=== PATIENT | male | born 1970 | race Caucasian/White ===

== ENCOUNTER 2016-08-07 13:06 | Inpatient (IN) | payer MEDICARE, OTHER ==
[2016-08-07] VITALS (7 sets, daily range): BP systolic 148–174; BP diastolic 95–112; PULSE 93–107; RESP 20–26; TEMP 97.4–98.2; O2SAT 93–100
[~2016-08-07] VITALS: Ht 177.8 cm; Wt 93.8 kg
[~2016-08-07 13:06] MED LIST: CYCL-36 PO; IBUP-232 PO
--- NOTE | 2016-08-07 14:23 | PD ---
HPI Chief Complaint: Edema Time Seen by Provider: 14:14 Travel History International Travel<30 days: No Contact w/Intl Traveler<30days: No Traveled to known affect area: No History of Present Illness HPI The patient is a 46-year-old male who presents to the emergency department for shortness of breath. Patient is a 2 to three-week history of progressing symptoms including lower extremity edema, scrotal swelling, abdominal bloating, and shortness of breath. The patient states his shortness of breath is worse with lying supine as well as exertion. The patient does note orthopnea with difficulty sleeping at night. He also complains of edema to the scrotum which has slightly improved. The patient denies any known history of congestive heart failure, pulmonary embolism, coronary artery disease , DVT, or liver disease. The patient denies any previous history of ascites. The patient does not currently have a primary physician. Symptoms are moderate , exacerbated possibly by increased sodium intake over the last several weeks at [facility], and there are no current alleviating factors. PFSH Past Medical History Diminished Hearing: No Past Surgical History Other Surgery: Yes (SKIN GRAFTS) Social History Alcohol Use: Yes (OCC) Tobacco Use: No Substance Use: Yes (marijuana) Allergies-Medications (Allergen,Severity, Reaction): Coded Allergies: Darvocet-N 100 (Verified Allergy, Severe, HEADACHE, 08/07/16) Reported Meds & Prescriptions Reported Meds & Active Scripts Active Motrin (Ibuprofen) 600 Mg Tab 600 Mg PO QID GIVE WITH FOOD Flexeril (Cyclobenzaprine HCl) 10 Mg Tab 10 Mg PO HS PRN Review of Systems Except as stated in HPI: all other systems reviewed are Neg General / Constitutional: No: Fever Cardiovascular: Positive: Dyspnea on exertion, No: Chest Pain or Discomfort Respiratory: Positive: Shortness of Breath, Orthopnea Gastrointestinal: No: Nausea, Vomiting, Abdominal Pain Genitourinary: Positive: Decreased Urinary Output Musculoskeletal: Positive: Edema Physical Exam Narrative GENERAL: Awake, alert, pleasant 46-year-old male who appears his stated age and is in mild respiratory distress. SKIN: Focused skin assessment warm/dry. HEAD: Atraumatic. Normocephalic. EYES: Pupils equal and round. No scleral icterus. No injection or drainage. ENT: No nasal bleeding or discharge. Mucous membranes pink and moist. NECK: Trachea midline. No JVD. CARDIOVASCULAR: Regular, tachycardic with a heart rate 110. RESPIRATORY: Mild tachypnea with a respiratory rate of 24. Diminished breath sounds in the bases with expiratory wheezes and scattered rhonchi. GASTROINTESTINAL: Abdomen slightly distended. Genitourinary: Edematous scrotum. Circumcised phallus. MUSCULOSKELETAL: Bilateral lower extremity pitting edema from the ankles to the knees. NEUROLOGICAL: Awake and alert. No obvious cranial nerve deficits. Motor grossly within normal limits. Normal speech. PSYCHIATRIC: Appropriate mood and affect; insight and judgment normal. Data Data Last Documented VS Vital Signs Date Time Temp Pulse Resp B/P Pulse Ox O2 Delivery O2 Flow Rate FiO2 08/07/16 14:18 106 26 152/105 97 08/07/16 13:08 97.4 Room Air Orders Complete Blood Count With Diff (08/07/16 14:18) Comprehensive Metabolic Panel (08/07/16 14:18) B-Type Natriuretic Peptide (08/07/16 14:18) Act Partial Throm Time (Ptt) (08/07/16 14:18) Prothrombin Time / Inr (Pt) (08/07/16 14:18) Magnesium (Mg) (08/07/16 14:18) Ckmb (Isoenzyme) Profile (08/07/16 14:18) Troponin I (08/07/16 14:18) Urinalysis - C+S If Indicated (08/07/16 14:18) Iv Access Insert/Monitor (08/07/16 14:18) Electrocardiogram (08/07/16 14:18) Ecg Monitoring (08/07/16 14:18) Oximetry (08/07/16 14:18) Oxygen Administration (08/07/16 14:18) Chest, Single Ap (08/07/16 14:18) Sodium Chloride 0.9% Flush (Ns Flush) (08/07/16 14:30) Furosemide Inj (Lasix Inj) (08/07/16 14:30) Albuterol-Ipratropium Neb (Duoneb Neb) (08/07/16 14:30) CKMB (08/07/16 14:20) CKMB% (08/07/16 14:20) Aspirin Chew (Aspirin Chew) (08/08/16 09:00) Aspirin Chew (Aspirin Chew) (08/07/16 15:21) Heparin Infusion SUJATHA.Q1H (08/07/16 15:21) Heparin Inj (Heparin Inj) (08/07/16 15:30) Heparin Inj (Heparin Inj) (08/07/16 21:30) Heparin Inj (Heparin Inj) (08/07/16 21:30) Heparin-D5w Inj (Heparin-D5w Inj) (08/07/16 15:30) Cbc No Diff, Includes Plts (08/10/16 06:00) Act Partial Throm Time (Ptt) (08/07/16 22:21) Occult Blood (Hemoccult) Stool (08/07/16 15:21) Aspirin Chew (Aspirin Chew) (08/07/16 15:30) Admit Order (Ed Use Only) (08/07/16 15:24) Labs Laboratory Tests Test 08/07/16 14:20 White Blood Count 9.9 TH/MM3 Red Blood Count 4.51 MIL/MM3 Hemoglobin 12.8 GM/DL Hematocrit 38.9 % Mean Corpuscular Volume 86.2 FL Mean Corpuscular Hemoglobin 28.4 PG Mean Corpuscular Hemoglobin 32.9 % Concent Red Cell Distribution Width 16.2 % Platelet Count 264 TH/MM3 Mean Platelet Volume 8.4 FL Neutrophils (%) (Auto) 73.3 % Lymphocytes (%) (Auto) 12.1 % Monocytes (%) (Auto) 11.8 % Eosinophils (%) (Auto) 1.0 % Basophils (%) (Auto) 1.8 % Neutrophils # (Auto) 7.2 TH/MM3 Lymphocytes # (Auto) 1.2 TH/MM3 Monocytes # (Auto) 1.2 TH/MM3 Eosinophils # (Auto) 0.1 TH/MM3 Basophils # (Auto) 0.2 TH/MM3 CBC Comment AUTO DIFF Differential Total Cells 100 Counted Neutrophils % (Manual) 65 % Band Neutrophils % 9 % Lymphocytes % 18 % Monocytes % 4 % Eosinophils % 3 % Basophils % 1 % Neutrophils # (Manual) 7.3 TH/MM3 Differential Comment FINAL DIFF MANUAL Toxic Vacuolation PRESENT Platelet Estimate NORMAL Platelet Morphology Comment NORMAL Ovalocytes 1+ Keratocytes OCC Prothrombin Time 13.4 SEC Prothromb Time International 1.2 RATIO Ratio Activated Partial 26.1 SEC Thromboplast Time Urine Color LIGHT-YELLOW Urine Turbidity CLEAR Urine pH 6.0 Urine Specific [place] 1.006 Urine Protein 100 mg/dL Urine Glucose (UA) NEG mg/dL Urine Ketones NEG mg/dL Urine Occult Blood NEG Urine Nitrite NEG Urine Bilirubin NEG Urine Urobilinogen LESS THAN 2.0 MG/DL Urine Leukocyte Esterase NEG Urine WBC LESS THAN 1 /hpf Microscopic Urinalysis Comment CULT NOT INDICATED Sodium Level 142 MEQ/L Potassium Level 3.8 MEQ/L Chloride Level 108 MEQ/L Carbon Dioxide Level 26.4 MEQ/L Anion Gap 8 MEQ/L Blood Urea Nitrogen 18 MG/DL Creatinine 1.47 MG/DL Estimat Glomerular Filtration 51 ML/MIN Rate Random Glucose 107 MG/DL Calcium Level 8.3 MG/DL Magnesium Level 1.7 MG/DL Total Bilirubin 1.3 MG/DL Aspartate Amino Transf 47 U/L (AST/SGOT) Alanine Aminotransferase 27 U/L (ALT/SGPT) Alkaline Phosphatase 106 U/L Total Creatine Kinase 225 U/L Creatine Kinase MB 5.6 NG/ML Troponin I 2.91 NG/ML B-Type Natriuretic Peptide 993 PG/ML Total Protein 6.3 GM/DL Albumin 2.8 GM/DL Triglycerides Level 73 MG/DL Cholesterol Level 131 MG/DL LDL Cholesterol 85 MG/DL HDL Cholesterol 31.8 MG/DL Cholesterol/HDL Ratio 4.11 RATIO Thyroid Stimulating Hormone 2.170 uIU/ML 3rd Gen [facility] Medical Decision Making Medical Screen Exam Complete: Yes Emergency Medical Condition: Yes Medical Record Reviewed: Yes Interpretation(s) EKG reveals normal sinus rhythm with a rate in 97. The patient has Q waves noted in lead V1, V2, V3, and V4. Late transition in V5. Inverted T waves noted in lead 1 and aVL. Laboratory Tests Test 08/07/16 14:20 White Blood Count 9.9 TH/MM3 Red Blood Count 4.51 MIL/MM3 Hemoglobin 12.8 GM/DL Hematocrit 38.9 % Mean Corpuscular Volume 86.2 FL Mean Corpuscular Hemoglobin 28.4 PG Mean Corpuscular Hemoglobin 32.9 % Concent Red Cell Distribution Width 16.2 % Platelet Count 264 TH/MM3 Mean Platelet Volume 8.4 FL Neutrophils (%) (Auto) 73.3 % Lymphocytes (%) (Auto) 12.1 % Monocytes (%) (Auto) 11.8 % Eosinophils (%) (Auto) 1.0 % Basophils (%) (Auto) 1.8 % Neutrophils # (Auto) 7.2 TH/MM3 Lymphocytes # (Auto) 1.2 TH/MM3 Monocytes # (Auto) 1.2 TH/MM3 Eosinophils # (Auto) 0.1 TH/MM3 Basophils # (Auto) 0.2 TH/MM3 CBC Comment AUTO DIFF Prothrombin Time 13.4 SEC Prothromb Time International 1.2 RATIO Ratio Activated Partial 26.1 SEC Thromboplast Time Sodium Level 142 MEQ/L Potassium Level 3.8 MEQ/L Chloride Level 108 MEQ/L Carbon Dioxide Level 26.4 MEQ/L Anion Gap 8 MEQ/L Blood Urea Nitrogen 18 MG/DL Creatinine 1.47 MG/DL Estimat Glomerular Filtration 51 ML/MIN Rate Random Glucose 107 MG/DL Calcium Level 8.3 MG/DL Magnesium Level 1.7 MG/DL Total Bilirubin 1.3 MG/DL Aspartate Amino Transf 47 U/L (AST/SGOT) Alanine Aminotransferase 27 U/L (ALT/SGPT) Alkaline Phosphatase 106 U/L Total Creatine Kinase 225 U/L Troponin I 2.91 NG/ML B-Type Natriuretic Peptide 993 PG/ML Total Protein 6.3 GM/DL Albumin 2.8 GM/DL Chest x-ray reveals cardiomegaly. No acute cardiopulmonary disease. Differential Diagnosis Differential diagnosis includes ascites, hypoalbuminemia, hyponatremia, fluid overload, congestive heart failure, cardiomyopathy, anasarca. Narrative Course IV was established, labs are drawn and sent, and the patient was placed on cardiac telemetry monitoring and continuous pulse oximetry monitoring. EKG was ordered and interpreted. Chest x-ray was obtained. The patient was administered DuoNeb's 2 and Lasix 40 mg intravenously. The patient received aspirin 162 mg orally. The patient's chest x-ray reveals cardiomegaly. The patient's troponin is positive, greater than 2, EKG reveals Q waves in V1 through V4, possible anterior septal myocardial infarction. The patient's elevated troponin may be secondary to recent myocardial infarction with cardiomyopathy versus acute congestive heart failure. Therefore, call was placed to the on-call control operator flow coat at 3:07 PM as well as the on-call medical team for admission. After discussion with the control operator flow coat, Dr. Franz, the patient was placed on a heparin drip. The patient will be admitted to the cardiac telemetry/CIC floor. Critical Care Narrative Aggregate critical care time was 35 minutes. Time to perform other separately billable procedures was not included in the critical care time. My time did not include minutes spent treating any other patients simultaneously or on activities that did not directly contribute to the patient's treatment. The services I provided to this patient were to treat and/or prevent clinically significant deterioration that could result in: Arrhythmia, hypoxia, congestive heart failure, cardiomyopathy. I provided critical care services requiring my management, as noted below: Chart data review, documentation time, medication orders and management, vital sign assessments/reviewing monitor data, ordering and reviewing lab tests, ordering and interpreting/reviewing x-rays and diagnostic studies, care of the patient and discussion of the patient with the admitting physicians. Physician Communication Physician Communication I discussed the patient with the on-call control operator flow coat, Dr. Franz and the on- call medical team who agreed with admission. Diagnosis Primary Impression: NSTEMI (non-ST elevated myocardial infarction) Additional Impression: Congestive heart failure Qualified Code: I50.9 - Acute congestive heart failure, unspecified congestive heart failure type Admitting Information Admitting Physician Requests: Admit Condition: Stable Ant Victoria MD Aug 07, 2016 14:22
[2016-08-07] MEDS ORDERED: SODIUM CHLORIDE 0.9% FLUSH 10 ML FLUSH IVF PRN (14:30)
[2016-08-07] MEDS ORDERED: FUROSEMIDE 40 MG/4 ML VIAL IVP ONE (14:30)
[2016-08-07 14:35] LABS: AUTOMATED NEUTROPHIL # 7.2 TH/MM3 (1.8-7.7); BASOPHIL # 0.2 TH/MM3 (0-0.2); BASOPHIL % 1.8 % (0.0-2.0); EOSINOPHIL # 0.1 TH/MM3 (0-0.4); HEMATOCRIT 38.9 % (39.0-51.0); LYMPH % 12.1 % (9.0-44.0); LYMPHOCYTE # 1.2 TH/MM3 (1.0-4.8); MEAN CELL VOLUME 86.2 FL (80.0-100.0); MEAN CORPUSCULAR HEMOGLOBIN 28.4 PG (27.0-34.0); MEAN CORPUSCULAR HGB CONC 32.9 % (32.0-36.0); MONO % 11.8 % (0.0-8.0); NEUT % 73.3 % (16.0-70.0); PLATELET COUNT 264 TH/MM3 (150-450); RED BLOOD COUNT 4.51 MIL/MM3 (4.50-5.90); RED CELL DISTRIBUTION WIDTH 16.2 % (11.6-17.2); WHITE BLOOD COUNT 9.9 TH/MM3 (4.0-11.0)
[2016-08-07 14:36] LABS: HEMO FLAGS AUTO DIFF
[2016-08-07 14:43] LABS: APTT (PATIENT) 26.1 SEC (24.3-30.1); INTERNATIONAL NORMALIZED RATIO 1.2 RATIO; PROTHROMBIN TIME - PATIENT 13.4 SEC (9.8-11.6)
[2016-08-07 14:52] LABS: ANION GAP 8 MEQ/L (5-15); AST (GOT) 47 U/L (15-37); BICARBONATE 26.4 MEQ/L (21.0-32.0); BLOOD UREA NITROGEN 18 MG/DL (7-18); CHLORIDE 108 MEQ/L (98-107); GLOMERULAR FILTRATION RATE 51 ML/MIN (>89); MAGNESIUM 1.7 MG/DL (1.5-2.5); POTASSIUM 3.8 MEQ/L (3.5-5.1); SODIUM (NA) 142 MEQ/L (136-145)
[2016-08-07 14:55] LABS: ALKALINE PHOSPHATASE 106 U/L (45-117); ALT (GPT) 27 U/L (12-78); CREATINE KINASE 225 U/L (39-308); TOTAL BILIRUBIN ADULT 1.3 MG/DL (0.2-1.0)
--- NOTE | 2016-08-07 14:59 | RADRPT ---
EXAM DATE/TIME: 08/07/2016 14:25 [place] COMPARISON: No previous studies available for comparison. INDICATIONS : Shortness of breath today. MEDICAL HISTORY : None. SURGICAL HISTORY : None. ENCOUNTER: Initial ACUITY: 1 day PAIN SCORE: 0/10 LOCATION: chest FINDINGS: The cardiac silhouette is enlarged in transverse diameter. The lungs are free of acute parenchymal op acity. No effusions are identified. Osseous structures are intact. CONCLUSION: Cardiomegaly. No acute cardiopulmonary disease. Adolfo Cueto MD on August 07, 2016 at 14:57 Board Certified Radiologist. This report was verified electronically.
[2016-08-07 15:10] LABS: CKMB 5.6 NG/ML (0.5-3.6)
[2016-08-07] MEDS ORDERED: ASPIRIN 81 MG CHEW TAB ONE (15:21)
[2016-08-07 15:22] LABS: BANDS 9 % (0-6); BASOPHILS 1 % (0-2); EOSINOPHILS 3 % (0-4); NEUTROPHIL # MANUAL DIFF 7.3 TH/MM3 (1.8-7.7); POLYS (SEG NEUTROPHILS) 65 % (16-70); TOXIC VACUOLATION PRESENT (NONE SEEN); WBC DIFF SAMPLE 100
[2016-08-07 15:23] LABS: BLOOD, URINE NEG (NEG); GLUCOSE,URINE NEG (NEG); KETONE, URINE NEG (NEG); NITRITE,URINE NEG (NEG); OVALOCYTES 1+ (NORMAL); URINE COLOR LIGHT-YELLOW (YELLW/STRAW)
[2016-08-07 15:24] LABS: COMMENT (UR) CULT NOT INDICATED; CULTURE IF INDICATED CULT NOT INDICATED; KERATOCYTES OCC (NORMAL)
[2016-08-07 15:25] LABS: PLATELET ESTIMATE SMEAR NORMAL (NORMAL); PLATELET MORPHOLOGY NORMAL (NORMAL)
[2016-08-07 15:27] LABS: SCAN/DIFF FINAL DIFF MANUAL
[2016-08-07] MEDS ORDERED: ASPIRIN 81 MG CHEW TAB CHEW ONE (15:30)
[2016-08-07] MEDS ORDERED: HEPARIN SODIUM - IV 10,000 UNITS/10 ML VIAL IV ONE (15:30)
[2016-08-07] MEDS: RESP: ALBUTEROL 2.5 MG/IPRATROPIUM 0.5 MG NEB (SCH) INH ×4 (15:36→23:30)
[2016-08-07] MEDS: HEPARIN-D5W INJ 250 ML IV SCH (15:40)
--- NOTE | 2016-08-07 15:41 | HHI.HP ---
[facility] Service Family Medicine Primary Care Physician No Primary Care Physician Admission Diagnosis NSTEMI, congestive heart failure, anasarca Diagnoses: Chief Complaint: shortness of breath International Travel<30 Days: No Contact w/Intl Traveler<30days: No Known Affected Area: No History of Present Illness 46 y/o male presents to the ED for shortness of breath. Started having shortness of breath for a couple months, worsened in the last few weeks. State he has been going a lot to [employer] recently and increasing his salt intake. He uses their wifi and eats their food and drinks a lot of soft drinks. Feels bloated. Gets short of breath after walking across street. Does notice worse at night when laying down. Endorses orthopnea. No chest pain or other pain. Noticed increased swelling in his legs, abdomen. Two weeks ago is when everything started getting worse. Has been drinking more water as well. He endorses liking "[place] salt" and uses on everything. Denies any past medical history. Hasn't been to the doctor in over 10 years. Doesn't take any medications. (Wagner Cason MD R1) Review of Systems Constitutional: COMPLAINS OF: Weight gain, DENIES: Fever, Chills Eyes: DENIES: Eye pain, Vision loss Ears, nose, mouth, throat: DENIES: Hearing loss, Throat pain Respiratory: COMPLAINS OF: Shortness of breath, DENIES: Cough, Sputum production Cardiovascular: COMPLAINS OF: Dyspnea on Exertion, Lower Extremity Edema, Orthopnea, DENIES: Chest pain, Palpitations, Syncope, Claudication Gastrointestinal: DENIES: Abdominal pain, Black stools, Bloody stools, Constipation, Diarrhea, Nausea, Vomiting Genitourinary: DENIES: Urinary frequency, Dysuria Musculoskeletal: DENIES: Joint pain, Muscle aches Integumentary: DENIES: Abnormal pigmentation, Rash Neurologic: DENIES: Abnormal gait, Headache Psychiatric: DENIES: Anxiety, Confusion, Hallucinations (Wagner Cason MD R1 ) Past Family Social History Past Medical History None Past Surgical History Skin grafts Reported Medications Reported Meds & Active Scripts Active -None (Wagner Cason MD R1) Allergies: Coded Allergies: Darvocet-N 100 (Verified Allergy, Severe, HEADACHE, 08/07/16) Active Ordered Medications Active Medications Albuterol/ Ipratropium (Duoneb Neb) 1 ampule Q15M INH Last administered on 15:37; Admin Dose 1 AMPULE; Start 08/07/16 at 14:30; Stop 08/07/16 at 14:46 ; Status DC Aspirin (Aspirin Chew) 81 mg STK-MED ONCE .ROUTE; Start 08/07/16 at 15:21; Stop 08/07/16 at 15:22; Status DC Aspirin (Aspirin Chew) 162 mg DAILY CHEW; Start 08/08/16 at 09:00 Aspirin (Aspirin Chew) 162 mg ONCE ONCE CHEW Last administered on 08/07/16 15: 28; Admin Dose 162 MG; Start 08/07/16 at 15:30; Stop 08/07/16 at 15:31; Status DC Furosemide (Lasix Inj) 40 mg ONCE ONCE IVP Last administered on 08/07/16 14:31 ; Admin Dose 40 MG; Start 08/07/16 at 14:30; Stop 08/07/16 at 14:31; Status DC Heparin Sodium (Porcine) (Heparin Inj) 4,000 units ONCE ONCE IV Last administered on 08/07/16 15:39; Admin Dose 4,000 UNITS; Start 08/07/16 at 15:30 ; Stop 08/07/16 at 15:31; Status DC Heparin Sodium (Porcine) (Heparin Inj) 5,000 units UNSCH PRN IV; Start at 21:30 Heparin Sodium (Porcine) 2500 units 2,500 units UNSCH PRN IV; Start 08/07/16 at 21:30 Heparin Sodium/ Dextrose (Heparin-D5W Inj) 250 ml @ 0 mls/hr TITRATE IV Last administered on 08/07/16 15:40; Admin Dose 0 MLS/HR; Start 08/07/16 at 15:30 Sodium Chloride (NS Flush) 2 ml UNSCH PRN IVF; Start 08/07/16 at 14:30 Family History Adopted-unsure Social History Tobacco-up to 8 PPD, quit 20 years ago Alcohol use-occasional Illicit drug use-marijuana (Wagner Cason MD R1) Physical Exam Vital Signs Vital Signs Date Time Temp Pulse Resp B/P Pulse Ox O2 Delivery O2 Flow Rate FiO2 08/07/16 14:18 106 26 152/105 97 08/07/16 13:08 97.4 102 24 174/112 93 Room Air Physical Exam GENERAL: well developed, obese male in no acute distress, on 4L O2 EYES: Pupils equal, round, reactive to light and accommodation. Lids and conjunctivae reveal no gross abnormality. No scleral icterus. ENT: Head normocephalic atraumatic. OP/OC clear. No cervical or supraclavicular lymphadenopathy. NECK: Mild JVD. No carotid bruits. Neck supple, no masses. Trachea midline. No thyromegaly. RESPIRATORY: Decreased breath sounds. His pituitary and expiratory wheezes throughout. Rales at bases. CARDIOVASCULAR: Regular rate and rhythm, no murmurs or rubs. Distant heart sounds. Radial and DP pulses 2+ and symmetric bilaterally. Brisk capillary refill in both hands and feet. ABDOMEN: Obese and slightly distended. Non tender. Bowel sounds x 4. No masses or pulsations present. EXTREMITIES: 2+ pitting edema bilaterally to the level of the knees. No varicosities. No clubbing, cyanosis, or erythema. MUSCULOSKELETAL: MAEW without significant joint pain or deformity. No calf tenderness. SKIN: Essentially clear with no significant rash or lesions. Adequate skin turgor. NEUROLOGICAL: NFND. Cranial nerves 2-12 grossly intact. PSYCHIATRIC: Mental status normal for age. Laboratory Laboratory Tests Test 08/07/16 14:20 White Blood Count 9.9 Red Blood Count 4.51 Hemoglobin 12.8 Hematocrit 38.9 Mean Corpuscular Volume 86.2 Mean Corpuscular Hemoglobin 28.4 Mean Corpuscular Hemoglobin 32.9 Concent Red Cell Distribution Width 16.2 Platelet Count 264 Mean Platelet Volume 8.4 Neutrophils (%) (Auto) 73.3 Lymphocytes (%) (Auto) 12.1 Monocytes (%) (Auto) 11.8 Eosinophils (%) (Auto) 1.0 Basophils (%) (Auto) 1.8 Neutrophils # (Auto) 7.2 Lymphocytes # (Auto) 1.2 Monocytes # (Auto) 1.2 Eosinophils # (Auto) 0.1 Basophils # (Auto) 0.2 CBC Comment AUTO DIFF Differential Total Cells 100 Counted Neutrophils % (Manual) 65 Band Neutrophils % 9 Lymphocytes % 18 Monocytes % 4 Eosinophils % 3 Basophils % 1 Neutrophils # (Manual) 7.3 Differential Comment FINAL DIFF MANUAL Toxic Vacuolation PRESENT Platelet Estimate NORMAL Platelet Morphology Comment NORMAL Ovalocytes 1+ Keratocytes OCC Prothrombin Time 13.4 Prothromb Time International 1.2 Ratio Activated Partial 26.1 Thromboplast Time Urine Color LIGHT-YELLOW Urine Turbidity CLEAR Urine pH 6.0 Urine Specific [place] 1.006 Urine Protein 100 Urine Glucose (UA) NEG Urine Ketones NEG Urine Occult Blood NEG Urine Nitrite NEG Urine Bilirubin NEG Urine Urobilinogen LESS THAN 2.0 Urine Leukocyte Esterase NEG Urine WBC LESS THAN 1 Microscopic Urinalysis Comment CULT NOT INDICATED Sodium Level 142 Potassium Level 3.8 Chloride Level 108 Carbon Dioxide Level 26.4 Anion Gap 8 Blood Urea Nitrogen 18 Creatinine 1.47 Estimat Glomerular Filtration 51 Rate Random Glucose 107 Calcium Level 8.3 Magnesium Level 1.7 Total Bilirubin 1.3 Aspartate Amino Transf 47 (AST/SGOT) Alanine Aminotransferase 27 (ALT/SGPT) Alkaline Phosphatase 106 Total Creatine Kinase 225 Creatine Kinase MB 5.6 Troponin I 2.91 B-Type Natriuretic Peptide 993 Total Protein 6.3 Albumin 2.8 (Wagner Cason MD R1) Result Diagram: 08/07/16 1420 08/07/16 1420 Imaging Last Impressions Chest X-Ray 08/07/16 1418 Signed Impressions: Service Date/Time: Sunday, August 07, 2016 14:25 - CONCLUSION: Cardiomegaly. No acute cardiopulmonary disease. Adolfo Cueto MD (Wagner Cason MD R1) Assessment and Plan Assessment and Plan 46 y/o male with no past medical history presents with shortness of breath. Found to be fluid overloaded and NSTEMI. Will admit for workup and management. Code Status Full Discussed Condition With Drs. Segura & Esdras (Wagner Cason MD R1) Attending Attestation Patient seen and examined. Case reviewed and discussed with the resident team. Agree with plan of care as discussed with me and documented in the resident note. pt seen in ED when admitted (Nikki Segura MD) Problem List: (1) Congestive heart failure Status: Acute Plan: Pt. has no significant cardiac history, but endorses heavy salt intake. EKG showed normal sinus rhythm. Q waves in V1, V2, V3, V4. Initial troponin elevated at 2.91. May be secondary to acute congestive heart failure or past SD CXR showed cardiomegaly and no acute disease. BNP elevated at 993. Suspect acute decompensated heart failure. -Lasix 40 mg IV BID (patient received 40 mg IV in the ED) (Consider adding spironolactone in future) -Trend C/E's and EKG's Q6 hrs x 2. -2-D echo in the morning. -Encourage patient to sit up in bed with legs below chest or in chair with legs hanging down. -Low-salt diet less than 2 g per day. Fluid restrict to 1.5 L per day. -Strict Is and Os. Daily weights. Supplemental oxygen and monitor on pulse ox. -Telemetry. (2) NSTEMI (non-ST elevated myocardial infarction) Status: Acute Plan: EKG showed normal sinus rhythm. Q waves in V1, V2, V3, V4. No chest pain on admission, pt denies angina in the past. Unsure if CHF leading to NSTEMI or heart damage in the past causing acute CHF -Cardiology consulted, appreciate recs -Dr. Franz aware of patient, possible PCI on Wednesday after diuresis -Heparin drip -ASA daily -Lipitor 80mg HS, lipid profile pending -Coreg 6.25mg PO BID -See more detailed plan above (3) FEN Status: Acute Plan: Fluids: none, fluid restrict Electrolytes: wnl, watch K w/ diuresis Nutrition: Heart healthy, Na restriction DVT ppx: Heparin drip (Wagner Cason MD R1) Physician Certification 2 Midnight Certification Type: Admission for Inpatient Services Order for Inpatient Services The services are ordered in accordance with Medicare regulations or non- Medicare payer requirements, as applicable. In the case of services not specified as inpatient-only, they are appropriately provided as inpatient services in accordance with the 2-midnight benchmark. Estimated LOS (days): 3 days is the estimated time the patient will need to remain in the hospital, assuming treatment plan goals are met and no additional complications. Post-Hospital Plan: Home (Wagner Cason MD R1) Problem Qualifiers (1) Congestive heart failure: Qualified Code: I50.9 - Acute congestive heart failure, unspecified congestive heart failure type Wagner Cason MD R1 Aug 07, 2016 15:41 Nikki Segura MD Aug 08, 2016 14:34
[2016-08-07] MEDS ORDERED: ENALAPRILAT 1.25 MG/ML VIAL IV PRN (16:15)
[2016-08-07] MEDS ORDERED: CALCIUM CARBONATE 500 MG CHEWABLE TAB CHEW PRN (16:15)
[2016-08-07] MEDS ORDERED: ACETAMINOPHEN 325 MG TAB PO PRN (16:15)
[2016-08-07] MEDS ORDERED: ONDANSETRON HCL 4 MG/2 ML VIAL IV PRN (16:15)
[2016-08-07] MEDS ORDERED: DOCUSATE SODIUM 50 MG/SENNA 8.6 MG TAB PO PRN (16:15)
[2016-08-07] MEDS ORDERED: RESP: ALBUTEROL 2.5 MG/3 ML NEB (PRN) INH (16:15)
[2016-08-07] MEDS ORDERED: PILL SPLITTER OTHER PRN (16:30)
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
[2016-08-07] MEDS: FUROSEMIDE 40 MG/4 ML VIAL IVP SCH (18:00)
[2016-08-07 18:23] LABS: HDL CHOLESTEROL 31.8 MG/DL (40.0-60.0)
[2016-08-07] MEDS: POTASSIUM CHLORIDE 20 MEQ CONTROLLED RELEASE TAB PO SCH (20:37)
[2016-08-07] MEDS: CARVEDILOL 6.25 MG TAB PO SCH (20:37)
[2016-08-07] MEDS: SODIUM CHLORIDE 0.9% FLUSH 10 ML FLUSH IV FLUSH SCH (20:37)
[2016-08-07] MEDS: ATORVASTATIN 80 MG TAB PO SCH (20:46)
[2016-08-07] MEDS ORDERED: METOPROLOL TARTRATE 25 MG TAB PO SCH (21:00)
[2016-08-07] MEDS ORDERED: ATORVASTATIN 40 MG TAB PO SCH (21:00)
[2016-08-07] MEDS ORDERED: HEPARIN SODIUM - IV 10,000 UNITS/10 ML VIAL IV PRN (21:30)
[2016-08-07 22:37] LABS: APTT (PATIENT) 30.3 SEC (24.3-30.1)
[2016-08-07] MEDS: HEPARIN SODIUM - IV 10,000 UNITS/10 ML VIAL IV PRN (22:58)
[2016-08-08] VITALS (25 sets, daily range): BP systolic 126–148; BP diastolic 79–98; PULSE 69–101; RESP 18–20; TEMP 97.7–98.8; O2SAT 93–97
[2016-08-08] MEDS: RESP: ALBUTEROL 2.5 MG/IPRATROPIUM 0.5 MG NEB (SCH) INH ×6 (03:20→22:05)
[2016-08-08 04:23] LABS: ANION GAP 9 MEQ/L (5-15); BICARBONATE 28.5 MEQ/L (21.0-32.0); BLOOD UREA NITROGEN 19 MG/DL (7-18); CHLORIDE 106 MEQ/L (98-107); GLOMERULAR FILTRATION RATE 58 ML/MIN (>89); POTASSIUM 3.3 MEQ/L (3.5-5.1); SODIUM (NA) 143 MEQ/L (136-145)
[2016-08-08 04:28] LABS: AUTOMATED NEUTROPHIL # 6.1 TH/MM3 (1.8-7.7); BASOPHIL # 0.1 TH/MM3 (0-0.2); BASOPHIL % 0.7 % (0.0-2.0); EOSINOPHIL # 0.1 TH/MM3 (0-0.4); EOSINOPHIL % 1.2 % (0.0-4.0); HEMATOCRIT 36.5 % (39.0-51.0); HEMO FLAGS DIFF FINAL; LYMPH % 15.4 % (9.0-44.0); LYMPHOCYTE # 1.3 TH/MM3 (1.0-4.8); MEAN CELL VOLUME 85.8 FL (80.0-100.0); MEAN CORPUSCULAR HEMOGLOBIN 29.1 PG (27.0-34.0); MONO % 10.6 % (0.0-8.0); NEUT % 72.1 % (16.0-70.0); PLATELET COUNT 214 TH/MM3 (150-450); RED BLOOD COUNT 4.25 MIL/MM3 (4.50-5.90); RED CELL DISTRIBUTION WIDTH 15.9 % (11.6-17.2); WHITE BLOOD COUNT 8.4 TH/MM3 (4.0-11.0)
[2016-08-08 04:30] LABS: APTT (PATIENT) 34.8 SEC (24.3-30.1)
[2016-08-08] MEDS: HEPARIN SODIUM - IV 10,000 UNITS/10 ML VIAL IV PRN ×3 (05:07→19:13)
[2016-08-08] MEDS ORDERED: ASPIRIN 81 MG CHEW TAB CHEW SCH (09:00)
[2016-08-08] MEDS: CARVEDILOL 6.25 MG TAB PO SCH ×2 (09:13→19:51)
[2016-08-08] MEDS: ASPIRIN 81 MG CHEW TAB CHEW SCH (09:13)
[2016-08-08] MEDS: SODIUM CHLORIDE 0.9% FLUSH 10 ML FLUSH IV FLUSH SCH ×2 (09:14→19:51)
[2016-08-08] MEDS: FUROSEMIDE 40 MG/4 ML VIAL IVP SCH ×2 (09:14→17:20)
[2016-08-08] MEDS: POTASSIUM CHLORIDE 20 MEQ CONTROLLED RELEASE TAB PO SCH ×2 (09:15→19:51)
[2016-08-08] MEDS ORDERED: POTASSIUM CHLORIDE 20 MEQ CONTROLLED RELEASE TAB PO ONE (09:15)
--- NOTE | 2016-08-08 09:32 | HHI.HP ---
[facility] Service Family Medicine Primary Care Physician No Primary Care Physician Admission Diagnosis NSTEMI, congestive heart failure, anasarca Diagnoses: (1) Congestive heart failure Diagnosis: Principal (2) NSTEMI (non-ST elevated myocardial infarction) Diagnosis: Principal (3) FEN Diagnosis: Principal International Travel<30 Days: No Contact w/Intl Traveler<30days: No Known Affected Area: No History of Present Illness Mr Mohr is a 46 y/o male who presented to the ED for shortness of breath. Started having shortness of breath for a couple months, worsened in the last few weeks. Stated he has been going a lot to [employer] recently and increasing his salt intake. He uses their wifi and eats their food and drinks a lot of soft drinks. Feels bloated. Gets short of breath after walking across street. Does notice worsening at night when laying down. Endorses orthopnea. No chest pain or other pain. Noticed increased swelling in his legs, abdomen. Two weeks ago is when everything started getting worse. Has been drinking more water as well. He endorses liking "Enriquez salt" and uses on everything. Denies any past medical history. Hasn't been to the doctor in 20 years. Doesn't take any medications. He feels better today after being diuresed and is breathing better but still complains of having big legs and "a bloated stomach" which is actually his anasarca. He was wanting to leave A but agrees now to stay and be diuresed and have a good evaluation of his heart on Wednesday. Review of Systems Other Constitutional: COMPLAINS OF: Weight gain, DENIES: Fever, Chills Eyes: DENIES: Eye pain, Vision loss Ears, nose, mouth, throat: DENIES: Hearing loss, Throat pain Respiratory: COMPLAINS OF: Shortness of breath, DENIES: Cough, Sputum production Cardiovascular: COMPLAINS OF: Dyspnea on Exertion, Lower Extremity Edema, Orthopnea, DENIES: Chest pain, Palpitations, Syncope, Claudication Gastrointestinal: DENIES: Abdominal pain, Black stools, Bloody stools, Constipation, Diarrhea, Nausea, Vomiting Genitourinary: DENIES: Urinary frequency, Dysuria Musculoskeletal: DENIES: Joint pain, Muscle aches Integumentary: DENIES: Abnormal pigmentation, Rash Neurologic: DENIES: Abnormal gait, Headache Psychiatric: DENIES: Anxiety, Confusion, Hallucinations Past Family Social History Past Medical History None Past Surgical History Skin grafts Allergies: Coded Allergies: Darvocet-N 100 (Verified Allergy, Severe, HEADACHE, 08/07/16) Family History Adopted-unsure Social History Tobacco-up to 8 PPD, quit 20 years ago Alcohol use-occasional Illicit drug use-marijuana Physical Exam Vital Signs Vital Signs Date Time Temp Pulse Resp B/P Pulse Ox O2 Delivery O2 Flow Rate FiO2 08/08/16 06:00 85 08/08/16 05:00 87 08/08/16 04:00 84 08/08/16 04:00 98.8 82 18 145/96 95 08/08/16 04:00 Room Air 08/08/16 03:00 83 08/08/16 02:00 80 08/08/16 01:00 88 08/08/16 00:00 84 08/08/16 00:00 98.5 84 20 148/98 97 08/08/16 00:00 Room Air 08/07/16 23:00 93 08/07/16 22:00 107 08/07/16 21:00 100 08/07/16 20:00 Room Air 08/07/16 20:00 103 08/07/16 20:00 98.2 103 20 148/95 96 08/07/16 16:19 100 22 171/108 100 Room Air 08/07/16 15:00 98 Room Air 08/07/16 14:18 106 26 152/105 97 08/07/16 13:08 97.4 102 24 174/112 93 Room Air Physical Exam GENERAL: well developed, obese male in no acute distress, on room air today EYES: Pupils equal, round, reactive to light and accommodation. Lids and conjunctivae reveal no gross abnormality. No scleral icterus. ENT: Head normocephalic atraumatic. OP/OC clear. No cervical or supraclavicular lymphadenopathy. NECK: Mild JVD. No carotid bruits. Neck supple, no masses. Trachea midline. No thyromegaly. RESPIRATORY: Decreased breath sounds. His pituitary and expiratory wheezes throughout. Rales at bases. CARDIOVASCULAR: Regular rate and rhythm, no murmurs or rubs. Distant heart sounds. Radial and DP pulses 2+ and symmetric bilaterally. Brisk capillary refill in both hands and feet. ABDOMEN: Obese and slightly distended. Non tender. Bowel sounds x 4. No masses or pulsations present. has some pitting edema up his abdomen EXTREMITIES: 2+ pitting edema bilaterally to the level of the knees and even to his thighs. No varicosities. No clubbing, cyanosis, or erythema. MUSCULOSKELETAL: MAEW without significant joint pain or deformity. No calf tenderness. SKIN: Essentially clear with no significant rash or lesions. Adequate skin turgor. NEUROLOGICAL: NFND. Cranial nerves 2-12 grossly intact. PSYCHIATRIC: Mental status normal Laboratory Laboratory Tests Test 08/07/16 08/07/16 08/08/16 14:20 22:05 03:58 White Blood Count 9.9 8.4 Red Blood Count 4.51 4.25 Hemoglobin 12.8 12.4 Hematocrit 38.9 36.5 Mean Corpuscular Volume 86.2 85.8 Mean Corpuscular Hemoglobin 28.4 29.1 Mean Corpuscular Hemoglobin 32.9 34.0 Concent Red Cell Distribution Width 16.2 15.9 Platelet Count 264 214 Mean Platelet Volume 8.4 8.2 Neutrophils (%) (Auto) 73.3 72.1 Lymphocytes (%) (Auto) 12.1 15.4 Monocytes (%) (Auto) 11.8 10.6 Eosinophils (%) (Auto) 1.0 1.2 Basophils (%) (Auto) 1.8 0.7 Neutrophils # (Auto) 7.2 6.1 Lymphocytes # (Auto) 1.2 1.3 Monocytes # (Auto) 1.2 0.9 Eosinophils # (Auto) 0.1 0.1 Basophils # (Auto) 0.2 0.1 CBC Comment AUTO DIFF DIFF FINAL Differential Total Cells 100 Counted Neutrophils % (Manual) 65 Band Neutrophils % 9 Lymphocytes % 18 Monocytes % 4 Eosinophils % 3 Basophils % 1 Neutrophils # (Manual) 7.3 Differential Comment FINAL DIFF MANUAL Toxic Vacuolation PRESENT Platelet Estimate NORMAL Platelet Morphology Comment NORMAL Ovalocytes 1+ Keratocytes OCC Prothrombin Time 13.4 Prothromb Time International 1.2 Ratio Activated Partial 26.1 30.3 34.8 Thromboplast Time Urine Color LIGHT-YELLOW Urine Turbidity CLEAR Urine pH 6.0 Urine Specific [place] 1.006 Urine Protein 100 Urine Glucose (UA) NEG Urine Ketones NEG Urine Occult Blood NEG Urine Nitrite NEG Urine Bilirubin NEG Urine Urobilinogen LESS THAN 2.0 Urine Leukocyte Esterase NEG Urine WBC LESS THAN 1 Microscopic Urinalysis Comment CULT NOT INDICATED Sodium Level 142 143 Potassium Level 3.8 3.3 Chloride Level 108 106 Carbon Dioxide Level 26.4 28.5 Anion Gap 8 9 Blood Urea Nitrogen 18 19 Creatinine 1.47 1.32 Estimat Glomerular Filtration 51 58 Rate Random Glucose 107 85 Calcium Level 8.3 8.2 Magnesium Level 1.7 Total Bilirubin 1.3 Aspartate Amino Transf 47 (AST/SGOT) Alanine Aminotransferase 27 (ALT/SGPT) Alkaline Phosphatase 106 Total Creatine Kinase 225 Creatine Kinase MB 5.6 Troponin I 2.91 2.58 2.55 B-Type Natriuretic Peptide 993 Total Protein 6.3 Albumin 2.8 Triglycerides Level 73 Cholesterol Level 131 LDL Cholesterol 85 HDL Cholesterol 31.8 Cholesterol/HDL Ratio 4.11 Thyroid Stimulating Hormone 2.170 3rd Gen Result Diagram: 08/08/1635708/08/16357 Imaging Last Impressions Chest X-Ray 08/07/16 1418 Signed Impressions: Service Date/Time: Sunday, August 07, 2016 14:25 - CONCLUSION: Cardiomegaly. No acute cardiopulmonary disease. Adolfo Cueto MD Assessment and Plan Assessment and Plan 46 y/o male with no past medical history presents with shortness of breath. Found to be fluid overloaded and NSTEMI. Will admit for workup and management. Problem List: (1) Congestive heart failure Status: Acute Plan: Pt. has no significant cardiac history, but endorses heavy salt intake. EKG showed normal sinus rhythm. Q waves in V1, V2, V3, V4. Initial troponin elevated at 2.91 showed further elevations. May be secondary to acute congestive heart failure or past AL CXR showed cardiomegaly and no acute disease. BNP elevated at 993. Suspect acute decompensated heart failure. -Lasix 40 mg IV BID (patient received 40 mg IV in the ED) (Consider adding spironolactone in future) -Trend C/E's and EKG's Q6 hrs x 2. -2-D echo in the morning. -Encourage patient to sit up in bed with legs below chest or in chair with legs hanging down. -Low-salt diet less than 2 g per day. Fluid restrict to 1.5 L per day. -Strict Is and Os. Daily weights. Supplemental oxygen and monitor on pulse ox. -Telemetry. (2) NSTEMI (non-ST elevated myocardial infarction) Status: Acute Plan: EKG showed normal sinus rhythm. Q waves in V1, V2, V3, V4. No chest pain on admission, pt denies angina in the past. Unsure if CHF leading to NSTEMI or heart damage in the past causing acute CHF -Cardiology consulted, appreciate recs -Dr. Franz aware of patient, possible PCI on Wednesday after diuresis -Heparin drip -ASA daily -Lipitor 80mg HS, lipid profile pending -Coreg 6.25mg PO BID -See more detailed plan above (3) FEN Status: Acute Plan: Fluids: none iv, fluid restrict Electrolytes: wnl, watch K w/ diuresis and magnesium Nutrition: Heart healthy, Na restriction DVT ppx: Heparin drip Physician Certification 2 Midnight Certification Type: Admission for Inpatient Services Order for Inpatient Services The services are ordered in accordance with Medicare regulations or non- Medicare payer requirements, as applicable. In the case of services not specified as inpatient-only, they are appropriately provided as inpatient services in accordance with the 2-midnight benchmark. Estimated LOS (days): 4 4 days is the estimated time the patient will need to remain in the hospital, assuming treatment plan goals are met and no additional complications. Post-Hospital Plan: Not yet determined Problem Qualifiers (1) Congestive heart failure: Qualified Code: I50.9 - Acute congestive heart failure, unspecified congestive heart failure type Nikki Segura MD Aug 08, 2016 09:32
--- NOTE | 2016-08-08 09:48 | PD.CARD.PN ---
Subjective Subjective Remarks No chest pain, no shortness of breath Diuresed 3L yesterday Objective Medications Current Medications Medications (Trade) Dose Ordered Sig/Ximena Route Start Time Stop Time Status Last Admin (Heparin Inj) 5,000 units UNSCH PRN IV 08/07/16 21:30 Heparin Sodium (Porcine) 2500 units 2,500 units UNSCH PRN IV 08/07/16 21:30 08/08/16 05:07 (Heparin-D5W Inj) 250 ml @ 0 mls/hr TITRATE IV 08/07/16 15:30 08/07/16 15:40 (NS Flush) 2 ml BID IV FLUSH 08/07/16 21:00 08/08/16 09:14 (NS Flush) 2 ml UNSCH PRN IV FLUSH 08/07/16 16:00 (Lasix Inj) 40 mg BID@09,18 IVP 08/07/16 18:00 08/08/16 09:14 (KCl) 20 meq BID PO 08/07/16 21:00 08/08/16 09:15 (Tylenol) 650 mg Q4H PRN PO 08/07/16 16:15 (Zofran Inj) 4 mg Q6H PRN IV 08/07/16 16:15 (Cristina-Colace) 1 tab BID PRN PO 08/07/16 16:15 (Tums Chew) 1,000 mg TID PRN CHEW 08/07/16 16:15 (Vasotec Inj) 1.25 mg Q6H PRN IV 08/07/16 16:15 (Pill Splitter) 1 ea UNSCH PRN OTHER 08/07/16 16:30 (Lipitor) 80 mg HS PO 08/07/16 21:00 08/07/16 20:46 (Coreg) 6.25 mg Q12HR PO 08/07/16 21:00 08/08/16 09:13 (Aspirin Chew) 81 mg DAILY CHEW 08/08/16 09:00 08/08/16 09:13 Vital Signs / I&O Vital Signs Date Time Temp Pulse Resp B/P Pulse Ox O2 Delivery O2 Flow Rate FiO2 08/08/16 06:00 85 08/08/16 05:00 87 08/08/16 04:00 84 08/08/16 04:00 98.8 82 18 145/96 95 08/08/16 04:00 Room Air 08/08/16 03:00 83 08/08/16 02:00 80 08/08/16 01:00 88 08/08/16 00:00 84 08/08/16 00:00 98.5 84 20 148/98 97 08/08/16 00:00 Room Air 08/07/16 23:00 93 08/07/16 22:00 107 08/07/16 21:00 100 08/07/16 20:00 Room Air 08/07/16 20:00 103 08/07/16 20:00 98.2 103 20 148/95 96 08/07/16 16:19 100 22 171/108 100 Room Air 08/07/16 15:00 98 Room Air 08/07/16 14:18 106 26 152/105 97 08/07/16 13:08 97.4 102 24 174/112 93 Room Air I/O 08/07/16 08/07/16 08/07/16 08/08/16 08/08/16 08/08/16 07:00 15:00 23:00 07:00 15:00 23:00 Intake Total 600 ml Output Total 2650 ml 800 ml Balance -2650 ml -200 ml Intake Oral 480 ml IV Total 120 ml Output Urine Total 2650 ml 800 ml # Voids 2 # Bowel Movements 0 Physical Exam GENERAL: NAD, AAOx3 SKIN: Warm and dry. HEAD: Atraumatic. Normocephalic. EYES: Pupils equal and round. No scleral icterus. No injection or drainage. ENT: No nasal bleeding or discharge. Mucous membranes pink and moist. NECK: Trachea midline. Minimal JVD CARDIOVASCULAR: Regular rate and rhythm. RESPIRATORY: No accessory muscle use. Decreased breath sounds bilaterally GASTROINTESTINAL: Abdomen soft, non-tender, nondistended. Hepatic and splenic margins not palpable. MUSCULOSKELETAL: 1+ pitting edema bilaterally NEUROLOGICAL: Awake and alert. No obvious cranial nerve deficits. Motor grossly within normal limits. Five out of 5 muscle strength in the arms and legs. Normal speech. PSYCHIATRIC: Appropriate mood and affect; insight and judgment normal. Laboratory Laboratory Tests Test 08/07/16 08/07/16 08/08/16 14:20 22:05 03:58 White Blood Count 9.9 TH/MM3 8.4 TH/MM3 Red Blood Count 4.51 MIL/MM3 4.25 MIL/MM3 Hemoglobin 12.8 GM/DL 12.4 GM/DL Hematocrit 38.9 % 36.5 % Mean Corpuscular Volume 86.2 FL 85.8 FL Mean Corpuscular Hemoglobin 28.4 PG 29.1 PG Mean Corpuscular Hemoglobin 32.9 % 34.0 % Concent Red Cell Distribution Width 16.2 % 15.9 % Platelet Count 264 TH/MM3 214 TH/MM3 Mean Platelet Volume 8.4 FL 8.2 FL Neutrophils (%) (Auto) 73.3 % 72.1 % Lymphocytes (%) (Auto) 12.1 % 15.4 % Monocytes (%) (Auto) 11.8 % 10.6 % Eosinophils (%) (Auto) 1.0 % 1.2 % Basophils (%) (Auto) 1.8 % 0.7 % Neutrophils # (Auto) 7.2 TH/MM3 6.1 TH/MM3 Lymphocytes # (Auto) 1.2 TH/MM3 1.3 TH/MM3 Monocytes # (Auto) 1.2 TH/MM3 0.9 TH/MM3 Eosinophils # (Auto) 0.1 TH/MM3 0.1 TH/MM3 Basophils # (Auto) 0.2 TH/MM3 0.1 TH/MM3 CBC Comment AUTO DIFF DIFF FINAL Differential Total Cells 100 Counted Neutrophils % (Manual) 65 % Band Neutrophils % 9 % Lymphocytes % 18 % Monocytes % 4 % Eosinophils % 3 % Basophils % 1 % Neutrophils # (Manual) 7.3 TH/MM3 Differential Comment FINAL DIFF MANUAL Toxic Vacuolation PRESENT Platelet Estimate NORMAL Platelet Morphology Comment NORMAL Ovalocytes 1+ Keratocytes OCC Prothrombin Time 13.4 SEC Prothromb Time International 1.2 RATIO Ratio Activated Partial 26.1 SEC 30.3 SEC 34.8 SEC Thromboplast Time Urine Color LIGHT-YELLOW Urine Turbidity CLEAR Urine pH 6.0 Urine Specific [place] 1.006 Urine Protein 100 mg/dL Urine Glucose (UA) NEG mg/dL Urine Ketones NEG mg/dL Urine Occult Blood NEG Urine Nitrite NEG Urine Bilirubin NEG Urine Urobilinogen LESS THAN 2.0 MG/DL Urine Leukocyte Esterase NEG Urine WBC LESS THAN 1 /hpf Microscopic Urinalysis Comment CULT NOT INDICATED Sodium Level 142 MEQ/L 143 MEQ/L Potassium Level 3.8 MEQ/L 3.3 MEQ/L Chloride Level 108 MEQ/L 106 MEQ/L Carbon Dioxide Level 26.4 MEQ/L 28.5 MEQ/L Anion Gap 8 MEQ/L 9 MEQ/L Blood Urea Nitrogen 18 MG/DL 19 MG/DL Creatinine 1.47 MG/DL 1.32 MG/DL Estimat Glomerular Filtration 51 ML/MIN 58 ML/MIN Rate Random Glucose 107 MG/DL 85 MG/DL Calcium Level 8.3 MG/DL 8.2 MG/DL Magnesium Level 1.7 MG/DL Total Bilirubin 1.3 MG/DL Aspartate Amino Transf 47 U/L (AST/SGOT) Alanine Aminotransferase 27 U/L (ALT/SGPT) Alkaline Phosphatase 106 U/L Total Creatine Kinase 225 U/L Creatine Kinase MB 5.6 NG/ML Troponin I 2.91 NG/ML 2.58 NG/ML 2.55 NG/ML B-Type Natriuretic Peptide 993 PG/ML Total Protein 6.3 GM/DL Albumin 2.8 GM/DL Triglycerides Level 73 MG/DL Cholesterol Level 131 MG/DL LDL Cholesterol 85 MG/DL HDL Cholesterol 31.8 MG/DL Cholesterol/HDL Ratio 4.11 RATIO Thyroid Stimulating Hormone 2.170 uIU/ML 3rd Gen Assessment and Plan Problem List: (1) NSTEMI (non-ST elevated myocardial infarction) (2) Congestive heart failure (3) Fluid overload (4) CKD (chronic kidney disease) Assessment and Plan 1) Continue with diuresis as possible 2) Continue heparin drip until catheterization 3) Lopressor changed to Coreg as patient has a cardiomyopathy, echo pending but EF in the 20% range preliminarily 4) ASA/Lipitor/Coreg 5) NSTEMI might be type 2 as troponins have fallen without a typical rise, but will plan on cardiac catheterization on Wednesday due to new cardiomyopathy, acute heart failure and NSTEMI Problem Qualifiers (1) Congestive heart failure: Qualified Code: I50.9 - Acute congestive heart failure, unspecified congestive heart failure type Byron Franz DO Aug 08, 2016 09:48
[2016-08-08 11:01] LABS: APTT (PATIENT) 32.5 SEC (24.3-30.1)
[2016-08-08] MEDS: HEPARIN-D5W INJ 250 ML IV SCH (11:34)
--- NOTE | 2016-08-08 14:03 | EC ---
Study Study Date:08/08/2016 STUDY CONCLUSIONS SUMMARY - Left ventricle: The cavity size was normal. Wall thickness was normal. Systolic function was severely reduced. The estimated ejection fraction was in the range of 15% to 20%. Wall motion was normal; there were no regional wall motion abnormalities. The study is not technically sufficient to allow evaluation of LV diastolic function. - Mitral valve: Mild regurgitation. - Left atrium: The atrium was moderately dilated. - Pulmonary arteries: PA peak pressure: 40mm Hg (S). If LV function is below 40, please consider prescribing an ACEI or ARB or document rationale for non-use. PROCEDURE DATA STUDY STATUS: Elective. Procedure: Transthoracic echocardiography. Image quality was good. Scanning was performed from the parasternal, apical, and subcostal acoustic windows. Study completion: The patient tolerated the procedure well. Transthoracic echocardiography. M-mode, complete 2D, complete spectral Doppler, and color Doppler. Patient status: Inpatient. CARDIAC ANATOMY LEFT VENTRICLE: The cavity size was normal. Wall thickness was normal. Systolic function was severely reduced. The estimated ejection fraction was in the range of 15% to 20%. Wall motion was normal; there were no regional wall motion abnormalities. The study is not technically sufficient to allow evaluation of LV diastolic function. AORTIC VALVE: Trileaflet; normal thickness leaflets. Doppler: Transvalvular velocity was within the normal range. There was no stenosis. No regurgitation. AORTA: Aortic root: The aortic root was normal in size. MITRAL VALVE: Structurally normal valve. Doppler: Transvalvular velocity was within the normal range. There was no evidence for stenosis. Mild regurgitation. LEFT ATRIUM: The atrium was moderately dilated. RIGHT VENTRICLE: The cavity size was normal. Wall thickness was normal. Systolic pressure was within the normal range. PULMONIC VALVE: Doppler: Transvalvular velocity was within the normal range. There was no evidence for stenosis. No regurgitation. TRICUSPID VALVE: Structurally normal valve. Doppler: Transvalvular velocity was within the normal range. Trace to mild regurgitation. PULMONARY ARTERY: The main pulmonary artery was normal-sized. Systolic pressure was within the normal range. RIGHT ATRIUM: The atrium was normal in size. PERICARDIUM: There was no pericardial effusion. SYSTEMIC VEINS: Inferior vena cava: The vessel was normal in size. BASIC MEASUREMENTS ADULT Normal Left ventricle LV internal dimension, ED, chordal level, *65 mm 43-52 PLAX LV internal dimension, ES, chordal level, *60.1 mm 23-38 PLAX Fractional shortening, chordal level, PLAX *8 % >29 LV posterior wall thickness, ED 12.1 mm IVS/LVPW ratio, ED 1.19 <1.3 Ventricular septum Septal thickness, ED 14.4 mm Aortic valve Leaflet separation 20 mm 15-26 Right ventricle RV internal dimension, ED, PLAX 38 mm 19-38 BASIC MEASUREMENTS ADULT Normal Aortic valve Leaflet separation 20 mm 15-26 Aorta Root diameter, ED 35 mm 20-37 Left atrium Anterior-posterior dimension, ES *58 mm 19-40 LA/aortic root ratio 1.66 DOPPLER MEASUREMENTS ADULT Normal Main pulmonary artery Pressure, S *40 mm Hg =30 Tricuspid valve Regurgitant peak velocity 273 cm/s Peak RV-RA gradient, S 30 mm Hg Maximal regurgitant velocity 273 cm/s Systemic veins Estimated CVP 10 mm Hg Right ventricle RV pressure, S *40 mm Hg <30 LEGEND: Mean values are shown as u=mean value. Asterisk (*) coates values outside specified normal range. Prepared and signed by Mustapha Harman [id number]
[2016-08-08] MEDS: SODIUM CHLORIDE 0.9% FLUSH 10 ML FLUSH IV FLUSH PRN (17:20)
[2016-08-08 18:45] LABS: APTT (PATIENT) 34.7 SEC (24.3-30.1)
[2016-08-08] MEDS: ATORVASTATIN 80 MG TAB PO SCH (19:51)
[2016-08-09] VITALS (25 sets, daily range): BP systolic 118–152; BP diastolic 76–108; PULSE 76–95; RESP 16–18; TEMP 97.8–98.4; O2SAT 95–98
[2016-08-09 01:56] LABS: APTT (PATIENT) 38.8 SEC (24.3-30.1)
[2016-08-09] MEDS: HEPARIN SODIUM - IV 10,000 UNITS/10 ML VIAL IV PRN ×2 (02:17→17:00)
[2016-08-09] MEDS: HEPARIN-D5W INJ 250 ML IV SCH (02:19)
[2016-08-09] MEDS: RESP: ALBUTEROL 2.5 MG/IPRATROPIUM 0.5 MG NEB (SCH) INH ×5 (02:56→20:48)
[2016-08-09] MEDS: ASPIRIN 81 MG CHEW TAB CHEW SCH (07:50)
[2016-08-09] MEDS: POTASSIUM CHLORIDE 20 MEQ CONTROLLED RELEASE TAB PO SCH ×2 (07:50→20:20)
[2016-08-09] MEDS: FUROSEMIDE 40 MG/4 ML VIAL IVP SCH ×2 (07:50→16:31)
[2016-08-09] MEDS: SODIUM CHLORIDE 0.9% FLUSH 10 ML FLUSH IV FLUSH SCH ×2 (07:50→20:20)
[2016-08-09] MEDS: CARVEDILOL 6.25 MG TAB PO SCH ×2 (07:50→20:20)
[2016-08-09 09:23] LABS: AUTOMATED NEUTROPHIL # 5.7 TH/MM3 (1.8-7.7); BASOPHIL # 0.1 TH/MM3 (0-0.2); BASOPHIL % 0.7 % (0.0-2.0); EOSINOPHIL # 0.1 TH/MM3 (0-0.4); EOSINOPHIL % 1.6 % (0.0-4.0); HEMATOCRIT 39.8 % (39.0-51.0); HEMO FLAGS DIFF FINAL; LYMPH % 20.4 % (9.0-44.0); LYMPHOCYTE # 1.7 TH/MM3 (1.0-4.8); MEAN CELL VOLUME 86.1 FL (80.0-100.0); MEAN CORPUSCULAR HEMOGLOBIN 28.5 PG (27.0-34.0); MEAN CORPUSCULAR HGB CONC 33.2 % (32.0-36.0); MONO % 9.1 % (0.0-8.0); NEUT % 68.2 % (16.0-70.0); PLATELET COUNT 227 TH/MM3 (150-450); RED BLOOD COUNT 4.63 MIL/MM3 (4.50-5.90); RED CELL DISTRIBUTION WIDTH 15.8 % (11.6-17.2); WHITE BLOOD COUNT 8.3 TH/MM3 (4.0-11.0)
--- NOTE | 2016-08-09 09:42 | HHI.FPPN ---
Subjective Remarks Pt seen and examined this morning. No acute events overnight. Pt reports breathing is improving. No chest pain, leg pain. Is anxious about the cath tomorrow. (Wagner Cason MD R1) Objective Vitals Vital Signs Date Time Temp Pulse Resp B/P Pulse Ox O2 Delivery O2 Flow Rate FiO2 08/09/16 08:00 85 08/09/16 08:00 97.8 82 16 152/108 98 08/09/16 07:51 98 21 08/09/16 07:00 Room Air 08/09/16 06:00 84 08/09/16 05:00 83 08/09/16 04:00 Room Air 08/09/16 04:00 85 08/09/16 04:00 98.4 85 18 144/98 95 08/09/16 03:00 78 08/09/16 02:00 87 08/09/16 01:00 78 08/09/16 00:00 98.3 77 18 149/82 96 08/09/16 00:00 77 08/09/16 00:00 Room Air 08/08/16 23:00 80 08/08/16 22:05 93 21 08/08/16 22:00 82 08/08/16 21:00 95 08/08/16 20:00 87 08/08/16 20:00 Room Air 08/08/16 20:00 98.0 87 20 144/79 95 08/08/16 18:10 84 08/08/16 17:30 91 08/08/16 16:11 80 08/08/16 15:38 97.8 75 18 128/93 95 08/08/16 15:00 69 08/08/16 14:37 72 08/08/16 13:00 78 08/08/16 12:00 80 08/08/16 11:00 85 08/08/16 11:00 97.7 85 19 126/82 95 08/08/16 10:00 92 I/O 08/08/16 08/08/16 08/08/16 08/09/16 08/09/16 08/09/16 07:00 15:00 23:00 07:00 15:00 23:00 Intake Total 600 ml 1110 ml 630 ml Output Total 800 ml 675 ml 900 ml Balance -200 ml 435 ml -270 ml Intake Oral 480 ml 960 ml 480 ml IV Total 120 ml 150 ml 150 ml Output Urine Total 800 ml 675 ml 900 ml # Voids 3 # Bowel Movements 0 0 (Wagner Cason MD R1) Result Diagram: 08/09/16 0850 08/08/16 0358 Objective Remarks GEN: Well-developed, well-nourished patient. No acute distress. CV: Regular rate and rhythm without obvious murmurs LUNGS: Clear to auscultation bilaterally. Improved breath sounds. GI: Soft, nontender, nondistended. EXT: 1-2+ edema bilaterally from knee down. NEURO/PSYCH: Afocal. Awake, alert, and oriented x3. Appropriate insight and judgment. (Wagner Cason MD R1) A/P Assessment and Plan 46 y/o male with no past medical history presents with shortness of breath. Found to be fluid overloaded and NSTEMI. Will admit for workup and management. Discharge Planning Pending cath results tomorrow and cardiology recs (Wagner Cason MD R1) Attending Attestation Patient seen and examined. Case reviewed and discussed with the resident team. Agree with plan of care as discussed with me and documented in the resident note. discussed iwth him the importance of having full evaluation of his heart. he considers leaving AMA but it has been emphasized repeatedly that he could have a heart attack and also will get worse again if he does not stay and take this seriously (Nikki Segura MD) Problem List: (1) Congestive heart failure Status: Acute Plan: Pt. has no significant cardiac history, but endorses heavy salt intake. EKG showed normal sinus rhythm. Q waves in V1, V2, V3, V4. Initial troponin elevated at 2.91 showed further elevations. May be secondary to acute congestive heart failure or past PA CXR showed cardiomegaly and no acute disease. BNP elevated at 993. Suspect acute decompensated heart failure. Echo: EF 15-20% -Lasix 40 mg IV BID -Low-salt diet less than 2 g per day. -Fluid restrict to 1.5 L per day. -Strict Is and Os. Daily weights. -Supplemental oxygen and monitor on pulse ox. -Telemetry. (2) NSTEMI (non-ST elevated myocardial infarction) Status: Acute Plan: EKG showed normal sinus rhythm. Q waves in V1, V2, V3, V4. No chest pain on admission, pt denies angina in the past. Unsure if CHF leading to NSTEMI or heart damage in the past causing acute CHF -Cardiology consulted, appreciate recs -PCI on 08/10 -Heparin drip -ASA daily -Lipitor 80mg HS -Coreg 6.25mg PO BID -See more detailed plan above (3) FEN Status: Acute Plan: Fluids: none iv, fluid restrict Electrolytes: wnl, watch K w/ diuresis and magnesium Nutrition: Heart healthy, Na restriction DVT ppx: Heparin drip (Wagner Cason MD R1) Problem Qualifiers (1) Congestive heart failure: Qualified Code: I50.9 - Acute congestive heart failure, unspecified congestive heart failure type Wagner Cason MD R1 Aug 09, 2016 09:42 Nikki Segura MD Aug 09, 2016 14:48
[2016-08-09 09:58] LABS: BICARBONATE 31.4 MEQ/L (21.0-32.0); POTASSIUM 3.5 MEQ/L (3.5-5.1)
[2016-08-09 10:56] LABS: HEMOGLOBIN A1a 1.6 %; HEMOGLOBIN A1b 0.8 %; HEMOGLOBIN Ao 85.3 %; HEMOGLOBIN F 1.1 %; HEMOGLOBIN LA1C 1.7 %; HEMOGLOBIN P3 3.8 %
--- NOTE | 2016-08-09 13:02 | PD.CARD.PN ---
Subjective Subjective Remarks No chest pain, no shortness of breath Objective Medications Current Medications Medications (Trade) Dose Ordered Sig/Ximena Route Start Time Stop Time Status Last Admin (Heparin Inj) 5,000 units UNSCH PRN IV 08/07/16 21:30 Heparin Sodium (Porcine) 2500 units 2,500 units UNSCH PRN IV 08/07/16 21:30 08/09/16 02:17 (Heparin-D5W Inj) 250 ml @ 0 mls/hr TITRATE IV 08/07/16 15:30 08/09/16 02:19 (NS Flush) 2 ml BID IV FLUSH 08/07/16 21:00 08/09/16 07:50 (NS Flush) 2 ml UNSCH PRN IV FLUSH 08/07/16 16:00 08/08/16 17:20 (Lasix Inj) 40 mg BID@09,18 IVP 08/07/16 18:00 08/09/16 07:50 (KCl) 20 meq BID PO 08/07/16 21:00 08/09/16 07:50 (Tylenol) 650 mg Q4H PRN PO 08/07/16 16:15 (Zofran Inj) 4 mg Q6H PRN IV 08/07/16 16:15 (Cristina-Colace) 1 tab BID PRN PO 08/07/16 16:15 (Tums Chew) 1,000 mg TID PRN CHEW 08/07/16 16:15 (Vasotec Inj) 1.25 mg Q6H PRN IV 08/07/16 16:15 (Pill Splitter) 1 ea UNSCH PRN OTHER 08/07/16 16:30 (Lipitor) 80 mg HS PO 08/07/16 21:00 08/08/16 19:51 (Coreg) 6.25 mg Q12HR PO 08/07/16 21:00 08/09/16 07:50 (Aspirin Chew) 81 mg DAILY CHEW 08/08/16 09:00 08/09/16 07:50 Vital Signs / I&O Vital Signs Date Time Temp Pulse Resp B/P Pulse Ox O2 Delivery O2 Flow Rate FiO2 08/09/16 12:00 76 08/09/16 12:00 97.9 82 16 118/76 98 08/09/16 11:00 76 08/09/16 10:00 82 08/09/16 09:00 84 08/09/16 08:00 85 08/09/16 08:00 97.8 82 16 152/108 98 08/09/16 07:51 98 21 08/09/16 07:00 Room Air 08/09/16 07:00 82 08/09/16 06:00 84 08/09/16 05:00 83 08/09/16 04:00 Room Air 08/09/16 04:00 85 08/09/16 04:00 98.4 85 18 144/98 95 08/09/16 03:00 78 08/09/16 02:00 87 08/09/16 01:00 78 08/09/16 00:00 98.3 77 18 149/82 96 08/09/16 00:00 77 08/09/16 00:00 Room Air 08/08/16 23:00 80 08/08/16 22:05 93 21 08/08/16 22:00 82 08/08/16 21:00 95 08/08/16 20:00 87 08/08/16 20:00 Room Air 08/08/16 20:00 98.0 87 20 144/79 95 08/08/16 18:10 84 08/08/16 17:30 91 08/08/16 16:11 80 08/08/16 15:38 97.8 75 18 128/93 95 08/08/16 15:00 69 08/08/16 14:37 72 I/O 08/08/16 08/08/16 08/08/16 08/09/16 08/09/16 08/09/16 07:00 15:00 23:00 07:00 15:00 23:00 Intake Total 600 ml 1110 ml 630 ml Output Total 800 ml 675 ml 900 ml Balance -200 ml 435 ml -270 ml Intake Oral 480 ml 960 ml 480 ml IV Total 120 ml 150 ml 150 ml Output Urine Total 800 ml 675 ml 900 ml # Voids 3 # Bowel Movements 0 0 Physical Exam GENERAL: NAD, AAOx3 SKIN: Warm and dry. HEAD: Atraumatic. Normocephalic. EYES: Pupils equal and round. No scleral icterus. No injection or drainage. ENT: No nasal bleeding or discharge. Mucous membranes pink and moist. NECK: Trachea midline. Minimal JVD CARDIOVASCULAR: Regular rate and rhythm. RESPIRATORY: No accessory muscle use. Decreased breath sounds bilaterally GASTROINTESTINAL: Abdomen soft, non-tender, nondistended. Hepatic and splenic margins not palpable. MUSCULOSKELETAL: 1+ pitting edema bilaterally NEUROLOGICAL: Awake and alert. No obvious cranial nerve deficits. Motor grossly within normal limits. Five out of 5 muscle strength in the arms and legs. Normal speech. PSYCHIATRIC: Appropriate mood and affect; insight and judgment normal. Laboratory Laboratory Tests Test 08/08/16 08/09/16 08/09/16 18:16 01:32 08:50 Activated Partial 34.7 SEC 38.8 SEC 41.0 SEC Thromboplast Time White Blood Count 8.3 TH/MM3 Red Blood Count 4.63 MIL/MM3 Hemoglobin 13.2 GM/DL Hematocrit 39.8 % Mean Corpuscular Volume 86.1 FL Mean Corpuscular Hemoglobin 28.5 PG Mean Corpuscular Hemoglobin 33.2 % Concent Red Cell Distribution Width 15.8 % Platelet Count 227 TH/MM3 Mean Platelet Volume 8.3 FL Neutrophils (%) (Auto) 68.2 % Lymphocytes (%) (Auto) 20.4 % Monocytes (%) (Auto) 9.1 % Eosinophils (%) (Auto) 1.6 % Basophils (%) (Auto) 0.7 % Neutrophils # (Auto) 5.7 TH/MM3 Lymphocytes # (Auto) 1.7 TH/MM3 Monocytes # (Auto) 0.8 TH/MM3 Eosinophils # (Auto) 0.1 TH/MM3 Basophils # (Auto) 0.1 TH/MM3 CBC Comment DIFF FINAL Differential Comment Sodium Level 141 MEQ/L Potassium Level 3.5 MEQ/L Chloride Level 102 MEQ/L Carbon Dioxide Level 31.4 MEQ/L Anion Gap 8 MEQ/L Blood Urea Nitrogen 18 MG/DL Creatinine 1.38 MG/DL Estimat Glomerular Filtration 55 ML/MIN Rate Random Glucose 80 MG/DL Calcium Level 8.8 MG/DL Assessment and Plan Problem List: (1) NSTEMI (non-ST elevated myocardial infarction) (2) Congestive heart failure (3) Fluid overload (4) CKD (chronic kidney disease) Assessment and Plan 1) Continue with diuresis as possible, will hold morning dose 2) Continue heparin drip until catheterization 3) Lopressor changed to Coreg as patient has a cardiomyopathy, EF 15-20% 4) ASA/Lipitor/Coreg 5) NSTEMI might be type 2 as troponins have fallen without a typical rise, but will plan on cardiac catheterization tomorrow due to new cardiomyopathy, acute heart failure and NSTEMI 6) NPO after midnight Problem Qualifiers (1) Congestive heart failure: Qualified Code: I50.9 - Acute congestive heart failure, unspecified congestive heart failure type Byron Franz DO Aug 09, 2016 13:01
[2016-08-09 16:38] LABS: APTT (PATIENT) 33.6 SEC (24.3-30.1)
[2016-08-09] MEDS: ATORVASTATIN 80 MG TAB PO SCH (20:20)
--- NOTE | 2016-08-09 21:11 | EKG ---
Date Performed: 08/08/2016 Time Performed: 01:51:46 PTAGE: 46 years EKG: Sinus rhythm Anteroseptal infarct - age undetermined Inferior/lateral T wave changes are nonspecific Abnormal ECG NO PREVIOUS TRACING DOCTOR: Mustapha Harman Interpretating Date/Time 08/09/2016 21:09:58
--- NOTE | 2016-08-09 21:24 | EKG ---
Date Performed: 08/07/2016 Time Performed: 20:18:00 PTAGE: 46 years EKG: Sinus rhythm with PVC(s) Possible left atrial abnormality Anteroseptal infarct - age undetermined Lateral T wave changes are nonspecific Abnormal ECG PREVIOUS TRACING : 08/07/2016 15.02 DOCTOR: Mustapha Harman Interpretating Date/Time 08/09/2016 21:22:01
--- NOTE | 2016-08-09 21:34 | EKG ---
Date Performed: 08/07/2016 Time Performed: 15:02:27 PTAGE: 46 years EKG: Sinus rhythm LEFT ATRIAL ENLARGEMENT ANTEROSEPTAL MYOCARDIAL INFARCTION ABNORMAL ECG NO PREVIOUS TRACING DOCTOR: Mustapha Harman Interpretating Date/Time 08/09/2016 21:31:29
[2016-08-09 22:47] LABS: APTT (PATIENT) 44.6 SEC (24.3-30.1)
[2016-08-10] VITALS (26 sets, daily range): BP systolic 108–154; BP diastolic 58–109; PULSE 80–102; RESP 18–22; TEMP 97–98.4; O2SAT 91–98
[2016-08-10] MEDS: RESP: ALBUTEROL 2.5 MG/IPRATROPIUM 0.5 MG NEB (SCH) INH ×6 (00:08→19:38)
[2016-08-10 06:22] LABS: HEMATOCRIT 37.1 % (39.0-51.0); MEAN CELL VOLUME 85.2 FL (80.0-100.0); MEAN CORPUSCULAR HEMOGLOBIN 27.8 PG (27.0-34.0); MEAN CORPUSCULAR HGB CONC 32.7 % (32.0-36.0); PLATELET COUNT 198 TH/MM3 (150-450); RED BLOOD COUNT 4.36 MIL/MM3 (4.50-5.90); RED CELL DISTRIBUTION WIDTH 15.7 % (11.6-17.2); REVIEW FLAG FINAL; WHITE BLOOD COUNT 8.1 TH/MM3 (4.0-11.0)
[2016-08-10 06:35] LABS: APTT (PATIENT) 35.1 SEC (24.3-30.1)
[2016-08-10 06:57] LABS: BICARBONATE 31.2 MEQ/L (21.0-32.0); POTASSIUM 3.4 MEQ/L (3.5-5.1)
[2016-08-10] MEDS: CARVEDILOL 6.25 MG TAB PO SCH ×2 (08:18→20:46)
[2016-08-10] MEDS: POTASSIUM CHLORIDE 20 MEQ CONTROLLED RELEASE TAB PO SCH ×2 (08:19→20:46)
[2016-08-10] MEDS: ASPIRIN 81 MG CHEW TAB CHEW SCH (08:19)
[2016-08-10] MEDS: SODIUM CHLORIDE 0.9% FLUSH 10 ML FLUSH IV FLUSH SCH ×2 (08:20→21:00)
--- NOTE | 2016-08-10 11:31 | HHI.FPPN ---
Subjective Remarks Pt seen and examined this morning. AFVSS. No acute events overnight. Pt denies acute chest pain, abdominal pain. He occasionally feels short of breath. 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 Unclear if this is an attempt at a joke. He anticipates having cardiac catheterization later this afternoon. (Elena Barrera MD R2) Objective Vitals Vital Signs Date Time Temp Pulse Resp B/P Pulse Ox O2 Delivery O2 Flow Rate FiO2 08/10/16 10:20 134/92 08/10/16 08:43 98.4 83 20 154/109 96 08/10/16 08:43 83 08/10/16 08:43 98 Room Air 08/10/16 07:58 97 08/10/16 06:00 84 08/10/16 05:00 81 08/10/16 04:00 98.2 83 20 145/86 97 08/10/16 04:00 Room Air 08/10/16 04:00 83 08/10/16 03:00 86 08/10/16 02:00 90 08/10/16 01:00 95 08/10/16 00:00 87 08/10/16 00:00 98.0 87 22 148/92 96 08/09/16 23:00 95 08/09/16 22:00 89 08/09/16 21:00 93 08/09/16 20:48 98 21 08/09/16 20:00 Room Air 08/09/16 20:00 86 08/09/16 20:00 98.4 86 18 144/92 95 08/09/16 18:00 84 08/09/16 17:00 80 08/09/16 16:00 93 08/09/16 16:00 98.1 82 18 141/90 97 08/09/16 15:00 80 08/09/16 14:00 82 08/09/16 13:00 88 08/09/16 12:00 76 08/09/16 12:00 97.9 82 16 118/76 98 I/O 08/09/16 08/09/16 08/09/16 08/10/16 08/10/16 08/10/16 07:00 15:00 23:00 07:00 15:00 23:00 Intake Total 630 ml 2107 ml 960 ml Output Total 900 ml 1650 ml 1100 ml Balance -270 ml 457 ml -140 ml Intake Oral 480 ml 1800 ml 800 ml IV Total 150 ml 307 ml 160 ml Output Urine Total 900 ml 1650 ml 1100 ml # Bowel Movements 0 1 0 (Elena Barrera MD R2) Result Diagram: 08/10/1652908/10/16529 Objective Remarks GEN: Well-developed, well-nourished patient. No acute distress. CV: Regular rate and rhythm without obvious murmurs LUNGS: Normal work of breathing, no use of accessory muscles. Diffuse expiratory wheezing throughout lung gordon. Pt currently receiving breathing treatment. GI: Soft, nontender, nondistended. EXT: 1+ edema bilaterally from knee down, improving. NEURO/PSYCH: Afocal. Awake, alert, and oriented x3. (Elena Barrera MD R2) A/P Assessment and Plan 46 y/o male with no past medical history presents with shortness of breath. Found to be fluid overloaded with NSTEMI. Discharge Planning Pending cath results and cardiology recs (Elena Barrera MD R2) Attending Attestation Patient seen and examined. Case reviewed and discussed with the resident team. Agree with plan of care as discussed with me and documented in the resident note. see my addendum on more Psychiatric questioning (Nikki Segura MD) Problem List: (1) Congestive heart failure Status: Acute Plan: Pt. has no significant cardiac history, but endorses heavy salt intake. EKG showed normal sinus rhythm. Q waves in V1, V2, V3, V4. Initial troponin elevated at 2.91 showed further elevations. May be secondary to acute congestive heart failure vs past MS CXR showed cardiomegaly and no acute disease. BNP elevated at 993. Suspect acute decompensated heart failure. Echo: EF 15-20% -Lasix 40 mg IV BID -Low-salt diet less than 2 g per day. -Fluid restrict to 1.5 L per day. -Strict Is and Os. Daily weights. -Supplemental oxygen and monitor on pulse ox. -Telemetry. (2) NSTEMI (non-ST elevated myocardial infarction) Status: Acute Plan: EKG showed normal sinus rhythm. Q waves in V1, V2, V3, V4. No chest pain on admission, pt denies angina in the past. Unsure if CHF leading to NSTEMI or heart damage in the past causing acute CHF -Cardiology consulted, appreciate recs -Anticipate catheterization later today -Heparin drip -ASA daily -Lipitor 80mg HS -Coreg 6.25mg PO BID -See plan above (3) FEN Status: Acute Plan: Fluids: none iv, fluid restrict Electrolytes: Hypokalemic, given one time dose of KCL 40meq Nutrition: Heart healthy, NA restriction to resume after catheterization DVT ppx: Heparin drip Chronic issues History of tobacco dependence/possible COPD: -Albuterol nebulizer tx prn SOB (Elena Barrera MD R2) Problem Qualifiers (1) Congestive heart failure: Qualified Code: I50.9 - Acute congestive heart failure, unspecified congestive heart failure type Elena Barrera MD R2 Aug 10, 2016 11:31 Nikki Segura MD Aug 16, 2016 15:26
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
[2016-08-10] MEDS ORDERED: IOHEXOL 350 MG/ML 100 ML BTL (for Cath Lab) OTHER ONE (12:42)
[2016-08-10] MEDS ORDERED: HEPARIN-NS/PF INJ 500 ML ONE (13:40)
[2016-08-10] MEDS ORDERED: MIDAZOLAM HCL 2 MG/2 ML VIAL ONE (13:50)
[2016-08-10] MEDS ORDERED: HEPARIN SODIUM - IV 10,000 UNITS/10 ML VIAL ONE (13:50)
[2016-08-10] MEDS ORDERED: NITROGLYCERIN INJ 5 ML ONE (13:50)
[2016-08-10] MEDS ORDERED: VERAPAMIL HCL 5 MG/2 ML VIAL ONE (13:56)
[2016-08-10] MEDS ORDERED: hydrALAZINE HCL 20 MG/ML VIAL ONE (15:05)
--- NOTE | 2016-08-10 15:13 | PD.CONS ---
Provisional Diagnosis Admission Date Aug 07, 2016 at 15:26 History of Present Illness Service Psychiatry Consult Requested By Primary Care Physician No Primary Care Physician Past Family Social History Coded Allergies: Darvocet-N 100 (Verified Allergy, Severe, HEADACHE, 08/07/16) Active Scripts Ibuprofen (Motrin)600 Mg [id number] Mg PO QID #21 TAB GIVE WITH FOOD Prov:Stephen Montiel MD 08/23/15 Cyclobenzaprine Hcl (Flexeril)10 Mg Tab10 Mg PO HS PRN (SPASM) #10 TAB Prov:Stephen Montiel MD 08/23/15 Current Medications Medications (Trade) Dose Ordered Sig/Ximena Route Start Time Stop Time Status Last Admin (Heparin Inj) 5,000 units UNSCH PRN IV 08/07/16 21:30 Heparin Sodium (Porcine) 2500 units 2,500 units UNSCH PRN IV 08/07/16 21:30 08/09/16 17:00 (Heparin-D5W Inj) 250 ml @ 0 mls/hr TITRATE IV 08/07/16 15:30 08/09/16 02:19 (NS Flush) 2 ml BID IV FLUSH 08/07/16 21:00 08/10/16 08:20 (NS Flush) 2 ml UNSCH PRN IV FLUSH 08/07/16 16:00 08/08/16 17:20 (Lasix Inj) 40 mg BID@09,18 IVP 08/07/16 18:00 Hold 08/09/16 16:31 (KCl) 20 meq BID PO 08/07/16 21:00 08/10/16 08:19 (Tylenol) 650 mg Q4H PRN PO 08/07/16 16:15 (Zofran Inj) 4 mg Q6H PRN IV 08/07/16 16:15 (Cristina-Colace) 1 tab BID PRN PO 08/07/16 16:15 (Tums Chew) 1,000 mg TID PRN CHEW 08/07/16 16:15 (Vasotec Inj) 1.25 mg Q6H PRN IV 08/07/16 16:15 (Pill Splitter) 1 ea UNSCH PRN OTHER 08/07/16 16:30 (Lipitor) 80 mg HS PO 08/07/16 21:00 08/09/16 20:20 (Coreg) 6.25 mg Q12HR PO 08/07/16 21:00 08/10/16 08:18 (Aspirin Chew) 81 mg DAILY CHEW 08/08/16 09:00 08/10/16 08:19 Physical Exam Vital Signs Vital Signs Date Time Temp Pulse Resp B/P Pulse Ox O2 Delivery O2 Flow Rate FiO2 08/10/16 12:30 81 08/10/16 12:30 97.9 18 144/101 96 08/10/16 08:43 Room Air 08/09/16 20:48 21 I/O 08/09/16 08/09/16 08/10/16 08:00 16:00 00:00 Intake Total 630 ml 2107 ml Output Total 900 ml 1650 ml Balance -270 ml 457 ml Assessment & Plan Problem List: (1) NSTEMI (non-ST elevated myocardial infarction) Assessment & Plan: Patient was visited for psychiatric evaluation, but he was having a cardiac catheterization at this moment. He will be revisited in a letter time. Thanks! 1 ICD Code: I21.4 Assessment & Plan Estimated LOS: Samuel Alexandra MD Aug 10, 2016 15:13
[2016-08-10] MEDS ORDERED: MISC INFORMATION XX ONE (15:45)
--- NOTE | 2016-08-10 16:26 | PD.CARD.PN ---
Subjective Subjective Remarks Doing well post-catheterization, no chest pain, no shortness of breath Objective Medications Current Medications Medications (Trade) Dose Ordered Sig/Ximena Route Start Time Stop Time Status Last Admin (NS Flush) 2 ml BID IV FLUSH 08/07/16 21:00 08/10/16 08:20 (NS Flush) 2 ml UNSCH PRN IV FLUSH 08/07/16 16:00 08/08/16 17:20 (Lasix Inj) 40 mg BID@09,18 IVP 08/07/16 18:00 Hold 08/09/16 16:31 (KCl) 20 meq BID PO 08/07/16 21:00 08/10/16 08:19 (Tylenol) 650 mg Q4H PRN PO 08/07/16 16:15 (Zofran Inj) 4 mg Q6H PRN IV 08/07/16 16:15 (Cristina-Colace) 1 tab BID PRN PO 08/07/16 16:15 (Tums Chew) 1,000 mg TID PRN CHEW 08/07/16 16:15 (Vasotec Inj) 1.25 mg Q6H PRN IV 08/07/16 16:15 (Pill Splitter) 1 ea UNSCH PRN OTHER 08/07/16 16:30 (Lipitor) 80 mg HS PO 08/07/16 21:00 08/09/16 20:20 (Coreg) 6.25 mg Q12HR PO 08/07/16 21:00 08/10/16 08:18 (Aspirin Chew) 81 mg DAILY CHEW 08/08/16 09:00 08/10/16 08:19 Vital Signs / I&O Vital Signs Date Time Temp Pulse Resp B/P Pulse Ox O2 Delivery O2 Flow Rate FiO2 08/10/16 12:30 81 08/10/16 12:30 97.9 81 18 144/101 96 08/10/16 10:20 134/92 08/10/16 08:43 98.4 83 20 154/109 96 08/10/16 08:43 83 08/10/16 08:43 98 Room Air 08/10/16 07:58 97 08/10/16 06:00 84 08/10/16 05:00 81 08/10/16 04:00 98.2 83 20 145/86 97 08/10/16 04:00 Room Air 08/10/16 04:00 83 08/10/16 03:00 86 08/10/16 02:00 90 08/10/16 01:00 95 08/10/16 00:00 87 08/10/16 00:00 98.0 87 22 148/92 96 08/09/16 23:00 95 08/09/16 22:00 89 08/09/16 21:00 93 08/09/16 20:48 98 21 08/09/16 20:00 Room Air 08/09/16 20:00 86 08/09/16 20:00 98.4 86 18 144/92 95 08/09/16 18:00 84 08/09/16 17:00 80 I/O 08/09/16 08/09/16 08/09/16 08/10/16 08/10/16 08/10/16 07:00 15:00 23:00 07:00 15:00 23:00 Intake Total 630 ml 2107 ml 960 ml Output Total 900 ml 1650 ml 1100 ml Balance -270 ml 457 ml -140 ml Intake Oral 480 ml 1800 ml 800 ml IV Total 150 ml 307 ml 160 ml Output Urine Total 900 ml 1650 ml 1100 ml # Bowel Movements 0 1 0 Physical Exam GENERAL: NAD, AAOx3 SKIN: Warm and dry. HEAD: Atraumatic. Normocephalic. EYES: Pupils equal and round. No scleral icterus. No injection or drainage. ENT: No nasal bleeding or discharge. Mucous membranes pink and moist. NECK: Trachea midline. Minimal JVD CARDIOVASCULAR: Regular rate and rhythm. RESPIRATORY: No accessory muscle use. Decreased breath sounds bilaterally GASTROINTESTINAL: Abdomen soft, non-tender, nondistended. Hepatic and splenic margins not palpable. MUSCULOSKELETAL: 1+ pitting edema bilaterally NEUROLOGICAL: Awake and alert. No obvious cranial nerve deficits. Motor grossly within normal limits. Five out of 5 muscle strength in the arms and legs. Normal speech. PSYCHIATRIC: Appropriate mood and affect; insight and judgment normal. Laboratory Laboratory Tests Test 08/09/16 08/10/16 22:15 05:30 Activated Partial 44.6 SEC 35.1 SEC Thromboplast Time White Blood Count 8.1 TH/MM3 Red Blood Count 4.36 MIL/MM3 Hemoglobin 12.1 GM/DL Hematocrit 37.1 % Mean Corpuscular Volume 85.2 FL Mean Corpuscular Hemoglobin 27.8 PG Mean Corpuscular Hemoglobin 32.7 % Concent Red Cell Distribution Width 15.7 % Platelet Count 198 TH/MM3 Mean Platelet Volume 8.3 FL Sodium Level 143 MEQ/L Potassium Level 3.4 MEQ/L Chloride Level 105 MEQ/L Carbon Dioxide Level 31.2 MEQ/L Anion Gap 7 MEQ/L Blood Urea Nitrogen 18 MG/DL Creatinine 1.23 MG/DL Estimat Glomerular Filtration 63 ML/MIN Rate Random Glucose 76 MG/DL Calcium Level 8.5 MG/DL Assessment and Plan Problem List: (1) NSTEMI (non-ST elevated myocardial infarction) (2) Congestive heart failure (3) Fluid overload (4) CKD (chronic kidney disease) Assessment and Plan 1) MVCAD, 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 continue diuresis Problem Qualifiers (1) Congestive heart failure: Qualified Code: I50.9 - Acute congestive heart failure, unspecified congestive heart failure type Byron Franz DO Aug 10, 2016 16:26
[2016-08-10] MEDS ORDERED: POTASSIUM CHLORIDE 10 MEQ CAP PO ONE (16:45)
[2016-08-10] MEDS: FUROSEMIDE 40 MG/4 ML VIAL IVP SCH (18:04)
[2016-08-10] MEDS: ATORVASTATIN 80 MG TAB PO SCH (20:46)
[2016-08-11] VITALS (26 sets, daily range): BP systolic 116–143; BP diastolic 76–95; PULSE 71–87; RESP 16–18; TEMP 97.9–98.4; O2SAT 94–98
[2016-08-11] MEDS: RESP: ALBUTEROL 2.5 MG/IPRATROPIUM 0.5 MG NEB (SCH) INH ×5 (00:31→16:00)
[2016-08-11 06:19] LABS: AUTOMATED NEUTROPHIL # 5.7 TH/MM3 (1.8-7.7); BASOPHIL % 0.4 % (0.0-2.0); EOSINOPHIL # 0.1 TH/MM3 (0-0.4); EOSINOPHIL % 1.6 % (0.0-4.0); HEMATOCRIT 40.1 % (39.0-51.0); HEMO FLAGS DIFF FINAL; LYMPH % 20.4 % (9.0-44.0); LYMPHOCYTE # 1.8 TH/MM3 (1.0-4.8); MEAN CELL VOLUME 85.9 FL (80.0-100.0); MEAN CORPUSCULAR HEMOGLOBIN 28.1 PG (27.0-34.0); MEAN CORPUSCULAR HGB CONC 32.8 % (32.0-36.0); MONO % 11.5 % (0.0-8.0); NEUT % 66.1 % (16.0-70.0); PLATELET COUNT 227 TH/MM3 (150-450); RED BLOOD COUNT 4.67 MIL/MM3 (4.50-5.90); RED CELL DISTRIBUTION WIDTH 15.6 % (11.6-17.2); WHITE BLOOD COUNT 8.6 TH/MM3 (4.0-11.0)
[2016-08-11 06:54] LABS: BICARBONATE 29.8 MEQ/L (21.0-32.0); POTASSIUM 3.8 MEQ/L (3.5-5.1)
[2016-08-11] MEDS: FUROSEMIDE 40 MG/4 ML VIAL IVP SCH ×2 (08:01→18:32)
[2016-08-11] MEDS: ASPIRIN 81 MG CHEW TAB CHEW SCH (08:02)
[2016-08-11] MEDS: POTASSIUM CHLORIDE 20 MEQ CONTROLLED RELEASE TAB PO SCH ×2 (08:02→21:31)
[2016-08-11] MEDS: SODIUM CHLORIDE 0.9% FLUSH 10 ML FLUSH IV FLUSH SCH ×2 (08:02→21:32)
[2016-08-11] MEDS: CARVEDILOL 6.25 MG TAB PO SCH ×2 (08:02→21:31)
--- NOTE | 2016-08-11 08:14 | MA ---
cc: GIDEON HIDALGO DO DATE OF PROCEDURE August 10, 2016 PROCEDURE Left heart catheterization, right heart catheterization, coronary angiogram, moderate sedation 45 minutes, ultrasound guided access. PREPROCEDURE DIAGNOSES 1. NSTEMI. 2. Acute systolic heart failure with an ejection fraction of 15-20%. POSTPROCEDURE DIAGNOSES 1. NSTEMI. 2. Multivessel coronary artery disease. 3. Moderate pulmonary hypertension (type 2). 4. Acute systolic heart failure. MEDICATIONS 1. Fentanyl 50 mcg. 2. Verapamil 2.5 mg. 3. Heparin 4500 units. 4. Nitro 200 mcg. 5. Hydralazine 20 mg. CONTRAST USED 90 cc. FLUOROSCOPY 7.5 minutes. MODERATE SEDATION 45 minutes. ESTIMATED BLOOD LOSS 10 cc. PROCEDURAL SUMMARY Lorenzo Mohr is a pleasant 46-year-old male who presented to [facility] due to acute systolic heart failure. This was a new diagnosis for him and he was diuresed since. During his workup he was found to have an elevation of his troponins signifying an NSTEMI. Because of the NSTEMI and new cardiomyopathy, it was felt that he should undergo cardiac catheterization. The risks, benefits and alternatives were explained to him and he consented as such. He was brought to the lab and prepped in the usual sterile fashion. The right radial artery was accessed using a modified Seldinger technique with ultrasound guidance and placement of a 5/6-Emirati Slender Sheath. The right brachial artery was accessed using a modified Seldinger technique and ultrasound guidance and placement of a 5/6-Emirati Slender Sheath. Both sheaths were aspirated and flushed with ease. A [place] was attempted to advance in the brachial vein but was unable to due to a valve. A moderate support Whisper wire was then advanced with the [place] over top to the SVC. The [place] was then taken to a wedge position and pressures as well as oxygenation were measured in the usual fashion on pullback. The [place] was then removed. A JR-4 was then advanced into the ascending aorta over a J-wire and across the aortic valve. Left ventricular end-diastolic pressures were measured. This was pulled back across the aortic valve showing no significant gradient of aortic stenosis. JR-4 was used for selective angiography of the right coronary artery. JR-4 was then exchanged for a JL-3.5 which was used for selective angiography of the left coronary artery. Because of a question of possible [id number] collateralization, the JL-3.5 was then exchanged back for a JR-4 for an additional shot of the right coronary artery. The JR-4 was then removed over a J-wire and a TR band was placed across the arteriotomy site for hemostasis. ACT was measured at 185 and so the right brachial sheath was removed and pressure was held. FINDINGS The left main is a relatively short vessel and bifurcates in the LAD and circumflex. Overall the left main appears to have 20% disease. The LAD proximally has 50-60% stenosis and gives off two small diagonals before becoming 100% occluded in the midportion. A third small diagonal appears to be filled from [id number] collaterals. The distal LAD does appear to fill with minimal dye from [id number] collaterals. The left circumflex has diffuse 70% disease throughout the proximal and midportion with an area of 90% stenosis after the takeoff of the first marginal. It supplies two major obtuse marginal branches with the second being a large branch with no significant disease. The right coronary artery is a dominant vessel. It has an 80% stenosis in the proximal portion. It does appear to give some collateralization to the LAD through the septal corsage maker branches. HEMODYNAMICS Right atrium 24. Right ventricle 59/20, RVEDP 23. PA is 59/34, mean PA 44. Wedge 32. LV 150/24 with an LVEDP of 42. IMPRESSION 1. NSTEMI. 2. Acute systolic heart failure with an ejection fraction of 15-20%. 3. Moderate pulmonary hypertension (type 2) with an elevated LVEDP. 4. Multivessel coronary artery disease as above. RECOMMENDATIONS 1. Because of Mr. Mohr's multivessel coronary artery disease as well as heart failure he was recommended CT surgery evaluation. 2. I spoke to Dr. Arteaga about consideration and he will start the workup. 3. Because of his elevated LVEDP and pulmonary pressure, we will continue with his diuresis. 4. Further recommendations will be made after coronary artery bypass grafting workup. Thank you for allowing me to see Lorenzo Mohr. If there are any questions, please do not hesitate to call. Gideon Hidalgo DO VGP/SSB /7:39 PM /7:47 AM
--- NOTE | 2016-08-11 08:38 | HHI.FPPN ---
Subjective Remarks Pt seen and examined this morning. No acute events overnight. Pt reports feeling well this morning. He denies chest pain, abdominal pain. He occasionally feels short of breath, but this has improved. Cardiac catheterization yesterday revealed severe multivessel disease. He expresses understanding regarding the severity of his condition and anticipates being evaluated by cardiothoracic surgery. He denies suicidal or homicidal ideations. (Elena Barrera MD R2) Objective Vitals Vital Signs Date Time Temp Pulse Resp B/P Pulse Ox O2 Delivery O2 Flow Rate FiO2 08/11/16 08:10 97 21 08/11/16 08:08 98.4 72 18 122/81 96 08/11/16 08:08 72 08/11/16 08:08 96 Room Air 08/11/16 06:00 79 08/11/16 05:00 87 08/11/16 04:00 79 08/11/16 03:00 87 08/11/16 03:00 78 18 143/76 96 08/11/16 00:00 82 08/10/16 23:00 97.9 84 20 154/98 96 08/10/16 23:00 96 Room Air 08/10/16 23:00 85 08/10/16 22:00 82 08/10/16 21:00 88 08/10/16 20:00 92 08/10/16 19:38 96 21 08/10/16 19:00 94 08/10/16 19:00 91 Room Air 08/10/16 19:00 97.0 93 18 108/58 91 08/10/16 18:21 96 08/10/16 18:21 97.9 96 18 145/99 98 08/10/16 18:00 100 08/10/16 17:00 98 08/10/16 16:00 96 08/10/16 12:30 81 08/10/16 12:30 97.9 81 18 144/101 96 08/10/16 12:00 92 08/10/16 11:00 90 08/10/16 10:20 134/92 08/10/16 10:00 80 08/10/16 09:00 102 08/10/16 08:43 98.4 83 20 154/109 96 08/10/16 08:43 83 08/10/16 08:43 98 Room Air I/O 4/07/2408/10/16 08/10/16 08/11/16 08/11/16 08/11/16 07:00 15:00 23:00 07:00 15:00 23:00 Intake Total 960 ml 536 ml 480 ml Output Total 1100 ml 1600 ml 1300 ml Balance -140 ml -1064 ml -820 ml Intake Oral 800 ml 480 ml 480 ml IV Total 160 ml 56 ml Output Urine Total 1100 ml 1600 ml 1300 ml # Bowel Movements 0 2 0 (Elena Barrera MD R2) Result Diagram: 08/11/1630 08/11/16529 Objective Remarks GEN: Well-developed, well-nourished patient. No acute distress. CV: Regular rate and rhythm without obvious murmurs LUNGS: Normal work of breathing, no use of accessory muscles. Clear to auscultation. No significant wheezing rales or rhonchi. GI: Soft, nontender, nondistended. EXT: 1+ edema bilaterally from knee down, improving. NEURO/PSYCH: Afocal. Awake, alert, and oriented x3. (Elena Barrera MD R2) A/P Assessment and Plan 46 y/o male with no past medical history presents with shortness of breath. Found to be fluid overloaded with NSTEMI. Discharge Planning Pending cardiology recs and further evaluation by cardiothoracic surgery ( Elena Barrera MD R2) Attending Attestation Patient seen and examined. Case reviewed and discussed with the resident team. Agree with plan of care as discussed with me and documented in the resident note. (Nikki Segura MD) Problem List: (1) Congestive heart failure Status: Acute Plan: Pt. has no significant cardiac history, but endorses heavy salt intake, significant tobacco history. EKG showed normal sinus rhythm. Q waves in V1, V2, V3, V4. Initial troponin elevated at 2.91 showed further elevations. May be secondary to acute congestive heart failure vs past CO CXR showed cardiomegaly and no acute disease. BNP elevated at 993. Suspect acute decompensated heart failure. Echo: EF 15-20% -Cardiothoracic surgery has been consulted for consideration for bypass, appreciate recommendations -Continue diuresis: Lasix 40 mg IV BID -Low-salt diet less than 2 g per day. -Fluid restrict to 1.5 L per day. -Strict Is and Os. Daily weights. -Supplemental oxygen and monitor on pulse ox. -Telemetry. (2) NSTEMI (non-ST elevated myocardial infarction) Status: Acute Plan: EKG showed normal sinus rhythm. Q waves in V1, V2, V3, V4. No chest pain on admission, pt denies angina in the past. Unsure if CHF leading to NSTEMI or heart damage in the past causing acute CHF -Cardiology consulted, appreciate recommendations and intervention -Cardiac catheterization was significant for severe multivessel disease, significantly elevated wedge and pulmonary artery pressures, see plan for diuresis above. -ASA daily -Lipitor 80mg HS -Coreg 6.25mg PO BID -See plan above (3) FEN Status: Acute Plan: Fluids: none iv, fluid restrict Electrolytes: Hypokalemic, given one time dose of KCL 40meq Nutrition: Heart healthy, NA restriction to resume after catheterization DVT ppx: Heparin Chronic issues History of tobacco dependence/possible COPD: -Albuterol nebulizer tx prn SOB (Elena Barrera MD R2) Problem Qualifiers (1) Congestive heart failure: Qualified Code: I50.9 - Acute congestive heart failure, unspecified congestive heart failure type Elena Barrera MD R2 Aug 11, 2016 08:38 Nikki Segura MD Aug 16, 2016 15:27
--- NOTE | 2016-08-11 11:40 | PD.CARD.PN ---
Subjective Subjective Remarks No chest pain, no shortness of breath Objective Medications Current Medications Medications (Trade) Dose Ordered Sig/Ximena Route Start Time Stop Time Status Last Admin (NS Flush) 2 ml BID IV FLUSH 08/07/16 21:00 08/11/16 08:02 (NS Flush) 2 ml UNSCH PRN IV FLUSH 08/07/16 16:00 08/08/16 17:20 (Lasix Inj) 40 mg BID@09,18 IVP 08/07/16 18:00 08/11/16 08:01 (KCl) 20 meq BID PO 08/07/16 21:00 08/11/16 08:02 (Tylenol) 650 mg Q4H PRN PO 08/07/16 16:15 (Zofran Inj) 4 mg Q6H PRN IV 08/07/16 16:15 (Cristina-Colace) 1 tab BID PRN PO 08/07/16 16:15 (Tums Chew) 1,000 mg TID PRN CHEW 08/07/16 16:15 (Vasotec Inj) 1.25 mg Q6H PRN IV 08/07/16 16:15 (Pill Splitter) 1 ea UNSCH PRN OTHER 08/07/16 16:30 (Lipitor) 80 mg HS PO 08/07/16 21:00 08/10/16 20:46 (Coreg) 6.25 mg Q12HR PO 08/07/16 21:00 08/11/16 08:02 (Aspirin Chew) 81 mg DAILY CHEW 08/08/16 09:00 08/11/16 08:02 Vital Signs / I&O Vital Signs Date Time Temp Pulse Resp B/P Pulse Ox O2 Delivery O2 Flow Rate FiO2 08/11/16 08:10 97 21 08/11/16 08:08 98.4 72 18 122/81 96 08/11/16 08:08 72 08/11/16 08:08 96 Room Air 08/11/16 06:00 79 08/11/16 05:00 87 08/11/16 04:00 79 08/11/16 03:00 87 08/11/16 03:00 78 18 143/76 96 08/11/16 00:00 82 08/10/16 23:00 97.9 84 20 154/98 96 08/10/16 23:00 96 Room Air 08/10/16 23:00 85 08/10/16 22:00 82 08/10/16 21:00 88 08/10/16 20:00 92 08/10/16 19:38 96 21 08/10/16 19:00 94 08/10/16 19:00 91 Room Air 08/10/16 19:00 97.0 93 18 108/58 91 08/10/16 18:21 96 08/10/16 18:21 97.9 96 18 145/99 98 08/10/16 18:00 100 08/10/16 17:00 98 08/10/16 16:00 96 08/10/16 12:30 81 08/10/16 12:30 97.9 81 18 144/101 96 08/10/16 12:00 92 I/O 08/10/16 08/10/16 08/10/16 08/11/16 08/11/16 08/11/16 07:00 15:00 23:00 07:00 15:00 23:00 Intake Total 960 ml 536 ml 480 ml Output Total 1100 ml 1600 ml 1300 ml Balance -140 ml -1064 ml -820 ml Intake Oral 800 ml 480 ml 480 ml IV Total 160 ml 56 ml Output Urine Total 1100 ml 1600 ml 1300 ml # Bowel Movements 0 2 0 Physical Exam GENERAL: NAD, AAOx3 SKIN: Warm and dry. HEAD: Atraumatic. Normocephalic. EYES: Pupils equal and round. No scleral icterus. No injection or drainage. ENT: No nasal bleeding or discharge. Mucous membranes pink and moist. NECK: Trachea midline. Minimal JVD CARDIOVASCULAR: Regular rate and rhythm. RESPIRATORY: No accessory muscle use. Decreased breath sounds bilaterally GASTROINTESTINAL: Abdomen soft, non-tender, nondistended. Hepatic and splenic margins not palpable. MUSCULOSKELETAL: 1+ pitting edema bilaterally, right radial/brachial no hematoma NEUROLOGICAL: Awake and alert. No obvious cranial nerve deficits. Motor grossly within normal limits. Five out of 5 muscle strength in the arms and legs. Normal speech. PSYCHIATRIC: Appropriate mood and affect; insight and judgment normal. Laboratory Laboratory Tests Test 08/11/16 05:30 White Blood Count 8.6 TH/MM3 Red Blood Count 4.67 MIL/MM3 Hemoglobin 13.1 GM/DL Hematocrit 40.1 % Mean Corpuscular Volume 85.9 FL Mean Corpuscular Hemoglobin 28.1 PG Mean Corpuscular Hemoglobin 32.8 % Concent Red Cell Distribution Width 15.6 % Platelet Count 227 TH/MM3 Mean Platelet Volume 8.6 FL Neutrophils (%) (Auto) 66.1 % Lymphocytes (%) (Auto) 20.4 % Monocytes (%) (Auto) 11.5 % Eosinophils (%) (Auto) 1.6 % Basophils (%) (Auto) 0.4 % Neutrophils # (Auto) 5.7 TH/MM3 Lymphocytes # (Auto) 1.8 TH/MM3 Monocytes # (Auto) 1.0 TH/MM3 Eosinophils # (Auto) 0.1 TH/MM3 Basophils # (Auto) 0.0 TH/MM3 CBC Comment DIFF FINAL Differential Comment Sodium Level 143 MEQ/L Potassium Level 3.8 MEQ/L Chloride Level 105 MEQ/L Carbon Dioxide Level 29.8 MEQ/L Anion Gap 8 MEQ/L Blood Urea Nitrogen 15 MG/DL Creatinine 1.28 MG/DL Estimat Glomerular Filtration 60 ML/MIN Rate Random Glucose 81 MG/DL Calcium Level 8.7 MG/DL Assessment and Plan Problem List: (1) NSTEMI (non-ST elevated myocardial infarction) (2) Congestive heart failure (3) Fluid overload (4) CKD (chronic kidney disease) Assessment and Plan 1) MVCAD, discussed with CT surgery for consideration of bypass, will start workup 2) EF 15-20% 3) ASA/Lipitor/Coreg 4) Elevated wedge/PA pressures... continue diuresis 5) If turned down for CT surgery, not sure if he would be a great high risk stenting candidate, will await pysch evaluation Problem Qualifiers (1) Congestive heart failure: Qualified Code: I50.9 - Acute congestive heart failure, unspecified congestive heart failure type Byron Franz DO Aug 11, 2016 11:40
--- NOTE | 2016-08-11 13:59 | PD.CAR.PN ---
CVT Progress Note Subjective/Hospital Course: sts data discussed with pt RISK SCORES About the STS Risk Calculator Procedure: CAB Only Risk of Mortality: 1.162% Morbidity or Mortality: 20.459% Long Length of Stay: 6.368% Short Length of Stay: 40.633% Permanent Stroke: 0.504% Prolonged Ventilation: 15.745% DSW Infection: 0.705% Renal Failure: 4.065% Reoperation: 5.741% Objective: Vital Signs Date Time Temp Pulse Resp B/P Pulse Ox O2 Delivery O2 Flow Rate FiO2 08/11/16 11:35 79 08/11/16 11:35 97.9 79 18 116/82 98 08/11/16 08:10 97 21 08/11/16 08:08 98.4 72 18 122/81 96 08/11/16 08:08 72 08/11/16 08:08 96 Room Air 08/11/16 06:00 79 08/11/16 05:00 87 08/11/16 04:00 79 08/11/16 03:00 87 08/11/16 03:00 78 18 143/76 96 08/11/16 00:00 82 08/10/16 23:00 97.9 84 20 154/98 96 08/10/16 23:00 96 Room Air 08/10/16 23:00 85 08/10/16 22:00 82 08/10/16 21:00 88 08/10/16 20:00 92 08/10/16 19:38 96 21 08/10/16 19:00 94 08/10/16 19:00 91 Room Air 08/10/16 19:00 97.0 93 18 108/58 91 08/10/16 18:21 96 08/10/16 18:21 97.9 96 18 145/99 98 08/10/16 18:00 100 08/10/16 17:00 98 08/10/16 16:00 96 Labs: Laboratory Tests Test 08/11/16 05:30 White Blood Count 8.6 TH/MM3 (4.0-11.0) Red Blood Count 4.67 MIL/MM3 (4.50-5.90) Hemoglobin 13.1 GM/DL (13.0-17.0) Hematocrit 40.1 % (39.0-51.0) Mean Corpuscular Volume 85.9 FL (80.0-100.0) Mean Corpuscular Hemoglobin 28.1 PG (27.0-34.0) Mean Corpuscular Hemoglobin 32.8 % Concent (32.0-36.0) Red Cell Distribution Width 15.6 % (11.6-17.2) Platelet Count 227 TH/MM3 (150-450) Mean Platelet Volume 8.6 FL (7.0-11.0) Neutrophils (%) (Auto) 66.1 % (16.0-70.0) Lymphocytes (%) (Auto) 20.4 % (9.0-44.0) Monocytes (%) (Auto) 11.5 % (0.0-8.0) Eosinophils (%) (Auto) 1.6 % (0.0-4.0) Basophils (%) (Auto) 0.4 % (0.0-2.0) Neutrophils # (Auto) 5.7 TH/MM3 (1.8-7.7) Lymphocytes # (Auto) 1.8 TH/MM3 (1.0-4.8) Monocytes # (Auto) 1.0 TH/MM3 (0-0.9) Eosinophils # (Auto) 0.1 TH/MM3 (0-0.4) Basophils # (Auto) 0.0 TH/MM3 (0-0.2) CBC Comment DIFF FINAL Differential Comment Sodium Level 143 MEQ/L (136-145) Potassium Level 3.8 MEQ/L (3.5-5.1) Chloride Level 105 MEQ/L (98-107) Carbon Dioxide Level 29.8 MEQ/L (21.0-32.0) Anion Gap 8 MEQ/L (5-15) Blood Urea Nitrogen 15 MG/DL (7-18) Creatinine 1.28 MG/DL (0.60-1.30) Estimat Glomerular Filtration 60 ML/MIN (>89) Rate Random Glucose 81 MG/DL (74-106) Calcium Level 8.7 MG/DL (8.5-10.1) Result Diagram: 08/11/1652908/11/16529 (1) NSTEMI (non-ST elevated myocardial infarction) (2) Congestive heart failure (3) Fluid overload (4) CKD (chronic kidney disease) Problem Qualifiers (1) Congestive heart failure: Qualified Code: I50.9 - Acute congestive heart failure, unspecified congestive heart failure type (2) Fluid overload: Qualified Code: E87.71 - Transfusion associated circulatory overload Haley Hollis Aug 11, 2016 13:59
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
[2016-08-11] MEDS: SODIUM CHLORIDE 0.9% FLUSH 10 ML FLUSH IV FLUSH PRN (18:32)
--- NOTE | 2016-08-11 18:42 | RADRPT ---
EXAM DATE/TIME: 08/11/2016 16:09 [facility] COMPARISON: No previous studies available for comparison. INDICATIONS : Preop cardiac surgery. MEDICAL HISTORY : Dyspnea. Hallucinations. Substance use. SURGICAL HISTORY : Pin in femur. Skin grafts. Cardiac cath. ENCOUNTER: Initial ACUITY: 1 day PAIN SCORE: 0/10 LOCATION: Bilateral neck PEAK SYSTOLIC VELOCITIES (cm/sec): ICA/CCA RATIO: Right: 0.9 Left: 0.7 ICA: Right: 50 Left: 49 CCA: Right: 58 Left: 68 ECA: Right: 50 Left: 74 VERTEBRAL: Right: 33 antegrade Left: 31 antegrade Elevated flow velocities and ICA/CCA ratios have been found to correlate with increased degrees of vessel stenosis, calculated as percentage of diameter relative to a normal segment of distal ICA/CCA FINDINGS: RIGHT CAROTID: No significant stenosis is visualized. The waveforms are within normal limits. LEFT CAROTID: No significant stenosis is visualized. The waveforms are within normal limits. VERTEBRAL ARTERIES: Antegrade flow is seen in both vertebral arteries. CONCLUSION: Normal hemodynamic profile both carotids. Douglas Clark MD on August 11, 2016 at 18:39 Board Certified Radiologist. This report was verified electronically.
--- NOTE | 2016-08-11 18:43 | RADRPT ---
EXAM DATE/TIME: 08/11/2016 16:46 [facility] COMPARISON: No previous studies available for comparison. INDICATIONS : Preop cardiac surgery. MEDICAL HISTORY : Dyspnea. Hallucinations. Substance use. SURGICAL HISTORY : Pin in femur. Skin grafts. Cardiac cath. ENCOUNTER: Initial ACUITY: 1 day PAIN SCORE: 0/10 LOCATION: Bilateral leg. TECHNIQUE: Venous ultrasound of the left and right leg was performed from the inguinal ligament to the proximal calf. Real-time, color Doppler and spectral tracing, compression and augmentation techniques were us ed. FINDINGS: RIGHT LEG: There is normal compressibility of the deep venous system from the inguinal region to the proximal ca lf. No echogenic clot is seen in the lumen of the common femoral, femoral, popliteal, and posterior tibial veins. There is a normal response of the venous system to proximal and distal augmentation an d respiration. LEFT LEG: There is normal compressibility of the deep venous system from the inguinal region to the proximal ca lf. No echogenic clot is seen in the lumen of the common femoral, femoral, popliteal, and posterior tibial veins. There is a normal response of the venous system to proximal and distal augmentation an d respiration. CONCLUSION: Negative for deep venous thrombosis bilateral lower extremities. Douglas Clark MD on August 11, 2016 at 18:41 Board Certified Radiologist. This report was verified electronically.
[2016-08-11] MEDS: ATORVASTATIN 80 MG TAB PO SCH (21:31)
[2016-08-11] MEDS: HEPARIN SODIUM - SQ 10,000 UNITS/ML VIAL SQ SCH (21:32)
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
[2016-08-12] VITALS (28 sets, daily range): BP systolic 123–147; BP diastolic 72–103; PULSE 68–98; RESP 14–20; TEMP 97.4–98.5; O2SAT 93–97
[2016-08-12] MEDS: HEPARIN SODIUM - SQ 10,000 UNITS/ML VIAL SQ SCH ×3 (05:47→22:03)
[2016-08-12 06:49] LABS: AUTOMATED NEUTROPHIL # 4.9 TH/MM3 (1.8-7.7); BASOPHIL # 0.1 TH/MM3 (0-0.2); BASOPHIL % 0.8 % (0.0-2.0); EOSINOPHIL # 0.2 TH/MM3 (0-0.4); EOSINOPHIL % 2.2 % (0.0-4.0); HEMATOCRIT 39.6 % (39.0-51.0); HEMO FLAGS DIFF FINAL; LYMPH % 19.9 % (9.0-44.0); LYMPHOCYTE # 1.5 TH/MM3 (1.0-4.8); MEAN CELL VOLUME 86.1 FL (80.0-100.0); MEAN CORPUSCULAR HEMOGLOBIN 27.7 PG (27.0-34.0); MEAN CORPUSCULAR HGB CONC 32.2 % (32.0-36.0); MONO % 12.5 % (0.0-8.0); NEUT % 64.6 % (16.0-70.0); PLATELET COUNT 205 TH/MM3 (150-450); RED CELL DISTRIBUTION WIDTH 15.5 % (11.6-17.2); WHITE BLOOD COUNT 7.6 TH/MM3 (4.0-11.0)
[2016-08-12 07:07] LABS: BICARBONATE 30.1 MEQ/L (21.0-32.0); POTASSIUM 3.7 MEQ/L (3.5-5.1)
[2016-08-12] MEDS: POTASSIUM CHLORIDE 20 MEQ CONTROLLED RELEASE TAB PO SCH ×2 (08:51→22:02)
[2016-08-12] MEDS: FUROSEMIDE 40 MG/4 ML VIAL IVP SCH ×2 (08:51→18:24)
[2016-08-12] MEDS: CARVEDILOL 6.25 MG TAB PO SCH ×2 (08:51→21:00)
[2016-08-12] MEDS: ASPIRIN 81 MG CHEW TAB CHEW SCH (08:51)
[2016-08-12] MEDS: SODIUM CHLORIDE 0.9% FLUSH 10 ML FLUSH IV FLUSH SCH ×2 (08:53→21:00)
--- NOTE | 2016-08-12 11:52 | HHI.FPPN ---
Subjective Remarks Pt seen and examined this morning. No acute events overnight. Pt denies chest pain or shortness of breath. HR 72-98. BP ranging from 130s-140s/80s-100s. Pt reports that he would be interested in going to med/psych for further evaluation and management once there is availability.He expresses understanding regarding the severity of his condition. (Elena Barrera MD R2) Objective Vitals Vital Signs Date Time Temp Pulse Resp B/P Pulse Ox O2 Delivery O2 Flow Rate FiO2 08/12/16 10:06 93 08/12/16 09:39 97 21 08/12/16 09:01 95 08/12/16 08:03 80 08/12/16 07:45 97.8 98 18 147/103 95 08/12/16 07:45 80 08/12/16 07:45 95 Room Air 08/12/16 06:00 78 08/12/16 05:56 98.2 72 16 136/98 93 08/12/16 05:00 86 08/12/16 04:00 88 08/12/16 03:30 91 08/12/16 03:00 76 08/12/16 02:00 82 08/12/16 01:09 97.5 81 14 138/85 94 08/12/16 01:00 78 08/12/16 00:00 76 08/11/16 23:00 78 08/11/16 22:00 82 08/11/16 21:00 84 08/11/16 20:44 94 21 08/11/16 20:00 71 16 131/95 95 08/11/16 20:00 84 08/11/16 19:40 Room Air 08/11/16 19:00 82 08/11/16 18:00 82 08/11/16 17:00 76 08/11/16 16:00 74 08/11/16 15:30 74 08/11/16 15:00 78 08/11/16 14:00 78 08/11/16 13:00 74 08/11/16 12:00 72 I/O 08/11/16 08/11/16 08/11/16 08/12/16 08/12/16 08/12/16 07:00 15:00 23:00 07:00 15:00 23:00 Intake Total 480 ml 1100 ml 960 ml Output Total 1300 ml 1900 ml 2400 ml Balance -820 ml -800 ml -1440 ml Intake Oral 480 ml 1100 ml 960 ml IV Total 0 ml Output Urine Total 1300 ml 1900 ml 2400 ml # Bowel Movements 0 2 0 (Elena Barrera MD R2) Result Diagram: 08/12/1655708/12/16557 Objective Remarks GEN: Well-developed, well-nourished patient. No acute distress. CV: Regular rate and rhythm without obvious murmurs LUNGS: Normal work of breathing, no use of accessory muscles. Occasional expiratory wheezing in lower lung gordon. No rales or rhonchi. GI: Soft, nontender, nondistended. EXT: 1+ edema bilaterally from knee down, improving. NEURO/PSYCH: Afocal. Awake, alert, and oriented x3. (Elena Barrera MD R2) A/P Assessment and Plan 46 y/o male with no past medical history presents with shortness of breath. Found to be fluid overloaded with NSTEMI. Discharge Planning Pending further evaluation by cardiothoracic surgery, will likely be transferred to med/Psych floor once there is bed availability. (Elena Barrera MD R2) Attending Attestation Patient seen and examined. Case reviewed and discussed with the resident team. Agree with plan of care as discussed with me and documented in the resident note. (Nikki Segura MD) Problem List: (1) Congestive heart failure Status: Acute Plan: Pt. has no significant cardiac history, but endorses heavy salt intake, significant tobacco history. EKG showed normal sinus rhythm. Q waves in V1, V2, V3, V4. Initial troponin elevated at 2.91 showed further elevations. May be secondary to acute congestive heart failure vs past [place] CXR showed cardiomegaly and no acute disease. BNP elevated at 993. Suspect acute decompensated heart failure. Echo: EF 15-20% -Cardiothoracic surgery has been consulted for consideration for bypass, appreciate recommendations -Patient is currently very high risk candidate for cardiac surgery due to EF of 15% -Continue diuresis: Lasix 40 mg IV BID -Low-salt diet less than 2 g per day. -Fluid restrict to 1.5 L per day. -Strict Is and Os. Daily weights. -Supplemental oxygen and monitor on pulse ox. -Telemetry Imaging Carotid artery ultrasound 08/11: Normal hemodynamic profile of both carotids Lower extremity ultrasound 08/11: Negative for DVT bilaterally, venous mapping per report (2) NSTEMI (non-ST elevated myocardial infarction) Status: Acute Plan: EKG showed normal sinus rhythm. Q waves in V1, V2, V3, V4. No chest pain on admission, pt denies angina in the past. Unsure if CHF leading to NSTEMI or heart damage in the past causing acute CHF -Cardiology consulted, appreciate recommendations and intervention -Cardiac catheterization was significant for severe multivessel disease, significantly elevated wedge and pulmonary artery pressures, see plan for diuresis above. -Pt would be a poor candidate for stent placement -ASA daily -Lipitor 80mg HS -Coreg 6.25mg PO BID -See plan above (3) Unspecified psychosis Status: Acute Plan: Psychiatry has been consulted due to concern for possible schizophrenia, appreciate recommendations. -No antipsychotic medications recommended at this time -Anticipate pt being transferred to med/psych once there is bed availability (4) FEN Status: Acute Plan: Fluids: none iv, fluid restrict Electrolytes: Hypokalemic, given one time dose of KCL 40meq Nutrition: Heart healthy, NA restriction to resume after catheterization DVT ppx: Heparin Chronic issues History of tobacco dependence/possible COPD: -Albuterol nebulizer tx prn SOB (Elena Barrera MD R2) Problem Qualifiers (1) Congestive heart failure: Qualified Code: I50.9 - Acute congestive heart failure, unspecified congestive heart failure type Elena Barrera MD R2 Aug 12, 2016 11:52 Nikki Segura MD Aug 16, 2016 15:27
--- NOTE | 2016-08-12 14:00 | PD.CAR.PN ---
CVT Progress Note Subjective/Hospital Course: 46 male , no prior medical HX or medical treatment , has not seen MD in over 20years. " didn't have any problems". Homeless, Admitted to ED with SOB, lower ext and scrotal edema , + NSTEMI , acute onset of CHF / BNP 900/ ECHO showed EF 15-20% severe systolic dysfunction . Underwent cardiac cath by Dr Franz showing multi vessel disease / PA pressure 59/34/ wedge pressure of 32 / LVEDP 42. STS data Morbidity or Mortality of 20.45 % Pt also has some psych issues / was seen and eval by Psych Dr Nelson , felt pt had delusional and psychotic symptoms , but was not considered a harm to himself, and did not meet involuntary psych admission at this time. / pt denied any chest pain , await final decision per Dr Arteaga / regarding surgery Objective: GENERAL: SKIN: Warm and dry. HEAD: Normocephalic. EYES: No scleral icterus. No injection or drainage. NECK: Supple, trachea midline. No JVD or lymphadenopathy. CARDIOVASCULAR: Regular rate and rhythm without murmurs, gallops, or rubs. + 1 edema lower ext RESPIRATORY: few basilar crackles Breath sounds equal bilaterally. No accessory muscle use. GASTROINTESTINAL: Abdomen soft, non-tender, nondistended. MUSCULOSKELETAL: No cyanosis, or edema. BACK: Nontender without obvious deformity. No CVA tenderness. Vital Signs Date Time Temp Pulse Resp B/P Pulse Ox O2 Delivery O2 Flow Rate FiO2 08/12/16 13:16 78 08/12/16 12:22 91 08/12/16 11:51 84 08/12/16 11:51 98.5 83 18 139/103 95 08/12/16 10:06 93 08/12/16 09:39 97 21 08/12/16 09:01 95 08/12/16 08:03 80 08/12/16 07:45 97.8 98 18 147/103 95 08/12/16 07:45 80 08/12/16 07:45 95 Room Air 08/12/16 06:00 78 08/12/16 05:56 98.2 72 16 136/98 93 08/12/16 05:00 86 08/12/16 04:00 88 08/12/16 03:30 91 08/12/16 03:00 76 08/12/16 02:00 82 08/12/16 01:09 97.5 81 14 138/85 94 08/12/16 01:00 78 08/12/16 00:00 76 08/11/16 23:00 78 08/11/16 22:00 82 08/11/16 21:00 84 08/11/16 20:44 94 21 08/11/16 20:00 71 16 131/95 95 08/11/16 20:00 84 08/11/16 19:40 Room Air 08/11/16 19:00 82 08/11/16 18:00 82 08/11/16 17:00 76 08/11/16 16:00 74 08/11/16 15:30 74 08/11/16 15:00 78 08/11/16 14:00 78 Labs: Laboratory Tests Test 08/12/16 05:58 White Blood Count 7.6 TH/MM3 (4.0-11.0) Red Blood Count 4.60 MIL/MM3 (4.50-5.90) Hemoglobin 12.7 GM/DL (13.0-17.0) Hematocrit 39.6 % (39.0-51.0) Mean Corpuscular Volume 86.1 FL (80.0-100.0) Mean Corpuscular Hemoglobin 27.7 PG (27.0-34.0) Mean Corpuscular Hemoglobin 32.2 % Concent (32.0-36.0) Red Cell Distribution Width 15.5 % (11.6-17.2) Platelet Count 205 TH/MM3 (150-450) Mean Platelet Volume 8.5 FL (7.0-11.0) Neutrophils (%) (Auto) 64.6 % (16.0-70.0) Lymphocytes (%) (Auto) 19.9 % (9.0-44.0) Monocytes (%) (Auto) 12.5 % (0.0-8.0) Eosinophils (%) (Auto) 2.2 % (0.0-4.0) Basophils (%) (Auto) 0.8 % (0.0-2.0) Neutrophils # (Auto) 4.9 TH/MM3 (1.8-7.7) Lymphocytes # (Auto) 1.5 TH/MM3 (1.0-4.8) Monocytes # (Auto) 1.0 TH/MM3 (0-0.9) Eosinophils # (Auto) 0.2 TH/MM3 (0-0.4) Basophils # (Auto) 0.1 TH/MM3 (0-0.2) CBC Comment DIFF FINAL Differential Comment Sodium Level 142 MEQ/L (136-145) Potassium Level 3.7 MEQ/L (3.5-5.1) Chloride Level 105 MEQ/L (98-107) Carbon Dioxide Level 30.1 MEQ/L (21.0-32.0) Anion Gap 7 MEQ/L (5-15) Blood Urea Nitrogen 16 MG/DL (7-18) Creatinine 1.21 MG/DL (0.60-1.30) Estimat Glomerular Filtration 64 ML/MIN (>89) Rate Random Glucose 82 MG/DL (74-106) Calcium Level 9.0 MG/DL (8.5-10.1) Result Diagram: 08/12/1655708/12/16557 Telemetry: NSR (1) NSTEMI (non-ST elevated myocardial infarction) Plan: ASA, statin , BB high risk candidate for Coronary artery bypass grafting recommend repeat ECHO Wednesday (2) Congestive heart failure Plan: EF 15-20% on lasix severely reduced systolic function (3) Fluid overload (4) CKD (chronic kidney disease) Plan: renal indices stable (5) Unspecified psychosis Plan: seen and eval by Psychiatry Problem Qualifiers (1) Congestive heart failure: Qualified Code: I50.9 - Acute congestive heart failure, unspecified congestive heart failure type (2) Fluid overload: Qualified Code: E87.71 - Transfusion associated circulatory overload Haley Hollis Aug 12, 2016 14:00
--- NOTE | 2016-08-12 14:20 | HHI.PYPN ---
Subjective Remarks Patient was seen today for psychiatric reevaluation, he was found in his room laying down listening to radio station in his cell phone. Patient says that he has been feeling okay, fatigue and shortness of breath at times. He says that he has been listening to radio every day for 30 years, especially political news. "There are a couple of DJs the thing that they can control me and control my mind". Patient says that he got a secret information from the [employer] "I know that most probably they are testing some nuclear bump on August 13 to livia Downs, who is going to be in [place]". Patient says that he called a couple of times to [employer] about this, "but Yareli doesn't return my phone call in the same way [employer] did". Patient reports good mood, he denies depressive symptoms, he denies anhedonia, he denies visual and auditory hallucinations, he denies suicidal and homicidal ideation. No agitation or aggressive behavior is observed or reported. Patient is fully compliant with medication, he expresses motivation to continue medical treatment and following medical recommendations. I spoke personally with primary care provider and cardiology team about the plan for the patient. Apparently no surgical intervention is being offered at this moment due to low ejection fraction, but at the same time is important that the patient is psychiatrically stable in order to assure good compliance with medication and follow-up once the patient is intervened. Review of Systems Constitutional: DENIES: Diaphoretic episodes, Fatigue, Fever, Weight gain, Weight loss, Chills, Dizziness, Change in appetite, Night Sweats Endocrine: DENIES: Heat/cold intolerance, Polydipsia, Polyuria, Polyphagia Eyes: DENIES: Blurred vision, Diplopia, Eye inflammation, Eye pain, Vision loss , Photosensitivity, Double Vision Ears, nose, mouth, throat: DENIES: Tinnitus, Hearing loss, Vertigo, Nasal discharge, Oral lesions, Throat pain, Hoarseness, Ear Pain, Running Nose, Epistaxis, Sinus Pain, Toothache, Odynophagia Respiratory: COMPLAINS OF: Shortness of breath, DENIES: Apneas, Cough, Snoring , Wheezing, Hemoptysis, Sputum production Cardiovascular: DENIES: Chest pain, Palpitations, Syncope, Dyspnea on Exertion , PND, Lower Extremity Edema, Orthopnea, Claudication Gastrointestinal: DENIES: Abdominal pain, Black stools, Bloody stools, Constipation, Diarrhea, Nausea, Vomiting, Difficulty Swallowing, Anorexia Musculoskeletal: DENIES: Joint pain, Muscle aches, Stiffness, Joint Swelling, Back pain, Neck pain Hematologic/lymphatic: DENIES: Bruising, Lymphadenopathy Immunologic/allergic: DENIES: Eczema, Urticaria Neurologic: DENIES: Abnormal gait, Headache, Localized weakness, Paresthesias, Seizures, Speech Problems, Tremor, Poor Balance Psychiatric: COMPLAINS OF: Delusions, DENIES: Anxiety, Confusion, Mood changes , Depression, Hallucinations, Agitation, Suicidal Ideation, Homicidal Ideation Objective Alert: Yes Gilliam: Person, Place, Date, Situation Mood: Calm Affect: Appropriate Memory Intact: Immediate, Recent Hallucinations: Other (he denies) Delusions: Yes Delusion Type: Grandiose, Paranoid, Other (delusions of reference,) Suicidal: Ideation (he denies) Homicidal: Ideation (he denies) Insight/Judgement Fair Labs Test 08/12/16 05:58 White Blood Count 7.6 TH/MM3 Red Blood Count 4.60 MIL/MM3 Hemoglobin 12.7 GM/DL Hematocrit 39.6 % Mean Corpuscular Volume 86.1 FL Mean Corpuscular Hemoglobin 27.7 PG Mean Corpuscular Hemoglobin 32.2 % Concent Red Cell Distribution Width 15.5 % Platelet Count 205 TH/MM3 Mean Platelet Volume 8.5 FL Neutrophils (%) (Auto) 64.6 % Lymphocytes (%) (Auto) 19.9 % Monocytes (%) (Auto) 12.5 % Eosinophils (%) (Auto) 2.2 % Basophils (%) (Auto) 0.8 % Neutrophils # (Auto) 4.9 TH/MM3 Lymphocytes # (Auto) 1.5 TH/MM3 Monocytes # (Auto) 1.0 TH/MM3 Eosinophils # (Auto) 0.2 TH/MM3 Basophils # (Auto) 0.1 TH/MM3 CBC Comment DIFF FINAL Differential Comment Sodium Level 142 MEQ/L Potassium Level 3.7 MEQ/L Chloride Level 105 MEQ/L Carbon Dioxide Level 30.1 MEQ/L Anion Gap 7 MEQ/L Blood Urea Nitrogen 16 MG/DL Creatinine 1.21 MG/DL Estimat Glomerular Filtration 64 ML/MIN Rate Random Glucose 82 MG/DL Calcium Level 9.0 MG/DL Vitals/IOs Vital Signs Date Time Temp Pulse Resp B/P Pulse Ox O2 Delivery O2 Flow Rate FiO2 4/5/17 13:16 78 08/12/16 11:51 98.5 18 139/103 95 08/12/16 09:39 21 08/12/16 07:45 Room Air Intake and Output 08/11/16 08/11/16 08/12/16 08:00 16:00 00:00 Intake Total 480 ml 1100 ml Output Total 1300 ml 1900 ml Balance -820 ml -800 ml Assessment & Plan Problem List: (1) NSTEMI (non-ST elevated myocardial infarction) ICD Code: I21.4 (2) Unspecified psychosis Assessment & Plan: Patient shows grandeur, paranoid and reference delusions that could to be secondary to underline untreated major psychotic disorder, most probably schizophrenia. Even though the patient does not seem to be a danger to self and others, he denies suicidal and homicidal ideation, he denies visual and auditory hallucinations, no agitation or aggressive behavior has been described at the moment, and the patient seems to be taking the right decisions regarding his medical condition; stabilization of this psychotic symptoms could be crucial for the future management of his cardiac condition, especially in outpatient basis. Delusional thought process could have a very negative impact in his compliance with medical recommendations and follow-ups. Patient can definitely benefit of voluntary admission in the med psych unit to restart antipsychosis treatment and psychotherapy. ICD Code: F29 Assessment & Plan Estimated LOS: days Justification for Cont. Inpt. Patient will benefit of psychiatric hospitalization for stabilization of delusions. Samuel Nelson MD Aug 12, 2016 14:20
--- NOTE | 2016-08-12 21:19 | PD.CARD.PN ---
Subjective Subjective Remarks Patient seen this morning No chest pain, no shortness of breath Objective Medications Current Medications Medications (Trade) Dose Ordered Sig/Ximena Route Start Time Stop Time Status Last Admin (NS Flush) 2 ml BID IV FLUSH 08/07/16 21:00 08/12/16 08:53 (NS Flush) 2 ml UNSCH PRN IV FLUSH 08/07/16 16:00 08/11/16 18:32 (Lasix Inj) 40 mg BID@,18 IVP 08/07/16 18:00 08/12/16 18:24 (KCl) 20 meq BID PO 08/07/16 21:00 08/12/16 08:51 (Tylenol) 650 mg Q4H PRN PO 08/07/16 16:15 (Zofran Inj) 4 mg Q6H PRN IV 08/07/16 16:15 (Cristina-Colace) 1 tab BID PRN PO 08/07/16 16:15 (Tums Chew) 1,000 mg TID PRN CHEW 08/07/16 16:15 (Vasotec Inj) 1.25 mg Q6H PRN IV 08/07/16 16:15 (Pill Splitter) 1 ea UNSCH PRN OTHER 08/07/16 16:30 (Lipitor) 80 mg HS PO 08/07/16 21:00 08/11/16 21:31 (Coreg) 6.25 mg Q12HR PO 08/07/16 21:00 08/12/16 08:51 (Aspirin Chew) 81 mg DAILY CHEW 08/08/16 09:00 08/12/16 08:51 (Heparin Inj) 5,000 units Q8HR SQ 08/11/16 22:00 08/12/16 14:12 Vital Signs / I&O Vital Signs Date Time Temp Pulse Resp B/P Pulse Ox O2 Delivery O2 Flow Rate FiO2 08/12/16 18:02 88 08/12/16 17:49 97 21 08/12/16 17:05 75 08/12/16 16:30 76 08/12/16 15:17 77 08/12/16 15:17 98.5 77 20 130/98 97 08/12/16 14:02 77 08/12/16 13:16 78 08/12/16 12:22 91 08/12/16 11:51 84 08/12/16 11:51 98.5 83 18 139/103 95 08/12/16 10:06 93 08/12/16 09:39 97 21 08/12/16 09:01 95 08/12/16 08:03 80 08/12/16 07:45 97.8 98 18 147/103 95 08/12/16 07:45 80 08/12/16 07:45 95 Room Air 08/12/16 06:00 78 08/12/16 05:56 98.2 72 16 136/98 93 08/12/16 05:00 86 08/12/16 04:00 88 08/12/16 03:30 91 08/12/16 03:00 76 08/12/16 02:00 82 08/12/16 01:09 97.5 81 14 138/85 94 08/12/16 01:00 78 08/12/16 00:00 76 08/11/16 23:00 78 08/11/16 22:00 82 I/O 08/11/16 08/11/16 08/11/16 08/12/16 08/12/16 08/12/16 07:00 15:00 23:00 07:00 15:00 23:00 Intake Total 480 ml 1100 ml 960 ml 1200 ml Output Total 1300 ml 1900 ml 2400 ml Balance -820 ml -800 ml -1440 ml 1200 ml Intake Oral 480 ml 1100 ml 960 ml 1200 ml IV Total 0 ml Output Urine Total 1300 ml 1900 ml 2400 ml # Voids 5 # Bowel Movements 0 2 0 1 Physical Exam GENERAL: NAD, AAOx3 SKIN: Warm and dry. HEAD: Atraumatic. Normocephalic. EYES: Pupils equal and round. No scleral icterus. No injection or drainage. ENT: No nasal bleeding or discharge. Mucous membranes pink and moist. NECK: Trachea midline. Minimal JVD CARDIOVASCULAR: Regular rate and rhythm. RESPIRATORY: No accessory muscle use. Decreased breath sounds bilaterally GASTROINTESTINAL: Abdomen soft, non-tender, nondistended. Hepatic and splenic margins not palpable. MUSCULOSKELETAL: 1+ pitting edema bilaterally, right radial/brachial no hematoma NEUROLOGICAL: Awake and alert. No obvious cranial nerve deficits. Motor grossly within normal limits. Five out of 5 muscle strength in the arms and legs. Normal speech. PSYCHIATRIC: Appropriate mood and affect; insight and judgment normal. Laboratory Laboratory Tests Test 4/5/17 05:58 White Blood Count 7.6 TH/MM3 Red Blood Count 4.60 MIL/MM3 Hemoglobin 12.7 GM/DL Hematocrit 39.6 % Mean Corpuscular Volume 86.1 FL Mean Corpuscular Hemoglobin 27.7 PG Mean Corpuscular Hemoglobin 32.2 % Concent Red Cell Distribution Width 15.5 % Platelet Count 205 TH/MM3 Mean Platelet Volume 8.5 FL Neutrophils (%) (Auto) 64.6 % Lymphocytes (%) (Auto) 19.9 % Monocytes (%) (Auto) 12.5 % Eosinophils (%) (Auto) 2.2 % Basophils (%) (Auto) 0.8 % Neutrophils # (Auto) 4.9 TH/MM3 Lymphocytes # (Auto) 1.5 TH/MM3 Monocytes # (Auto) 1.0 TH/MM3 Eosinophils # (Auto) 0.2 TH/MM3 Basophils # (Auto) 0.1 TH/MM3 CBC Comment DIFF FINAL Differential Comment Sodium Level 142 MEQ/L Potassium Level 3.7 MEQ/L Chloride Level 105 MEQ/L Carbon Dioxide Level 30.1 MEQ/L Anion Gap 7 MEQ/L Blood Urea Nitrogen 16 MG/DL Creatinine 1.21 MG/DL Estimat Glomerular Filtration 64 ML/MIN Rate Random Glucose 82 MG/DL Calcium Level 9.0 MG/DL Assessment and Plan Problem List: (1) NSTEMI (non-ST elevated myocardial infarction) (2) Congestive heart failure (3) Fluid overload (4) CKD (chronic kidney disease) (5) Unspecified psychosis Assessment and Plan 1) MVCAD, discussed with CT surgery for consideration of bypass, awaiting work up 2) EF 15-20% 3) ASA/Lipitor/Coreg 4) Elevated wedge/PA pressures... continue diuresis 5) If turned down for CT surgery, not a candidate for high risk PCI due to psych issues, concern for inability to take/continue on medications 6) Medical management for now, will increase Coreg Problem Qualifiers (1) Congestive heart failure: Qualified Code: I50.9 - Acute congestive heart failure, unspecified congestive heart failure type (2) Fluid overload: Qualified Code: E87.71 - Transfusion associated circulatory overload Byron Franz DO Aug 12, 2016 21:19
[2016-08-12] MEDS: ATORVASTATIN 80 MG TAB PO SCH (22:02)
[2016-08-13] VITALS (27 sets, daily range): BP systolic 101–139; BP diastolic 64–91; PULSE 66–91; RESP 18–20; TEMP 97.6–98.5; O2SAT 92–96
[2016-08-13 06:03] LABS: HEMATOCRIT 41.9 % (39.0-51.0); MEAN CELL VOLUME 85.1 FL (80.0-100.0); MEAN CORPUSCULAR HEMOGLOBIN 28.3 PG (27.0-34.0); MEAN CORPUSCULAR HGB CONC 33.3 % (32.0-36.0); PLATELET COUNT 239 TH/MM3 (150-450); RED BLOOD COUNT 4.92 MIL/MM3 (4.50-5.90); RED CELL DISTRIBUTION WIDTH 15.4 % (11.6-17.2); REVIEW FLAG FINAL; WHITE BLOOD COUNT 8.1 TH/MM3 (4.0-11.0)
[2016-08-13] MEDS: HEPARIN SODIUM - SQ 10,000 UNITS/ML VIAL SQ SCH ×3 (06:26→20:45)
[2016-08-13] MEDS: CARVEDILOL 12.5 MG TAB PO SCH ×2 (08:19→20:45)
[2016-08-13] MEDS: ASPIRIN 81 MG CHEW TAB CHEW SCH (08:19)
[2016-08-13] MEDS: POTASSIUM CHLORIDE 20 MEQ CONTROLLED RELEASE TAB PO SCH ×2 (08:19→20:45)
[2016-08-13] MEDS: SODIUM CHLORIDE 0.9% FLUSH 10 ML FLUSH IV FLUSH SCH ×2 (08:20→20:45)
[2016-08-13] MEDS: FUROSEMIDE 40 MG/4 ML VIAL IVP SCH ×2 (08:20→17:48)
--- NOTE | 2016-08-13 09:32 | PD.CARD.PN ---
Subjective Subjective Remarks No chest pain, no shortness of breath Objective Medications Current Medications Medications (Trade) Dose Ordered Sig/Ximena Route Start Time Stop Time Status Last Admin (NS Flush) 2 ml BID IV FLUSH 08/07/16 21:00 08/13/16 08:20 (NS Flush) 2 ml UNSCH PRN IV FLUSH 08/07/16 16:00 08/11/16 18:32 (Lasix Inj) 40 mg BID@09,18 IVP 08/07/16 18:00 08/13/16 08:20 (KCl) 20 meq BID PO 08/07/16 21:00 08/13/16 08:19 (Tylenol) 650 mg Q4H PRN PO 08/07/16 16:15 (Zofran Inj) 4 mg Q6H PRN IV 08/07/16 16:15 (Cristina-Colace) 1 tab BID PRN PO 08/07/16 16:15 (Tums Chew) 1,000 mg TID PRN CHEW 08/07/16 16:15 (Vasotec Inj) 1.25 mg Q6H PRN IV 08/07/16 16:15 (Pill Splitter) 1 ea UNSCH PRN OTHER 08/07/16 16:30 (Lipitor) 80 mg HS PO 08/07/16 21:00 08/12/16 22:02 (Aspirin Chew) 81 mg DAILY CHEW 08/08/16 09:00 08/13/16 08:19 (Heparin Inj) 5,000 units Q8HR SQ 08/11/16 22:00 08/13/16 06:26 (Coreg) 12.5 mg Q12HR PO 08/13/16 09:00 08/13/16 08:19 Vital Signs / I&O Vital Signs Date Time Temp Pulse Resp B/P Pulse Ox O2 Delivery O2 Flow Rate FiO2 08/13/16 09:18 91 08/13/16 08:53 78 08/13/16 07:48 97.6 72 18 139/64 95 08/13/16 07:48 94 Room Air 08/13/16 07:20 66 08/13/16 06:00 70 08/13/16 05:00 72 08/13/16 04:00 72 08/13/16 03:00 98.3 76 20 128/87 92 08/13/16 03:00 88 08/13/16 02:00 78 08/13/16 01:00 74 08/13/16 00:00 71 08/12/16 23:00 68 08/12/16 23:00 98.1 83 20 123/82 97 08/12/16 22:00 78 08/12/16 21:00 85 08/12/16 19:00 97.4 68 20 126/72 97 08/12/16 19:00 97 Room Air 08/12/16 18:02 88 08/12/16 17:49 97 21 08/12/16 17:05 75 08/12/16 16:30 76 08/12/16 15:17 77 08/12/16 15:17 98.5 77 20 130/98 97 08/12/16 14:02 77 08/12/16 13:16 78 08/12/16 12:22 91 08/12/16 11:51 84 08/12/16 11:51 98.5 83 18 139/103 95 08/12/16 10:06 93 08/12/16 09:39 97 21 I/O 08/12/16 08/12/16 08/12/16 08/13/16 08/13/16 08/13/16 06:59 14:59 22:59 06:59 14:59 22:59 Intake Total 960 ml 1200 ml 480 ml Output Total 2400 ml Balance -1440 ml 1200 ml 480 ml Intake Oral 960 ml 1200 ml 480 ml IV Total 0 ml Output Urine Total 2400 ml # Voids 5 2 # Bowel Movements 0 1 Physical Exam GENERAL: NAD, AAOx3 SKIN: Warm and dry. HEAD: Atraumatic. Normocephalic. EYES: Pupils equal and round. No scleral icterus. No injection or drainage. ENT: No nasal bleeding or discharge. Mucous membranes pink and moist. NECK: Trachea midline. Minimal JVD CARDIOVASCULAR: Regular rate and rhythm. RESPIRATORY: No accessory muscle use. Decreased breath sounds bilaterally GASTROINTESTINAL: Abdomen soft, non-tender, nondistended. Hepatic and splenic margins not palpable. MUSCULOSKELETAL: Trace pitting edema bilaterally, right radial/brachial no hematoma NEUROLOGICAL: Awake and alert. No obvious cranial nerve deficits. Motor grossly within normal limits. Five out of 5 muscle strength in the arms and legs. Normal speech. PSYCHIATRIC: Appropriate mood and affect; insight and judgment normal. Laboratory Laboratory Tests Test 08/13/16 05:35 White Blood Count 8.1 TH/MM3 Red Blood Count 4.92 MIL/MM3 Hemoglobin 13.9 GM/DL Hematocrit 41.9 % Mean Corpuscular Volume 85.1 FL Mean Corpuscular Hemoglobin 28.3 PG Mean Corpuscular Hemoglobin 33.3 % Concent Red Cell Distribution Width 15.4 % Platelet Count 239 TH/MM3 Mean Platelet Volume 8.6 FL Assessment and Plan Problem List: (1) NSTEMI (non-ST elevated myocardial infarction) (2) Congestive heart failure (3) Fluid overload (4) CKD (chronic kidney disease) (5) Unspecified psychosis Assessment and Plan 1) MVCAD, discussed with CT surgery for consideration of bypass, awaiting work up 2) EF 15-20% 3) ASA/Lipitor/Coreg 4) Elevated wedge/PA pressures... continue diuresis 5) If turned down for CT surgery, not a candidate for high risk PCI due to psych issues, concern for inability to take/continue on medications 6) Medical management for now, blood pressure better on increased Coreg 7) Diuresing well, I/O con't to be negative, weights down Problem Qualifiers (1) Congestive heart failure: Qualified Code: I50.9 - Acute congestive heart failure, unspecified congestive heart failure type (2) Fluid overload: Qualified Code: E87.71 - Transfusion associated circulatory overload Byron Franz DO Aug 13, 2016 09:32
--- NOTE | 2016-08-13 15:18 | HHI.FPPN ---
Subjective Remarks Patient seen and examined this morning by medical team. No acute events overnight with vital signs stable. Medical team again discussed transfer to med/ psych unit for further evaluation and management upon placement availability. He is agreeable to this plan and voices his understanding. Currently has no complaints and denies any fevers, chills, chest pain, shortness of breath, NVD, or calf tenderness. (Maxi Leach MD R1) Objective Vitals Vital Signs Date Time Temp Pulse Resp B/P Pulse Ox O2 Delivery O2 Flow Rate FiO2 08/13/16 14:07 75 08/13/16 13:48 83 08/13/16 12:08 71 08/13/16 11:18 98.2 72 18 101/69 94 08/13/16 11:18 69 08/13/16 10:21 70 08/13/16 09:44 95 21 08/13/16 09:18 91 08/13/16 08:53 78 08/13/16 07:48 97.6 72 18 139/64 95 08/13/16 07:48 94 Room Air 08/13/16 07:20 66 08/13/16 06:00 70 08/13/16 05:00 72 08/13/16 04:00 72 08/13/16 03:00 98.3 76 20 128/87 92 08/13/16 03:00 88 08/13/16 02:00 78 08/13/16 01:00 74 08/13/16 00:00 71 08/12/16 23:00 68 08/12/16 23:00 98.1 83 20 123/82 97 08/12/16 22:00 78 08/12/16 21:00 85 08/12/16 19:00 97.4 68 20 126/72 97 08/12/16 19:00 97 Room Air 08/12/16 18:02 88 08/12/16 17:49 97 21 08/12/16 17:05 75 08/12/16 16:30 76 08/12/16 15:17 77 08/12/16 15:17 98.5 77 20 130/98 97 I/O 08/12/16 08/12/16 08/12/16 08/13/16 08/13/16 08/13/16 07:00 15:00 23:00 07:00 15:00 23:00 Intake Total 960 ml 1200 ml 480 ml Output Total 2400 ml Balance -1440 ml 1200 ml 480 ml Intake Oral 960 ml 1200 ml 480 ml IV Total 0 ml Output Urine Total 2400 ml # Voids 5 2 # Bowel Movements 0 1 (Maxi Leach MD R1) Result Diagram: 08/13/16 0535 08/12/16 0558 Objective Remarks GEN: Well-developed, well-nourished patient 46-year-old male lying in bed in no acute distress. CV: Regular rate and rhythm without obvious murmurs LUNGS: Normal work of breathing, no use of accessory muscles. Occasional expiratory wheezing in lower lung gordon. No rales or rhonchi. GI: Soft, nontender, nondistended. Positive bowel sounds. No masses appreciated. EXT: 1+ edema bilaterally from knee down, improving. NEURO/PSYCH: Afocal. Awake, alert, and oriented x3. (Maxi Leach MD R1) A/P Assessment and Plan 46 y/o male with no past medical history presents with shortness of breath. Found to be fluid overloaded with NSTEMI. Currently being evaluated by psychiatry for psychosis and cardiothoracic surgery for possible CABG. Discharge Planning Pending further evaluation by cardiothoracic surgery, will likely be transferred to med/Psych floor once there is bed availability. (Maxi Leach MD R1) Attending Attestation Patient seen and examined. Case reviewed and discussed with the resident team. Agree with plan of care as discussed with me and documented in the resident note. (Nikki Segura MD) Problem List: (1) Congestive heart failure Status: Acute Plan: Pt. has no significant cardiac history, but endorses heavy salt intake, significant tobacco history. EKG showed normal sinus rhythm. Q waves in V1, V2, V3, V4. Initial troponin elevated at 2.91 showed further elevations. May be secondary to acute congestive heart failure vs past DE CXR showed cardiomegaly and no acute disease. BNP elevated at 993. Suspect acute decompensated heart failure. Echo: EF 15-20% -Cardiothoracic surgery has been consulted for consideration for bypass, appreciate recommendations. Cardiothoracic team plans for repeat echocardiogram on 08/16/16, for further evaluation. -Patient is currently very high risk candidate for cardiac surgery due to EF of 15% -Continue diuresis: Lasix 40 mg IV BID -Low-salt diet less than 2 g per day. -Fluid restrict to 1.5 L per day. -Strict Is and Os. Daily weights. -Supplemental oxygen and monitor on pulse ox. -Telemetry Imaging Carotid artery ultrasound 08/11: Normal hemodynamic profile of both carotids Lower extremity ultrasound 08/11: Negative for DVT bilaterally, venous mapping per report (2) NSTEMI (non-ST elevated myocardial infarction) Status: Acute Plan: EKG showed normal sinus rhythm. Q waves in V1, V2, V3, V4. No chest pain on admission, pt denies angina in the past. Unsure if CHF leading to NSTEMI or heart damage in the past causing acute CHF -Cardiology consulted, appreciate recommendations and intervention -Cardiac catheterization was significant for severe multivessel disease, significantly elevated wedge and pulmonary artery pressures, see plan for diuresis above. -Pt would be a poor candidate for stent placement -ASA daily -Lipitor 80mg HS -Coreg 12.5mg PO BID -See plan above (3) Unspecified psychosis Status: Acute Plan: Psychiatry has been consulted due to concern for possible schizophrenia, appreciate recommendations. -No antipsychotic medications recommended at this time -Anticipate pt being transferred to med/psych once there is bed availability (4) FEN Status: Acute Plan: Fluids: none iv, fluid restrict Electrolytes: Hypokalemic, given one time dose of KCL 40meq Nutrition: Heart healthy, NA restriction to resume after catheterization DVT ppx: Heparin Chronic issues History of tobacco dependence/possible COPD: -Albuterol nebulizer tx prn SOB (Maxi Leach MD R1) Problem Qualifiers (1) Congestive heart failure: Qualified Code: I50.9 - Acute congestive heart failure, unspecified congestive heart failure type Maxi Leach MD R1 Aug 13, 2016 15:18 Nikki Segura MD Aug 16, 2016 15:28
--- NOTE | 2016-08-13 15:20 | PD.CAR.PN ---
CVT Progress Note Subjective/Hospital Course: 46 male , no prior medical HX or medical treatment , has not seen MD in over 20years. " didn't have any problems". Homeless, Admitted to ED with SOB, lower ext and scrotal edema , + NSTEMI , acute onset of CHF / BNP 900/ ECHO showed EF 15-20% severe systolic dysfunction . Underwent cardiac cath by Dr Franz showing multi vessel disease / PA pressure 59/34/ wedge pressure of 32 / LVEDP 42. STS data Morbidity or Mortality of 20.45 % Pt also has some psych issues / was seen and eval by Psych Dr Nelson , felt pt had delusional and psychotic symptoms , but was not considered a harm to himself, and did not meet involuntary psych admission at this time. 08/12 pt denied any chest pain , await final decision per Dr Arteaga / regarding surgery 08/13 repeat limited echo scheduled for wednesday re-eval for candidate for surgery Objective: GENERAL: SKIN: Warm and dry. HEAD: Normocephalic. EYES: No scleral icterus. No injection or drainage. NECK: Supple, trachea midline. No JVD or lymphadenopathy. CARDIOVASCULAR: Regular rate and rhythm without murmurs, gallops, or rubs. , +1 edema lower ext RESPIRATORY: few basilar crackles Breath sounds equal bilaterally. No accessory muscle use. GASTROINTESTINAL: Abdomen soft, non-tender, nondistended. MUSCULOSKELETAL: No cyanosis, or edema. BACK: Nontender without obvious deformity. No CVA tenderness. Vital Signs Date Time Temp Pulse Resp B/P Pulse Ox O2 Delivery O2 Flow Rate FiO2 08/13/16 14:07 75 08/13/16 13:48 83 08/13/16 12:08 71 08/13/16 11:18 98.2 72 18 101/69 94 08/13/16 11:18 69 08/13/16 10:21 70 08/13/16 09:44 95 21 08/13/16 09:18 91 08/13/16 08:53 78 08/13/16 07:48 97.6 72 18 139/64 95 08/13/16 07:48 94 Room Air 08/13/16 07:20 66 08/13/16 06:00 70 08/13/16 05:00 72 08/13/16 04:00 72 08/13/16 03:00 98.3 76 20 128/87 92 08/13/16 03:00 88 08/13/16 02:00 78 08/13/16 01:00 74 08/13/16 00:00 71 08/12/16 23:00 68 08/12/16 23:00 98.1 83 20 123/82 97 08/12/16 22:00 78 08/12/16 21:00 85 08/12/16 19:00 97.4 68 20 126/72 97 08/12/16 19:00 97 Room Air 08/12/16 18:02 88 08/12/16 17:49 97 21 08/12/16 17:05 75 08/12/16 16:30 76 Labs: Laboratory Tests Test 08/13/16 05:35 White Blood Count 8.1 TH/MM3 (4.0-11.0) Red Blood Count 4.92 MIL/MM3 (4.50-5.90) Hemoglobin 13.9 GM/DL (13.0-17.0) Hematocrit 41.9 % (39.0-51.0) Mean Corpuscular Volume 85.1 FL (80.0-100.0) Mean Corpuscular Hemoglobin 28.3 PG (27.0-34.0) Mean Corpuscular Hemoglobin 33.3 % Concent (32.0-36.0) Red Cell Distribution Width 15.4 % (11.6-17.2) Platelet Count 239 TH/MM3 (150-450) Mean Platelet Volume 8.6 FL (7.0-11.0) Result Diagram: 08/13/16 0535 08/12/16 0558 (1) NSTEMI (non-ST elevated myocardial infarction) Plan: ASA, statin , BB high risk candidate for Coronary artery bypass grafting repeat ECHO wednesday (2) Congestive heart failure Plan: EF 15-20% on lasix severely reduced systolic function (3) Fluid overload (4) CKD (chronic kidney disease) Plan: renal indices stable (5) Unspecified psychosis Plan: seen and eval by Psychiatry Problem Qualifiers (1) Congestive heart failure: Qualified Code: I50.9 - Acute congestive heart failure, unspecified congestive heart failure type (2) Fluid overload: Qualified Code: E87.71 - Transfusion associated circulatory overload Haley Hollis Aug 13, 2016 15:20
[2016-08-13] MEDS: ATORVASTATIN 80 MG TAB PO SCH (20:45)
[2016-08-14] VITALS (26 sets, daily range): BP systolic 92–144; BP diastolic 57–89; PULSE 58–84; RESP 16–20; TEMP 97.2–97.9; O2SAT 94–97
[2016-08-14] MEDS: HEPARIN SODIUM - SQ 10,000 UNITS/ML VIAL SQ SCH ×3 (05:24→20:52)
--- NOTE | 2016-08-14 08:59 | EC ---
Study Study Date:08/13/2016 STUDY CONCLUSIONS SUMMARY - Left ventricle: The cavity size was mildly dilated. Wall thickness was normal. Systolic function was moderately to severely reduced by visual assessment. The estimated ejection fraction was in the range of 30% to 35%, by visual assessment. Diffuse hypokinesis. - Pericardium, extracardiac: A trivial pericardial effusion was identified. If LV function is below 40, please consider prescribing an ACEI or ARB or document rationale for non-use. PROCEDURE DATA STUDY STATUS: Elective. Procedure: Transthoracic echocardiography. Image quality was good. Scanning was performed from the parasternal, apical, and subcostal acoustic windows. Study completion: The patient tolerated the procedure well. Transthoracic echocardiography. M-mode, complete 2D, complete spectral Doppler, and color Doppler. Patient status: Inpatient. CARDIAC ANATOMY LEFT VENTRICLE: The cavity size was mildly dilated. Wall thickness was normal. Systolic function was moderately to severely reduced by visual assessment. The estimated ejection fraction was in the range of 30% to 35%, by visual assessment. Diffuse hypokinesis. AORTIC VALVE: Normal thickness leaflets. AORTA: Aortic root: The aortic root was normal in size. MITRAL VALVE: Structurally normal valve. LEFT ATRIUM: The atrium was normal in size. RIGHT VENTRICLE: The cavity size was normal. Wall thickness was normal. PULMONIC VALVE: Not visualized. TRICUSPID VALVE: Structurally normal valve. RIGHT ATRIUM: The atrium was normal in size. PERICARDIUM: A trivial pericardial effusion was identified. BASIC MEASUREMENTS ADULT NORMAL Left ventricle LV internal dimension, ED, chordal level, *56.5 mm 43-52 PLAX LV internal dimension, ES, chordal level, *52.3 mm 23-38 PLAX Fractional shortening, chordal level, PLAX *7 % >29 LV posterior wall thickness, ED 12.7 mm IVS/LVPW ratio, ED *1.46 <1.3 Ventricular septum Septal thickness, ED 18.5 mm Right ventricle RV internal dimension, ED, PLAX 30.6 mm 19-38 LEGEND: Mean values are shown as u=mean value. Asterisk (*) coates values outside specified normal range. Prepared and signed by John Espinal [id number]
[2016-08-14] MEDS: SODIUM CHLORIDE 0.9% FLUSH 10 ML FLUSH IV FLUSH SCH ×2 (09:07→20:49)
[2016-08-14] MEDS: FUROSEMIDE 40 MG/4 ML VIAL IVP SCH ×2 (09:08→17:52)
[2016-08-14] MEDS: ASPIRIN 81 MG CHEW TAB CHEW SCH (09:08)
[2016-08-14] MEDS: POTASSIUM CHLORIDE 20 MEQ CONTROLLED RELEASE TAB PO SCH ×2 (09:09→20:48)
[2016-08-14] MEDS: CARVEDILOL 12.5 MG TAB PO SCH ×2 (09:09→20:49)
--- NOTE | 2016-08-14 11:14 | HHI.PYPN ---
Subjective Remarks Patient is able psychiatric reevaluation today, he is found sitting in a chair, persistently giving his feet with water, stating "clean feet is the secret for healthy life", patient is calm, cooperative and very pleasant in conversation. He reports good mood, denies anhedonia, denies hopelessness, denies helplessness , he seems to be future oriented, but at the same time states that he has some fear about his future health after cardiac surgery. The patient is able to sustain a logical, coherent and relevant conversation, he seems to be committed with medical treatments and with following up medical recommendation, but when he comes to certain topics patient loses to contact with a reality. For example , this morning he told me that he was trying to get in contact Trump Larissa nurse of the strategy about how to beat [place]. He also seems to be persistent about delusions of reference of Djs in radio controlling his mind. He seems to be kind of insightful about his delusions. He is stated that "there is something going on in my mind, my memory is not right and I need help". He denies suicidal and homicidal ideation, he denies visual and auditory hallucinations. Patient is fully oriented 3, without any attention deficit, no fluctuation of consciousness and no gross cognitive impairment observed during this evaluation. No aggressive behavior or motoric agitation have been reported or observed. Review of Systems Constitutional: DENIES: Diaphoretic episodes, Fatigue, Fever, Weight gain, Weight loss, Chills, Dizziness, Change in appetite, Night Sweats Endocrine: DENIES: Heat/cold intolerance, Polydipsia, Polyuria, Polyphagia Eyes: DENIES: Blurred vision, Diplopia, Eye inflammation, Eye pain, Vision loss , Photosensitivity, Double Vision Ears, nose, mouth, throat: DENIES: Tinnitus, Hearing loss, Vertigo, Nasal discharge, Oral lesions, Throat pain, Hoarseness, Ear Pain, Running Nose, Epistaxis, Sinus Pain, Toothache, Odynophagia Respiratory: DENIES: Apneas, Cough, Snoring, Wheezing, Hemoptysis, Sputum production, Shortness of breath Cardiovascular: DENIES: Chest pain, Palpitations, Syncope, Dyspnea on Exertion , PND, Lower Extremity Edema, Orthopnea, Claudication Gastrointestinal: DENIES: Abdominal pain, Black stools, Bloody stools, Constipation, Diarrhea, Nausea, Vomiting, Difficulty Swallowing, Anorexia Musculoskeletal: DENIES: Joint pain, Muscle aches, Stiffness, Joint Swelling, Back pain, Neck pain Integumentary: DENIES: Abnormal pigmentation, Nail changes, Pruritus, Rash Hematologic/lymphatic: DENIES: Bruising, Lymphadenopathy Immunologic/allergic: DENIES: Eczema, Urticaria Neurologic: DENIES: Abnormal gait, Headache, Localized weakness, Paresthesias, Seizures, Speech Problems, Tremor, Poor Balance Psychiatric: COMPLAINS OF: Delusions, DENIES: Anxiety, Confusion, Mood changes , Depression, Hallucinations, Agitation, Suicidal Ideation, Homicidal Ideation Objective Alert: Yes Naches: Person, Place, Date, Situation Mood: Calm Affect: Appropriate Memory Intact: Immediate, Recent, Remote Hallucinations: Other (he denies) Delusions: Yes Delusion Type: Grandiose, Paranoid, Other (delusions of reference,) Suicidal: Ideation (he denies) Homicidal: Ideation (he denies) Insight/Judgment Fair Vitals/IOs Vital Signs Date Time Temp Pulse Resp B/P Pulse Ox O2 Delivery O2 Flow Rate FiO2 08/14/16 09:00 81 08/14/16 08:45 96 Room Air 08/14/16 08:45 97.6 16 111/71 08/13/16 19:00 21 Intake and Output 08/13/16 08/13/16 08/14/16 08:00 16:00 00:00 Intake Total 480 ml 960 ml Balance 480 ml 960 ml Assessment & Plan Problem List: (1) NSTEMI (non-ST elevated myocardial infarction) ICD Code: I21.4 (2) Unspecified psychosis Assessment & Plan: Patient continued to present fix and well structured delusions of reference, paranoia and grandiosity. Delusions seems to be chronic and does not seem to represent an immediate danger to self or others, however the fact that we don't know the psychiatric history of this patient it makes very difficult to predict future behavior and further worsening or exacerbation of potential underline schizophrenia. He doesn't seem to be internally stimulated, floridly psychotic, his thought process is logical, coherent and relevant. He has a good mood, without any evidence of kaushik or depression, he denies suicidal and homicidal ideation, he denies visual and auditory hallucinations. I will start Abilify 5 mg daily, of all antipsychotics Abilify if the one with less probability to increase QTc interval , induced orthostatic hypotension and other cardiac side effects. But, also Abilify PO can be transferred to a monthly Depo IM medication, Abilify Maintena , which could be helpful assuring medication compliance. It will be appropriate to bring the patient to the med/psych unit involuntary basis, but there are some concerns about cardiac monitoring and appropriate medical care in the unit. Meanwhile, I will continue my follow-ups in the floor. ICD Code: F29 Assessment & Plan Estimated LOS: days Justification for Cont. Inpt. Patient is acutely psychotic. Samuel Nelson MD Aug 14, 2016 11:14
--- NOTE | 2016-08-14 11:19 | PD.CARD.PN ---
Subjective Subjective Remarks No chest pain, no shortness of breath Objective Medications Current Medications Medications (Trade) Dose Ordered Sig/Ximena Route Start Time Stop Time Status Last Admin (NS Flush) 2 ml BID IV FLUSH 08/07/16 21:00 08/14/16 09:07 (NS Flush) 2 ml UNSCH PRN IV FLUSH 08/07/16 16:00 08/11/16 18:32 (Lasix Inj) 40 mg BID@09,18 IVP 08/07/16 18:00 08/14/16 09:08 (KCl) 20 meq BID PO 08/07/16 21:00 08/14/16 09:09 (Tylenol) 650 mg Q4H PRN PO 08/07/16 16:15 (Zofran Inj) 4 mg Q6H PRN IV 08/07/16 16:15 (Cristina-Colace) 1 tab BID PRN PO 08/07/16 16:15 (Tums Chew) 1,000 mg TID PRN CHEW 08/07/16 16:15 (Vasotec Inj) 1.25 mg Q6H PRN IV 08/07/16 16:15 (Pill Splitter) 1 ea UNSCH PRN OTHER 08/07/16 16:30 (Lipitor) 80 mg HS PO 08/07/16 21:00 08/13/16 20:45 (Aspirin Chew) 81 mg DAILY CHEW 08/08/16 09:00 08/14/16 09:08 (Heparin Inj) 5,000 units Q8HR SQ 08/11/16 22:00 08/14/16 05:24 (Coreg) 12.5 mg Q12HR PO 08/13/16 09:00 08/14/16 09:09 (Abilify) 5 mg DAILY PO 08/14/16 11:00 Vital Signs / I&O Vital Signs Date Time Temp Pulse Resp B/P Pulse Ox O2 Delivery O2 Flow Rate FiO2 08/14/16 09:00 81 08/14/16 08:45 96 Room Air 08/14/16 08:45 97.6 72 16 111/71 96 08/14/16 08:45 72 08/14/16 08:15 95 08/14/16 07:00 71 08/14/16 06:30 70 08/14/16 05:02 70 08/14/16 04:14 84 4/7/17 04:13 97.8 79 144/89 97 08/14/16 03:44 71 08/14/16 02:38 58 08/14/16 01:00 65 08/14/16 00:00 72 08/13/16 23:18 69 08/13/16 23:00 98.5 70 129/88 96 08/13/16 22:00 68 08/13/16 21:00 74 08/13/16 20:00 72 08/13/16 19:00 78 08/13/16 19:00 Room Air 21 08/13/16 19:00 97.7 73 124/91 95 08/13/16 18:24 79 08/13/16 17:01 76 08/13/16 16:03 78 08/13/16 15:28 97.6 77 18 103/76 94 08/13/16 15:28 78 08/13/16 14:07 75 08/13/16 13:48 83 08/13/16 12:08 71 08/13/16 11:18 98.2 72 18 101/69 94 08/13/16 11:18 69 I/O 08/13/16 08/13/16 08/13/16 08/14/16 08/14/16 08/14/16 07:00 15:00 23:00 07:00 15:00 23:00 Intake Total 480 ml 960 ml 600 ml Balance 480 ml 960 ml 600 ml Intake Oral 480 ml 960 ml 600 ml # Voids 2 4 3 # Bowel Movements 1 Physical Exam GENERAL: NAD, AAOx3 SKIN: Warm and dry. HEAD: Atraumatic. Normocephalic. EYES: Pupils equal and round. No scleral icterus. No injection or drainage. ENT: No nasal bleeding or discharge. Mucous membranes pink and moist. NECK: Trachea midline. Minimal JVD CARDIOVASCULAR: Regular rate and rhythm. RESPIRATORY: No accessory muscle use. Decreased breath sounds bilaterally GASTROINTESTINAL: Abdomen soft, non-tender, nondistended. Hepatic and splenic margins not palpable. MUSCULOSKELETAL: Trace pitting edema bilaterally, right radial/brachial no hematoma NEUROLOGICAL: Awake and alert. No obvious cranial nerve deficits. Motor grossly within normal limits. Five out of 5 muscle strength in the arms and legs. Normal speech. PSYCHIATRIC: Appropriate mood and affect; insight and judgment normal. Assessment and Plan Problem List: (1) NSTEMI (non-ST elevated myocardial infarction) (2) Congestive heart failure (3) Fluid overload (4) CKD (chronic kidney disease) (5) Unspecified psychosis Assessment and Plan 1) MVCAD, discussed with CT surgery for consideration of bypass, repeating echo to look at overall change in function before decision 2) EF 15-20% 3) ASA/Lipitor/Coreg 4) Elevated wedge/PA pressures... continue diuresis 5) If turned down for CT surgery, not a candidate for high risk PCI due to psych issues, concern for inability to take/continue on medications 6) Medical management for now, blood pressure better on increased Coreg 7) Diuresing well, I/O con't to be negative, weights down 8) If questions over the weekend, Dr. Waddell will be covering, will plan on seeing on Wednesday Problem Qualifiers (1) Congestive heart failure: Qualified Code: I50.9 - Acute congestive heart failure, unspecified congestive heart failure type (2) Fluid overload: Qualified Code: E87.71 - Transfusion associated circulatory overload Byron Franz DO Aug 14, 2016 11:19
--- NOTE | 2016-08-14 11:54 | HHI.FPPN ---
Subjective Remarks Patient seen and examined by medical team this morning. No acute events overnight vital signs stable. Patient still agreeable being transferred to [facility] psych unit once a bed becomes available. He has no complaints this morning and denies any fevers, chills, chest pain, palpitations, shortness of breath, NVD, or calf tenderness. (Maxi Leach MD R1) Objective Vitals Vital Signs Date Time Temp Pulse Resp B/P Pulse Ox O2 Delivery O2 Flow Rate FiO2 08/14/16 09:00 81 08/14/16 08:45 96 Room Air 08/14/16 08:45 97.6 72 16 111/71 96 08/14/16 08:45 72 08/14/16 08:15 95 08/14/16 07:00 71 08/14/16 06:30 70 08/14/16 05:02 70 08/14/16 04:14 84 08/14/16 04:13 97.8 79 144/89 97 08/14/16 03:44 71 08/14/16 02:38 58 08/14/16 01:00 65 08/14/16 00:00 72 08/13/16 23:18 69 08/13/16 23:00 98.5 70 129/88 96 08/13/16 22:00 68 08/13/16 21:00 74 08/13/16 20:00 72 08/13/16 19:00 78 08/13/16 19:00 Room Air 21 08/13/16 19:00 97.7 73 124/91 95 08/13/16 18:24 79 08/13/16 17:01 76 08/13/16 16:03 78 08/13/16 15:28 97.6 77 18 103/76 94 08/13/16 15:28 78 08/13/16 14:07 75 08/13/16 13:48 83 08/13/16 12:08 71 I/O 08/13/16 08/13/16 08/13/16 08/14/16 08/14/16 08/14/16 07:00 15:00 23:00 07:00 15:00 23:00 Intake Total 480 ml 960 ml 600 ml Balance 480 ml 960 ml 600 ml Intake Oral 480 ml 960 ml 600 ml # Voids 2 4 3 # Bowel Movements 1 (Maxi Leach MD R1) Result Diagram: 08/13/16 0535 08/12/16 0558 Objective Remarks GEN: Well-developed, well-nourished patient 46-year-old male lying in bed in no acute distress. CV: Regular rate and rhythm without obvious murmurs. LUNGS: Normal work of breathing, no use of accessory muscles. Occasional expiratory wheezing in lower lung gordon. No rales or rhonchi. GI: Soft, nontender, nondistended. Positive bowel sounds. No masses appreciated. EXT: 1+ edema bilaterally from knee down, improved significantly from admission. NEURO/PSYCH: Afocal. Awake, alert, and oriented x3. (Maxi Leach MD R1) A/P Assessment and Plan 46 y/o male with no past medical history presents with shortness of breath. Found to be fluid overloaded with NSTEMI. Currently being evaluated by psychiatry for psychosis and cardiothoracic surgery for possible CABG. Discharge Planning Pending further evaluation by cardiothoracic surgery, will likely be transferred to med/Psych floor once there is bed availability. SDW: Dr. Cate Barrera DW: Dr. Segura (Maxi Leach MD R1) Attending Attestation Patient seen and examined. Case reviewed and discussed with the resident team. Agree with plan of care as discussed with me and documented in the resident note. (Nikki Segura MD) Problem List: (1) Congestive heart failure Status: Acute Plan: Pt. has no significant cardiac history, but endorses heavy salt intake, significant tobacco history. EKG showed normal sinus rhythm. Q waves in V1, V2, V3, V4. Initial troponin elevated at 2.91 showed further elevations. May be secondary to acute congestive heart failure vs past [place] CXR showed cardiomegaly and no acute disease. BNP elevated at 993. Suspect acute decompensated heart failure. Echo: EF 15-20% -Cardiothoracic surgery has been consulted for consideration for bypass, appreciate recommendations. Cardiothoracic team plans for repeat echocardiogram on 08/16/16, for further evaluation. -Patient is currently very high risk candidate for cardiac surgery due to EF of 15% -Continue diuresis: Lasix 40 mg IV BID -Low-salt diet less than 2 g per day. -Fluid restrict to 1.5 L per day. -Strict Is and Os. Daily weights. -Supplemental oxygen and monitor on pulse ox. -Telemetry Imaging Carotid artery ultrasound 08/11: Normal hemodynamic profile of both carotids Lower extremity ultrasound 08/11: Negative for DVT bilaterally, venous mapping per report (2) NSTEMI (non-ST elevated myocardial infarction) Status: Acute Plan: EKG showed normal sinus rhythm. Q waves in V1, V2, V3, V4. No chest pain on admission, pt denies angina in the past. Unsure if CHF leading to NSTEMI or heart damage in the past causing acute CHF -Cardiology consulted, appreciate recommendations and intervention -Cardiac catheterization was significant for severe multivessel disease, significantly elevated wedge and pulmonary artery pressures, see plan for diuresis above. -Pt would be a poor candidate for stent placement -ASA daily -Lipitor 80mg HS -Coreg 12.5mg PO BID -See plan above (3) Unspecified psychosis Status: Acute Plan: Psychiatry has been consulted due to concern for possible schizophrenia, appreciate recommendations. -No antipsychotic medications recommended at this time -Abilify 5 mg daily -Anticipate pt being transferred to med/psych once there is bed availability (4) FEN Status: Acute Plan: Fluids: none iv, fluid restrict Electrolytes: Hypokalemic, given one time dose of KCL 40meq Nutrition: Heart healthy, NA restriction to resume after catheterization DVT ppx: Heparin Chronic issues History of tobacco dependence/possible COPD: -Albuterol nebulizer tx prn SOB (Maxi Leach MD R1) Problem Qualifiers (1) Congestive heart failure: Qualified Code: I50.9 - Acute congestive heart failure, unspecified congestive heart failure type Maxi Leach MD R1 Aug 14, 2016 11:54 Nikki Segura MD Aug 16, 2016 15:28
--- NOTE | 2016-08-14 15:20 | PD.CAR.PN ---
CVT Progress Note Subjective/Hospital Course: 46 male , no prior medical HX or medical treatment , has not seen MD in over 20years. " didn't have any problems". Homeless, Admitted to ED with SOB, lower ext and scrotal edema , + NSTEMI , acute onset of CHF / BNP 900/ ECHO showed EF 15-20% severe systolic dysfunction . Underwent cardiac cath by Dr Franz showing multi vessel disease / PA pressure 59/34/ wedge pressure of 32 / LVEDP 42. STS data Morbidity or Mortality of 20.45 % Pt also has some psych issues / was seen and eval by Psych Dr Nelson , felt pt had delusional and psychotic symptoms , but was not considered a harm to himself, and did not meet involuntary psych admission at this time. 08/12 pt denied any chest pain , await final decision per Dr Arteaga / regarding surgery 08/13 repeat limited echo scheduled for wednesday re-eval for candidate for surgery 08/14 no chest pain or SOB, on room air leg edema improving echo changed to wednesday am to re-eval EF Objective: GENERAL: SKIN: Warm and dry. HEAD: Normocephalic. EYES: No scleral icterus. No injection or drainage. NECK: Supple, trachea midline. No JVD or lymphadenopathy. CARDIOVASCULAR: Regular rate and rhythm without murmurs, gallops, or rubs. RESPIRATORY: Breath sounds equal bilaterally. No accessory muscle use. GASTROINTESTINAL: Abdomen soft, non-tender, nondistended. MUSCULOSKELETAL: No cyanosis, or edema. BACK: Nontender without obvious deformity. No CVA tenderness. Vital Signs Date Time Temp Pulse Resp B/P Pulse Ox O2 Delivery O2 Flow Rate FiO2 08/14/16 15:00 95 Room Air 08/14/16 15:00 97.2 76 16 125/80 95 08/14/16 14:00 80 08/14/16 13:00 78 08/14/16 12:00 68 08/14/16 11:00 97.2 68 16 92/57 94 08/14/16 11:00 94 Room Air 08/14/16 10:00 70 08/14/16 09:00 81 08/14/16 08:45 96 Room Air 08/14/16 08:45 97.6 72 16 111/71 96 08/14/16 08:45 72 08/14/16 08:15 95 08/14/16 07:00 71 08/14/16 06:30 70 08/14/16 05:02 70 08/14/16 04:14 84 08/14/16 04:13 97.8 79 144/89 97 08/14/16 03:44 71 08/14/16 02:38 58 08/14/16 01:00 65 08/14/16 00:00 72 08/13/16 23:18 69 08/13/16 23:00 98.5 70 129/88 96 08/13/16 22:00 68 08/13/16 21:00 74 08/13/16 20:00 72 08/13/16 19:00 78 08/13/16 19:00 Room Air 21 08/13/16 19:00 97.7 73 124/91 95 08/13/16 18:24 79 08/13/16 17:01 76 08/13/16 16:03 78 08/13/16 15:28 97.6 77 18 103/76 94 08/13/16 15:28 78 Result Diagram: 08/13/16 0535 08/12/16 0558 (1) NSTEMI (non-ST elevated myocardial infarction) Plan: ASA, statin , BB high risk candidate for Coronary artery bypass grafting repeat ECHO wednesday (2) Congestive heart failure Plan: EF 15-20% on lasix severely reduced systolic function (3) Fluid overload (4) CKD (chronic kidney disease) Plan: renal indices stable (5) Unspecified psychosis Plan: seen and eval by Psychiatry Problem Qualifiers (1) Congestive heart failure: Qualified Code: I50.9 - Acute congestive heart failure, unspecified congestive heart failure type (2) Fluid overload: Qualified Code: E87.71 - Transfusion associated circulatory overload Haley Hollis Aug 14, 2016 15:20
[2016-08-14] MEDS: ARIPiprazole 5 MG TAB PO SCH (17:52)
[2016-08-14] MEDS: ATORVASTATIN 80 MG TAB PO SCH (20:49)
[2016-08-15] VITALS (23 sets, daily range): BP systolic 104–162; BP diastolic 68–91; PULSE 60–93; RESP 16–20; TEMP 98–98.5; O2SAT 95–97
[2016-08-15] MEDS: HEPARIN SODIUM - SQ 10,000 UNITS/ML VIAL SQ SCH ×3 (05:40→20:35)
--- NOTE | 2016-08-15 08:25 | HHI.FPPN ---
Subjective Remarks Patient seen and examined by medical team this morning. No acute events overnight with VSS. Patient would like to leave and come back to the hospital to pay his cell phone bill. Medical team explained the need to stay for his full evaluation before leaving which he was agreeable to. His only complaint this morning was some leg cramping overnight. The team did no evaluate his electrolytes today as he is scheduled for blood draw tomorrow morning for Q3D CBC by cardiology. Team offered to evaluate electrolytes this morning, but patient declined until tomorrow in order to decrease the number of needle sticks. Otherwise he has no complaints and denies any fevers, chest pain, SOB, NVD, or calf tenderness. (Maxi Leach MD R1) Objective Vitals Vital Signs Date Time Temp Pulse Resp B/P Pulse Ox O2 Delivery O2 Flow Rate FiO2 08/15/16 08:00 77 08/15/16 07:00 98.0 75 20 104/69 95 08/15/16 07:00 65 08/15/16 07:00 95 Room Air 08/15/16 06:00 65 08/15/16 05:00 70 08/15/16 04:00 98.0 66 18 104/69 95 08/15/16 04:00 66 08/15/16 04:00 Room Air 08/15/16 03:00 70 08/15/16 02:00 73 08/15/16 01:00 68 08/15/16 00:00 Room Air 08/15/16 00:00 70 08/15/16 00:00 98.3 70 18 107/68 97 08/14/16 23:00 74 08/14/16 22:00 71 08/14/16 21:34 95 21 08/14/16 21:00 80 08/14/16 20:00 77 08/14/16 20:00 97.9 78 20 118/82 96 08/14/16 20:00 Room Air 08/14/16 18:00 79 08/14/16 17:00 78 08/14/16 16:00 77 08/14/16 15:00 95 Room Air 08/14/16 15:00 97.2 76 16 125/80 95 08/14/16 14:00 80 08/14/16 13:00 78 08/14/16 12:00 68 08/14/16 11:00 97.2 68 16 92/57 94 08/14/16 11:00 94 Room Air 08/14/16 10:00 70 08/14/16 09:00 81 08/14/16 08:45 96 Room Air 08/14/16 08:45 97.6 72 16 111/71 96 08/14/16 08:45 72 I/O 08/14/16 08/14/16 08/14/16 08/15/16 08/15/16 08/15/16 07:00 15:00 23:00 07:00 15:00 23:00 Intake Total 600 ml 1000 ml 962 ml Output Total 1250 ml 1000 ml Balance 600 ml -250 ml -38 ml Intake Oral 600 ml 1000 ml 960 ml IV Total 2 ml Output Urine Total 1250 ml 1000 ml # Voids 3 5 # Bowel Movements 1 0 (Maxi Leach MD R1) Result Diagram: 08/13/16 0535 08/12/16 0558 Objective Remarks GEN: Well-developed, well-nourished patient 46-year-old male sitting up in his recliner watching television. CV: Regular rate and rhythm without obvious murmurs. LUNGS: Normal work of breathing, no use of accessory muscles. Occasional expiratory wheezing in lower lung gordon, stable from prior exams. No rales or rhonchi. GI: Soft, nontender, nondistended. Positive bowel sounds. No masses appreciated. EXT: 1+ edema bilaterally from knee down, improved significantly from admission. NEURO/PSYCH: Afocal. Awake, alert, and oriented x3. (Maxi Leach MD R1) A/P Assessment and Plan 46 y/o male with no past medical history presents with shortness of breath. Found to be fluid overloaded with NSTEMI. Currently being evaluated by psychiatry for psychosis and cardiothoracic surgery for possible CABG. Discharge Planning Pending further evaluation by cardiothoracic surgery, will likely be transferred to med/Psych floor once there is bed availability. SDW: Dr. Cate Barrera DW: Dr. Segura (Maxi Leach MD R1) Attending Attestation Patient seen and examined. Case reviewed and discussed with the resident team. Agree with plan of care as discussed with me and documented in the resident note. (Nikki Segura MD) Problem List: (1) Congestive heart failure Status: Acute Plan: Pt. has no significant cardiac history, but endorses heavy salt intake, significant tobacco history. EKG showed normal sinus rhythm. Q waves in V1, V2, V3, V4. Initial troponin elevated at 2.91 showed further elevations. May be secondary to acute congestive heart failure vs past [place] CXR showed cardiomegaly and no acute disease. BNP elevated at 993. Suspect acute decompensated heart failure. Echo: EF 15-20% -Cardiothoracic surgery has been consulted for consideration for bypass, appreciate recommendations. Cardiothoracic team plans for repeat echocardiogram on 08/17/16, for further evaluation prior to possible CABG. -Patient is currently very high risk candidate for cardiac surgery due to EF of 15% and is not a candidate for high risk PCI. -Continue diuresis: Lasix 40 mg IV BID -Low-salt diet less than 2 g per day. -Fluid restrict to 1.5 L per day. -Strict Is and Os. Daily weights. -Supplemental oxygen and monitor on pulse ox. -Telemetry Imaging Carotid artery ultrasound 08/11: Normal hemodynamic profile of both carotids Lower extremity ultrasound 08/11: Negative for DVT bilaterally, venous mapping per report (2) NSTEMI (non-ST elevated myocardial infarction) Status: Acute Plan: EKG showed normal sinus rhythm. Q waves in V1, V2, V3, V4. No chest pain on admission, pt denies angina in the past. Unsure if CHF leading to NSTEMI or heart damage in the past causing acute CHF -Cardiology consulted, appreciate recommendations and intervention -Cardiac catheterization was significant for severe multivessel disease, significantly elevated wedge and pulmonary artery pressures, see plan for diuresis above. -Pt would be a poor candidate for stent placement -ASA daily -Lipitor 80mg HS -Coreg 12.5mg PO BID -See plan above (3) Unspecified psychosis Status: Acute Plan: Psychiatry has been consulted due to concern for possible schizophrenia, appreciate recommendations. -No antipsychotic medications recommended at this time -Abilify 5 mg daily -Anticipate pt being transferred to med/psych once there is bed availability (4) FEN Status: Acute Plan: Fluids: none iv, fluid restrict Electrolytes: Hypokalemic, given one time dose of KCL 40meq Nutrition: Heart healthy, NA restriction to resume after catheterization DVT ppx: Heparin Chronic issues History of tobacco dependence/possible COPD: -Albuterol nebulizer tx prn SOB (Maxi Leach MD R1) Problem Qualifiers (1) Congestive heart failure: Qualified Code: I50.9 - Acute congestive heart failure, unspecified congestive heart failure type Maxi Leach MD R1 Aug 15, 2016 08:25 Nikki Segura MD Aug 16, 2016 15:29
[2016-08-15] MEDS: POTASSIUM CHLORIDE 20 MEQ CONTROLLED RELEASE TAB PO SCH ×2 (08:43→20:35)
[2016-08-15] MEDS: CARVEDILOL 12.5 MG TAB PO SCH ×2 (08:43→20:36)
[2016-08-15] MEDS: ARIPiprazole 5 MG TAB PO SCH (08:43)
[2016-08-15] MEDS: SODIUM CHLORIDE 0.9% FLUSH 10 ML FLUSH IV FLUSH SCH ×2 (08:43→20:37)
[2016-08-15] MEDS: ASPIRIN 81 MG CHEW TAB CHEW SCH (08:43)
[2016-08-15] MEDS: FUROSEMIDE 40 MG/4 ML VIAL IVP SCH ×2 (08:44→18:21)
[2016-08-15] MEDS: ATORVASTATIN 80 MG TAB PO SCH (20:35)
[2016-08-16] VITALS (23 sets, daily range): BP systolic 123–139; BP diastolic 74–94; PULSE 68–90; RESP 18–20; TEMP 98–98.4; O2SAT 95–97
[2016-08-16 05:22] LABS: HEMATOCRIT 48.4 % (39.0-51.0); MEAN CELL VOLUME 86.3 FL (80.0-100.0); MEAN CORPUSCULAR HEMOGLOBIN 28.1 PG (27.0-34.0); MEAN CORPUSCULAR HGB CONC 32.6 % (32.0-36.0); PLATELET COUNT 261 TH/MM3 (150-450); RED CELL DISTRIBUTION WIDTH 15.5 % (11.6-17.2); REVIEW FLAG FINAL; WHITE BLOOD COUNT 9.1 TH/MM3 (4.0-11.0)
[2016-08-16] MEDS: HEPARIN SODIUM - SQ 10,000 UNITS/ML VIAL SQ SCH ×3 (05:22→23:00)
[2016-08-16 05:32] LABS: BICARBONATE 34.2 MEQ/L (21.0-32.0); MAGNESIUM 2.1 MG/DL (1.5-2.5); POTASSIUM 4.4 MEQ/L (3.5-5.1)
[2016-08-16] MEDS: POTASSIUM CHLORIDE 20 MEQ CONTROLLED RELEASE TAB PO SCH ×2 (08:14→20:14)
[2016-08-16] MEDS: CARVEDILOL 12.5 MG TAB PO SCH ×2 (08:15→20:14)
[2016-08-16] MEDS: ASPIRIN 81 MG CHEW TAB CHEW SCH (08:15)
[2016-08-16] MEDS: FUROSEMIDE 40 MG/4 ML VIAL IVP SCH (08:15)
[2016-08-16] MEDS: ARIPiprazole 5 MG TAB PO SCH (08:15)
[2016-08-16] MEDS: SODIUM CHLORIDE 0.9% FLUSH 10 ML FLUSH IV FLUSH SCH ×2 (08:15→20:15)
--- NOTE | 2016-08-16 12:31 | HHI.FPPN ---
Subjective Remarks Patient seen and examined by medical team this morning. No acute events overnight and vital signs stable. Patient states that cramping has gotten better overnight. He has no other complaints this morning he denies any fevers, chills, shortness breath, chest pain, NVD, or calf tenderness. (Maxi Leach MD R1) Objective Vitals Vital Signs Date Time Temp Pulse Resp B/P Pulse Ox O2 Delivery O2 Flow Rate FiO2 08/16/16 12:00 80 08/16/16 11:00 98.0 76 18 123/75 95 08/16/16 11:00 80 08/16/16 10:00 72 08/16/16 09:00 71 08/16/16 08:00 82 08/16/16 07:00 96 Room Air 08/16/16 07:00 98.4 75 18 132/89 96 08/16/16 07:00 74 08/16/16 06:00 71 08/16/16 05:00 70 08/16/16 04:00 75 08/16/16 04:00 98.3 75 18 132/89 96 08/16/16 04:00 Room Air 08/16/16 03:00 72 08/16/16 02:00 69 08/16/16 01:00 75 08/16/16 00:00 69 08/16/16 00:00 98.1 69 18 138/94 95 08/16/16 00:00 Room Air 08/15/16 23:00 72 08/15/16 22:00 66 08/15/16 21:00 68 08/15/16 20:00 98.3 78 20 142/91 97 08/15/16 20:00 Room Air 08/15/16 20:00 78 08/15/16 19:58 21 08/15/16 18:00 91 08/15/16 17:00 93 08/15/16 16:00 76 08/15/16 15:00 98.2 68 16 162/81 96 08/15/16 15:00 65 08/15/16 14:00 66 08/15/16 13:00 68 I/O 08/15/16 08/15/16 08/15/16 08/16/16 08/16/16 08/16/16 07:00 15:00 23:00 07:00 15:00 23:00 Intake Total 962 ml 1200 ml 960 ml Output Total 1000 ml 900 ml 850 ml Balance -38 ml 300 ml 110 ml Intake Oral 960 ml 1200 ml 960 ml IV Total 2 ml Output Urine Total 1000 ml 900 ml 850 ml # Voids 1 # Bowel Movements 0 1 0 (Maxi Leach MD R1) Result Diagram: 08/16/1643908/16/16439 Objective Remarks GEN: Well-developed, well-nourished patient 46-year-old male sitting up in his recliner watching television. CV: Regular rate and rhythm without obvious murmurs. LUNGS: Normal work of breathing, no use of accessory muscles. Occasional expiratory wheezing in lower lung gordon, stable from prior exams. No rales or rhonchi. GI: Soft, nontender, nondistended. Positive bowel sounds. No masses appreciated. EXT: Bilateral edema resolved from admission which is a significant improvement. No cyanosis. NEURO/PSYCH: Afocal. Awake, alert, and oriented x3. (Maxi Leach MD R1) A/P Assessment and Plan 46 y/o male with no past medical history presents with shortness of breath. Found to be fluid overloaded with NSTEMI. Currently being evaluated by psychiatry for psychosis and cardiothoracic surgery for possible CABG. Discharge Planning Pending further evaluation by cardiothoracic surgery, will likely be transferred to med/Psych floor once there is bed availability. SDW: Dr. Orozco DW: Dr. Segura (Maxi Leach MD R1) Attending Attestation Patient seen and examined. Case reviewed and discussed with the resident team. Agree with plan of care as discussed with me and documented in the resident note. (Nikki Segura MD) Problem List: (1) Congestive heart failure Status: Acute Plan: Pt. has no significant cardiac history, but endorses heavy salt intake, significant tobacco history. EKG showed normal sinus rhythm. Q waves in V1, V2, V3, V4. Initial troponin elevated at 2.91 showed further elevations. May be secondary to acute congestive heart failure vs past [place] CXR showed cardiomegaly and no acute disease. BNP elevated at 993. Suspect acute decompensated heart failure. Echo: EF 15-20% -Cardiothoracic surgery has been consulted for consideration for bypass, appreciate recommendations. Cardiothoracic team plans for repeat echocardiogram on 08/17/16, for further evaluation prior to possible CABG. -Patient is currently very high risk candidate for cardiac surgery due to EF of 15% and is not a candidate for high risk PCI. -Due to cramping will decrease Lasix to 20 mg every morning. -Low-salt diet less than 2 g per day. -Fluid restrict to 1.5 L per day. -Strict Is and Os. Daily weights. -Supplemental oxygen and monitor on pulse ox. -Telemetry Imaging Carotid artery ultrasound 08/11: Normal hemodynamic profile of both carotids Lower extremity ultrasound 08/11: Negative for DVT bilaterally, venous mapping per report (2) NSTEMI (non-ST elevated myocardial infarction) Status: Acute Plan: EKG showed normal sinus rhythm. Q waves in V1, V2, V3, V4. No chest pain on admission, pt denies angina in the past. Unsure if CHF leading to NSTEMI or heart damage in the past causing acute CHF -Cardiology consulted, appreciate recommendations and intervention -Cardiac catheterization was significant for severe multivessel disease, significantly elevated wedge and pulmonary artery pressures, see plan for diuresis above. -Pt would be a poor candidate for stent placement -ASA daily -Lipitor 80mg HS -Coreg 12.5mg PO BID -See plan above (3) Unspecified psychosis Status: Acute Plan: Psychiatry has been consulted due to concern for possible schizophrenia, appreciate recommendations. -No antipsychotic medications recommended at this time -Abilify 5 mg daily -Anticipate pt being transferred to med/psych once there is bed availability (4) FEN Status: Acute Plan: Fluids: None, fluid restrict Electrolytes: WNL Nutrition: Heart healthy, NA restriction to resume after catheterization DVT ppx: Heparin Chronic issues History of tobacco dependence/possible COPD: -Albuterol nebulizer tx prn SOB (Maxi Leach MD R1) Problem Qualifiers (1) Congestive heart failure: Qualified Code: I50.9 - Acute congestive heart failure, unspecified congestive heart failure type Maxi Leach MD R1 Aug 16, 2016 12:31 Nikki Segura MD Aug 16, 2016 15:29
[2016-08-16] MEDS: ATORVASTATIN 80 MG TAB PO SCH (20:14)
[2016-08-17] VITALS (17 sets, daily range): BP systolic 101–135; BP diastolic 61–94; PULSE 64–86; RESP 18; TEMP 97.7–98.1; O2SAT 93–98
[2016-08-17] MEDS: HEPARIN SODIUM - SQ 10,000 UNITS/ML VIAL SQ SCH ×3 (05:23→21:18)
[2016-08-17 07:04] LABS: BICARBONATE 28.8 MEQ/L (21.0-32.0)
[2016-08-17 07:07] LABS: POTASSIUM 4.2 MEQ/L (3.5-5.1)
[2016-08-17] MEDS: ASPIRIN 81 MG CHEW TAB CHEW SCH (09:02)
[2016-08-17] MEDS: ARIPiprazole 5 MG TAB PO SCH (09:02)
[2016-08-17] MEDS: CARVEDILOL 12.5 MG TAB PO SCH ×2 (09:02→21:17)
[2016-08-17] MEDS: POTASSIUM CHLORIDE 20 MEQ CONTROLLED RELEASE TAB PO SCH ×2 (09:02→21:17)
[2016-08-17] MEDS: SODIUM CHLORIDE 0.9% FLUSH 10 ML FLUSH IV FLUSH SCH ×2 (09:04→21:18)
[2016-08-17] MEDS: FUROSEMIDE 40 MG/4 ML VIAL IVP SCH (09:04)
--- NOTE | 2016-08-17 11:59 | HHI.FPPN ---
Subjective Remarks Mr Mohr is joking today and reported his echocardiogram has been completed but the report is not available yet. He is superficially very cheerful and appropriate but he has fixed delusions about a DJ controlling his phone. He has had no ectopy or arrhythmias on his tele and has been improved overall with his heart functioning and EF. His echo on the showed some improvement from his initial echo and hopefully today he will have continued improvement. Objective Vitals Vital Signs Date Time Temp Pulse Resp B/P Pulse Ox O2 Delivery O2 Flow Rate FiO2 08/17/16 10:37 86 08/17/16 09:00 70 08/17/16 08:00 70 08/17/16 07:00 96 Room Air 08/17/16 07:00 97.9 68 18 101/61 93 08/17/16 07:00 64 08/17/16 06:00 74 08/17/16 05:00 72 08/17/16 04:16 Room Air 08/17/16 04:16 98.1 69 18 123/69 97 08/17/16 04:00 69 08/17/16 03:00 72 08/17/16 02:00 70 08/17/16 01:00 77 08/17/16 00:00 Room Air 08/17/16 00:00 98.0 69 18 135/71 98 08/17/16 00:00 69 08/16/16 23:00 75 08/16/16 22:00 87 08/16/16 21:51 21 08/16/16 21:00 90 08/16/16 20:00 98.3 88 18 139/79 97 08/16/16 20:00 Room Air 08/16/16 20:00 88 08/16/16 18:00 71 08/16/16 17:00 75 08/16/16 16:00 68 08/16/16 15:00 98.2 77 20 132/74 95 08/16/16 15:00 85 08/16/16 14:00 71 08/16/16 13:00 73 08/16/16 12:00 80 I/O 08/16/16 08/16/16 08/16/16 08/17/16 08/17/16 08/17/16 07:00 15:00 23:00 07:00 15:00 23:00 Intake Total 960 ml 1200 ml 902 ml Output Total 850 ml 1100 ml Balance 110 ml 1200 ml -198 ml Intake Oral 960 ml 1200 ml 900 ml IV Total 2 ml Output Urine Total 850 ml 1100 ml # Voids 4 # Bowel Movements 0 1 0 Result Diagram: 08/16/16 0440 08/17/16 0503 Objective Remarks GEN: Well-developed, well-nourished patient 46-year-old male in his bed watching television. CV: Regular rate and rhythm without obvious murmurs. LUNGS: Normal work of breathing, no use of accessory muscles. Occasional expiratory wheezing in lower lung gordon, stable from prior exams. No rales or rhonchi. GI: Soft, nontender, nondistended. Positive bowel sounds. No masses appreciated. EXT: Bilateral edema resolved from admission which is a significant improvement. No cyanosis. NEURO/PSYCH: Afocal. Awake, alert, and oriented x3. Urinary Catheter: No Vascular Central Line Catheter: No A/P Assessment and Plan 46 y/o male with no past medical history presents with shortness of breath. Found to be fluid overloaded with NSTEMI. Currently being evaluated by psychiatry for psychosis and cardiothoracic surgery for possible CABG. Discharge Planning Pending further evaluation by cardiothoracic surgery, will likely be transferred to med/Psych floor once there is bed availability. He is stable now from a cardiac point as he has been on Medicines and had great diuresis and improvement in his breathing and edema. Problem List: (1) Congestive heart failure Status: Acute Plan: Pt. has no significant cardiac history, but endorses heavy salt intake, significant tobacco history. EKG showed normal sinus rhythm. Q waves in V1, V2, V3, V4. Initial troponin elevated at 2.91 showed further elevations. May be secondary to acute congestive heart failure vs past CO CXR showed cardiomegaly and no acute disease. BNP elevated at 993 on admission. He had acute decompensated heart failure. Echo: EF 15-20% initially -Cardiothoracic surgery has been consulted for consideration for bypass, appreciate recommendations. Cardiothoracic team plans for repeat echocardiogram on 08/17/16, for further evaluation prior to possible CABG. -Patient was very high risk candidate for cardiac surgery due to EF of 15% and is not a candidate for high risk PCI. However, his EF improved on the and clinically he is much better overall so hopefully he will be able to have surgery. His coronary arteries would be very high risk to stent. After bypass his EF should hopefully get even better when he has good perfusion. -Due to cramping will decrease Lasix to 20 mg every morning. -Low-salt diet less than 2 g per day. -Fluid restrict to 1.5 L per day. -Strict Is and Os. Daily weights. -Supplemental oxygen and monitor on pulse ox. -Telemetry, he has had no ectopy at all for days per his monitor so can stop tele as that is not acceptable for [facility]-psych -now he is asymptomatic with any cardiac problems as he has done very well with medical treatment for days Imaging Carotid artery ultrasound 08/11: Normal hemodynamic profile of both carotids Lower extremity ultrasound 08/11: Negative for DVT bilaterally, venous mapping per report (2) NSTEMI (non-ST elevated myocardial infarction) Status: Acute Plan: EKG showed normal sinus rhythm. Q waves in V1, V2, V3, V4. No chest pain on admission, pt denies angina in the past. Unsure if CHF leading to NSTEMI or heart damage in the past causing acute CHF -Cardiology consulted, appreciate recommendations and intervention -Cardiac catheterization was significant for severe multivessel disease, significantly elevated wedge and pulmonary artery pressures, see plan for diuresis above. -Pt would be a poor candidate for stent placement -ASA daily -Lipitor 80mg HS -Coreg 12.5mg PO BID -See plan above (3) Unspecified psychosis Status: Acute Plan: Psychiatry has been consulted due to concern for possible schizophrenia, appreciate recommendations. -Abilify 5 mg daily -Anticipate pt being transferred to [facility] once there is bed availability. he is stable from a Cardiac point of view. -per Psychiatry, he could have worsening psychosis with stressor like surgery so will try to maximize his thinking prior to D/C -he could also use help with his financial and living situation. He states he has a check coming every month but it may be going to someone in [place]. He has had trouble getting an apartment because of his delusions but hopefully should have the financial help from being declared disabled in the past. If he has a place to live, he can have home nursing check on him and be sure he takes his medicines and stays well. If he goes back to being homeless he would be at higher risk for deterioration. (4) FEN Status: Acute Plan: Fluids: None iv, fluid restrict Electrolytes: WNL Nutrition: Heart healthy, NA restriction DVT ppx: Heparin Chronic issues History of tobacco dependence/possible COPD: -Albuterol nebulizer tx prn SOB Problem Qualifiers (1) Congestive heart failure: Qualified Code: I50.9 - Acute congestive heart failure, unspecified congestive heart failure type Nikki Segura MD Aug 17, 2016 11:59
--- NOTE | 2016-08-17 12:16 | PD.CARD.PN ---
Subjective Subjective Remarks No chest pain, no shortness Objective Medications No chest pain, no shortness of breath Vital Signs / I&O Vital Signs Date Time Temp Pulse Resp B/P Pulse Ox O2 Delivery O2 Flow Rate FiO2 08/17/16 10:37 86 08/17/16 09:00 70 08/17/16 08:00 70 08/17/16 07:00 96 Room Air 08/17/16 07:00 97.9 68 18 101/61 93 08/17/16 07:00 64 08/17/16 06:00 74 08/17/16 05:00 72 08/17/16 04:16 Room Air 08/17/16 04:16 98.1 69 18 123/69 97 08/17/16 04:00 69 08/17/16 03:00 72 08/17/16 02:00 70 08/17/16 01:00 77 08/17/16 00:00 Room Air 08/17/16 00:00 98.0 69 18 135/71 98 08/17/16 00:00 69 08/16/16 23:00 75 08/16/16 22:00 87 08/16/16 21:51 21 08/16/16 21:00 90 08/16/16 20:00 98.3 88 18 139/79 97 08/16/16 20:00 Room Air 08/16/16 20:00 88 08/16/16 18:00 71 08/16/16 17:00 75 08/16/16 16:00 68 08/16/16 15:00 98.2 77 20 132/74 95 08/16/16 15:00 85 08/16/16 14:00 71 08/16/16 13:00 73 I/O 08/16/16 08/16/16 08/16/16 08/17/16 08/17/16 08/17/16 07:00 15:00 23:00 07:00 15:00 23:00 Intake Total 960 ml 1200 ml 902 ml Output Total 850 ml 1100 ml Balance 110 ml 1200 ml -198 ml Intake Oral 960 ml 1200 ml 900 ml IV Total 2 ml Output Urine Total 850 ml 1100 ml # Voids 4 # Bowel Movements 0 1 0 Physical Exam GENERAL: NAD, AAOx3 SKIN: Warm and dry. HEAD: Atraumatic. Normocephalic. EYES: Pupils equal and round. No scleral icterus. No injection or drainage. ENT: No nasal bleeding or discharge. Mucous membranes pink and moist. NECK: Trachea midline. Minimal JVD CARDIOVASCULAR: Regular rate and rhythm. RESPIRATORY: No accessory muscle use. Relatively clear bilaterally GASTROINTESTINAL: Abdomen soft, non-tender, nondistended. Hepatic and splenic margins not palpable. MUSCULOSKELETAL: No edema, right radial/brachial no hematoma NEUROLOGICAL: Awake and alert. No obvious cranial nerve deficits. Motor grossly within normal limits. Five out of 5 muscle strength in the arms and legs. Normal speech. PSYCHIATRIC: Appropriate mood and affect; insight and judgment normal. Laboratory Laboratory Tests Test 08/17/16 05:03 Sodium Level 139 MEQ/L Potassium Level 4.2 MEQ/L Chloride Level 102 MEQ/L Carbon Dioxide Level 28.8 MEQ/L Anion Gap 8 MEQ/L Blood Urea Nitrogen 18 MG/DL Creatinine 1.29 MG/DL Estimat Glomerular Filtration 59 ML/MIN Rate Random Glucose 78 MG/DL Calcium Level 9.3 MG/DL Assessment and Plan Problem List: (1) NSTEMI (non-ST elevated myocardial infarction) (2) Congestive heart failure (3) Fluid overload (4) CKD (chronic kidney disease) (5) Unspecified psychosis Assessment and Plan 1) MVCAD, discussed with CT surgery for consideration of bypass, repeat echo today before decision on CT surgery 2) EF 15-20% on first echo 3) ASA/Lipitor/Coreg 4) Elevated wedge/PA pressures... continue diuresis 5) If turned down for CT surgery, not a candidate for high risk PCI due to psych issues, concern for inability to take/continue on medications 6) Medical management for now, blood pressure better on increased Coreg 7) Diuresing well, I/O con't to be negative, weights down Problem Qualifiers (1) Congestive heart failure: Qualified Code: I50.9 - Acute congestive heart failure, unspecified congestive heart failure type (2) Fluid overload: Qualified Code: E87.71 - Transfusion associated circulatory overload Byron Franz DO Aug 17, 2016 12:16
--- NOTE | 2016-08-17 14:48 | HHI.PYPN ---
Subjective Remarks Patient was seen for psychiatric reevaluation today, patient was found sleeping in his bed, easily arousable, he reports feeling much better, having a nice weekend. He reports good mood, denies depressive symptoms, he says that he is thankful to doctors and nurses for taking care of him, he has been compliant with medications, no significant side effects. However, when patient is asked about what is inside his mind he says that "this marco a, you know the date, now has been telling me to a [place] woman because he wants to fuck her. He is wants" me to take her because he wants her". He reports that he listen same radio station every night and there is a DJ who wants to control his life and his mind. As per conversation with nurse in charge, patient has been calm, cooperative, pleasant, appropriate in his conversation, taking his medication, no aggressive behavior or agitation observed, but at times oddly related. Review of Systems Other No somatic complaints Objective Alert: Yes [place]: Person, Place, Date, Situation Mood: Calm Affect: Appropriate Memory Intact: Immediate, Recent, Remote Hallucinations: Other (he denies) Delusions: Yes Delusion Type: Grandiose, Paranoid, Other (delusions of reference,) Suicidal: Ideation (he denies) Homicidal: Ideation (he denies) Insight/Judgment fair Labs Test 08/17/16 05:03 Sodium Level 139 MEQ/L Potassium Level 4.2 MEQ/L Chloride Level 102 MEQ/L Carbon Dioxide Level 28.8 MEQ/L Anion Gap 8 MEQ/L Blood Urea Nitrogen 18 MG/DL Creatinine 1.29 MG/DL Estimat Glomerular Filtration 59 ML/MIN Rate Random Glucose 78 MG/DL Calcium Level 9.3 MG/DL Vitals/IOs Vital Signs Date Time Temp Pulse Resp B/P Pulse Ox O2 Delivery O2 Flow Rate FiO2 08/17/16 13:00 80 08/17/16 11:00 98.0 18 109/72 95 08/17/16 07:00 Room Air 08/16/16 21:51 21 Intake and Output 08/16/16 08/16/16 08/17/16 08:00 16:00 00:00 Intake Total 960 ml 1200 ml Output Total 850 ml Balance 110 ml 1200 ml Assessment & Plan Problem List: (1) NSTEMI (non-ST elevated myocardial infarction) ICD Code: I21.4 (2) Unspecified psychosis Assessment & Plan: Patient continued to shows delusions of reference, he has fix, well-organized, structured delusion of being controlled by a DJ in a radio station. However, he conserve a logical, coherent and relevant thought process devoid of tangentiality, circumstantiality and loosening of associations. Will increase Abilify to 10 mg daily. As per conversation with Dr. Segura, the patient is medically appropriate to be transferred to the med/psych unit and she is in agreement that he will benefit of it. Will discuss with team risk and benefits of bringing patient to med psych. ICD Code: F29 Assessment & Plan Estimated LOS: days Justification for Cont. Inpt. Patient would benefit of a voluntary admission in the med psych unit Samuel Nelson MD Aug 17, 2016 14:48
--- NOTE | 2016-08-17 16:10 | PD.CAR.PN ---
CVT Progress Note Subjective/Hospital Course: 46 male , no prior medical HX or medical treatment , has not seen MD in over 20years. " didn't have any problems". Homeless, Admitted to ED with SOB, lower ext and scrotal edema , + NSTEMI , acute onset of CHF / BNP 900/ ECHO showed EF 15-20% severe systolic dysfunction . Underwent cardiac cath by Dr Franz showing multi vessel disease / PA pressure 59/34/ wedge pressure of 32 / LVEDP 42. STS data Morbidity or Mortality of 20.45 % Pt also has some psych issues / was seen and eval by Psych Dr Nelson , felt pt had delusional and psychotic symptoms , but was not considered a harm to himself, and did not meet involuntary psych admission at this time. 08/12 pt denied any chest pain , await final decision per Dr Arteaga / regarding surgery 08/13 repeat limited echo scheduled for wednesday re-eval for candidate for surgery 08/14 no chest pain or SOB, on room air leg edema improving echo changed to wednesday am to re-eval EF 08/17 EF improved to 30% however, appreciate psych re-eval today the feel pt is mentally unstable at this time, would benefit from inpt voluntary psych treatment prior to surgery, to stabilize mental health issues. Pt is pain free will hold off on surgery, until cleared by Psych Objective: GENERAL: SKIN: Warm and dry. HEAD: Normocephalic. EYES: No scleral icterus. No injection or drainage. NECK: Supple, trachea midline. No JVD or lymphadenopathy. CARDIOVASCULAR: Regular rate and rhythm without murmurs, gallops, or rubs. RESPIRATORY: Breath sounds equal bilaterally. No accessory muscle use. GASTROINTESTINAL: Abdomen soft, non-tender, nondistended. MUSCULOSKELETAL: No cyanosis, or edema. BACK: Nontender without obvious deformity. No CVA tenderness. Vital Signs Date Time Temp Pulse Resp B/P Pulse Ox O2 Delivery O2 Flow Rate FiO2 08/17/16 15:42 97.7 76 18 118/84 96 08/17/16 13:00 80 08/17/16 12:00 78 08/17/16 11:00 98.0 74 18 109/72 95 08/17/16 11:00 70 08/17/16 10:37 86 08/17/16 09:00 70 08/17/16 08:00 70 08/17/16 07:00 96 Room Air 08/17/16 07:00 97.9 68 18 101/61 93 08/17/16 07:00 64 08/17/16 06:00 74 08/17/16 05:00 72 08/17/16 04:16 Room Air 08/17/16 04:16 98.1 69 18 123/69 97 08/17/16 04:00 69 08/17/16 03:00 72 08/17/16 02:00 70 08/17/16 01:00 77 08/17/16 00:00 Room Air 08/17/16 00:00 98.0 69 18 135/71 98 08/17/16 00:00 69 08/16/16 23:00 75 08/16/16 22:00 87 08/16/16 21:51 21 08/16/16 21:00 90 08/16/16 20:00 98.3 88 18 139/79 97 08/16/16 20:00 Room Air 08/16/16 20:00 88 08/16/16 18:00 71 08/16/16 17:00 75 Labs: Laboratory Tests Test 08/17/16 05:03 Sodium Level 139 MEQ/L (136-145) Potassium Level 4.2 MEQ/L (3.5-5.1) Chloride Level 102 MEQ/L (98-107) Carbon Dioxide Level 28.8 MEQ/L (21.0-32.0) Anion Gap 8 MEQ/L (5-15) Blood Urea Nitrogen 18 MG/DL (7-18) Creatinine 1.29 MG/DL (0.60-1.30) Estimat Glomerular Filtration 59 ML/MIN (>89) Rate Random Glucose 78 MG/DL (74-106) Calcium Level 9.3 MG/DL (8.5-10.1) Result Diagram: 08/16/16 0440 08/17/16 0503 (1) NSTEMI (non-ST elevated myocardial infarction) Plan: ASA, statin , BB high risk candidate for Coronary artery bypass grafting repeat ECHO 30% will hold off on surgery until pt has completed his inpt psych admission (2) Congestive heart failure Plan: EF 15-20% on lasix severely reduced systolic function (3) Fluid overload (4) CKD (chronic kidney disease) Plan: renal indices stable (5) Unspecified psychosis Plan: seen and eval by Psychiatry appreciate re-eval they will notify use when pt is stabilized from psych standpoint for major surgery Problem Qualifiers (1) Congestive heart failure: Qualified Code: I50.9 - Acute congestive heart failure, unspecified congestive heart failure type (2) Fluid overload: Qualified Code: E87.71 - Transfusion associated circulatory overload Haley Hollis Aug 17, 2016 16:10
[2016-08-17] MEDS: ATORVASTATIN 80 MG TAB PO SCH (21:17)
[2016-08-18] VITALS: BP 117/78; PULSE 70; RESP 18; TEMP 98; O2SAT 96
[2016-08-18 04:00] VITALS: BP 137/90; PULSE 74; RESP 18; TEMP 97.9; O2SAT 96
[2016-08-18] MEDS: HEPARIN SODIUM - SQ 10,000 UNITS/ML VIAL SQ SCH ×2 (05:18→14:45)
[2016-08-18 07:30] VITALS: BP 110/68; PULSE 73; RESP 19; TEMP 97.5; O2SAT 95
[2016-08-18] MEDS ORDERED: ARIPiprazole 5 MG TAB PO SCH (09:00)
[2016-08-18] MEDS: POTASSIUM CHLORIDE 20 MEQ CONTROLLED RELEASE TAB PO SCH (09:06)
[2016-08-18] MEDS: FUROSEMIDE 40 MG/4 ML VIAL IVP SCH (09:06)
[2016-08-18] MEDS: ASPIRIN 81 MG CHEW TAB CHEW SCH (09:06)
[2016-08-18] MEDS: SODIUM CHLORIDE 0.9% FLUSH 10 ML FLUSH IV FLUSH SCH (09:06)
[2016-08-18] MEDS: CARVEDILOL 12.5 MG TAB PO SCH (09:06)
--- NOTE | 2016-08-18 10:07 | EC ---
Study Study Date:08/17/2016 STUDY CONCLUSIONS SUMMARY LEFT VENTRICLE: The cavity size was normal. Wall thickness was normal. Systolic function was mildly reduced. The estimated ejection fraction was in the range of 45% to 50%. If LV function is below 40, please consider prescribing an ACEI or ARB or document rationale for non-use. PROCEDURE DATA Procedure: Transthoracic echocardiography. Image quality was good. Scanning was performed from the parasternal, apical, and subcostal acoustic windows. Study completion: The patient tolerated the procedure well. Transthoracic echocardiography. M-mode, limited 2D, limited spectral Doppler, and color Doppler. Height: Height: 70in. Weight: Weight: 204.6lb. Body mass index: BMI: 29.4kg/m^2. Body surface area: BSA: 2.11m^2. CARDIAC ANATOMY LEFT VENTRICLE: The cavity size was normal. Wall thickness was normal. Systolic function was mildly reduced. The estimated ejection fraction was in the range of 45% to 50%. AORTIC VALVE: Trileaflet; normal thickness leaflets. Doppler: Transvalvular velocity was within the normal range. There was no stenosis. No regurgitation. AORTA: Aortic root: The aortic root was normal in size. MITRAL VALVE: Structurally normal valve. Doppler: Transvalvular velocity was within the normal range. There was no evidence for stenosis. No regurgitation. LEFT ATRIUM: The atrium was normal in size. RIGHT VENTRICLE: The cavity size was normal. Wall thickness was normal. PULMONIC VALVE: Doppler: Transvalvular velocity was within the normal range. There was no evidence for stenosis. No regurgitation. TRICUSPID VALVE: Structurally normal valve. Doppler: Transvalvular velocity was within the normal range. No regurgitation. PULMONARY ARTERY: The main pulmonary artery was normal-sized. Systolic pressure was within the normal range. RIGHT ATRIUM: The atrium was normal in size. PERICARDIUM: There was no pericardial effusion. SYSTEMIC VEINS: Inferior vena cava: The vessel was normal in size. Patient weight: 204.6lb _Ejection fraction:_ 65-75% _Fractional shortening:_ 32% up to 5Kg 5-11.5Kg 11.6-22.9Kg 23-45Kg 45-57Kg Aortic Root 7-13 <17 13-22 17-27 17-27 LA diam 6-13 <23 24-38 33-47 37-40 RVID 10-17 7-15 7-15 7-18 8-17 LVIDd 12-22 <32 24-38 33-47 37-40 LVPW 2-4 3-6 5-7 6-8 7-8 IVS 2-4 3-6 5-7 6-8 7-8 BASIC MEASUREMENTS ADULT NORMAL Left ventricle LV internal dimension, ED, chordal level, *60.1 mm 43-52 PLAX LV internal dimension, ES, chordal level, *44.5 mm 23-38 PLAX Fractional shortening, chordal level, *26 % >29 PLAX LV posterior wall thickness, ED 14.4 mm IVS/LVPW ratio, ED 1.01 <1.3 Volume, ED, MOD, 1-plane 228 ml Volume, ES, MOD, 1-plane 113 ml Ejection fraction, MOD, 1-plane 50 % Stroke volume, MOD, 1-plane 115 ml Volume index, ED, MOD, 1-plane 108 ml/m^2 Volume index, ES, MOD, 1-plane 54 ml/m^2 Stroke index, MOD, 1-plane 54.5 ml/m^2 Volume, ED, MOD, 2-plane 154 ml Volume, ES, MOD, 2-plane 81 ml Ejection fraction, MOD, 2-plane 47 % Stroke volume, MOD, 2-plane 73 ml Volume index, ED, MOD, 2-plane 73 ml/m^2 Volume index, ES, MOD, 2-plane 38 ml/m^2 Stroke index, MOD, 2-plane 34.6 ml/m^2 Ventricular septum Septal thickness, ED 14.6 mm LEGEND: Mean values are shown as u=mean value. Asterisk (*) coates values outside specified normal range. Prepared and signed by Adolfo Barrera [id number]
--- NOTE | 2016-08-18 10:16 | HHI.FPPN ---
Subjective Remarks Patient seen and examined this morning by medical team. No acute events overnight with vital signs stable. Patient states that he started to get restless being "cooped up in this hospital room"and would like to proceed with surgery. He understands that the surgeons would like to wait for psychological evaluation, but he states that he would rather "stop seeing a psychiatrist in order to have his surgery." Otherwise he has no complaints and denies any fevers , chills, shortness breath, chest pain, NVD, cramps, or calf tenderness. (Maxi Leach MD R1) Objective Vitals Vital Signs Date Time Temp Pulse Resp B/P Pulse Ox O2 Delivery O2 Flow Rate FiO2 08/18/16 07:45 95 Room Air 08/18/16 07:30 97.5 73 19 110/68 95 08/18/16 04:00 97.9 74 18 137/90 96 08/18/16 00:00 98.0 70 18 117/78 96 08/17/16 20:00 98.0 76 18 130/94 96 08/17/16 19:15 Room Air 08/17/16 15:42 97.7 76 18 118/84 96 08/17/16 13:00 80 08/17/16 12:00 78 08/17/16 11:00 98.0 74 18 109/72 95 08/17/16 11:00 70 08/17/16 10:37 86 I/O 08/17/16 08/17/16 08/17/16 08/18/16 08/18/16 08/18/16 07:00 15:00 23:00 07:00 15:00 23:00 Intake Total 902 ml 720 ml 360 ml Output Total 1100 ml Balance -198 ml 720 ml 360 ml Intake Oral 900 ml 720 ml 360 ml IV Total 2 ml Output Urine Total 1100 ml # Voids 3 2 # Bowel Movements 0 (Maxi Leach MD R1) Result Diagram: 08/16/16 0440 08/17/16 0503 Objective Remarks GEN: Well-developed, well-nourished patient 46-year-old male sitting up in his recliner watching television in no acute distress. CV: Regular rate and rhythm without obvious murmurs. LUNGS: Clear to auscultation bilaterally with no CRW. No increased work of breathing. GI: Soft, nontender, nondistended with positive bowel sounds. No masses appreciated. EXT: Bilateral edema resolved from admission which is a significant improvement. No cyanosis. NEURO/PSYCH: Afocal. Awake, alert, and oriented x3. (Maxi Leach MD R1) A/P Assessment and Plan 46 y/o male with no past medical history presents with shortness of breath. Found to be fluid overloaded with NSTEMI. Currently being evaluated by psychiatry for psychosis and cardiothoracic surgery for possible CABG. Discharge Planning Pending further evaluation by cardiothoracic surgery, will likely be transferred to med/Psych floor once there is bed availability. He is stable now from a cardiac point as he has been on Medicines and had great diuresis and improvement in his breathing and edema. WDW: Dr. Segura (Maxi Leach MD R1) Attending Attestation Patient seen and examined. Case reviewed and discussed with the resident team. Agree with plan of care as discussed with me and documented in the resident note. (Nikki Segura MD) Problem List: (1) Congestive heart failure Status: Acute Plan: Pt. has no significant cardiac history, but endorses heavy salt intake, significant tobacco history. EKG showed normal sinus rhythm. Q waves in V1, V2, V3, V4. Initial troponin elevated at 2.91 showed further elevations. May be secondary to acute congestive heart failure vs past MA CXR showed cardiomegaly and no acute disease. BNP elevated at 993 on admission. He had acute decompensated heart failure. Echo: EF 15-20% initially Repeat Echo 08/17/16: Normal cavity size, wall thickness within normal limits. Systolic function was mildly reduced. Estimated EF 45-50%. -Cardiothoracic surgery has been consulted for consideration for bypass, appreciate recommendations. Further note repeat echo with 30% ejection fraction. Cardiothoracic surgery planned style off on surgery until patient has completed inpatient psych admission as he is a high-risk candidate for CABG. -Patient was very high risk candidate for cardiac surgery due to EF of 15% and is not a candidate for high risk PCI. However, his EF improved on the and clinically he is much better overall so hopefully he will be able to have surgery. His coronary arteries would be very high risk to stent. After bypass his EF should hopefully get even better when he has good perfusion. -Due to cramping will decrease Lasix to 20 mg every morning. -Low-salt diet less than 2 g per day. -Fluid restrict to 1.5 L per day. -Strict Is and Os. Daily weights. -Supplemental oxygen and monitor on pulse ox. -Telemetry, he has had no ectopy at all for days per his monitor so can stop tele as that is not acceptable for [facility]-psych -now he is asymptomatic with any cardiac problems as he has done very well with medical treatment for days Imaging Carotid artery ultrasound 08/11: Normal hemodynamic profile of both carotids Lower extremity ultrasound 08/11: Negative for DVT bilaterally, venous mapping per report (2) NSTEMI (non-ST elevated myocardial infarction) Status: Acute Plan: EKG showed normal sinus rhythm. Q waves in V1, V2, V3, V4. No chest pain on admission, pt denies angina in the past. Unsure if CHF leading to NSTEMI or heart damage in the past causing acute CHF -Cardiology consulted, appreciate recommendations and intervention -Cardiac catheterization was significant for severe multivessel disease, significantly elevated wedge and pulmonary artery pressures, see plan for diuresis above. -Pt would be a poor candidate for stent placement -ASA daily -Lipitor 80mg HS -Coreg 12.5mg PO BID -See plan above (3) Unspecified psychosis Status: Acute Plan: Psychiatry has been consulted due to concern for possible schizophrenia, appreciate recommendations. -Increase Abilify 10 mg daily -Anticipate pt being transferred to [facility] once there is bed availability. He is stable from a Cardiac point of view. -Per Psychiatry, he could have worsening psychosis with stressor like surgery so will try to maximize his thinking prior to D/C -He could also use help with his financial and living situation. He states he has a check coming every month but it may be going to someone in [place]. He has had trouble getting an apartment because of his delusions, but hopefully should have the financial help from being declared disabled in the past. If he has a place to live, he can have home nursing check on him and be sure he takes his medicines and stays well. If he goes back to being homeless, he would be at higher risk for deterioration. (4) FEN Status: Acute Plan: Fluids: None iv, fluid restrict Electrolytes: WNL Nutrition: Heart healthy, NA restriction DVT ppx: Heparin Chronic issues History of tobacco dependence/possible COPD: -Albuterol nebulizer tx prn SOB (Maxi Leach MD R1) Problem Qualifiers (1) Congestive heart failure: Qualified Code: I50.9 - Acute congestive heart failure, unspecified congestive heart failure type Maxi Leach MD R1 Aug 18, 2016 10:16 Nikki Segura MD Aug 22, 2016 13:12
[2016-08-18 11:55] VITALS: BP 120/93; PULSE 78; RESP 17; TEMP 98.1; O2SAT 94
--- NOTE | 2016-08-18 12:59 | PD.CARD.PN ---
Subjective Subjective Remarks No chest pain, no shortness of breath Objective Medications Current Medications Medications (Trade) Dose Ordered Sig/Ximena Route Start Time Stop Time Status Last Admin (NS Flush) 2 ml BID IV FLUSH 08/07/16 21:00 08/18/16 09:06 (NS Flush) 2 ml UNSCH PRN IV FLUSH 08/07/16 16:00 08/11/16 18:32 (KCl) 20 meq BID PO 08/07/16 21:00 08/18/16 09:06 (Tylenol) 650 mg Q4H PRN PO 08/07/16 16:15 (Zofran Inj) 4 mg Q6H PRN IV 08/07/16 16:15 (Cristina-Colace) 1 tab BID PRN PO 08/07/16 16:15 (Tums Chew) 1,000 mg TID PRN CHEW 08/07/16 16:15 (Vasotec Inj) 1.25 mg Q6H PRN IV 08/07/16 16:15 (Pill Splitter) 1 ea UNSCH PRN OTHER 08/07/16 16:30 (Lipitor) 80 mg HS PO 08/07/16 21:00 08/17/16 21:17 (Aspirin Chew) 81 mg DAILY CHEW 08/08/16 09:00 08/18/16 09:06 (Heparin Inj) 5,000 units Q8HR SQ 08/11/16 22:00 08/18/16 05:18 (Coreg) 12.5 mg Q12HR PO 08/13/16 09:00 08/18/16 09:06 (Abilify) 10 mg DAILY PO 08/18/16 09:00 08/18/16 09:06 (Lasix) 40 mg DAILY PO 08/19/16 09:00 Vital Signs / I&O Vital Signs Date Time Temp Pulse Resp B/P Pulse Ox O2 Delivery O2 Flow Rate FiO2 08/18/16 11:55 98.1 78 17 120/93 94 08/18/16 07:45 95 Room Air 08/18/16 07:30 97.5 73 19 110/68 95 08/18/16 04:00 97.9 74 18 137/90 96 08/18/16 00:00 98.0 70 18 117/78 96 08/17/16 20:00 98.0 76 18 130/94 96 08/17/16 19:15 Room Air 08/17/16 15:42 97.7 76 18 118/84 96 08/17/16 13:00 80 I/O 08/17/16 08/17/16 08/17/16 08/18/16 08/18/16 08/18/16 07:00 15:00 23:00 07:00 15:00 23:00 Intake Total 902 ml 720 ml 360 ml Output Total 1100 ml Balance -198 ml 720 ml 360 ml Intake Oral 900 ml 720 ml 360 ml IV Total 2 ml Output Urine Total 1100 ml # Voids 3 2 # Bowel Movements 0 Physical Exam GENERAL: NAD, AAOx3 SKIN: Warm and dry. HEAD: Atraumatic. Normocephalic. EYES: Pupils equal and round. No scleral icterus. No injection or drainage. ENT: No nasal bleeding or discharge. Mucous membranes pink and moist. NECK: Trachea midline. Minimal JVD CARDIOVASCULAR: Regular rate and rhythm. RESPIRATORY: No accessory muscle use. Relatively clear bilaterally GASTROINTESTINAL: Abdomen soft, non-tender, nondistended. Hepatic and splenic margins not palpable. MUSCULOSKELETAL: No edema, right radial/brachial no hematoma NEUROLOGICAL: Awake and alert. No obvious cranial nerve deficits. Motor grossly within normal limits. Five out of 5 muscle strength in the arms and legs. Normal speech. PSYCHIATRIC: Appropriate mood and affect; insight and judgment normal. Laboratory Laboratory Tests Test 08/16/16 08/17/16 04:40 05:03 White Blood Count 9.1 TH/MM3 (4.0-11.0) Red Blood Count 5.60 MIL/MM3 (4.50-5.90) Hemoglobin 15.8 GM/DL (13.0-17.0) Hematocrit 48.4 % (39.0-51.0) Mean Corpuscular Volume 86.3 FL (80.0-100.0) Mean Corpuscular Hemoglobin 28.1 PG (27.0-34.0) Mean Corpuscular Hemoglobin 32.6 % Concent (32.0-36.0) Red Cell Distribution Width 15.5 % (11.6-17.2) Platelet Count 261 TH/MM3 (150-450) Mean Platelet Volume 8.4 FL (7.0-11.0) Sodium Level 138 MEQ/L 139 MEQ/L (136-145) (136-145) Potassium Level 4.4 MEQ/L 4.2 MEQ/L (3.5-5.1) (3.5-5.1) Chloride Level 99 MEQ/L 102 MEQ/L (98-107) (98-107) Carbon Dioxide Level 34.2 MEQ/L 28.8 MEQ/L (21.0-32.0) (21.0-32.0) Anion Gap 5 MEQ/L (5-15) 8 MEQ/L (5-15) Blood Urea Nitrogen 20 MG/DL (7-18) 18 MG/DL (7-18) Creatinine 1.46 MG/DL 1.29 MG/DL (0.60-1.30) (0.60-1.30) Estimat Glomerular Filtration 52 ML/MIN (>89) 59 ML/MIN (>89) Rate Random Glucose 96 MG/DL 78 MG/DL (74-106) (74-106) Calcium Level 9.0 MG/DL 9.3 MG/DL (8.5-10.1) (8.5-10.1) Magnesium Level 2.1 MG/DL (1.5-2.5) Assessment and Plan Problem List: (1) NSTEMI (non-ST elevated myocardial infarction) (2) Congestive heart failure (3) Fluid overload (4) CKD (chronic kidney disease) (5) Unspecified psychosis Assessment and Plan 1) MVCAD, discussed with CT surgery for consideration of bypass, repeat echo showing increased function, but needs psych stability before surgery 2) EF 15-20% on first echo, 30% on second 3) ASA/Lipitor/Coreg 4) Elevated wedge/PA pressures on RHC 5) If turned down for CT surgery, not a candidate for high risk PCI due to psych issues, concern for inability to take/continue on medications 6) Medical management for now, blood pressure better on increased Coreg 7) Diuresing well, I/O con't to be negative, weights down 8) To psych unit when possible Problem Qualifiers (1) Congestive heart failure: Qualified Code: I50.9 - Acute congestive heart failure, unspecified congestive heart failure type (2) Fluid overload: Qualified Code: E87.71 - Transfusion associated circulatory overload Byron Franz DO Aug 18, 2016 12:59
--- NOTE | 2016-08-18 14:08 | HHI.PYPN ---
Subjective Remarks Patient seen for psychiatric evaluation today along with nurse in charge Ronni, patient was found sitting in a chair, very upset and irritable, stating that people in this hospital conjunctly with people from the radio station want to control his life. He states that "this fucking people has been concerning for 32 years now and I need to get better to bhumi them and see them in [place]". Patient says that he was to have his heart surgery tomorrow and not this week because he has a lot of things to solve. During the evaluation patient became verbally hostile, but he was responsive to verbal de-escalation techniques. Ronni confronted him about previous statement of calling her daughter to arrange a meeting with Jw Downs and being "mentally controlled"by certain people. Patient was explained that he would have to go to the psychiatric unit for at least a week in order to improve his mental condition, become more stable and they have his surgery. After a persistent an extensive education and orientation about the importance of getting psychiatric help in order to get his medical treatment, he finally expressed understanding and agreement. Review of Systems Other No somatic complaints Objective Alert: Yes [place]: Person, Place, Date, Situation Mood: Angry Affect: Labile Memory Intact: Immediate, Recent, Remote Hallucinations: Other (he denies) Delusions: Yes Delusion Type: Grandiose, Paranoid, Other (delusions of reference,) Suicidal: Ideation (he denies) Homicidal: Ideation (he denies) Insight/Judgment poor Vitals/IOs Vital Signs Date Time Temp Pulse Resp B/P Pulse Ox O2 Delivery O2 Flow Rate FiO2 08/18/16 11:55 98.1 78 17 120/93 94 08/18/16 07:45 Room Air 08/16/16 21:51 21 Intake and Output 08/17/16 08/17/16 08/18/16 08:00 16:00 00:00 Intake Total 902 ml 720 ml Output Total 1100 ml Balance -198 ml 720 ml Assessment & Plan Problem List: (1) NSTEMI (non-ST elevated myocardial infarction) ICD Code: I21.4 (2) Unspecified psychosis Assessment & Plan: Patient continues to show fixed, with structure delusions of reference and thought controlling. He was also agitated and verbally hostile , refusing psychiatric admission, but he was finally redirected. Continue the plan of psychiatric admission for stabilization prior to open-heart surgery. ICD Code: F29 Assessment & Plan Estimated LOS: days Justification for Cont. Inpt. Patient needs psychiatric admission for stabilization of psychosis Samuel Nelson MD Aug 18, 2016 14:08
[2016-08-18 15:15] VITALS: BP 135/93; PULSE 75; RESP 19; TEMP 97.9; O2SAT 97
[2016-08-18] MEDS ORDERED: POTA20TA5 PO (18:39)
[2016-08-18] MEDS ORDERED: Aspirin Chew CHEW (18:39)
[2016-08-18] MEDS ORDERED: CARV12.5 PO (18:39)
[2016-08-18] MEDS ORDERED: ATOR1TAB18 PO (18:39)
[2016-08-18] MEDS ORDERED: ENAL1.25 IV (18:39)
[2016-08-18] MEDS ORDERED: ARIP1TAB11 PO (18:39)
--- NOTE | 2016-08-18 18:41 | HHI.DCPOC ---
Discharge Care Plan Diagnosis: (1) NSTEMI (non-ST elevated myocardial infarction) (2) Congestive heart failure Goals to Promote Your Health * To prevent worsening of your condition and complications * To maintain your health at the optimal level Directions to Meet Your Goals Take your medications as prescribed Follow your dietary instruction Follow activity as directed Keep your appointments as scheduled Take your immunizations and boosters as scheduled If your symptoms worsen call your PCP, if no PCP go to Urgent Care Center or Emergency Room Smoking is Dangerous to Your Health. Avoid second hand smoke Call the 24-hour hour crisis hotline for domestic abuse at Maxi Leach MD R1 Aug 18, 2016 18:41
[2016-08-18] MEDS ORDERED: FURO40TA PO ×2 (18:59→19:06)
[2016-08-19] MEDS ORDERED: FUROSEMIDE 40 MG TAB PO SCH (09:00)
--- NOTE | 2016-08-22 11:22 | HHI.DS ---
Discharge Summary Admission Date Aug 07, 2016 at 15:26 Discharge Date: Aug 18, 2016 Admitting Diagnosis NSTEMI, congestive heart failure, anasarca (1) Congestive heart failure Diagnosis: Principal Plan: Pt. has no significant cardiac history, but endorses heavy salt intake, significant tobacco history. EKG showed normal sinus rhythm. Q waves in V1, V2, V3, V4. Initial troponin elevated at 2.91 showed further elevations. May be secondary to acute congestive heart failure vs past NH CXR showed cardiomegaly and no acute disease. BNP elevated at 993 on admission. He had acute decompensated heart failure. Echo: EF 15-20% initially Repeat Echo 08/17/16: Normal cavity size, wall thickness within normal limits. Systolic function was mildly reduced. Estimated EF 45-50%. -Cardiothoracic surgery has been consulted for consideration for bypass, appreciate recommendations. Further note repeat echo with 30% ejection fraction. Cardiothoracic surgery planned style off on surgery until patient has completed inpatient psych admission as he is a high-risk candidate for CABG. -Patient was very high risk candidate for cardiac surgery due to EF of 15% and is not a candidate for high risk PCI. However, his EF improved on the and clinically he is much better overall so hopefully he will be able to have surgery. His coronary arteries would be very high risk to stent. After bypass his EF should hopefully get even better when he has good perfusion. -Due to cramping will decrease Lasix to 20 mg every morning. -Low-salt diet less than 2 g per day. -Fluid restrict to 1.5 L per day. -Strict Is and Os. Daily weights. -Supplemental oxygen and monitor on pulse ox. -Telemetry, he has had no ectopy at all for days per his monitor so can stop tele as that is not acceptable for med-psych -now he is asymptomatic with any cardiac problems as he has done very well with medical treatment for days Imaging Carotid artery ultrasound 08/11: Normal hemodynamic profile of both carotids Lower extremity ultrasound 08/11: Negative for DVT bilaterally, venous mapping per report (2) NSTEMI (non-ST elevated myocardial infarction) Diagnosis: Principal Plan: EKG showed normal sinus rhythm. Q waves in V1, V2, V3, V4. No chest pain on admission, pt denies angina in the past. Unsure if CHF leading to NSTEMI or heart damage in the past causing acute CHF -Cardiology consulted, appreciate recommendations and intervention -Cardiac catheterization was significant for severe multivessel disease, significantly elevated wedge and pulmonary artery pressures, see plan for diuresis above. -Pt would be a poor candidate for stent placement -ASA daily -Lipitor 80mg HS -Coreg 12.5mg PO BID -See plan above (3) Unspecified psychosis Diagnosis: Principal Plan: Psychiatry has been consulted due to concern for possible schizophrenia, appreciate recommendations. -Increase Abilify 10 mg daily -Anticipate pt being transferred to med/psych once there is bed availability. He is stable from a Cardiac point of view. -Per Psychiatry, he could have worsening psychosis with stressor like surgery so will try to maximize his thinking prior to D/C -He could also use help with his financial and living situation. He states he has a check coming every month but it may be going to someone in [place]. He has had trouble getting an apartment because of his delusions, but hopefully should have the financial help from being declared disabled in the past. If he has a place to live, he can have home nursing check on him and be sure he takes his medicines and stays well. If he goes back to being homeless, he would be at higher risk for deterioration. (4) FEN Diagnosis: Principal Plan: Fluids: None iv, fluid restrict Electrolytes: WNL Nutrition: Heart healthy, NA restriction DVT ppx: Heparin Chronic issues History of tobacco dependence/possible COPD: -Albuterol nebulizer tx prn SOB Brief History Mr Mohr is a 46 y/o male who presented to the ED for shortness of breath. Started having shortness of breath for a couple months, worsened in the last few weeks. Stated he has been going a lot to [employer] recently and increasing his salt intake. He uses their wifi and eats their food and drinks a lot of soft drinks. Feels bloated. Gets short of breath after walking across street. Does notice worsening at night when laying down. Endorses orthopnea. No chest pain or other pain. Noticed increased swelling in his legs, abdomen. Two weeks ago is when everything started getting worse. Has been drinking more water as well. He endorses liking "[place] salt" and uses on everything. Denies any past medical history. Hasn't been to the doctor in 20 years. Doesn't take any medications. He feels better today after being diuresed and is breathing better but still complains of having big legs and "a bloated stomach" which is actually his anasarca. He was wanting to leave AMA but agrees now to stay and be diuresed and have a good evaluation of his heart on Wednesday. PE at Discharge GEN: Well-developed, well-nourished patient 46-year-old male sitting up in his recliner watching television in no acute distress. CV: Regular rate and rhythm without obvious murmurs. LUNGS: Clear to auscultation bilaterally with no CRW. No increased work of breathing. GI: Soft, nontender, nondistended with positive bowel sounds. No masses appreciated. EXT: Bilateral edema resolved from admission which is a significant improvement. No cyanosis. NEURO/PSYCH: Afocal. Awake, alert, and oriented x3. Hospital Course Mr. Mohr is a 46 year old Male who had recent NSTEMI on 08/07/16 admitted for scheduled CABG. He was admitted to the PSYCHIATRIC and underwent cardiac catheterization, which was significant for multivessel disease. Patient was considered too high risk for cardiac stenting and would most benefit from CABG. He has been seen and evaluated by cardiothoracic surgery and is currently scheduled for CABG on 08/26. Patient has also experienced an unspecified psychosis and expresses delusions. Currently the patient meets criteria for involuntary psychiatric hospitalization and will be transferred the the psychiatric unit for treatment prior to his CABG in order to decrease the risk of possible post-procedure psychosis. Pt Condition on Discharge: Stable Discharge Disposition: Disc to Psych Care Fac Discharge Instructions DIET: Follow Instructions for: Heart Healthy Diet, Low Sodium Diet Additional Diet Instructions: Sodium and fluid restriciton Activities you can perform: Regular-No Restrictions Follow up Referrals: PCP Follow-up New Medications: Aripiprazole (Aripiprazole) 5 Mg Tab 10 MG PO DAILY #30 TAB Atorvastatin (Atorvastatin) 80 Mg Tab 80 MG PO HS #30 TAB Carvedilol (Coreg) 12.5 Mg Tab 12.5 MG PO Q12HR #30 TAB Furosemide (Furosemide) 40 Mg Tab 40 MG PO DAILY #30 TAB Potassium Chloride Microencaps (Potassium Chloride Microencaps) 20 Meq Tab 20 MEQ PO BID #60 TAB ([Aspirin Chew]) 81 MG CHEW 81 MG CHEW DAILY #30 TAB.CHEW Continued Medications: Furosemide (Furosemide) 40 Mg Tab 40 MG PO DAILY #30 Ref 0 TAB Discontinued Medications: Cyclobenzaprine Hcl (Flexeril) 10 Mg Tab 10 MG PO HS PRN SPASM #10 TAB Ibuprofen (Motrin) 600 Mg Tab 600 MG PO QID GIVE WITH FOOD #21 TAB Maxi Leach MD R1 Aug 22, 2016 11:22
--- NOTE | 2016-08-25 09:16 | RSPPFT ---
DATE OF PROCEDURE: 08/11/16 COMMENTS: Spirometry with FEV1 at 47% of predicted, FVC at 59% indicating moderate airways obstruction. There is no reversibility noted after bronchodilator treatment. IMPRESSION: 1. Moderate airways obstruction.
== END 2016-08-18 19:33 | DRG 280 ==
LOC: NEPE 13:06 → NEDA 15:26 → HCIS 19:16
PROVIDERS: ADMIT Family Medicine; ATTEND Family Medicine
PROC: 4A023N6 Measurement of Cardiac Sampling and Pressure, Right Heart, Percutaneous Approach (ICD-10-PCS; 2016-08-10)
PROC: B2111ZZ Fluoroscopy of Multiple Coronary Arteries using Low Osmolar Contrast (ICD-10-PCS; 2016-08-10)
PROC: 4A023N7 Measurement of Cardiac Sampling and Pressure, Left Heart, Percutaneous Approach (ICD-10-PCS; principal; 2016-08-10 11:00)
DX: I21.4 Non-ST elevation (NSTEMI) myocardial infarction (principal); I50.21 Acute systolic (congestive) heart failure; I27.2 Other secondary pulmonary hypertension; I42.9 Cardiomyopathy, unspecified; F23 Brief psychotic disorder; I25.10 Atherosclerotic heart disease of native coronary artery without angina pectoris; N18.9 Chronic kidney disease, unspecified; E87.6 Hypokalemia; J44.9 Chronic obstructive pulmonary disease, unspecified; F22 Delusional disorders; F12.10 Cannabis abuse, uncomplicated; Z59.0 Homelessness; Z87.891 Personal history of nicotine dependence; Z88.5 Allergy status to narcotic agent
CPT/HCPCS: 71010; 80048; 80053; 80061; 81001; 82550; 82552; 82810; 83036; 83735; 83880; 84443; 84484; 85002; 85007; 85025; 85027; 85610; 85730; 93005; 93306; 93456; 93880; 93970; 93998; 94010; 94640; 94664; 96374; C1769; C1893; J0360; J1644; J1940; J2250; J3010; Q9967

== ENCOUNTER 2016-08-18 19:10 | Inpatient (IN) | payer MEDICARE, OTHER ==
[~2016-08-18] VITALS: Ht 177.8 cm; Wt 95.0 kg
[~2016-08-18 19:10] MED LIST changes: +ARIP1TAB11 PO; +ATOR1TAB18 PO; +Aspirin Chew CHEW; +CARV12.5 PO; +ENAL1.25 IV; +FURO40TA PO; +POTA20TA5 PO
[2016-08-18 19:40] VITALS: BP 127/80; PULSE 63; RESP 16; TEMP 97.4; O2SAT 98
[2016-08-18] MEDS ORDERED: LORazepam 1 MG TAB PO PRN (20:45)
[2016-08-18] MEDS ORDERED: MAGNESIUM HYDROXIDE SUSP 30 ML CUP PO PRN (20:45)
[2016-08-18] MEDS ORDERED: ALUMINUM/MAGNESIUM/SIMETH 30 ML CUP PO PRN (20:45)
[2016-08-18] MEDS ORDERED: LORazepam 2 MG/ML VIAL IM PRN (20:45)
[2016-08-18] MEDS ORDERED: ACETAMINOPHEN 325 MG TAB PO PRN (20:45)
[2016-08-19 06:10] VITALS: BP 110/59; PULSE 71; RESP 16; TEMP 98.2; O2SAT 95
[2016-08-19 08:23] LABS: ANION GAP 9 MEQ/L (5-15); BICARBONATE 28.7 MEQ/L (21.0-32.0); BLOOD UREA NITROGEN 17 MG/DL (7-18); CHLORIDE 101 MEQ/L (98-107); GLOMERULAR FILTRATION RATE 61 ML/MIN (>89); POTASSIUM 4.1 MEQ/L (3.5-5.1); SODIUM (NA) 139 MEQ/L (136-145)
[2016-08-19 08:25] LABS: HDL CHOLESTEROL 42.9 MG/DL (40.0-60.0); LDL CHOLESTEROL 85 MG/DL (0-99)
[2016-08-19] MEDS: NICOTINE 21 MG/24 HR PATCH T-DERMAL SCH (08:57)
[2016-08-19] MEDS ORDERED: ARIPiprazole 10 MG TAB PO SCH (09:00)
[2016-08-19] MEDS: clonazePAM 0.5 MG TAB PO SCH ×2 (09:15→21:00)
[2016-08-19] MEDS ORDERED: LORazepam 2 MG/ML VIAL IV PUSH PRN (09:15)
--- NOTE | 2016-08-19 10:17 | HHI.HP ---
Provisional Diagnosis Admission Date Aug 18, 2016 at 19:10 Arpin I. Unspecified psychosis, R/O Delusional disorder, paranoid type Arpin II. Deferred Arpin III. CHF Certification of Person's Competence To Provide Express and Informed Consent I have personally examined Lorenzo Mohr , a person being served at [facility] on, Aug 19, 2016 09:57. Express and informed consent means consent voluntarily given in writing, by a competent person, after sufficient explanation and disclosure of the subject matter involved to enable the person to make a knowing and willful decision without any element of force, fraud, deceit, duress, or other form of constraint or coercion. This person is 18 years of age or older, is not now known to be incompetent to consent to treatment with a guardian advocate, and does not have a health care surrogate or proxy currently making medical treatment decisions. I have found this person to be one of the following: [] Competent to provide express and informed consent, as defined above, for voluntary admission to this facility and is competent to provide express and informed consent for treatment. He/she has the consistent capacity to make well reasoned, willful, and knowing decisions concerning his or her medical or mental health treatment. The person fully and consistently understands the purpose of the admission for examination/placement and is fully capable of personally exercising all rights assured [place] [] Incompetent to provide express and informed consent to voluntary admission, and this is incompetent to provide express and informed consent to treatment. The person must be transferred to involuntary status and a petition for a guardian advocate filed with the Circuit Court. [X] Refusing to provide express and informed consent to voluntary admission but is competent to provide express and informed consent for treatment. The person must be discharged or transferred to involuntary status. Form shall be completed within 24 hours of a person's arrival at the receiving facility and filed in the clinical record of each person: 1. Admitted on a voluntary basis 2. Permitted to provide express and informed consent to his/her own treatment 3. Allowed to transfer from involuntary to voluntary status 4. Prior to permitting a person to consent to his or her own treatment after having been previously found incompetent to consent to treatment. History of Present Illness Capacity: Has Capacity HPI 08/11/16 The patient is a 46-year-old man, homeless, single, unemployed , supported by [facility], very reticent about his psychiatric history, he says that he has seen psychiatrists in the past "for no reason, just to steal my money ", medicated with Seroquel 400 mg "to lower my potassium", he denies previous psychiatric hospitalizations, he denies previous suicidal attempts, medical history of hypertension, CHF, hospitalized due to fatigue, SOB, related with CHF acute exacerbation, EF 15-20%, with non-STEMI, CKD and fluid overload. Patient was consulted to psychiatry due to bizarre comments with delusional material. On psychiatric evaluation today patient is found in his room listening to radio, calm, cooperative and pleasant. At the beginning the patient was a little bit reluctant and oppositional to the evaluation he stated that he doesn't need to see a psychiatrist "I don't have any psychiatric problem ". Patient states that he saw a psychiatrist in the past "but they just wanted to steal my money", he says that he was not diagnosed with any psychiatric illness and he was prescribed with Seroquel 400 mg "just to lower my potassium" . Patient reports good mood, he also reports good motivation to continue his medical treatment, to follow medical recommendations and get better of his cardiac condition. He denies depressive symptoms, he denies anhedonia, he denies hopelessness, he denies helplessness, he denies suicidal and homicidal ideation. Patient denies anxiety, manic symptoms, he denies visual and auditory hallucinations. Patient says that he has been living in the street and for this reason he hasn't been able to take good care of of his medical conditions and finally decompensated it. Patient explains that he was told that he needs a cardiac procedure which he is in 100% agreement. However, when patient was confronted about previous comments of knowing the educational institution president, he says that just last night he had a long conversation with Jw Downs about and abusive behavior of a police in [place] who kidnapped his daughter. He said that he spoke with the president for about an hour. He clarifies that he used to speak with Evonne Mak also very often when he needed a good advise. He says that he heard yesterday in the radio that her daughter was kidnapped, he says that this DJ in the radio has been trying to control his mind "but he doesn't know who am I" and when he head this he immediately called the president of [employer]. The patient is fully oriented 3, able to have a logical, coherent and relevant conversation at a superficial level, no gross cognitive impairment is observed, but florid delusions when respected to certain topics. As per conversation with nurse in charge, the patient has been mostly quiet, calm and cooperative, but oddly related and with a very inappropriate affect at times, making nonsensical jokes. During this evaluation, and as per conversation with nurse in charge, the patient hasn't showed any aggressive behavior, agitation, hostility or motoric restlessness. He reports 2-3 times per days use of marijuana, but denies the use of alcohol or any other drugs. 08/12/2016 Patient was seen today for psychiatric reevaluation, he was found in his room laying down listening to radio station in his cell phone. Patient says that he has been feeling okay, fatigue and shortness of breath at times. He says that he has been listening to radio every day for 30 years, especially political news. "There are a couple of DJs the thing that they can control me and control my mind". Patient says that he got a secret information from the [employer] "I know that most probably they are testing some nuclear bump on August 13 to livia Downs, who is going to be in [place]". Patient says that he called a couple of times to warn Government about this, "but Yareli doesn 't return my phone call in the same way [employer] did". Patient reports good mood, he denies depressive symptoms, he denies anhedonia, he denies visual and auditory hallucinations, he denies suicidal and homicidal ideation. No agitation or aggressive behavior is observed or reported. Patient is fully compliant with medication, he expresses motivation to continue medical treatment and following medical recommendations. I spoke personally with primary care provider and cardiology team about the plan for the patient. Apparently no surgical intervention is being offered at this moment due to low ejection fraction, but at the same time is important that the patient is psychiatrically stable in order to assure good compliance with medication and follow-up once the patient is intervened 08/14/2016 Patient is able psychiatric reevaluation today, he is found sitting in a chair, persistently giving his feet with water, stating "clean feet is the secret for healthy life", patient is calm, cooperative and very pleasant in conversation. He reports good mood, denies anhedonia, denies hopelessness, denies helplessness, he seems to be future oriented, but at the same time states that he has some fear about his future health after cardiac surgery. The patient is able to sustain a logical, coherent and relevant conversation, he seems to be committed with medical treatments and with following up medical recommendation, but when he comes to certain topics patient loses to contact with a reality. For example, this morning he told me that he was trying to get in contact Trtyrel Dias nurse of the strategy about how to beat Maxwell. He also seems to be persistent about delusions of reference of Djs in radio controlling his mind. He seems to be kind of insightful about his delusions. He is stated that "there is something going on in my mind, my memory is not right and I need help". He denies suicidal and homicidal ideation, he denies visual and auditory hallucinations. Patient is fully oriented 3, without any attention deficit, no fluctuation of consciousness and no gross cognitive impairment observed during this evaluation. No aggressive behavior or motoric agitation have been reported or observed. 08/17/2016 Patient was seen for psychiatric reevaluation today, patient was found sleeping in his bed, easily arousable, he reports feeling much better, having a nice weekend. He reports good mood, denies depressive symptoms, he says that he is thankful to doctors and nurses for taking care of him, he has been compliant with medications, no significant side effects. However, when patient is asked about what is inside his mind he says that "this marco a, you know the date, now has been telling me to a Pakistani woman because he wants to fuck her. He is wants" me to take her because he wants her". He reports that he listen same radio station every night and there is a DJ who wants to control his life and his mind. As per conversation with nurse in charge, patient has been calm, cooperative, pleasant, appropriate in his conversation, taking his medication, no aggressive behavior or agitation observed, but at times oddly related. 08/18/2016 Patient seen for psychiatric evaluation today along with nurse in charge Ronni, patient was found sitting in a chair, very upset and irritable, stating that people in this hospital conjunctly with people from the radio station want to control his life. He states that "this fucking people has been concerning for 32 years now and I need to get better to bhumi them and see them in [place]". Patient says that he was to have his heart surgery tomorrow and not this week because he has a lot of things to solve. During the evaluation patient became verbally hostile, but he was responsive to verbal de-escalation techniques. Ronni confronted him about previous statement of calling her daughter to arrange a meeting with Jw Downs and being "mentally controlled "by certain people. Patient was explained that he would have to go to the psychiatric unit for at least a week in order to improve his mental condition, become more stable and they have his surgery. After a persistent an extensive education and orientation about the importance of getting psychiatric help in order to get his medical treatment, he finally expressed understanding and agreement. Today patient is seen in the medical unit, he is very irritable, requesting to be discharged, loud and hostile. He says that "this nurses stole my and my properties and now these people are not leaving me alone". He would not elaborate about who these people are. But he does say that people of a radio station are communicating with us and telling us to hold his phone. Patient says that he doesn't need to take any medications for his mental problems, he has taken medication in the past and that'll help him at all. He says that he prefers to be discharged and not having any cardiac surgery "because I was doing fine before coming to the hospital and I don't need no treatment. During the evaluation patient became threatening, verbally aggressive, loud, he called me emil and gautam doctor. Patient was unable to be de-escalated verbally or redirected and we just finished a conversation and I left the room and he seemed to calm down. Review of Systems Constitutional: DENIES: Diaphoretic episodes, Fatigue, Fever, Weight gain, Weight loss, Chills, Dizziness, Change in appetite, Night Sweats Endocrine: DENIES: Heat/cold intolerance, Polydipsia, Polyuria, Polyphagia Eyes: DENIES: Blurred vision, Diplopia, Eye inflammation, Eye pain, Vision loss , Photosensitivity, Double Vision Ears, nose, mouth, throat: DENIES: Tinnitus, Hearing loss, Vertigo, Nasal discharge, Oral lesions, Throat pain, Hoarseness, Ear Pain, Running Nose, Epistaxis, Sinus Pain, Toothache, Odynophagia Respiratory: DENIES: Apneas, Cough, Snoring, Wheezing, Hemoptysis, Sputum production, Shortness of breath Musculoskeletal: DENIES: Joint pain, Muscle aches, Stiffness, Joint Swelling, Back pain, Neck pain Integumentary: DENIES: Abnormal pigmentation, Nail changes, Pruritus, Rash Neurologic: DENIES: Abnormal gait, Headache, Localized weakness, Paresthesias, Seizures, Speech Problems, Tremor, Poor Balance Psychiatric: COMPLAINS OF: Delusions (paranoid delusions, delusions of reference), DENIES: Anxiety, Confusion, Mood changes, Depression, Hallucinations, Agitation, Suicidal Ideation, Homicidal Ideation Past Psych History Violence risk - others (6 mos) Increased Substance Abuse History Drugs/Alcohol past 12 months Patient denies alcohol and illicit drugs Past Family Social History Coded Allergies: Darvocet-N 100 (Verified Allergy, Severe, HEADACHE, 08/07/16) Active Scripts Furosemide 40 Mg Tab40 Mg PO DAILY #30 TAB Prov:Maxi Leach MD R1 08/18/16 Potassium Chloride Microencaps 20 Meq Tab20 Meq PO BID #60 TAB Prov:Maxi Leach MD R1 08/18/16 Carvedilol (Coreg)12.5 Mg Tab12.5 Mg PO Q12HR #30 TAB Prov:Maxi Leach MD R1 08/18/16 Atorvastatin 80 Mg Tab80 Mg PO HS #30 TAB Prov:Maxi Leach MD R1 08/18/16 [Aspirin] (Aspirin Chew)81 MG CHEW No Conflict Check81 Mg CHEW DAILY #30 TAB.CHEW Prov:Maxi Leach MD R1 08/18/16 Aripiprazole 5 Mg Tab10 Mg PO DAILY #30 TAB Prov:Maxi Leach MD R1 08/18/16 Reported Medications Furosemide 40 Mg Tab40 Mg PO DAILY #30 TAB Ref 0 08/18/16 Discontinued Scripts Ibuprofen (Motrin)600 Mg [id number] Mg PO QID #21 TAB GIVE WITH FOOD Prov:Stephen Montiel MD 08/23/15 Cyclobenzaprine Hcl (Flexeril)10 Mg Tab10 Mg PO HS PRN (SPASM) #10 TAB Prov:Stephen Montiel MD 08/23/15 Current Medications Medications (Trade) Dose Ordered Sig/Ximena Route Start Time Stop Time Status Last Admin (Ativan) 1 mg Q6H PRN PO 08/18/16 20:45 (Ativan Inj) 1 mg Q6H PRN IM 08/18/16 20:45 (Tylenol) 650 mg Q4H PRN PO 08/18/16 20:45 (Milk Of Magnesia Liq) 30 ml DAILY PRN PO 08/18/16 20:45 (Mag-Al Plus Susp Liq) 30 ml Q6H PRN PO 08/18/16 20:45 (Habitrol 21 Mg Patch.24 Hr) 1 patch DAILY T-DERMAL 08/19/16 09:00 Miscellaneous Information 1 HS T-DERMAL 08/19/16 21:00 (Abilify) 15 mg DAILY PO 08/20/16 09:00 (KlonoPIN) 0.5 mg Q12HR PO 08/19/16 09:15 (Ativan Inj) 1 mg Q6H PRN IV PUSH 08/19/16 09:15 Family History He denies Social History Patient was born and raised in [place], he was raised by adopting family, he is homeless right now, unemployed, supported by [employer], single, he has 4 kids, no contact with them, his highest level of education is high school Physical Exam No performed due to level of aggressiveness Vital Signs Vital Signs Date Time Temp Pulse Resp B/P Pulse Ox O2 Delivery O2 Flow Rate FiO2 08/19/16 06:10 98.2 71 16 110/59 95 I/O 08/18/16 08/18/16 08/19/16 08:00 16:00 00:00 Intake Total 480 ml Balance 480 ml Mental Status Examination Appearance man, a regular street clothes, age appearing, good hygiene, he is irritable, oppositional, poorly cooperative, verbally hostile Speech: Rapid, Other (loud) Memory: Unremarkable Thought Process: Goal Directed Thought Content: Paranoid, Ideas of Reference (Marked delusions of reference), Other Attention and Concentration: Good Suicidal Ideation: No Previous Suicide Attempts: No Homicidal Ideation: No Previous Homicide Attempts: No Judgment: Poor Affect: Irritable Mood: Angry Motor Activity: Normal gait Assessment & Plan Problem List: (1) Unspecified psychosis Assessment & Plan: On psychiatric evaluation today patient is oppositional, resistant to the evaluation, very irritable, verbally hostile, requesting to be discharged from the unit. Now under pressure and under stress delusions of reference and paranoia seems to be increased and patient's ego boundaries and reality testing seems to be decreased. I will make the patient involuntary now since he is irrational and floridly psychotic and he is refusing to take medications. We'll increase Abilify to 15 milligrams daily. Will order EKG for baseline QTc. Will add Ativan 2 mg every 8 hours IV when necessary aggressive behavior and agitation. Might consider adding an additional IM antipsychotic PRN after QTC measured. Will consult hospitalist and cardiology. Also will consult psychiatry for second opinion. 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 Patient might need a 1:1 sitter for safety. ICD Code: F29 Assessment & Plan Estimated LOS: Samuel Alexandra MD Aug 19, 2016 10:17
--- NOTE | 2016-08-19 12:26 | PD.CONS ---
History of Present Illness Service Family Medicine Consult Requested By Dr. Nelson Reason for Consult CHF, recent NSTEMI Primary Care Physician No Primary Care Physician Diagnoses: (1) Congestive heart failure (2) NSTEMI (non-ST elevated myocardial infarction) (3) Unspecified psychosis History of Present Illness Pt is a 46 year old Male who had recent NSTEMI on 08/07/16. He was admitted to the [facility] and underwent cardiac catheterization, which was significant for multivessel disease. Pt was considered too high risk for cardiac stenting and would most benefit from CABG. He has been seen and evaluated by cardiothoracic surgery and is currently scheduled for CABG on . Pt has experienced an unspecified psychosis and expresses delusions. He has been transferred to Med/Psych for further psychiatric evaluation and clearance prior to having open heart surgery. Today he denies chest pain, feeling short of breath, edema. He reports feeling fine from a cardiovascular standpoint. He is eager to have surgery as soon as possible. Review of Systems Constitutional: COMPLAINS OF: Weight loss, DENIES: Fever, Chills Eyes: DENIES: Blurred vision Ears, nose, mouth, throat: DENIES: Hearing loss Respiratory: DENIES: Shortness of breath Cardiovascular: DENIES: Chest pain, Lower Extremity Edema Gastrointestinal: DENIES: Abdominal pain Genitourinary: DENIES: Dysuria Integumentary: DENIES: Rash Neurologic: DENIES: Headache Psychiatric: DENIES: Suicidal Ideation, Homicidal Ideation Past Family Social History Allergies: Coded Allergies: Darvocet-N 100 (Verified Allergy, Severe, HEADACHE, 08/07/16) Past Medical History NSTMI 07/2016 Past Surgical History Skin grafts Cardiac catheterization Reported Medications Reported Meds & Active Scripts Active Furosemide 40 Mg Tab 40 Mg PO DAILY Potassium Chloride Microencaps 20 Meq Tab 20 Meq PO BID Coreg (Carvedilol) 12.5 Mg Tab 12.5 Mg PO Q12HR Atorvastatin (Atorvastatin Calcium) 80 Mg Tab 80 Mg PO HS [Aspirin Chew] 81 MG Chew 81 Mg CHEW DAILY Aripiprazole 5 Mg Tab 10 Mg PO DAILY Active Ordered Medications Inpatient Medications Acetaminophen (Tylenol) 650 mg Q4H PRN PO Pain 1-5 or Temp >101F; Start at 20:45 Al Hydrox/Mg Hydrox/Simethicone (Mag-Al Plus Susp Liq) 30 ml Q6H PRN PO DYSPEPSIA; Start 08/18/16 at 20:45 Aripiprazole (Abilify) 15 mg DAILY PO ; Start 08/20/16 at 09:00 Clonazepam (KlonoPIN) 0.5 mg Q12HR PO ; Start 08/19/16 at 09:15 Lorazepam (Ativan Inj) 1 mg Q6H PRN IV PUSH agitation/aggresive ; Start at 09:15 Lorazepam (Ativan) 1 mg Q6H PRN PO MODERATE TO SEVERE ANXIETY; Start 08/18/16 at 20:45 Magnesium Hydroxide (Milk Of Magnya Liq) 30 ml DAILY PRN PO CONSTIPATION; Start 08/18/16 at 20:45 Miscellaneous Information 1 HS T-DERMAL ; Start 08/19/16 at 21:00 Nicotine (Habitrol 21 Mg Patch.24 Hr) 1 patch DAILY T-DERMAL ; Start 08/19/16 at 09:00 Family History Unsure, Pt adopted Social History Tobacco-up to 8 PPD, quit 20 years ago Alcohol use-occasional Illicit drug use-marijuana Physical Exam Vital Signs Vital Signs Date Time Temp Pulse Resp B/P Pulse Ox O2 Delivery O2 Flow Rate FiO2 08/19/16 06:10 98.2 71 16 110/59 95 08/18/16 19:40 97.4 63 16 127/80 98 Physical Exam GENERAL: This is a well-nourished, well-developed patient, acutely agitated due to not having his cell phone. SKIN: No rashes, ecchymoses or lesions. Cool and dry. HEAD: Atraumatic. Normocephalic. No temporal or scalp tenderness. EYES: Pupils equal round and reactive. Extraocular motions intact. No scleral icterus. No injection or drainage. ENT: Nose without bleeding, purulent drainage or septal hematoma. Uvula midline. Airway patent. CARDIOVASCULAR: Regular rate and rhythm without murmurs, gallops, or rubs. RESPIRATORY: Clear to auscultation. Breath sounds equal bilaterally. No wheezes , rales, or rhonchi. GASTROINTESTINAL: Abdomen soft, non-tender, nondistended. No hepato-splenomegaly , or palpable masses. No guarding. MUSCULOSKELETAL: Extremities without clubbing, cyanosis, or edema. No joint tenderness, effusion, or edema noted. No calf tenderness. Negative Homans sign bilaterally. NEUROLOGICAL: Awake and alert. Motor and sensory grossly within normal limits. Normal speech. PSYCH: Pt making good eye contact, expressing delusions of grandeur, distressed about not having cell phone Laboratory Laboratory Tests Test 08/19/16 07:45 Sodium Level 139 Potassium Level 4.1 Chloride Level 101 Carbon Dioxide Level 28.7 Anion Gap 9 Blood Urea Nitrogen 17 Creatinine 1.27 Estimat Glomerular Filtration 61 Rate Random Glucose 119 Calcium Level 9.1 Triglycerides Level 160 Cholesterol Level 160 LDL Cholesterol 85 HDL Cholesterol 42.9 Cholesterol/HDL Ratio 3.72 Result Diagram: 08/19/16 0745 Assessment and Plan Problem List: (1) Congestive heart failure Status: Acute Plan: Pt. has no significant cardiac history, but endorses heavy salt intake, significant tobacco history. On admission, EKG showed normal sinus rhythm. Q waves in V1, V2, V3, V4. Initial troponin elevated at 2.91, showed further elevations. May be secondary to acute congestive heart failure vs [place]. BNP initially elevated at 993 on admission. He had acute decompensated heart failure. CXR showed cardiomegaly and no acute disease. Echo: EF 15-20% initially Repeat Echo 08/17/16: Normal cavity size, wall thickness within normal limits. Systolic function was mildly reduced. Estimated EF 45-50%. -Cardiothoracic surgery has been consulted for consideration for bypass, appreciate recommendations. Pt is currently scheduled for CABG on 08/26, possibly earlier if there is availability. -Lasix 40 mg po Daily. -Low-salt diet less than 2 g per day. -Fluid restrict to 1.5 L per day. -Strict Is and Os. Daily weights. -Supplemental oxygen and monitor on pulse ox. -Telemetry, discontinued, no significant arrhythmias. -He is asymptomatic and has denied cardiac complaints Imaging Carotid artery ultrasound 08/11: Normal hemodynamic profile of both carotids Lower extremity ultrasound 08/11: Negative for DVT bilaterally, venous mapping per report (2) NSTEMI (non-ST elevated myocardial infarction) Status: Acute Plan: EKG showed normal sinus rhythm. Q waves in V1, V2, V3, V4. No chest pain on admission, pt denies angina in the past. Unsure if CHF leading to NSTEMI or heart damage in the past causing acute CHF -Cardiology consulted, appreciate recommendations and intervention -Cardiac catheterization was significant for severe multivessel disease, significantly elevated wedge and pulmonary artery pressures, see plan for diuresis above. -Pt would be a poor candidate for stent placement -ASA daily -Lipitor 80mg HS -Coreg 12.5mg PO BID -See plan above (3) Unspecified psychosis Status: Acute Plan: Pt currently admitted to [facility] due to unspecified psychosis, concern for possible schizophrenia. -Management per Psych, Dr. Nelson currently following, appreciate recommendations Per conversation with Dr. Nelson. Pt is to be transferred back to the [facility] as he would no longer benefit from further stay on [facility]. Pt is to have surgery and will be monitored closely after the surgery is completed. Second Psychiatrist will be consulted for second opinion. (4) FEN Status: Acute Plan: Fluids: None iv, fluid restrict Electrolytes: WNL Nutrition: Heart healthy, NA restriction DVT ppx: Heparin Assessment and Plan Pt is a 46 year old male history of recent STEMI, anticipated CABG per Cardiothoracic surgery. Currently admitted to [facility] for stabilization prior to surgery. Discussed Condition With SDW: Dr. Segura, Dr. Leach, Dr. Nelson Problem Qualifiers (1) Congestive heart failure: Elena Barrera MD R2 Aug 19, 2016 12:26 Elena Barrera MD R2 Aug 19, 2016 12:26
[2016-08-19 16:26] LABS: HEMOGLOBIN A1a 1.2 %; HEMOGLOBIN A1b 0.8 %; HEMOGLOBIN Ao 84.9 %; HEMOGLOBIN F 1.1 %; HEMOGLOBIN P3 5.2 %
[2016-08-19] MEDS ORDERED: RESP: ALBUTEROL 2.5 MG/3 ML NEB (PRN) NEB (18:45)
[2016-08-19] MEDS ORDERED: ONDANSETRON ODT 4 MG TAB PO PRN (18:45)
[2016-08-19 19:00] VITALS: BP 123/60; PULSE 83; RESP 18; TEMP 97.9; O2SAT 96
[2016-08-19] MEDS: REMOVE OLD NICOTINE PATCH T-DERMAL SCH (21:00)
[2016-08-19] MEDS: POTASSIUM CHLORIDE 20 MEQ CONTROLLED RELEASE TAB PO SCH (21:50)
[2016-08-19] MEDS: ATORVASTATIN 80 MG TAB PO SCH (21:50)
[2016-08-19] MEDS: CARVEDILOL 12.5 MG TAB PO SCH (21:51)
[2016-08-19] MEDS: ASPIRIN 81 MG CHEW TAB PO SCH (21:51)
[2016-08-19] MEDS: FUROSEMIDE 40 MG TAB PO SCH (21:51)
[2016-08-19] MEDS: HEPARIN SODIUM - SQ 10,000 UNITS/ML VIAL SQ SCH (21:56)
--- NOTE | 2016-08-20 00:03 | PD.CARD.PN ---
Subjective Subjective Remarks Asked to see again for CHF/CAD/NSTEMI history Patient was seen earlier today in the med/psych unit No chest pain, no shortness of breath Objective Medications Current Medications Medications (Trade) Dose Ordered Sig/Ximena Route Start Time Stop Time Status Last Admin (Ativan) 1 mg Q6H PRN PO 08/18/16 20:45 (Ativan Inj) 1 mg Q6H PRN IM 08/18/16 20:45 (Tylenol) 650 mg Q4H PRN PO 08/18/16 20:45 (Milk Of Magnesia Liq) 30 ml DAILY PRN PO 08/18/16 20:45 (Mag-Al Plus Susp Liq) 30 ml Q6H PRN PO 08/18/16 20:45 (Habitrol 21 Mg Patch.24 Hr) 1 patch DAILY T-DERMAL 08/19/16 09:00 Miscellaneous Information 1 HS T-DERMAL 08/19/16 21:00 (Abilify) 15 mg DAILY PO 08/20/16 09:00 (KlonoPIN) 0.5 mg Q12HR PO 08/19/16 09:15 (Ativan Inj) 1 mg Q6H PRN IV PUSH 08/19/16 09:15 (Lipitor) 80 mg HS PO 08/19/16 21:00 08/19/16 21:50 (Coreg) 12.5 mg Q12HR PO 08/19/16 21:00 08/19/16 21:51 (Lasix) 40 mg DAILY PO 08/19/16 18:45 08/19/16 21:51 (KCl) 20 meq BID PO 08/19/16 21:00 08/19/16 21:50 (Aspirin Chew) 81 mg DAILY PO 08/19/16 19:00 08/19/16 21:51 (Heparin Inj) 5,000 units Q8HR SQ 08/19/16 22:00 08/19/16 21:56 (Zofran Odt) 4 mg Q6H PRN PO 08/19/16 18:45 Vital Signs / I&O Vital Signs Date Time Temp Pulse Resp B/P Pulse Ox O2 Delivery O2 Flow Rate FiO2 08/19/16 19:00 97.9 83 18 123/60 96 08/19/16 06:10 98.2 71 16 110/59 95 I/O 08/19/16 08/19/16 08/19/16 08/20/16 08/20/16 08/20/16 07:00 15:00 23:00 07:00 15:00 23:00 Intake Total 1320 ml 1680 ml Balance 1320 ml 1680 ml Intake Oral 1320 ml 1680 ml # Voids 1 2 Physical Exam GENERAL: NAD, AAOx3 SKIN: Warm and dry. HEAD: Atraumatic. Normocephalic. EYES: Pupils equal and round. No scleral icterus. No injection or drainage. ENT: No nasal bleeding or discharge. Mucous membranes pink and moist. NECK: Trachea midline. No JVD. CARDIOVASCULAR: Regular rate and rhythm. RESPIRATORY: No accessory muscle use. GASTROINTESTINAL: Abdomen soft, non-tender, nondistended. Hepatic and splenic margins not palpable. MUSCULOSKELETAL: Extremities without clubbing, cyanosis, or edema. No obvious deformities. NEUROLOGICAL: Awake and alert. No obvious cranial nerve deficits. Motor grossly within normal limits. Five out of 5 muscle strength in the arms and legs. Normal speech. PSYCHIATRIC: Appropriate mood and affect; insight and judgment normal. Laboratory Laboratory Tests Test 08/19/16 07:45 Sodium Level 139 MEQ/L Potassium Level 4.1 MEQ/L Chloride Level 101 MEQ/L Carbon Dioxide Level 28.7 MEQ/L Anion Gap 9 MEQ/L Blood Urea Nitrogen 17 MG/DL Creatinine 1.27 MG/DL Estimat Glomerular Filtration 61 ML/MIN Rate Random Glucose 119 MG/DL Hemoglobin A1c 5.7 % Calcium Level 9.1 MG/DL Triglycerides Level 160 MG/DL Cholesterol Level 160 MG/DL LDL Cholesterol 85 MG/DL HDL Cholesterol 42.9 MG/DL Cholesterol/HDL Ratio 3.72 RATIO Assessment and Plan Problem List: (1) NSTEMI (non-ST elevated myocardial infarction) (2) Congestive heart failure (3) Unspecified psychosis (4) CAD (coronary artery disease) Assessment and Plan 1) Multivessel disease 2) EF 45-50% on recent echo 3) Consideration of CT surgery vs medical management while being treated inpatient psych, Psych and CT surgery to discuss further management 4) Con't current medications for medical management Problem Qualifiers (1) Congestive heart failure: Byron Franz DO Aug 20, 2016 00:03
[2016-08-20] MEDS: HEPARIN SODIUM - SQ 10,000 UNITS/ML VIAL SQ SCH ×3 (05:22→22:06)
[2016-08-20 06:00] VITALS: BP 113/77; PULSE 64; RESP 18; TEMP 97.3; O2SAT 98
[2016-08-20] MEDS: CARVEDILOL 12.5 MG TAB PO SCH ×2 (08:22→22:05)
[2016-08-20] MEDS: ASPIRIN 81 MG CHEW TAB PO SCH (08:22)
[2016-08-20] MEDS: clonazePAM 0.5 MG TAB PO SCH ×2 (08:22→21:00)
[2016-08-20] MEDS: POTASSIUM CHLORIDE 20 MEQ CONTROLLED RELEASE TAB PO SCH ×2 (08:22→22:06)
[2016-08-20] MEDS: FUROSEMIDE 40 MG TAB PO SCH (08:23)
[2016-08-20] MEDS ORDERED: ARIPiprazole 15 MG TAB PO SCH (09:00)
[2016-08-20] MEDS: NICOTINE 21 MG/24 HR PATCH T-DERMAL SCH (09:00)
[2016-08-20] MEDS ORDERED: HALOPERIDOL LACTATE 5 MG/ML AMP IM PRN (12:00)
--- NOTE | 2016-08-20 12:01 | HHI.PYPN ---
Subjective Remarks Patient was seen today for psychiatric evaluation along with nurse in charge Gigi, patient seems to be calmer and more cooperative today, but still focused on getting that his cell phone because he has important calls to make to President [place] "and today with this people of the radio station". He reports good mood, he denies visual and auditory hallucinations, he denies suicidal and homicidal ideation, patient is fully oriented 3, without any gross cognitive impairment observed. He has been agitated, at times verbally hostile requesting to have his cell phone back, but other than that he has been compliant with his medications and mostly no problematic in the unit. Review of Systems Other No somatic complaints Objective Alert: Yes [facility]: Person, Place, Date, Situation Mood: Calm Affect: Other (irritable) Memory Intact: Immediate, Recent, Remote Hallucinations: Other (he denies) Delusions: Yes Delusion Type: Grandiose, Paranoid, Other (delusions of reference) Suicidal: Ideation (he denies) Homicidal: Ideation (he denies) Insight/Judgment Poor Vitals/IOs Vital Signs Date Time Temp Pulse Resp B/P Pulse Ox O2 Delivery O2 Flow Rate FiO2 08/20/16 06:00 97.3 64 18 113/77 98 Intake and Output 08/19/16 08/19/16 08/20/16 08:00 16:00 00:00 Intake Total 1320 ml 1680 ml Balance 1320 ml 1680 ml Assessment & Plan Problem List: (1) Unspecified psychosis ICD Code: F29 (2) Delusional disorder Assessment & Plan: Patient continues to show fixed, with the structure and organize delusions of being controlled by a radio station and having to communicate with the supervisor engine repair secret information about potential war with [place]. Patient is very fixated in needing his phone in order to be in contact with a DJ in the reputation also with [employer] and he has the potential to escalate and become verbally/physically aggressive if his phone is not given back to him. At a superficial level, and excluding his delusion, patient seems to be logical, coherent and relevant, without any flight of ideas, tangentiality, or disorganized behavior or thoughts. Will increase Abilify to 20 mg to help with delusions, Will order Haldol 5 mg IM every 3 hours when necessary aggressive behavior and agitation. Appreciate cardiology and hospitalist input and recommendation. ICD Code: F22 Assessment & Plan Estimated LOS: days Justification for Cont. Inpt. Patient is acutely delusional, at this moment delusions are interfering with level of functionality and judgment and patient can become potentially a danger to self and others due to the severity of the delusions, he needs to continue psychiatric hospitalization for stabilization. Samuel Nelson MD Aug 20, 2016 12:01
--- NOTE | 2016-08-20 12:05 | PD.CONS ---
History of Present Illness Service Family Medicine Consult Requested By Primary Care Physician No Primary Care Physician Diagnoses: History of Present Illness Mr Mohr is a 46 year old Male who had recent NSTEMI on 08/07/16. He was admitted to the [facility] and underwent cardiac catheterization, which was significant for multivessel disease. Pt was considered too high risk for cardiac stenting and would most benefit from CABG. He has been seen and evaluated by cardiothoracic surgery and is currently scheduled for CABG on . Pt has experienced an unspecified psychosis and expresses delusions. He has been transferred to [facility]/Psych for further psychiatric evaluation and clearance prior to having open heart surgery. Today he denies chest pain, feeling short of breath, edema. He reports feeling fine from a cardiovascular standpoint. He is eager to have surgery as soon as possible. He had inner turmoil without his cell phone which was not allowed on that rosas. Yesterday, pt was pacing back and forth, agitated and angry about not having his phone. His delusions center around his phone and include him needing to speak to the President so he can stop a war with [place] among other things. Today, he was much happier at the prospect of getting his phone back. He needed to be transferred off the [facility] Psych unit in order to have his phone so a transfer was placed to go back to [facility]. A bed is pending but if the phone situation can be amended, he is happy and doing well on [facility] Psych. He is calmer and very cooperative today. Review of Systems Constitutional: COMPLAINS OF: Weight loss, DENIES: Fever, Chills Eyes: DENIES: Blurred vision Ears, nose, mouth, throat: DENIES: Hearing loss Respiratory: DENIES: Shortness of breath Cardiovascular: DENIES: Chest pain, Lower Extremity Edema Gastrointestinal: DENIES: Abdominal pain Genitourinary: DENIES: Dysuria Integumentary: DENIES: Rash Neurologic: DENIES: Headache Psychiatric: DENIES: Suicidal Ideation, Homicidal Ideation Past Family Social History Allergies: Coded Allergies: Darvocet-N 100 (Verified Allergy, Severe, HEADACHE, 08/07/16) Past Medical History mental illness untreated for many years presumably schizophrenia NSTMI 07/2016 Past Surgical History Skin grafts Cardiac catheterization Family History difficult to obtain per pt his family lives in [place] Social History homeless and sleeps near an unknown business did most of his eating at [employer] sees his friends/family/acquaintances on facebook talks about a 17 year old daughter reported he had been close to marriage 6 or 7 times but never got Physical Exam Vital Signs Vital Signs Date Time Temp Pulse Resp B/P Pulse Ox O2 Delivery O2 Flow Rate FiO2 08/20/16 06:00 97.3 64 18 113/77 98 08/19/16 19:00 97.9 83 18 123/60 96 Physical Exam GENERAL: This is a well-nourished, well-developed patient, happy today as long as he will get his cell phone. SKIN: No rashes, ecchymoses or lesions. Cool and dry. HEAD: Atraumatic. Normocephalic. No temporal or scalp tenderness. EYES: Pupils equal round and reactive. Extraocular motions intact. No scleral icterus. No injection or drainage. ENT: Nose without bleeding, purulent drainage or septal hematoma. Uvula midline. Airway patent. CARDIOVASCULAR: Regular rate and rhythm without murmurs, gallops, or rubs. RESPIRATORY: Clear to auscultation. Breath sounds equal bilaterally. No wheezes , rales, or rhonchi. GASTROINTESTINAL: Abdomen soft, non-tender, nondistended. No hepato-splenomegaly , or palpable masses. No guarding. MUSCULOSKELETAL: Extremities without clubbing, cyanosis, or edema. No joint tenderness, effusion, or edema noted. No calf tenderness. Negative Homans sign bilaterally. NEUROLOGICAL: Awake and alert. Motor and sensory grossly within normal limits. Normal speech. PSYCH: Pt making good eye contact, he was joking a bit today and doing well mood mueller compared to yesterday Result Diagram: 08/19/16 0745 Assessment and Plan Assessment and Plan (1) Congestive heart failure Status: Acute Plan: Pt. has no significant cardiac history, but endorsed heavy salt intake, significant tobacco history. On admission, EKG showed normal sinus rhythm. Q waves in V1, V2, V3, V4. Initial troponin elevated at 2.91, showed further elevations. May be secondary to acute congestive heart failure vs [place]. BNP initially elevated at 993 on admission. He had acute decompensated heart failure. CXR showed cardiomegaly and no acute disease. Echo: EF 15-20% initially Repeat Echo 08/17/16: Normal cavity size, wall thickness within normal limits. Systolic function was mildly reduced. Estimated EF 45-50%. -Cardiothoracic surgery has been consulted for consideration for bypass, appreciate recommendations. Pt is currently scheduled for CABG on 08/26, possibly earlier if there is availability. -Lasix 40 mg po Daily. -Low-salt diet less than 2 g per day. -Fluid restrict to 1.5 L per day. -Strict Is and Os. Daily weights. -Supplemental oxygen and monitor on pulse ox. -Telemetry, discontinued, no significant arrhythmias. -He is asymptomatic and has denied cardiac complaints Imaging Carotid artery ultrasound 08/11: Normal hemodynamic profile of both carotids Lower extremity ultrasound 08/11: Negative for DVT bilaterally, venous mapping per report (2) NSTEMI (non-ST elevated myocardial infarction) Status: Acute Plan: EKG showed normal sinus rhythm. Q waves in V1, V2, V3, V4. No chest pain on admission, pt denies angina in the past. Unsure if CHF leading to NSTEMI or heart damage in the past causing acute CHF -Cardiology consulted, appreciate recommendations and intervention -Cardiac catheterization was significant for severe multivessel disease, significantly elevated wedge and pulmonary artery pressures, see plan for diuresis above. -Pt would be a poor candidate for stent placement -ASA daily -Lipitor 80mg HS -Coreg 12.5mg PO BID -See plan above (3) Unspecified psychosis Status: Acute Plan: Pt currently admitted to MED/Psych due to unspecified psychosis, concern for possible schizophrenia. -Management per Psych, Dr. Nelson currently following, appreciate recommendations Per conversation with Dr. Nelson. Pt is to be transferred back to the [facility] as he became very angry and agitated without his cell phone and his delusions center around his phone. If he can use his phone in Med Psych, he seems very happy to stay there but if he is so agitated, it is not the best situation. He does need continued medication and help from Psychiatry and he will need help to find a place to live after D/C. Unsure when he will be transferred back to [facility]. Pt is to have surgery and will be monitored closely after the surgery is completed. Second Psychiatrist will be consulted for second opinion. My Dye is at risk of worsening Psychosis after surgery but appreciate help of Psychiatry. (4) FEN Status: Acute Plan: Fluids: None iv, fluid restrict Electrolytes: WNL Nutrition: Heart healthy, NA restriction DVT ppx: Heparin Assessment and Plan Pt is a 46 year old male history of recent STEMI, anticipated CABG per Cardiothoracic surgery. Currently admitted to Med/Psych for stabilization prior to surgery. Nikki Segura MD Aug 20, 2016 12:05
--- NOTE | 2016-08-20 13:27 | PD.CARD.PN ---
Subjective Subjective Remarks No chest pain, no shortness of breath Objective Medications Current Medications Medications (Trade) Dose Ordered Sig/Ximena Route Start Time Stop Time Status Last Admin (Ativan) 1 mg Q6H PRN PO 08/18/16 20:45 (Ativan Inj) 1 mg Q6H PRN IM 08/18/16 20:45 (Tylenol) 650 mg Q4H PRN PO 08/18/16 20:45 (Milk Of Magnesia Liq) 30 ml DAILY PRN PO 08/18/16 20:45 (Mag-Al Plus Susp Liq) 30 ml Q6H PRN PO 08/18/16 20:45 (Habitrol 21 Mg Patch.24 Hr) 1 patch DAILY T-DERMAL 08/19/16 09:00 Miscellaneous Information 1 HS T-DERMAL 08/19/16 21:00 (KlonoPIN) 0.5 mg Q12HR PO 08/19/16 09:15 08/20/16 08:22 (Ativan Inj) 1 mg Q6H PRN IV PUSH 08/19/16 09:15 (Lipitor) 80 mg HS PO 08/19/16 21:00 08/19/16 21:50 (Coreg) 12.5 mg Q12HR PO 08/19/16 21:00 08/20/16 08:22 (Lasix) 40 mg DAILY PO 08/19/16 18:45 08/20/16 08:23 (KCl) 20 meq BID PO 08/19/16 21:00 08/20/16 08:22 (Aspirin Chew) 81 mg DAILY PO 08/19/16 19:00 08/20/16 08:22 (Heparin Inj) 5,000 units Q8HR SQ 08/19/16 22:00 08/20/16 05:22 (Zofran Odt) 4 mg Q6H PRN PO 08/19/16 18:45 (Abilify) 20 mg DAILY PO 08/20/16 10:00 (Haldol Inj) 5 mg Q6H PRN IM 08/20/16 12:00 Vital Signs / I&O Vital Signs Date Time Temp Pulse Resp B/P Pulse Ox O2 Delivery O2 Flow Rate FiO2 08/20/16 06:00 97.3 64 18 113/77 98 08/19/16 19:00 97.9 83 18 123/60 96 I/O 08/19/16 08/19/16 08/19/16 08/20/16 08/20/16 08/20/16 07:00 15:00 23:00 07:00 15:00 23:00 Intake Total 1320 ml 1680 ml 480 ml 960 ml Balance 1320 ml 1680 ml 480 ml 960 ml Intake Oral 1320 ml 1680 ml 480 ml 960 ml # Voids 1 2 2 Physical Exam GENERAL: NAD, AAOx3 SKIN: Warm and dry. HEAD: Atraumatic. Normocephalic. EYES: Pupils equal and round. No scleral icterus. No injection or drainage. ENT: No nasal bleeding or discharge. Mucous membranes pink and moist. NECK: Trachea midline. No JVD. CARDIOVASCULAR: Regular rate and rhythm. RESPIRATORY: No accessory muscle use. GASTROINTESTINAL: Abdomen soft, non-tender, nondistended. Hepatic and splenic margins not palpable. MUSCULOSKELETAL: Extremities without clubbing, cyanosis, or edema. No obvious deformities. NEUROLOGICAL: Awake and alert. No obvious cranial nerve deficits. Motor grossly within normal limits. Five out of 5 muscle strength in the arms and legs. Normal speech. PSYCHIATRIC: Appropriate mood and affect; insight and judgment normal. Assessment and Plan Problem List: (1) NSTEMI (non-ST elevated myocardial infarction) (2) Congestive heart failure (3) Unspecified psychosis (4) CAD (coronary artery disease) Assessment and Plan 1) Multivessel disease 2) EF 45-50% on recent echo 3) Consideration of CT surgery vs medical management while being treated inpatient psych, Psych and CT surgery to discuss further management 4) Con't current medications for medical management 5) Will see PRN, call with questions Problem Qualifiers (1) Congestive heart failure: Byron Franz DO Aug 20, 2016 13:27
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
--- NOTE | 2016-08-20 14:49 | EKG ---
Date Performed: 08/20/2016 Time Performed: 12:03:43 PTAGE: 46 years EKG: Sinus rhythm POSSIBLE LEFT ATRIAL ENLARGEMENT ANTEROSEPTAL MYOCARDIAL INFARCTION , AGE INDETERMINATE PREVIOUS TRACING : 08/08/2016 01.51 No significant change from previous tracing noted. DOCTOR: Jhon Lee Interpretating Date/Time 08/20/2016 14:49:10
[2016-08-20] MEDS: REMOVE OLD NICOTINE PATCH T-DERMAL SCH (21:00)
[2016-08-20] MEDS: ATORVASTATIN 80 MG TAB PO SCH (22:05)
[2016-08-21 05:52] VITALS: BP 121/78; PULSE 60; RESP 18; TEMP 97.9; O2SAT 96
[2016-08-21] MEDS: HEPARIN SODIUM - SQ 10,000 UNITS/ML VIAL SQ SCH ×3 (06:22→21:16)
[2016-08-21] MEDS: ASPIRIN 81 MG CHEW TAB PO SCH (08:39)
[2016-08-21] MEDS: POTASSIUM CHLORIDE 20 MEQ CONTROLLED RELEASE TAB PO SCH ×2 (08:39→20:14)
[2016-08-21] MEDS: CARVEDILOL 12.5 MG TAB PO SCH ×2 (08:39→20:19)
[2016-08-21] MEDS: clonazePAM 0.5 MG TAB PO SCH ×2 (08:39→20:15)
[2016-08-21] MEDS: FUROSEMIDE 40 MG TAB PO SCH (08:39)
[2016-08-21] MEDS: NICOTINE 21 MG/24 HR PATCH T-DERMAL SCH (08:43)
--- NOTE | 2016-08-21 11:16 | HHI.PYPN ---
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 However, when patient is explained that there is a possibility that he could not be transferred today and he would have to continue using his cell phone with limitations he did not became agitated or angry, as he was yesterday. Actually, patient shows a good sense of humor, making several jokes. Patient denies suicidal and homicidal ideation, he denies visual and auditory hallucinations. He has been fully compliant with his medication, no episodes of agitation or hostility reported today. The patient did not make any reference to his delusional ideas of being controlled by a ready station and a DJ. Review of Systems Other No somatic complaints Objective Alert: Yes [place]: Person, Place, Date, Situation Mood: Calm Affect: Appropriate Memory Intact: Immediate, Recent, Remote Hallucinations: Other (he denies) Delusions: Yes Delusion Type: Grandiose, Paranoid, Other (delusions of reference) Suicidal: Ideation (he denies) Homicidal: Ideation (he denies) Insight/Judgment Fair Vitals/IOs Vital Signs Date Time Temp Pulse Resp B/P Pulse Ox O2 Delivery O2 Flow Rate FiO2 08/21/16 05:52 97.9 60 18 121/78 96 Intake and Output 08/20/16 08/20/16 08/21/16 08:00 16:00 00:00 Intake Total 960 ml 1440 ml 480 ml Balance 960 ml 1440 ml 480 ml Assessment & Plan Problem List: (1) Unspecified psychosis Assessment & Plan: We will continue current dose of Abilify 20 mg. Patient most probably will be transferred to medical floor today or tomorrow to continue medical treatment, I would follow-up in the floor. ICD Code: F29 Assessment & Plan Estimated LOS: days Justification for Cont. Inpt. Patient continues to be delusional, with episodic agitation and hostility towards staff, patient has an increased risk of becoming floridly psychotic after heart surgery last August 26 Samuel Nelson MD Aug 21, 2016 11:16
--- NOTE | 2016-08-21 13:31 | HHI.FPPN ---
Subjective Remarks Mr Mohr is still very concerned about his phone. He wants to have it with him all the time as he wants to be in constant communication with the president. Evidently, he emails the president often and believes he is helping to prevent wars by this communication. He is calmer today as he was able to use his phone for 2 hours last night. After talking to Dr Nelson, it is better to move him to a med surg floor as he is very upset without his phone and the rules on the med psych unit restrict phone use. Mr Mohr is still eager to have his heart surgery and is scheduled on next Wednesday. he does not complain about his heart except in a joking way. Objective Vitals Vital Signs Date Time Temp Pulse Resp B/P Pulse Ox O2 Delivery O2 Flow Rate FiO2 08/21/16 05:52 97.9 60 18 121/78 96 I/O 08/20/16 08/20/16 08/20/16 08/21/16 08/21/16 08/21/16 07:00 15:00 23:00 07:00 15:00 23:00 Intake Total 480 ml 1920 ml 480 ml 960 ml Balance 480 ml 1920 ml 480 ml 960 ml Intake Oral 480 ml 1920 ml 480 ml 960 ml # Voids 2 3 1 # Bowel Movements 0 Result Diagram: 08/19/16 0745 Objective Remarks GENERAL: This is a well-nourished, well-developed patient, happy as long as he will get his cell phone. SKIN: No rashes, ecchymoses or lesions. Cool and dry. HEAD: Atraumatic. Normocephalic. EYES: Pupils equal round and reactive. Extraocular motions intact. No scleral icterus. No injection or drainage. ENT: Nose without bleeding, purulent drainage or septal hematoma. Uvula midline. Airway patent. CARDIOVASCULAR: Regular rate and rhythm without murmurs, gallops, or rubs. RESPIRATORY: Clear to auscultation. Breath sounds equal bilaterally. No wheezes , rales, or rhonchi. GASTROINTESTINAL: Abdomen soft, non-tender, nondistended. No hepato-splenomegaly , or palpable masses. No guarding. MUSCULOSKELETAL: Extremities without clubbing, cyanosis, or edema. No joint tenderness, effusion, or edema noted. No calf tenderness. Negative Homans sign bilaterally. NEUROLOGICAL: Awake and alert. Motor and sensory grossly within normal limits. Normal speech. PSYCH: Pt making good eye contact, he was joking a bit today and doing well mood mueller compared to yesterday Urinary Catheter: No Vascular Central Line Catheter: No A/P Problem List: (1) Unspecified psychosis Status: Chronic Plan: appreciate help Psychiatry he is improved today as far as his mood (2) Congestive heart failure Status: Acute Plan: he had severe heart failure and fluid overload on admission but is doing well now (3) NSTEMI (non-ST elevated myocardial infarction) Status: Acute Plan: had this on admission (4) CAD (coronary artery disease) Status: Acute Plan: he is scheduled for bypass surgery next week Problem Qualifiers (1) Congestive heart failure: Qualified Code: I50.23 - Acute on chronic systolic congestive heart failure (2) CAD (coronary artery disease): Qualified Code: I25.10 - Coronary artery disease involving [place] coronary artery of [place] heart without angina pectoris Nikki Segrua MD Aug 21, 2016 13:31
--- NOTE | 2016-08-21 15:46 | PD.CAR.PN ---
CVT Progress Note Subjective/Hospital Course: 6 male , no prior medical HX or medical treatment , has not seen MD in over 20years. " didn't have any problems". Homeless, Admitted to ED with SOB, lower ext and scrotal edema , + NSTEMI , acute onset of CHF / BNP 900/ ECHO showed EF 15-20% severe systolic dysfunction . Underwent cardiac cath by Dr Franz showing multi vessel disease / PA pressure 59/34/ wedge pressure of 32 / LVEDP 42. STS data Morbidity or Mortality of 20.45 % Pt also has some psych issues / was seen and eval by Psych Dr Nelson , felt pt had delusional and psychotic symptoms , but was not considered a harm to himself, and did not meet involuntary psych admission at this time. 08/12 pt denied any chest pain , await final decision per Dr Arteaga / regarding surgery 08/13 repeat limited echo scheduled for wednesday re-eval for candidate for surgery 08/14 no chest pain or SOB, on room air leg edema improving echo changed to wednesday am to re-eval EF 08/17 EF improved to 30% however, appreciate psych re-eval today the feel pt is mentally unstable at this time, would benefit from inpt voluntary psych treatment prior to surgery, to stabilize mental health issues. Pt is pain free will hold off on surgery, until cleared by Psych 08/21 pt has been in med psych possible transfer back to [facility] over the weekend unable to place CV orders until re-admitted to in patient side tentatively scheduled for CABG on 08/26 Objective: Vital Signs Date Time Temp Pulse Resp B/P Pulse Ox O2 Delivery O2 Flow Rate FiO2 08/21/16 05:52 97.9 60 18 121/78 96 Result Diagram: 08/19/16 0745 (1) NSTEMI (non-ST elevated myocardial infarction) (2) Congestive heart failure (3) Unspecified psychosis (4) CAD (coronary artery disease) Problem Qualifiers (1) Congestive heart failure: Qualified Code: I50.23 - Acute on chronic systolic congestive heart failure (2) CAD (coronary artery disease): Qualified Code: I25.10 - Coronary artery disease involving [place] coronary artery of [place] heart without angina pectoris Haley Hollis Aug 21, 2016 15:46
[2016-08-21 18:15] VITALS: BP 126/65; PULSE 76; RESP 18; TEMP 97.1; O2SAT 99
[2016-08-21] MEDS: ATORVASTATIN 80 MG TAB PO SCH (20:15)
[2016-08-21] MEDS: REMOVE OLD NICOTINE PATCH T-DERMAL SCH (20:19)
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
== END 2016-08-21 21:20 | disposition short-term general hospital (02) | DRG 885 ==
LOC: H4EA 19:10
PROVIDERS: ADMIT Psychiatry & Neurology Psychiatry; ATTEND Psychiatry & Neurology Psychiatry
DX: F29 Unspecified psychosis not due to a substance or known physiological condition (principal); I21.4 Non-ST elevation (NSTEMI) myocardial infarction; I50.23 Acute on chronic systolic (congestive) heart failure; F12.90 Cannabis use, unspecified, uncomplicated; Z59.0 Homelessness; N18.9 Chronic kidney disease, unspecified; F22 Delusional disorders; Z87.891 Personal history of nicotine dependence; F20.9 Schizophrenia, unspecified; R45.4 Irritability and anger; I25.10 Atherosclerotic heart disease of native coronary artery without angina pectoris
CPT/HCPCS: 80048; 80061; 83036; 93005; J1644

== ENCOUNTER 2016-08-21 22:30 | Inpatient (IN) | payer MEDICARE, OTHER ==
[~2016-08-21] VITALS: Ht 177.8 cm; Wt 92.7 kg
[~2016-08-21 22:30] MED LIST changes: -CYCL-36 PO; -ENAL1.25 IV; -IBUP-232 PO
[2016-08-22] VITALS (8 sets, daily range): BP systolic 102–129; BP diastolic 57–84; PULSE 62–102; RESP 17–20; TEMP 97–98.2; O2SAT 95–100
[2016-08-22] MEDS ORDERED: SODIUM CHLORIDE 0.9% FLUSH 10 ML FLUSH IV FLUSH PRN (00:30)
[2016-08-22] MEDS ORDERED: ACETAMINOPHEN 325 MG TAB PO PRN (00:30)
[2016-08-22] MEDS ORDERED: ONDANSETRON HCL 4 MG/2 ML VIAL IVP PRN (00:30)
[2016-08-22] MEDS ORDERED: NALOXONE HCL 0.4 MG/ML AMP IV PRN (00:30)
[2016-08-22] MEDS ORDERED: RESP: ALBUTEROL 2.5 MG/3 ML NEB (PRN) NEB (00:45)
[2016-08-22] MEDS: HEPARIN SODIUM - SQ 10,000 UNITS/ML VIAL SQ SCH ×3 (04:19→18:00)
[2016-08-22] MEDS ORDERED: FUROSEMIDE 40 MG/4 ML VIAL IVP SCH (09:00)
[2016-08-22] MEDS: SODIUM CHLORIDE 0.9% FLUSH 10 ML FLUSH IV FLUSH SCH ×2 (09:00→21:56)
[2016-08-22] MEDS: POTASSIUM CHLORIDE 20 MEQ CONTROLLED RELEASE TAB PO SCH ×2 (09:52→21:56)
[2016-08-22] MEDS: clonazePAM 0.5 MG TAB PO SCH ×2 (09:53→21:56)
[2016-08-22] MEDS: ASPIRIN 81 MG CHEW TAB CHEW SCH (09:54)
[2016-08-22] MEDS: CARVEDILOL 6.25 MG TAB PO SCH ×2 (09:54→21:56)
[2016-08-22 10:12] LABS: BASOPHIL # 0.1 TH/MM3 (0-0.2); EOSINOPHIL # 0.4 TH/MM3 (0-0.4); HEMATOCRIT 48.9 % (39.0-51.0); HEMO FLAGS DIFF FINAL; LYMPH % 28.6 % (9.0-44.0); LYMPHOCYTE # 2.5 TH/MM3 (1.0-4.8); MEAN CELL VOLUME 86.6 FL (80.0-100.0); MEAN CORPUSCULAR HEMOGLOBIN 28.1 PG (27.0-34.0); MEAN CORPUSCULAR HGB CONC 32.4 % (32.0-36.0); MONO % 8.4 % (0.0-8.0); PLATELET COUNT 262 TH/MM3 (150-450); RED BLOOD COUNT 5.65 MIL/MM3 (4.50-5.90); RED CELL DISTRIBUTION WIDTH 15.4 % (11.6-17.2); WHITE BLOOD COUNT 8.7 TH/MM3 (4.0-11.0)
[2016-08-22 10:42] LABS: BICARBONATE 24.3 MEQ/L (21.0-32.0); POTASSIUM 4.5 MEQ/L (3.5-5.1)
--- NOTE | 2016-08-22 11:19 | HHI.HP ---
HPI Service Family Medicine Primary Care Physician No Primary Care Physician Admission Diagnosis Diagnoses: International Travel<30 Days: No Contact w/Intl Traveler<30days: No History of Present Illness Mr. Mohr is a 46 year old Male who had recent NSTEMI on 08/07/16 admitted for scheduled CABG. He was admitted to the [facility] and underwent cardiac catheterization, which was significant for multivessel disease. Patient was considered too high risk for cardiac stenting and would most benefit from CABG. He has been seen and evaluated by cardiothoracic surgery and is currently scheduled for CABG on 08/26. Patient has experienced an unspecified psychosis and expresses delusions. He was then transferred to Med/Psych for further psychiatric evaluation and clearance prior to having open heart surgery. However , he refused any medical or psychiatric care while in the psychiatric unit because he could not have his cell phone. He became very agitated and angry without the cell phone as it pertains to his delusions that he needs to speak to the President so he can stop the war with [place] among other things. Although the patient meets criteria for involuntary psychiatric hospitalization under the [place] Act, the staff has decided to proceed with his CABG at this time prior to further psychiatric management. He was then transferred to the medical floor for continued to monitoring until his procedure on 08/26. (Maxi Leach MD R1) Review of Systems Constitutional: DENIES: Fever, Chills Eyes: DENIES: Double Vision Ears, nose, mouth, throat: DENIES: Throat pain, Running Nose Respiratory: DENIES: Cough, Shortness of breath Cardiovascular: DENIES: Chest pain, Palpitations Gastrointestinal: DENIES: Abdominal pain, Diarrhea, Nausea, Vomiting Genitourinary: DENIES: Dysuria Musculoskeletal: COMPLAINS OF: Muscle aches (Since 0200 this morning, impoving and currently refuses medical treatment) Hematologic/lymphatic: DENIES: Lymphadenopathy Neurologic: DENIES: Headache Psychiatric: COMPLAINS OF: Mood changes, Delusions, DENIES: Agitation, Suicidal Ideation, Homicidal Ideation (Maxi Leach MD R1) Past Family Social History Past Medical History Denies PMHx Past Surgical History Skin Grafts - unable to give full history (Maxi Leach MD R1) Allergies: Coded Allergies: Darvocet-N 100 (Verified Allergy, Severe, HEADACHE, 08/07/16) Family History Adopted and unsure of biological family Social History Tobacco - Up to 8 PPD, quit 20 years ago Alcohol - Occasional, unsure of last drink Illicit drugs - Marijuana occasionally (Maxi Leach MD R1) Physical Exam Vital Signs Vital Signs Date Time Temp Pulse Resp B/P Pulse Ox O2 Delivery O2 Flow Rate FiO2 08/22/16 08:00 97.7 82 17 128/84 96 08/22/16 04:00 97.2 76 20 112/79 96 08/22/16 00:00 97.1 62 20 113/64 95 Physical Exam GENERAL: 46 y/o CM sitting up in recliner in NAD. SKIN: No rashes, ecchymoses or lesions. Cool and dry. HEAD: Atraumatic. Normocephalic. EYES:Wearing corrective lenses. Extraocular motions intact. No scleral icterus. No injection or drainage. ENT: Nose without bleeding or rhinorrhea. Oropharynx clear with MMM. CARDIOVASCULAR: Regular rate and rhythm without murmurs, gallops, or rubs. RESPIRATORY: Clear to auscultation. Breath sounds equal bilaterally. No wheezes , rales, or rhonchi. GASTROINTESTINAL: Abdomen soft, non-tender, nondistended. No hepato-splenomegaly , or palpable masses. No guarding. MUSCULOSKELETAL: Extremities without cyanosis or edema. No calf tenderness. NEUROLOGICAL: Awake and alert. Motor and sensory grossly within normal limits. Normal speech. PSYCH: Patient making good eye contact. Mood has greatly improved now that his cell phone is in his possession. No discussion of delusions today. Laboratory Laboratory Tests Test 08/22/16 08:35 White Blood Count 8.7 Red Blood Count 5.65 Hemoglobin 15.9 Hematocrit 48.9 Mean Corpuscular Volume 86.6 Mean Corpuscular Hemoglobin 28.1 Mean Corpuscular Hemoglobin 32.4 Concent Red Cell Distribution Width 15.4 Platelet Count 262 Mean Platelet Volume 8.7 Neutrophils (%) (Auto) 58.0 Lymphocytes (%) (Auto) 28.6 Monocytes (%) (Auto) 8.4 Eosinophils (%) (Auto) 4.0 Basophils (%) (Auto) 1.0 Neutrophils # (Auto) 5.0 Lymphocytes # (Auto) 2.5 Monocytes # (Auto) 0.7 Eosinophils # (Auto) 0.4 Basophils # (Auto) 0.1 CBC Comment DIFF FINAL Differential Comment Sodium Level 139 Potassium Level 4.5 Chloride Level 105 Carbon Dioxide Level 24.3 Anion Gap 10 Blood Urea Nitrogen 17 Creatinine 1.11 Estimat Glomerular Filtration 71 Rate Random Glucose 120 Calcium Level 9.1 (Maxi Leach MD R1) Result Diagram: 08/22/16 0835 08/22/16 0835 Assessment and Plan Assessment and Plan Mr. Mohr is a 46 y/o CM who initially presented with NSTEMI and later to found to have significant multivessel disease on cardiac catheterization. Cardiothoracic surgery was consulted for consideration for bypass, appreciate recommendations. Patient is currently scheduled for CABG on 08/26, possibly earlier if there is availability. He was also hospitalized in the psychiatric unit from 08/19-08/22 for psychiatric delusions, but was recently transferred out of the unit due to aggressive behavior and refusal of care. Staff decided that he will be transferred back to the medical floor for monitoring prior to his CABG procedure. Code Status FULL Discussed Condition With Dr. Segura (Maxi Leach MD R1) Attending Attestation Patient seen and examined. Case reviewed and discussed with the resident team. Agree with plan of care as discussed with me and documented in the resident note. He does not do well without his cell phone as he believes wars and other terrible things will happen if he is not in contact with the president. He is much happier on the medical floor and has his ear bud in to keep in contact with his phone. He is cooperative and pleasant this am. He denies any cardiac sxs or problems and should be having bypass on Wednesday. It is a technicality but he was under involuntary hospitalization per Psychiatry so he should not be able to leave AMA (he has never expressed the inclination to leave AMA as he wants his heart problems fixed). I do not believe he was [place] acted but am not 100% sure of the legal distinctions. However, Psychiatry has been seeing him every day and can help if there are any problems. Also per Psychiatry, do not in general and in his case, confront him about his delusions. If he is told he is having delusions, he will get very angry and believes everything is real and he does not have any problems. Also, he is given his meds as antianxiety and sleeping meds, not specifically as antipsychotics because he is improving with the meds and he may refuse them. Case management for Psychiatry is working on getting him a place to live after he leaves the hospital. (Nikki Segura MD) Problem List: (1) Congestive heart failure Status: Acute Plan: Patient has no significant cardiac history, but endorses heavy salt intake, significant tobacco history. On admission, EKG showed normal sinus rhythm. Q waves in V1, V2, V3, V4. Initial troponin elevated at 2.91, showed further elevations. May be secondary to acute congestive heart failure vs [place]. BNP initially elevated at 993 on admission. He had acute decompensated heart failure. CXR showed cardiomegaly and no acute disease. Echo: EF 15-20% initially Repeat Echo 08/17/16: Normal cavity size, wall thickness within normal limits. Systolic function was mildly reduced. Estimated EF 45-50%. -Cardiothoracic surgery has been consulted for consideration for bypass, appreciate recommendations. Patient is currently scheduled for CABG on 08/26, possibly earlier if there is availability. -Lasix 40 mg po Daily. -Low-salt diet less than 2 g per day. -Fluid restrict to 1.5 L per day. -Strict Is and Os. Daily weights. -Supplemental oxygen and monitor on pulse ox. -Telemetry, discontinued, no significant arrhythmias. -He is asymptomatic and has denied cardiac complaints Imaging Carotid artery ultrasound 08/11: Normal hemodynamic profile of both carotids Lower extremity ultrasound 08/11: Negative for DVT bilaterally, venous mapping per report (2) NSTEMI (non-ST elevated myocardial infarction) Status: Acute Plan: EKG showed normal sinus rhythm. Q waves in V1, V2, V3, V4. No chest pain on admission, patient denies angina in the past. Unsure if CHF leading to NSTEMI or heart damage in the past causing acute CHF -Cardiology consulted, appreciate recommendations and intervention -Cardiac catheterization was significant for severe multivessel disease, significantly elevated wedge and pulmonary artery pressures, see plan for diuresis above. -Patientt would be a poor candidate for high risk stent placement, recommend CABG procedure -ASA daily -Lipitor 80mg HS -Coreg 12.5mg PO BID -See plan above (3) Unspecified psychosis Status: Chronic Plan: Patient recently admitted to MED/Psych due to unspecified psychosis, concern for possible schizophrenia. -Management per Psych, Dr. Nelson currently following, appreciate recommendations Per Dr. Nelson, patient is to be transferred back to the Medical floor as he would no longer benefit from further stay on Med/Psych. Patient is to have surgery and will be monitored closely after the surgery is completed for possible further psychiatric treatment. Medications: Abilify 20mg daily Clonazepam 0.5mg BID (4) FEN Status: Acute Plan: Fluids: Fluid restriction Electrolytes: WNL Nutrition: Heart healthy, NA restriction DVT ppx: Heparin (Maxi Leach MD R1) Physician Certification 2 Midnight Certification Type: Admission for Inpatient Services Order for Inpatient Services The services are ordered in accordance with Medicare regulations or non- Medicare payer requirements, as applicable. In the case of services not specified as inpatient-only, they are appropriately provided as inpatient services in accordance with the 2-midnight benchmark. Estimated LOS (days): 3 3 days is the estimated time the patient will need to remain in the hospital, assuming treatment plan goals are met and no additional complications. Post-Hospital Plan: Home (Maxi Leach MD R1) Maxi Leach MD R1 Aug 22, 2016 11:19 Nikki Segura MD Aug 22, 2016 13:22
[2016-08-22] MEDS: ATORVASTATIN 40 MG TAB PO SCH (21:56)
[2016-08-23 00:08] VITALS: BP 121/76; PULSE 66; RESP 17; TEMP 97.6; O2SAT 96
[2016-08-23] MEDS: HEPARIN SODIUM - SQ 10,000 UNITS/ML VIAL SQ SCH ×3 (01:31→18:13)
[2016-08-23 08:00] VITALS: BP 181/73; PULSE 76; RESP 19; TEMP 97.8; O2SAT 95
[2016-08-23] MEDS: SODIUM CHLORIDE 0.9% FLUSH 10 ML FLUSH IV FLUSH SCH ×2 (09:00→22:45)
[2016-08-23] MEDS: POTASSIUM CHLORIDE 20 MEQ CONTROLLED RELEASE TAB PO SCH ×2 (10:19→22:45)
[2016-08-23] MEDS: clonazePAM 0.5 MG TAB PO SCH ×2 (10:20→22:45)
[2016-08-23] MEDS: CARVEDILOL 6.25 MG TAB PO SCH ×2 (10:20→22:44)
[2016-08-23] MEDS: ASPIRIN 81 MG CHEW TAB CHEW SCH (10:20)
[2016-08-23] MEDS: FUROSEMIDE 40 MG TAB PO SCH (10:21)
[2016-08-23 10:55] VITALS: O2SAT 97
--- NOTE | 2016-08-23 11:25 | HHI.FPPN ---
Subjective Remarks Patient seen and examined this morning by medical team. No acute events overnight with vital signs WNL. Patient states he is doing well and is ready for he scheduled CABG on Wednesday with CT surgery. He has no complaints this morning and denies any fevers, SOB, chest pain, NVD, or calf tenderness. Nursing reports no psychiatric issues since the patient has returned to the medical floor. (Maxi Leach MD R1) Objective Vitals Vital Signs Date Time Temp Pulse Resp B/P Pulse Ox O2 Delivery O2 Flow Rate FiO2 08/23/16 10:55 97 21 08/23/16 08:43 08/23/16 08:00 97.8 76 19 181/73 95 08/23/16 00:08 97.6 66 17 121/76 96 08/22/16 20:36 97.0 67 18 129/81 95 08/22/16 18:12 97 21 08/22/16 16:00 98.2 102 18 124/81 97 08/22/16 12:00 97.6 74 18 102/57 100 08/22/16 11:39 97 21 I/O 08/22/16 08/22/16 08/22/16 08/23/16 08/23/16 08/23/16 07:00 15:00 23:00 07:00 15:00 23:00 Intake Total 570 ml Output Total 240 ml Balance 330 ml Intake Oral 570 ml Output Urine Total 240 ml # Voids 1 1 1 (Maxi Leach MD R1) Result Diagram: 08/22/16 0835 08/22/16 0835 Objective Remarks Gen: 46 y/o CM lying in bed watching TV in NAD. HEENT: Atraumatic, normocephalic with EOMI. MMM. Cardio: RRR with no MGR. Pulm: CTAB with no CRW. No increased WOB. ABD: Soft, nontender with +BS. MSK: No cyanosis or edema. No BL calf tenderness. Neuro: AAOx3. Discusses no psychotic delusions during interview. Normal speech with appropriate judgement. (Maxi Leach MD R1) A/P Assessment and Plan Mr. Mohr is a 46 y/o CM who initially presented with NSTEMI and later to found to have significant multivessel disease on cardiac catheterization. Cardiothoracic surgery was consulted for consideration for bypass, appreciate recommendations. Patient is currently scheduled for CABG on 08/26, possibly earlier if there is availability. He was also hospitalized in the psychiatric unit from 08/19-08/22 for psychiatric delusions, but was recently transferred out of the unit due to aggressive behavior and refusal of care. Staff decided that he will be transferred back to the medical floor for monitoring prior to his CABG procedure. Discharge Planning Patient scheduled for CABG on 08/26/16. Discharge will depend on clinical course. DW: Dr. Schumacher and Dr. Cate Barrera (Maxi Leach MD R1) Attending Attestation Pt. examined and case discussed with resident physicians I have read the above note and agree with the assessment/plan as discussed with me I was involved in all medical decision making for this patient Wilfred Schumacher MD (Wilfred Schumacher MD) Problem List: (1) Congestive heart failure Status: Acute Plan: Patient has no significant cardiac history, but endorses heavy salt intake, significant tobacco history. On admission, EKG showed normal sinus rhythm. Q waves in V1, V2, V3, V4. Initial troponin elevated at 2.91, showed further elevations. May be secondary to acute congestive heart failure vs [place]. BNP initially elevated at 993 on admission. He had acute decompensated heart failure. CXR showed cardiomegaly and no acute disease. Echo: EF 15-20% initially Repeat Echo 08/17/16: Normal cavity size, wall thickness within normal limits. Systolic function was mildly reduced. Estimated EF 45-50%. -Cardiothoracic surgery has been consulted for consideration for bypass, appreciate recommendations. Patient is currently scheduled for CABG on 08/26, possibly earlier if there is availability. -Lasix 40 mg po Daily. -Low-salt diet less than 2 g per day. -Fluid restrict to 1.5 L per day. -Strict Is and Os. Daily weights. -Supplemental oxygen and monitor on pulse ox. -Telemetry, discontinued, no significant arrhythmias. -He is asymptomatic and has denied cardiac complaints Imaging Carotid artery ultrasound 08/11: Normal hemodynamic profile of both carotids Lower extremity ultrasound 08/11: Negative for DVT bilaterally, venous mapping per report (2) NSTEMI (non-ST elevated myocardial infarction) Status: Acute Plan: EKG showed normal sinus rhythm. Q waves in V1, V2, V3, V4. No chest pain on admission, patient denies angina in the past. Unsure if CHF leading to NSTEMI or heart damage in the past causing acute CHF -Cardiology consulted, appreciate recommendations and intervention -Cardiac catheterization was significant for severe multivessel disease, significantly elevated wedge and pulmonary artery pressures, see plan for diuresis above. -Patientt would be a poor candidate for high risk stent placement, recommend CABG procedure -ASA daily -Lipitor 80mg HS -Coreg 12.5mg PO BID -See plan above (3) Unspecified psychosis Status: Chronic Plan: Patient recently admitted to MED/Psych due to unspecified psychosis, concern for possible schizophrenia. -Management per Psych, Dr. Nelson currently following, appreciate recommendations Per Dr. Nelson, patient is to be transferred back to the Medical floor as he would no longer benefit from further stay on Med/Psych. Patient is to have surgery and will be monitored closely after the surgery is completed for possible further psychiatric treatment. Medications: Abilify 20mg daily Clonazepam 0.5mg BID (4) FEN Status: Acute Plan: Fluids: Fluid restriction Electrolytes: WNL Nutrition: Heart healthy, NA restriction DVT ppx: Heparin (Maxi Leach MD R1) Maxi Leach MD R1 Aug 23, 2016 11:25 Wilfred Schumacher MD Aug 23, 2016 20:28
[2016-08-23 12:00] VITALS: BP 117/76; PULSE 76; RESP 18; TEMP 98.4; O2SAT 99
[2016-08-23 16:00] VITALS: BP 125/75; PULSE 86; RESP 18; TEMP 98.6; O2SAT 98
[2016-08-23] MEDS: ATORVASTATIN 40 MG TAB PO SCH (22:44)
[2016-08-24] VITALS (8 sets, daily range): BP systolic 94–121; BP diastolic 55–85; PULSE 67–86; RESP 16–20; TEMP 96.3–98.8; O2SAT 95–97
[2016-08-24] MEDS: HEPARIN SODIUM - SQ 10,000 UNITS/ML VIAL SQ SCH ×3 (01:21→18:17)
[2016-08-24] MEDS: CARVEDILOL 6.25 MG TAB PO SCH ×2 (09:08→22:10)
[2016-08-24] MEDS: clonazePAM 0.5 MG TAB PO SCH ×2 (09:08→22:10)
[2016-08-24] MEDS: POTASSIUM CHLORIDE 20 MEQ CONTROLLED RELEASE TAB PO SCH ×2 (09:08→22:10)
[2016-08-24] MEDS: FUROSEMIDE 40 MG TAB PO SCH (09:08)
[2016-08-24] MEDS: ASPIRIN 81 MG CHEW TAB CHEW SCH (09:08)
[2016-08-24] MEDS: SODIUM CHLORIDE 0.9% FLUSH 10 ML FLUSH IV FLUSH SCH ×3 (09:09→22:11)
--- NOTE | 2016-08-24 10:14 | HHI.FPPN ---
Subjective Remarks Patient seen and examined. YENI overnight VSSAF. He denies any complaints this morning. No chest pain, shortness of breath, palpitations, nausea, vomiting, diarrhea, or swelling. (Lyudmila Orozco MD R3) Objective Vitals Vital Signs Date Time Temp Pulse Resp B/P Pulse Ox O2 Delivery O2 Flow Rate FiO2 08/24/16 07:40 96.4 73 16 118/75 97 08/24/16 04:00 98.8 67 20 94/55 95 08/24/16 02:31 86 08/24/16 00:00 97.8 75 18 113/59 95 08/23/16 16:00 98.6 86 18 125/75 98 08/23/16 12:00 98.4 76 18 117/76 99 08/23/16 10:55 97 21 I/O 08/23/16 08/23/16 08/23/16 08/24/16 08/24/16 08/24/16 07:00 15:00 23:00 07:00 15:00 23:00 Intake Total 240 ml 740 ml Output Total 1 ml Balance 240 ml 739 ml Intake Oral 240 ml 740 ml Output Urine Total 1 ml # Voids 1 1 (Lyudmila Orozco MD R3) Result Diagram: 08/22/16 0835 08/22/16 0835 Objective Remarks Gen: WNWD CM lying in bed in NAD. HEENT: Atraumatic, normocephalic with EOMI. MMM. Cardio: RRR with no MGR. Pulm: CTAB with no CRW. No increased WOB. ABD: Soft, nontender with +BS. MSK: No cyanosis or edema. No BL calf tenderness. Neuro: AAOx3. No psychotic delusions during interview. Normal speech with appropriate judgement. (Lyudmila Orozco MD R3) A/P Assessment and Plan Mr. Mohr is a 46 y/o CM who initially presented with NSTEMI and later to found to have significant multivessel disease on cardiac catheterization. Cardiothoracic surgery was consulted for consideration for bypass, appreciate recommendations. Patient is tentatively scheduled for CABG on 08/26, possibly earlier if there is availability. He was also hospitalized in the psychiatric unit from 08/19-08/22 for psychiatric delusions, but was recently transferred out of the unit due to aggressive behavior and refusal of care. Staff decided that he will be transferred back to the medical floor for monitoring prior to his CABG procedure. Discharge Planning Patient scheduled for CABG on 08/26/16. Discharge will depend on clinical course. w/d/[facility] Problem List: (1) Congestive heart failure Status: Acute Plan: Patient has no significant cardiac history, but endorses heavy salt intake, significant tobacco history. On admission, EKG showed normal sinus rhythm. Q waves in V1, V2, V3, V4. Initial troponin elevated at 2.91, showed further elevations. May be secondary to acute congestive heart failure vs [place]. BNP initially elevated at 993 on admission. He had acute decompensated heart failure. CXR showed cardiomegaly and no acute disease. He is currently asymptomatic and has denied cardiac complaints -Cardiothoracic surgery consulted; appreciate recommendations. * Tentatively scheduled for CABG on 08/26, possibly earlier if there is availability. -Lasix 40 mg po daily. -Low-salt diet less than 2 g per day. -Fluid restrict to 1.5 L per day. -Strict Is and Os. Daily weights. -Supplemental oxygen and monitor on pulse ox. -Telemetry Imaging Echo 08/13/16: EF 15-20% Echo 08/17/16: Normal cavity size, wall thickness within normal limits. Systolic function was mildly reduced. Estimated EF 45-50%. Carotid artery ultrasound 08/11: Normal hemodynamic profile of both carotids Lower extremity ultrasound 08/11: Negative for DVT bilaterally, venous mapping per report (2) NSTEMI (non-ST elevated myocardial infarction) Status: Acute Plan: EKG showed normal sinus rhythm. Q waves in V1, V2, V3, V4. No chest pain on admission, patient denied angina in the past. Unsure if CHF leading to NSTEMI or heart damage in the past causing acute CHF -Cardiology consulted, appreciate recommendations and intervention * Cardiac catheterization significant for severe multivessel disease, significantly elevated wedge and pulmonary artery pressures, see plan for diuresis above. * Patient would be a poor candidate for high risk stent placement, recommend CABG procedure -ASA 81 mg daily -Lipitor 80mg HS -Coreg 12.5mg PO BID -See plan above (3) Unspecified psychosis Status: Chronic Plan: Patient recently admitted to Med/Psych due to unspecified psychosis, concern for possible schizophrenia. -Per Dr. Nelson, patient is to be transferred back to the Medical floor as he would no longer benefit from further stay on Med/Psych. * Consider inpatient psych treatment after CABG -Abilify 20mg daily -Clonazepam 0.5mg BID (4) FEN Status: Acute Plan: Fluids: Fluid restriction Electrolytes: WNL Nutrition: Heart healthy, NA restriction DVT ppx: Heparin (Lyudmila Orozco MD R3) Lyudmila Orozco MD R3 Aug 24, 2016 10:14 Wilfred Schumacher MD Aug 24, 2016 16:16 Lyudmila Orozco MD R3 Aug 24, 2016 10:14
[2016-08-24] MEDS ORDERED: SODIUM CHLORIDE 0.9% FLUSH 10 ML FLUSH IV FLUSH PRN (13:30)
[2016-08-24] MEDS ORDERED: INSULIN REGULAR (IV INFUSION) 100 UNITS in SODIUM CHLORIDE 0.9% INJ 100 ML IV SCH (13:30)
[2016-08-24] MEDS ORDERED: PAPAVERINE INJ 60 MG, NITROGLYCERIN INJ 100 MCG, DILTIAZEM INJ 100 MG in SODIUM CHLORID... IRRIGATION SCH (13:30)
[2016-08-24] MEDS ORDERED: CEFAZOLIN INJ 500 MG in SODIUM CHLORIDE 0.9% IRR BTL 500 ML IRRIGATION SCH (13:30)
[2016-08-24] MEDS ORDERED: ceFAZolin 2 GM PREMIX 50 ML IV SCH (13:30)
[2016-08-24] MEDS ORDERED: CHLORHEXIDINE GLUCONATE 4% SOLN 120 ML BTL TOPICAL SCH (13:30)
--- NOTE | 2016-08-24 16:57 | PD.CAR.PN ---
CVT Progress Note Subjective/Hospital Course: 46 male , no prior medical HX or medical treatment , has not seen MD in over 20years. " didn't have any problems". Homeless, Admitted to ED with SOB, lower ext and scrotal edema , + NSTEMI , acute onset of CHF / BNP 900/ ECHO showed EF 15-20% severe systolic dysfunction . Underwent cardiac cath by Dr Franz showing multi vessel disease / PA pressure 59/34/ wedge pressure of 32 / LVEDP 42. STS data Morbidity or Mortality of 20.45 % Pt also has some psych issues / was seen and eval by Psych Dr Nelson , felt pt had delusional and psychotic symptoms , 08/24 pt now on abilify, stable for surgery scheduled for wed will have Dr Haines follow pt as post op Objective: GENERAL: SKIN: Warm and dry. HEAD: Normocephalic. EYES: No scleral icterus. No injection or drainage. NECK: Supple, trachea midline. No JVD or lymphadenopathy. CARDIOVASCULAR: Regular rate and rhythm without murmurs, gallops, or rubs. RESPIRATORY: Breath sounds equal bilaterally. No accessory muscle use. GASTROINTESTINAL: Abdomen soft, non-tender, nondistended. MUSCULOSKELETAL: No cyanosis, or edema. BACK: Nontender without obvious deformity. No CVA tenderness. Vital Signs Date Time Temp Pulse Resp B/P Pulse Ox O2 Delivery O2 Flow Rate FiO2 08/24/16 15:03 96.3 74 18 117/78 96 08/24/16 11:20 97.8 75 18 112/60 96 08/24/16 07:40 96.4 73 16 118/75 97 08/24/16 04:00 98.8 67 20 94/55 95 08/24/16 02:31 86 08/24/16 00:00 97.8 75 18 113/59 95 Result Diagram: 08/22/16 0835 08/22/16 0835 (1) CAD (coronary artery disease) Plan: ASA, statin , BB for surgery on 08/26 (2) Delusional disorder (3) Unspecified psychosis (4) NSTEMI (non-ST elevated myocardial infarction) Haley Hollis Aug 24, 2016 16:56
[2016-08-24 20:18] LABS: BLOOD, URINE NEG (NEG); GLUCOSE,URINE NEG (NEG); KETONE, URINE NEG (NEG); NITRITE,URINE NEG (NEG); URINE COLOR YELLOW (YELLW/STRAW)
[2016-08-24 20:20] LABS: COMMENT (UR) CULT NOT INDICATED; CULTURE IF INDICATED CULT NOT INDICATED
[2016-08-24] MEDS: ATORVASTATIN 40 MG TAB PO SCH (22:10)
[2016-08-25] VITALS (8 sets, daily range): BP systolic 104–135; BP diastolic 65–98; PULSE 66–82; RESP 16–22; TEMP 96.6–97.6; O2SAT 95–98
[2016-08-25] MEDS: HEPARIN SODIUM - SQ 10,000 UNITS/ML VIAL SQ SCH ×2 (02:00→10:03)
[2016-08-25] MEDS ORDERED: SODIUM CHLORID 0.9% 500 ML IV PRN (05:15)
[2016-08-25] MEDS ORDERED: POVIDONE IODINE 5% (ANTISEPSIS KIT) 4 APPLICATIONS EACH NARE PRN (05:15)
[2016-08-25] MEDS ORDERED: INSULIN HUMAN REGULAR 1,000 UNITS/10 ML VIAL SQ PRN (05:15)
[2016-08-25] MEDS ORDERED: CHLORHEXIDINE GLUCONATE 2 % 1 PACK (2 CLOTHS) TOPICAL PRN (05:15)
[2016-08-25] MEDS ORDERED: LACTATED RINGER'S 1000 ML IV PRN (05:15)
[2016-08-25 08:35] LABS: PROTHROMBIN TIME - PATIENT 11.4 SEC (9.8-11.6)
--- NOTE | 2016-08-25 09:16 | HHI.FPPN ---
Subjective Remarks Pt seen and examined this morning. No acute event overnight. AFVSS. Pt reports feeling well this morning. Denies chest pain, shortness of breath, abdominal pain, calf pain. He anticipated having surgery tomorrow. Mood is stable, denies SI/HI. Objective Vitals Vital Signs Date Time Temp Pulse Resp B/P Pulse Ox O2 Delivery O2 Flow Rate FiO2 08/25/16 07:35 96.7 67 18 130/82 97 08/25/16 06:10 96.7 75 18 124/81 95 08/25/16 01:15 97.6 66 18 110/68 95 08/24/16 21:05 97.6 83 18 121/85 96 08/24/16 20:00 70 08/24/16 15:03 96.3 74 18 117/78 96 08/24/16 11:20 97.8 75 18 112/60 96 I/O 08/24/16 08/24/16 08/24/16 08/25/16 08/25/16 08/25/16 07:00 15:00 23:00 07:00 15:00 23:00 Intake Total 600 ml 540 ml Balance 600 ml 540 ml Intake Oral 600 ml 540 ml # Voids 3 2 2 Result Diagram: 08/22/16 0835 08/22/16 0835 Objective Remarks Gen: WNWD CM lying in bed in NAD. HEENT: Atraumatic, normocephalic with EOMI. MMM. Cardio: RRR with no MGR. Pulm: CTAB with no CRW. No increased WOB. ABD: Soft, nontender with +BS. MSK: No cyanosis or edema. No BL calf tenderness. Neuro: AAOx3. No psychotic delusions during interview. Normal speech with appropriate judgement. Denies SI/HI. A/P Assessment and Plan Mr. Mohr is a 46 y/o CM who initially presented with NSTEMI and later to found to have significant multivessel disease on cardiac catheterization. Cardiothoracic surgery was consulted for consideration for bypass, appreciate recommendations. Patient is tentatively scheduled for CABG on 08/26, possibly earlier if there is availability. He was also hospitalized in the psychiatric unit from 08/19-08/22 for psychiatric delusions, but was recently transferred out of the unit due to aggressive behavior and refusal of care. Staff decided that he will be transferred back to the medical floor for monitoring prior to his CABG procedure. Discharge Planning Patient scheduled for CABG on 08/26/16. Discharge will depend on clinical course. w/d/w Dr. Schumacher Problem List: (1) Congestive heart failure Status: Acute Plan: Patient has no significant cardiac history, but endorses heavy salt intake, significant tobacco history. On admission, EKG showed normal sinus rhythm. Q waves in V1, V2, V3, V4. Initial troponin elevated at 2.91, showed further elevations. May be secondary to acute congestive heart failure vs [place]. BNP initially elevated at 993 on admission. He had acute decompensated heart failure. CXR showed cardiomegaly and no acute disease. He is currently asymptomatic and has denied cardiac complaints -Cardiothoracic surgery consulted; appreciate recommendations. * Tentatively scheduled for CABG on 08/26, possibly earlier if there is availability. -Lasix 40 mg po daily. -Low-salt diet less than 2 g per day. -Fluid restrict to 1.5 L per day. -Strict Is and Os. Daily weights. -Supplemental oxygen and monitor on pulse ox. -Telemetry Imaging Echo 08/13/16: EF 15-20% Echo 08/17/16: Normal cavity size, wall thickness within normal limits. Systolic function was mildly reduced. Estimated EF 45-50%. Carotid artery ultrasound 08/11: Normal hemodynamic profile of both carotids Lower extremity ultrasound 08/11: Negative for DVT bilaterally, venous mapping per report (2) NSTEMI (non-ST elevated myocardial infarction) Status: Acute Plan: EKG showed normal sinus rhythm. Q waves in V1, V2, V3, V4. No chest pain on admission, patient denied angina in the past. Unsure if CHF leading to NSTEMI or heart damage in the past causing acute CHF -Cardiology consulted, appreciate recommendations and intervention * Cardiac catheterization significant for severe multivessel disease, significantly elevated wedge and pulmonary artery pressures, see plan for diuresis above. * Patient would be a poor candidate for high risk stent placement, recommend CABG procedure -ASA 81 mg daily -Lipitor 80mg HS -Coreg 12.5mg PO BID -See plan above (3) Unspecified psychosis Status: Chronic Plan: Patient recently admitted to Med/Psych due to unspecified psychosis, concern for possible schizophrenia. -Per Dr. Nelson, patient is to be transferred back to the Medical floor as he would no longer benefit from further stay on Med/Psych. * Consider inpatient psych treatment after CABG -Abilify 20mg daily, to be increased to 30mg daily on 08/26 -Clonazepam 0.5mg BID, to be increased to 1 mg BID 08/26 (4) FEN Status: Acute Plan: Fluids: Fluid restriction Electrolytes: WNL Nutrition: Heart healthy, NA restriction DVT ppx: Heparin Elena Barrera MD R2 Aug 25, 2016 09:16
[2016-08-25] MEDS: POTASSIUM CHLORIDE 20 MEQ CONTROLLED RELEASE TAB PO SCH ×2 (09:58→22:07)
[2016-08-25] MEDS: FUROSEMIDE 40 MG TAB PO SCH (09:59)
[2016-08-25] MEDS: CARVEDILOL 6.25 MG TAB PO SCH ×2 (09:59→22:07)
[2016-08-25] MEDS: SODIUM CHLORIDE 0.9% FLUSH 10 ML FLUSH IV FLUSH SCH ×3 (09:59→22:09)
[2016-08-25] MEDS: clonazePAM 0.5 MG TAB PO SCH (09:59)
[2016-08-25] MEDS: ASPIRIN 81 MG CHEW TAB CHEW SCH (10:00)
--- NOTE | 2016-08-25 12:01 | HHI.PYPN ---
Subjective Remarks Patient was seen for psychiatric reevaluation today, patient is found in a common computer area of the floor listening to his usual Radio station. He says that he phone service is now off until 11 September. He reports good mood, however he says that he feels scare and anxious about surgery tomorrow. He has been told that the surgery is not dangerous, but still anxiety provoking. Patient reports good mood, he reports good appetite, looks good level of concentration, good energy, he denies suicidal or homicidal ideation, he denies visual and auditory hallucinations. Patient seems to be less focused in controlling and paranoid ideation, and even he is is still listening the same radio station, he was able to accept that his idea of being followed by a DJ " my be made up of my mind". Patient seems to be slightly more insightful of his psychosis, and able to differentiate between real and unreal. Patient is fully oriented 3, no attention deficit, no fluctuation of consciousness, no gross cognitive impairment is observed. Patient has been fully compliant with his medications, he seems to be a little restless, especially with repetitive involuntary movement of his legs which bring the concern of akathisia. Review of Systems Other Patient doesn't have any somatic complaints Objective Alert: Yes [place]: Person, Place, Date, Situation Mood: Calm Affect: Appropriate Memory Intact: Immediate, Recent, Remote Hallucinations: Other (he denies) Delusions: Yes Delusion Type: Other (delusions of reference) Suicidal: Ideation (he denies) Homicidal: Ideation (he denies) Insight/Judgment Fair/is slightly improved Labs Test 08/24/16 08/24/16 08/25/16 08/25/16 17:00 19:30 07:40 10:00 Nasal Screen MRSA (PCR) NEGATIVE Urine Color YELLOW Urine Turbidity CLEAR Urine pH 7.0 Urine Specific [place] 1.014 Urine Protein NEG mg/dL Urine Glucose (UA) NEG mg/dL Urine Ketones NEG mg/dL Urine Occult Blood NEG Urine Nitrite NEG Urine Bilirubin NEG Urine Urobilinogen LESS THAN 2.0 MG/DL Urine Leukocyte Esterase NEG Urine WBC 1 /hpf Microscopic Urinalysis Comment CULT NOT INDICATED Prothrombin Time 11.4 SEC Prothromb Time International 1.0 RATIO Ratio Blood Type O NEGATIVE O NEGATIVE Antibody Screen NEGATIVE Crossmatch Leukocyte-Reduced Red Blood Cells Blood Bank Comment Vitals/IOs Vital Signs Date Time Temp Pulse Resp B/P Pulse Ox O2 Delivery O2 Flow Rate FiO2 08/25/16 10:41 69 08/25/16 07:35 96.7 18 130/82 97 08/23/16 10:55 21 Intake and Output 08/24/16 08/24/16 08/25/16 08:00 16:00 00:00 Intake Total 600 ml 540 ml Balance 600 ml 540 ml Assessment & Plan Problem List: (1) Delusional disorder Assessment & Plan: Patient continued to shows fixed, encapsulated, well structured delusion of reference about being controlled by the a DJ in radio station, but today he seems to be more insightful about the unreality of the psychotic believe. He also seems to be less focused on it lives disorganized when he talks about it. We will increase Abilify to 30 mg, will increase clonazepam to 1 mg twice a day for anxiety and potential symptomatology of akathisia. ICD Code: F22 Assessment & Plan Estimated LOS: days Justification for Cont. Inpt. Patient might benefit of psychiatric admission after surgery for stabilization of delusional thinking Samuel Nelson MD Aug 25, 2016 12:01
--- NOTE | 2016-08-25 18:05 | PD.CAR.PN ---
CVT Progress Note Subjective/Hospital Course: 46 male , no prior medical HX or medical treatment , has not seen MD in over 20years. " didn't have any problems". Homeless, Admitted to ED with SOB, lower ext and scrotal edema , + NSTEMI , acute onset of CHF / BNP 900/ ECHO showed EF 15-20% severe systolic dysfunction . Underwent cardiac cath by Dr Franz showing multi vessel disease / PA pressure 59/34/ wedge pressure of 32 / LVEDP 42. STS data Morbidity or Mortality of 20.45 % Pt also has some psych issues / was seen and eval by Psych Dr Nelson , felt pt had delusional and psychotic symptoms , 08/24 pt now on abilify, stable for surgery scheduled for wed will have Dr Haines follow pt as post op 08/25 no chest pain scheduled for surgery in am Objective: GENERAL: SKIN: Warm and dry. HEAD: Normocephalic. EYES: No scleral icterus. No injection or drainage. NECK: Supple, trachea midline. No JVD or lymphadenopathy. CARDIOVASCULAR: Regular rate and rhythm without murmurs, gallops, or rubs. RESPIRATORY: Breath sounds equal bilaterally. No accessory muscle use. GASTROINTESTINAL: Abdomen soft, non-tender, nondistended. MUSCULOSKELETAL: No cyanosis, or edema. BACK: Nontender without obvious deformity. No CVA tenderness. Vital Signs Date Time Temp Pulse Resp B/P Pulse Ox O2 Delivery O2 Flow Rate FiO2 08/25/16 15:32 97.1 72 16 119/76 97 08/25/16 11:25 96.6 76 18 104/65 96 08/25/16 10:41 69 08/25/16 07:35 96.7 67 18 130/82 97 08/25/16 06:10 96.7 75 18 124/81 95 08/25/16 01:15 97.6 66 18 110/68 95 08/24/16 21:05 97.6 83 18 121/85 96 08/24/16 20:00 70 Labs: Laboratory Tests Test 08/25/16 08/25/16 07:40 10:00 Prothrombin Time 11.4 SEC (9.8-11.6) Prothromb Time International 1.0 RATIO Ratio Blood Type O NEGATIVE O NEGATIVE Antibody Screen NEGATIVE Crossmatch Leukocyte-Reduced Red Blood Cells Blood Bank Comment Result Diagram: 08/22/16 0835 08/22/16 0835 (1) CAD (coronary artery disease) Plan: ASA, statin , BB for surgery on 08/26 (2) Delusional disorder (3) Unspecified psychosis (4) NSTEMI (non-ST elevated myocardial infarction) Haley Hollis Aug 25, 2016 18:05
[2016-08-25] MEDS: clonazePAM 1 MG TAB PO SCH (22:08)
[2016-08-25] MEDS: ATORVASTATIN 40 MG TAB PO SCH (22:08)
[2016-08-26] VITALS (13 sets, daily range): BP systolic 92–132; BP diastolic 48–83; PULSE 63–93; RESP 17–20; TEMP 96.6–99.7; O2SAT 95–97
[2016-08-26] MEDS ORDERED: EPINEPHrine HCL (1:1000) 1 MG/ML VIAL IV ONE (05:00)
[2016-08-26] MEDS ORDERED: LIDOCAINE HCL 2% 100 MG/5 ML SYRINGE IV PUSH ONE (05:00)
[2016-08-26] MEDS ORDERED: NOREPINEPHRINE 4 MG/4 ML AMP IV ONE (05:00)
[2016-08-26] MEDS ORDERED: CALCIUM CHLORIDE 10% SOLN 1 GRAM/10 ML SYR IV ONE (05:00)
[2016-08-26] MEDS ORDERED: VECURONIUM BROMIDE 10 MG VIAL IV ONE (05:00)
[2016-08-26] MEDS ORDERED: ARTIFICIAL TEARS OPTH OINT 3.5 APPLIC/3.5 GM TUBO ONE (05:00)
[2016-08-26] MEDS ORDERED: HEPARIN SODIUM - SQ 10,000 UNITS/ML VIAL SQ ONE (05:00)
[2016-08-26] MEDS ORDERED: PROTAMINE SULFATE 250 MG/25 ML VIAL IV ONE (05:00)
[2016-08-26] MEDS ORDERED: MAGNESIUM SULFATE 1000 MG/2 ML VIAL (PED) IV ONE (05:00)
[2016-08-26] MEDS ORDERED: NITROGLYCERIN-DEXTROSE INJ 250 ML IV ONE (05:00)
[2016-08-26] MEDS ORDERED: ceFAZolin 2 GM PREMIX 50 ML ONE (07:31)
[2016-08-26] MEDS ORDERED: VANCOMYCIN HCL 1000 MG VIAL ONE (07:32)
[2016-08-26] MEDS ORDERED: HEPARIN SODIUM - IV 10,000 UNITS/10 ML VIAL ONE (07:33)
[2016-08-26 08:04] LABS: AUTOMATED NEUTROPHIL # 4.9 TH/MM3 (1.8-7.7); BASOPHIL # 0.1 TH/MM3 (0-0.2); EOSINOPHIL # 0.3 TH/MM3 (0-0.4); EOSINOPHIL % 3.9 % (0.0-4.0); HEMATOCRIT 45.2 % (39.0-51.0); HEMO FLAGS DIFF FINAL; LYMPH % 26.1 % (9.0-44.0); LYMPHOCYTE # 2.3 TH/MM3 (1.0-4.8); MEAN CELL VOLUME 84.5 FL (80.0-100.0); MEAN CORPUSCULAR HEMOGLOBIN 28.6 PG (27.0-34.0); MEAN CORPUSCULAR HGB CONC 33.8 % (32.0-36.0); MONO % 12.2 % (0.0-8.0); NEUT % 56.8 % (16.0-70.0); PLATELET COUNT 250 TH/MM3 (150-450); RED BLOOD COUNT 5.34 MIL/MM3 (4.50-5.90); RED CELL DISTRIBUTION WIDTH 15.3 % (11.6-17.2); WHITE BLOOD COUNT 8.6 TH/MM3 (4.0-11.0)
[2016-08-26 08:24] LABS: BICARBONATE 28.8 MEQ/L (21.0-32.0); POTASSIUM 4.7 MEQ/L (3.5-5.1)
[2016-08-26] MEDS: CARVEDILOL 6.25 MG TAB PO SCH ×2 (08:41→21:00)
[2016-08-26] MEDS: clonazePAM 1 MG TAB PO SCH ×2 (08:41→20:17)
[2016-08-26] MEDS: ARIPiprazole 30 MG TAB PO SCH (08:42)
[2016-08-26] MEDS: FUROSEMIDE 40 MG TAB PO SCH (08:42)
[2016-08-26] MEDS: ASPIRIN 81 MG CHEW TAB CHEW SCH (08:43)
[2016-08-26] MEDS: POTASSIUM CHLORIDE 20 MEQ CONTROLLED RELEASE TAB PO SCH ×2 (08:43→20:19)
[2016-08-26] MEDS: SODIUM CHLORIDE 0.9% FLUSH 10 ML FLUSH IV FLUSH SCH ×2 (08:44→20:19)
[2016-08-26] MEDS ORDERED: MIDAZOLAM HCL 5 MG/5 ML VIAL ONE ×2 (08:48→13:07)
[2016-08-26] MEDS ORDERED: fentaNYL CITRATE 1000 MCG/20 ML VIAL ONE (08:48)
--- NOTE | 2016-08-26 10:40 | HHI.FPPN ---
Subjective Remarks Patient seen and examined this morning. No acute events overnight and vital signs within normal limits. Patient is very anxious about his surgery planned for this morning. He has multiple questions about the procedure and follow-up. He currently has no complaints and denies any fevers, chills, shortness of breath, chest pain, palpitations, NVD, ABD, and calf tenderness. Objective Vitals Vital Signs Date Time Temp Pulse Resp B/P Pulse Ox O2 Delivery O2 Flow Rate FiO2 08/26/16 07:45 96.6 70 18 125/76 96 08/26/16 04:56 97.2 72 17 115/71 96 08/26/16 00:12 97.1 80 20 104/65 95 08/25/16 21:42 96.9 82 22 135/98 98 08/25/16 20:00 76 08/25/16 15:32 97.1 72 16 119/76 97 08/25/16 11:25 96.6 76 18 104/65 96 08/25/16 10:41 69 I/O 08/25/16 08/25/16 08/25/16 08/26/16 08/26/16 08/26/16 07:00 15:00 23:00 07:00 15:00 23:00 Intake Total 540 ml Balance 540 ml Intake Oral 540 ml # Voids 2 2 2 Result Diagram: 08/26/16 0734 08/26/16 07 Objective Remarks Gen: WNWD CM lying in bed in NAD. HEENT: Atraumatic, normocephalic with EOMI. MMM. Cardio: RRR with no MGR. Pulm: CTAB with no CRW. No increased WOB. ABD: Soft, nontender with +BS. No masses appreciated. MSK: No cyanosis or edema. No BL calf tenderness. Neuro: AAOx3. No psychotic delusions during interview. Normal speech with appropriate judgement. Denies SI/HI. A/P Assessment and Plan Mr. Mohr is a 46 y/o CM who initially presented with NSTEMI and later to found to have significant multivessel disease on cardiac catheterization. Cardiothoracic surgery was consulted for consideration for bypass, appreciate recommendations. Patient is tentatively scheduled for CABG on 08/26, possibly earlier if there is availability. He was also hospitalized in the psychiatric unit from 08/19-08/22 for psychiatric delusions, but was recently transferred out of the unit due to aggressive behavior and refusal of care. Staff decided that he will be transferred back to the medical floor for monitoring prior to his CABG procedure. Discharge Planning Patient scheduled for CABG today, 08/26/16. Discharge will depend on clinical course. w/d/w Dr. Schumacher Problem List: (1) Congestive heart failure Status: Acute Plan: Patient has no significant cardiac history, but endorses heavy salt intake, significant tobacco history. On admission, EKG showed normal sinus rhythm. Q waves in V1, V2, V3, V4. Initial troponin elevated at 2.91, showed further elevations. May be secondary to acute congestive heart failure vs [place]. BNP initially elevated at 993 on admission. He had acute decompensated heart failure. CXR showed cardiomegaly and no acute disease. -Cardiothoracic surgery consulted; appreciate recommendations. * Scheduled for CABG on today, 08/26. -Lasix 40 mg po daily. -Low-salt diet less than 2 g per day. -Fluid restrict to 1.5 L per day. -Strict Is and Os. Daily weights. -Supplemental oxygen and monitor on pulse ox. -Telemetry Imaging Echo 08/13/16: EF 15-20% Echo 08/17/16: Normal cavity size, wall thickness within normal limits. Systolic function was mildly reduced. Estimated EF 45-50%. Carotid artery ultrasound 08/11: Normal hemodynamic profile of both carotids Lower extremity ultrasound 08/11: Negative for DVT bilaterally, venous mapping per report (2) NSTEMI (non-ST elevated myocardial infarction) Status: Acute Plan: EKG showed normal sinus rhythm. Q waves in V1, V2, V3, V4. No chest pain on admission, patient denied angina in the past. Unsure if CHF leading to NSTEMI or heart damage in the past causing acute CHF -Cardiology consulted, appreciate recommendations and intervention * Cardiac catheterization significant for severe multivessel disease, significantly elevated wedge and pulmonary artery pressures, see plan for diuresis above. * Patient would be a poor candidate for high risk stent placement, recommend CABG procedure -ASA 81 mg daily -Lipitor 80mg HS -Coreg 12.5mg PO BID -See plan above (3) Unspecified psychosis Status: Chronic Plan: Patient recently admitted to Med/Psych due to unspecified psychosis, concern for possible schizophrenia. -Per Dr. Nelson, patient is to be transferred back to the Medical floor as he would no longer benefit from further stay on Med/Psych. * Consider inpatient psych treatment after CABG -Abilify 30mg daily -Clonazepam 1 mg BID (4) FEN Status: Acute Plan: Fluids: Fluid restriction Electrolytes: WNL Nutrition: Heart healthy, NA restriction DVT ppx: Heparin Diet: NPO since midnight for CABG Maxi Leach MD R1 Aug 26, 2016 10:40
[2016-08-26] MEDS ORDERED: SODIUM CHLORIDE 0.9% INJ 100 ML IV ONE (11:33)
[2016-08-26] MEDS ORDERED: LACTATED RINGER'S 1000 ML INJ 2,000 ML IV ONE (11:33)
[2016-08-26] MEDS ORDERED: NORMOSOL R INJ 2,000 ML IV ONE (11:34)
[2016-08-26] MEDS ORDERED: SODIUM CHLORID 0.9% 500 ML INJ 500 ML IV ONE (11:34)
[2016-08-26] MEDS ORDERED: SODIUM CHLOR 0.9% 250 ML INJ 500 ML IV ONE (11:34)
[2016-08-26] MEDS ORDERED: PHENYLEPH/NS 1000 MCG/10 ML SYR IV ONE (12:00)
[2016-08-26] MEDS ORDERED: LACTATED RINGER'S 1000 ML INJ 500 ML IV PRN (13:36)
[2016-08-26] MEDS ORDERED: DOBUTamine PREMIX DRIP 250 ML IV SCH (13:36)
[2016-08-26] MEDS ORDERED: CALCIUM CHLORIDE INJ 1 GM in SODIUM CHLORIDE 0.9% INJ 100 ML IV PRN (13:45)
[2016-08-26] MEDS ORDERED: MAGNESIUM SULFATE INJ 2 GM in SODIUM CHLORIDE 0.9% INJ 100 ML IV PRN ×4 (13:45)
[2016-08-26] MEDS ORDERED: PHENYLEPHRINE INJ 40 MG in DEXTROSE 5% IN WATE 500 ML INJ 496 ML IV SCH ×2 (13:45)
[2016-08-26] MEDS ORDERED: NITROGLYCERIN-DEXTROSE INJ 250 ML IV SCH (13:45)
[2016-08-26] MEDS ORDERED: POTASSIUM CHLOR 20 MEQ PREMIX 100 ML IV PRN ×3 (13:45)
[2016-08-26] MEDS ORDERED: MORPHINE SULFATE 4 MG/ML INJ IV PRN (13:45)
[2016-08-26] MEDS ORDERED: DEXMEDETOMIDINE INJ 200 MCG in SODIUM CHLORIDE 0.9% INJ 50 ML IV SCH (13:45)
[2016-08-26] MEDS ORDERED: ACETAMINOPHEN 650 MG SUPP RECTAL PRN (13:45)
[2016-08-26] MEDS ORDERED: MEPERIDINE HCL 25 MG/ML VIAL IV PRN (13:45)
[2016-08-26] MEDS ORDERED: Post-op Orders (for Pharmacy) MISC OTHER ONE (13:45)
[2016-08-26] MEDS ORDERED: POTASSIUM CHLORIDE 20 MEQ CONTROLLED RELEASE TAB PO PRN ×2 (13:45)
[2016-08-26] MEDS ORDERED: EPINEPHrine (1:1000) INJ 4 MG in DEXTROSE 5% IN WATER INJ 246 ML IV SCH ×2 (13:45)
[2016-08-26] MEDS ORDERED: ACETAMINOPHEN 325 MG TAB PO PRN (13:45)
[2016-08-26] MEDS ORDERED: ONDANSETRON HCL 4 MG/2 ML VIAL IV PUSH PRN (13:45)
[2016-08-26] MEDS ORDERED: hydrALAZINE HCL 20 MG/ML VIAL IV PRN (13:45)
[2016-08-26] MEDS ORDERED: oxyCODONE/ACETAMINOPHEN 5 MG/325 MG TAB PO PRN ×2 (13:45)
[2016-08-26] MEDS ORDERED: CLEVIDIPINE INJ 50 ML IV SCH (13:45)
[2016-08-26] MEDS ORDERED: METOPROLOL TARTRATE 5 MG/5 ML VIAL IV PUSH PRN (13:45)
[2016-08-26] MEDS ORDERED: INSULIN REGULAR (IV INFUSION) 100 UNITS in SODIUM CHLORIDE 0.9% INJ 99 ML IV SCH (13:45)
[2016-08-26] MEDS ORDERED: DOPamine INJ PREMIX 500 ML IV SCH (13:45)
[2016-08-26] MEDS ORDERED: DEXTROSE 50% IN WATER 50 ML VIAL(D50) IV PUSH PRN (13:45)
[2016-08-26] MEDS ORDERED: CALCIUM CHLORIDE 10% 1 GRAM/10 ML VIAL IV PRN (13:45)
[2016-08-26] MEDS ORDERED: ALBUMIN HUMAN 5% 12.5 GM/250 ML BOTTLE IV PRN (14:00)
[2016-08-26] MEDS: KETOROLAC TROMETHAMINE 30 MG/ML (IVP) VIAL IV PUSH PRN (14:50)
--- NOTE | 2016-08-26 15:25 | RADRPT ---
EXAM DATE/TIME: 08/26/2016 14:26 [facility] COMPARISON: CHEST SINGLE AP, August 07, 2016, 14:25. INDICATIONS : S/P CABG. MEDICAL HISTORY : Dyspnea. Hallucinations. Substance use. SURGICAL HISTORY : Pin in femur. Skin grafts. Cardiac cath. ENCOUNTER: Subsequent ACUITY: 1 day PAIN SCORE: Non-responsive. LOCATION: Bilateral chest FINDINGS: A single view of the chest demonstrates the lungs to be hypoinflated with bihilar and left basilar at electatic changes. No effusions. Endotracheal tube is appropriately positioned above the jose. Naso gastric tube is identified with the side port at the GE junction. Left-sided thoracostomy tube withou t pneumothorax. Mediastinal drain is in place. Right IJ introducer sheath and central venous catheter project over the central venous system. Heart size is prominent but well compensated.. CONCLUSION: 1. Nasogastric is identified the side port at the GE junction. Should probably be advanced a few cent imeters. 2. Life support tubes are otherwise appropriately positioned without pneumothorax. 3. Compensated cardiomegaly. 4. Mild bihilar and left basilar atelectatic changes with no confluent infiltrate or significant effu mich. Aki Crabtree MD on August 26, 2016 at 15:21 Board Certified Radiologist. This report was verified electronically.
[2016-08-26] MEDS ORDERED: RESP: ALBUTEROL 2.5 MG/IPRATROPIUM 0.5 MG NEB (PRN) NEB (15:30)
[2016-08-26] MEDS ORDERED: RESP: RACEPINEPHRINE 2.25% 0.5 ML NEB NEB PRN (15:30)
[2016-08-26] MEDS: ACETAMINOPHEN 1000 MG/100 ML VIAL IV SCH ×2 (15:43→21:31)
[2016-08-26] MEDS: RESP: ALBUTEROL 2.5 MG/IPRATROPIUM 0.5 MG NEB (SCH) NEB ×2 (15:43→20:43)
--- NOTE | 2016-08-26 16:13 | PD.OP ---
cc: Ermias Arteaga MD; Byron Franz DO; Samuel Nelson MD Operative Report Date of Surgery: Aug 26, 2016 Preoperative Diagnosis: Postoperative Diagnosis: Procedure: 1. Urgent Off-pump Coronary Artery Bypass Grafting x 3 with left internal mammary artery (FLOREZ) to left anterior descending (LAD), reverse saphenous vein graft to the RCA, reverse saphenous vein graft to the terminal Left Circumflex Artery 2. Left Leg Endoscopic Vein [place] 3. Intraoperative Vein Mapping. . Surgeon: Ermias Arteaga Customer Technical Services Manager(s): Maria Isabel Bragg Operation and Findings: PREPROCEDURE DIAGNOSES 1. Severe Multi Vessel Coronary Artery Disease. 2. Severe Left Ventricular Dysfunction (EF 15%) 3. Acute Myocardial Infarction 4. Psychosis POSTPROCEDURE DIAGNOSES Same SURGICAL PROCEDURE 1. Urgent Off-pump Coronary Artery Bypass Grafting x 3 with left internal mammary artery (FLOREZ) to left anterior descending (LAD), reverse saphenous vein graft to the RCA, reverse saphenous vein graft to the terminal Left Circumflex Artery 2. Left Leg Endoscopic Vein [place] 3. Intraoperative Vein Mapping. SURGEON Ermias Arteaga MD [employer] Maldonado Dominguez, [facility] ANESTHESIA General endotracheal MACHINE ADJUSTER MARV Yang, MANNIE Kauffman MD PREPARATION ChloraPrep. COUNTS Needle, sponge, and instrument counts were correct. DRAINS Two 32-Amharic mediastinal tubes. COMPLICATIONS None. INDICATIONS FOR PROCEDURE The patient is a 46-year-old presenting with chest pain and AMI. Patient was noted to have multi-vessel coronary artery disease and severe left ventricular dysfunction. The patient is being brought to the operating room for surgical revascularization therapy. PROCEDURE Patient was brought to the operating room and placed supine on the OR table. Following the induction of adequate general endotracheal anesthesia and placement of appropriate monitoring devices, intraoperative vein mapping was performed which revealed suitable-caliber conduit in bilateral lower extremities. The patient was then prepped and draped in standard sterile fashion. Next, 2500 units of intravenous heparin was given. The left greater saphenous vein was harvested endoscopically. This appeared to be a useable- caliber conduit. Simultaneously, a median sternotomy was performed and the left internal mammary artery dissected free off the posterior sternal table. The patient was systemically heparinized and anticoagulation monitored by serial ACT measurements. The internal mammary artery had excellent pulsatile flow in it and was a good-caliber conduit. The pericardium was then divided in the midline, the cradle created and targets analyzed. The left ventricular was severely hypokinetic with the elder-septal wall being akinetic and dyskinetic. At this point, all anastomoses were performed in a beating-heart fashion using the Maquet stabilizing system with intracoronary shunts. The left internal mammary artery was anastomosed to the mid LAD in an end-to-side fashion using 7- 0 Prolene. Segment of saphenous vein graft was then anastomosed to the RCA in an end-to-side fashion using 7-0 Prolene. The next segment was anastomosed to the terminal LCX in an end-to-side fashion using 7-0 Prolene. The proximal anastomoses were then constructed to the ascending aorta in a running manner using 6-0 Prolene. All anastomotic sites were inspected and appeared to be hemostatic and patent. Protamine solution was given. Strict hemostasis was assured. The closure was undertaken. 2 chest tubes were placed. The pericardium was reapproximated in the midline. The sternum was approximated using sternal wires. The muscular and fascial layer were then closed in 3 layers. The endoscopic vein harvest site was closed in 2 layers. The patient tolerated the procedure well and was transferred to CVICU in stable condition. Ermias Arteaga MD Aug 26, 2016 16:13
[2016-08-26] MEDS: ceFAZolin 2 GM PREMIX 50 ML IV SCH (18:02)
[2016-08-26] MEDS: ATORVASTATIN 40 MG TAB PO SCH (20:18)
[2016-08-26] MEDS: AMIODARONE 200 MG TAB PO SCH (20:18)
[2016-08-27] VITALS (19 sets, daily range): BP systolic 85–137; BP diastolic 60–81; PULSE 71–101; RESP 16–20; TEMP 97.9–99; O2SAT 91–97
[2016-08-27] MEDS: ceFAZolin 2 GM PREMIX 50 ML IV SCH ×3 (00:30→17:29)
[2016-08-27] MEDS: KETOROLAC TROMETHAMINE 30 MG/ML (IVP) VIAL IV PUSH PRN ×3 (01:01→21:16)
[2016-08-27] MEDS: ACETAMINOPHEN 1000 MG/100 ML VIAL IV SCH ×2 (03:32→09:13)
[2016-08-27] MEDS: RESP: ALBUTEROL 2.5 MG/IPRATROPIUM 0.5 MG NEB (SCH) NEB ×3 (03:41→19:51)
[2016-08-27 05:01] LABS: HEMATOCRIT 37.6 % (39.0-51.0); MEAN CELL VOLUME 84.9 FL (80.0-100.0); MEAN CORPUSCULAR HEMOGLOBIN 28.3 PG (27.0-34.0); MEAN CORPUSCULAR HGB CONC 33.3 % (32.0-36.0); PLATELET COUNT 194 TH/MM3 (150-450); RED BLOOD COUNT 4.43 MIL/MM3 (4.50-5.90); RED CELL DISTRIBUTION WIDTH 15.6 % (11.6-17.2); REVIEW FLAG FINAL; WHITE BLOOD COUNT 14.7 TH/MM3 (4.0-11.0)
[2016-08-27] MEDS: PANTOPRAZOLE SOD 40 MG DELAYED RELEASE TAB PO SCH (05:06)
--- NOTE | 2016-08-27 05:12 | RADRPT ---
EXAM DATE/TIME: 08/27/2016 03:48 [facility] COMPARISON: CHEST SINGLE AP, August 26, 2016, 14:26. INDICATIONS : Shortness of breath, possible pulmonary disease. MEDICAL HISTORY : Dyspnea SURGICAL HISTORY : CABG. ENCOUNTER: Subsequent ACUITY: 2 days PAIN SCORE: Non-responsive. LOCATION: Bilateral chest FINDINGS: A single view of the chest demonstrates the left chest tube, mediastinal drain, right IJ central line in the lower sternal wires are unchanged. Mild bibasilar atelectasis left greater than right. Slight increase consolidation left lung base likely atelectasis.. The cardiomediastinal contours are unrem arkable. Osseous structures are intact. CONCLUSION: Worsening density left lung base now with loss of left hemidiaphragm suspicious for ongoing atelectas is left lower lobe. Tubes and catheters in good position status post extubation John Bailey MD on August 27, 2016 at 5:10 Board Certified Radiologist. This report was verified electronically.
[2016-08-27 05:16] LABS: BICARBONATE 24.4 MEQ/L (21.0-32.0); MAGNESIUM 2.2 MG/DL (1.5-2.5); POTASSIUM 4.7 MEQ/L (3.5-5.1)
[2016-08-27] MEDS: clonazePAM 1 MG TAB PO SCH ×2 (08:39→21:15)
[2016-08-27] MEDS: POTASSIUM CHLORIDE 20 MEQ CONTROLLED RELEASE TAB PO SCH ×2 (08:39→09:57)
[2016-08-27] MEDS: AMIODARONE 200 MG TAB PO SCH ×2 (08:40→21:15)
[2016-08-27] MEDS: FUROSEMIDE 40 MG TAB PO SCH (08:40)
[2016-08-27] MEDS: ARIPiprazole 30 MG TAB PO SCH (08:40)
[2016-08-27] MEDS: ASPIRIN 81 MG CHEW TAB PO SCH (08:40)
[2016-08-27] MEDS: CLOPIDOGREL 75 MG TAB PO SCH (08:40)
--- NOTE | 2016-08-27 08:52 | HHI.FPPN ---
Subjective Remarks Patient seen and examined this morning. No acute events overnight and vitals WNL. Per staff report, CABG procedure went well without complication. Currently he is sitting up in his recliner complaining of chest pain and asking for medication. He appears slightly altered during interview, which he attributes to not sleeping well overnight. He has not passed gas or had a bowel movement since his procedure. He has no other complaints and denies any fevers, chills, SOB, ABD pain, NVD, or calf tenderness. (Maxi Leach MD R1) Objective Vitals Vital Signs Date Time Temp Pulse Resp B/P Pulse Ox O2 Delivery O2 Flow Rate FiO2 08/27/16 07:47 97 Nasal Cannula 3.00 08/27/16 07:35 95 Nasal Cannula 3.00 08/27/16 07:32 99.0 74 18 105/69 97 107/68 08/27/16 07:07 71 85/60 96/65 08/27/16 07:00 74 08/27/16 07:00 97 Nasal Cannula 4.00 08/27/16 03:00 97 Nasal Cannula 2.00 08/27/16 03:00 75 08/27/16 03:00 98.6 74 18 121/75 97 117/71 08/26/16 23:00 65 08/26/16 23:00 95 Nasal Cannula 2.00 08/26/16 23:00 98.6 64 20 108/72 95 102/56 08/26/16 20:44 97 2.00 08/26/16 19:00 99.7 65 18 92/61 97 92/48 08/26/16 19:00 63 08/26/16 19:00 97 Nasal Cannula 2.00 08/26/16 19:00 65 92/48 92/62 08/26/16 18:40 16 08/26/16 17:12 16 08/26/16 16:15 97 Nasal Cannula 4 08/26/16 16:15 97 Nasal Cannula 4.00 08/26/16 16:13 16 08/26/16 16:10 97 Nasal Cannula 4.00 08/26/16 15:50 14 08/26/16 15:26 40 08/26/16 15:25 98 Mechanical Ventilator 40 08/26/16 15:24 85 08/26/16 15:07 98.6 08/26/16 15:00 99.4 70 18 116/83 96 112/70 08/26/16 14:29 98.6 08/26/16 14:25 95 50 08/26/16 14:15 93 08/26/16 14:15 99.3 70 18 126/80 96 132/83 I/O 08/26/16 08/26/16 08/26/16 08/27/16 08/27/16 08/27/16 07:00 15:00 23:00 07:00 15:00 23:00 Intake Total 737 ml 1741 ml Output Total 915 ml 700 ml Balance -178 ml 1041 ml Intake Oral 240 ml 720 ml IV Total 771 ml TPN/PPN 497 ml Albumin 250 ml Output Urine Total 615 ml 450 ml Chest Tube Drainage Total 250 ml Drainage Total 300 ml # Voids 2 # Bowel Movements 0 (Maxi Leach MD R1) Result Diagram: 08/27/1640908/27/16409 Objective Remarks Gen: WNWD CM sitting up in bed, less arousable than his baseline, but able to participate in interview and exam. Currently in NAD. Cardio: RRR with no MGR. Midline chest Prevena applied with appearing CDI with minimal output into reservoir. Chest tube in place connected to wall suction without leak; CDI bandage. Approximately 600mL of serosanguineous fluid collected in reservoir. Pulm: Shallow breathing BL overall with decreased breath sounds over the L base. No CRW. No increased WOB. ABD: Soft, nontender with +BS. No masses appreciated. MSK: No cyanosis or edema. No BL calf tenderness. LLE harvest site bandaged CDI with tenderness. Neuro: AAOx3. No psychotic delusions during interview. Normal speech with appropriate judgement. Denies SI/HI. (Maxi Leach MD R1) A/P Assessment and Plan Mr. Mohr is a 46 y/o CM who initially presented with NSTEMI and later to found to have significant multivessel disease on cardiac catheterization. Cardiothoracic surgery was consulted for consideration for bypass, appreciate recommendations. Patient is tentatively scheduled for CABG on 08/26, possibly earlier if there is availability. He was also hospitalized in the psychiatric unit from 08/19-08/22 for psychiatric delusions, but was recently transferred out of the unit due to aggressive behavior and refusal of care. Staff decided that he will be transferred back to the medical floor for monitoring prior to his CABG procedure. CABG was performed without complication on 08/26/16. Discharge Planning Discharge will depend on post-operative course and Psychiatric clearance. w/d/w Dr. Schumacher, Dr. Cate Barrera (Maxi Leach MD R1) Attending Attestation Pt. examined and case discussed with resident physicians I have read the above note and agree with the assessment/plan as discussed with me I was involved in all medical decision making for this patient Wilfred Schumacher MD (Wilfred Schumacher MD) Problem List: (1) Congestive heart failure Status: Acute Plan: Patient has no significant cardiac history, but endorses heavy salt intake, significant tobacco history. On admission, EKG showed normal sinus rhythm. Q waves in V1, V2, V3, V4. Initial troponin elevated at 2.91, showed further elevations. May be secondary to acute congestive heart failure vs [place]. BNP initially elevated at 993 on admission. He had acute decompensated heart failure. CXR showed cardiomegaly and no acute disease. -Cardiothoracic surgery consulted; appreciate recommendations. * CABG on 08/26/16 without complication. * Cefazolin given Q8H for 5 doses post-operatively * Roxicodone 5mg Q3H PRN for pain 1-5, 10mg Q3H PRN for pain 6-10; Fentanyl 25mcg Q1H for breakthrough pain * Plavix 75mg daily * Amiodarone 400mg BID * Repeat EKG: Pending -Lasix 40 mg po daily. -Low-salt diet less than 2 g per day. -Fluid restrict to 1.5 L per day. -Strict Is and Os. Daily weights. -Supplemental oxygen and monitor on pulse ox. -Telemetry Imaging Echo 08/13/16: EF 15-20% Echo 08/17/16: Normal cavity size, wall thickness within normal limits. Systolic function was mildly reduced. Estimated EF 45-50%. Carotid artery ultrasound 08/11: Normal hemodynamic profile of both carotids Lower extremity ultrasound 08/11: Negative for DVT bilaterally, venous mapping per report (2) Atelectasis Status: Acute Plan: Patient s/p CABG on 08/27 with decreased breath sounds over L lung base. -CXR 08/27: Worsening density of L lung base now with loss of L hemidiaphragm suspicious for ongoing atelectasis. All tubes and catheters in good position post-extubation. -Incentive spirometry encouraged with DuoNeb PRN (3) NSTEMI (non-ST elevated myocardial infarction) Status: Acute Plan: EKG showed normal sinus rhythm. Q waves in V1, V2, V3, V4. No chest pain on admission, patient denied angina in the past. Unsure if CHF leading to NSTEMI or heart damage in the past causing acute CHF -Cardiology consulted, appreciate recommendations and intervention * Cardiac catheterization significant for severe multivessel disease, significantly elevated wedge and pulmonary artery pressures, see plan for diuresis above. * Patient would be a poor candidate for high risk stent placement, recommend CABG procedure -ASA 81 mg daily -Lipitor 80mg HS -Coreg 12.5mg PO BID -See plan above (4) Unspecified psychosis Status: Chronic Plan: Patient recently admitted to Med/Psych due to unspecified psychosis, concern for possible schizophrenia. -Per Dr. Nelson, patient is to be transferred back to the Medical floor as he would no longer benefit from further stay on Med/Psych. * Consider inpatient psych treatment pending post-operative course -Abilify 30mg daily -Clonazepam 1 mg BID (5) FEN Status: Acute Plan: Fluids: Fluid restriction Electrolytes: WNL Nutrition: Heart healthy, NA restriction DVT ppx: Heparin Diet: Heart Healthy Prophylaxis: Zofran PRN for [place], DuoNeb PRN for wheezing/SOB, Hydralazine PRN for HTN, Metoprolol PRN for tachycardia/HTN (Maxi Leach MD R1) Maxi Leach MD R1 Aug 27, 2016 08:52 Wilfred Schumacher MD Aug 27, 2016 10:01
[2016-08-27] MEDS: SODIUM CHLORIDE 0.9% FLUSH 10 ML FLUSH IV FLUSH SCH ×2 (08:57→21:16)
[2016-08-27] MEDS ORDERED: BISACODYL 10 MG SUPP RECTAL PRN (10:00)
[2016-08-27] MEDS ORDERED: GLUCAGON 1 MG/ML VIAL OTHER PRN (10:00)
[2016-08-27] MEDS ORDERED: SOD PHOSPHATE/SOD BIPHOSPHATE (ADULT) ENEMA 133ML RECTAL PRN (10:00)
[2016-08-27] MEDS ORDERED: DEXTROSE 50% IN WATER 50 ML VIAL(D50) IV PRN (10:00)
[2016-08-27] MEDS: INSULIN ASPART SUPPLEMENTAL SCALE SQ SCH ×4 (10:00→21:17)
[2016-08-27] MEDS: DOCUSATE SODIUM 100 MG CAP PO SCH ×2 (10:17→21:16)
--- NOTE | 2016-08-27 13:47 | EKG ---
Date Performed: 08/27/2016 Time Performed: 04:59:12 PTAGE: 46 years EKG: Sinus rhythm Possible left atrial abnormality Anteroseptal infarct - age undetermined Abnormal ECG PREVIOUS TRACING : 08/20/2016 12.03 Compared to prior tracing no significant change DOCTOR: Adolfo Barrera Interpretating Date/Time 08/27/2016 13:42:41
--- NOTE | 2016-08-27 15:29 | PD.CAR.PN ---
CVT Progress Note CVT: POD #: 1 Subjective/Hospital Course: 46 male , no prior medical HX or medical treatment , has not seen MD in over 20years. " didn't have any problems". Homeless, Admitted to ED with SOB, lower ext and scrotal edema , + NSTEMI , acute onset of CHF / BNP 900/ ECHO showed EF 15-20% severe systolic dysfunction . Underwent cardiac cath by Dr Franz showing multi vessel disease / PA pressure 59/34/ wedge pressure of 32 / LVEDP 42. STS data Morbidity or Mortality of 20.45 % Pt also has some psych issues / was seen and eval by Psych Dr Nelson , felt pt had delusional and psychotic symptoms , 08/24 pt now on abilify, stable for surgery scheduled for wed will have Dr Haines follow pt as post op 08/25 no chest pain scheduled for surgery in am 08/26 surgery 1. Urgent Off-pump Coronary Artery Bypass Grafting x 3 with left internal mammary artery (FLOREZ) to left anterior descending (LAD), reverse saphenous vein graft to the RCA, reverse saphenous vein graft to the terminal Left Circumflex Artery 2. Left Leg Endoscopic Vein [place] 3600cc/ crystalloid, 500cc cell saver, 300cc EBL extubated after surgery 08/27 pt up in chair, sleepy , will need to decrease sedatives ( trazadone, and change to norco ) EF 15 % intraop will need eval for Life vest and start SHEEBA when tolerates concern is that pt is homeless CXR shows some consolidation left lower lobe on ASa, statin, start coreg this evening transfer to stepdown Objective: GENERAL: pt in chair, sleepy , but will awaken and converse appropriately SKIN: Warm and dry. prevena to chest , sheeba wrap left leg HEAD: Normocephalic. EYES: No scleral icterus. No injection or drainage. NECK: Supple, trachea midline. No JVD or lymphadenopathy. CARDIOVASCULAR: Regular rate and rhythm without murmurs, gallops, or rubs. mild general edema RESPIRATORY: Breath sounds equal bilaterally. diminished in bases , Left > right chest tube to wall suction/ no air leak drained 250cc/ 12 hrs No accessory muscle use. GASTROINTESTINAL: Abdomen soft, non-tender, nondistended. MUSCULOSKELETAL: No cyanosis, or edema. BACK: Nontender without obvious deformity. No CVA tenderness. Vital Signs Date Time Temp Pulse Resp B/P Pulse Ox O2 Delivery O2 Flow Rate FiO2 08/27/16 13:21 94 21 08/27/16 11:11 94 Room Air 08/27/16 11:07 98.9 75 16 106/76 97 Arterial Line 08/27/16 11:00 75 08/27/16 09:45 16 08/27/16 09:25 16 08/27/16 08:54 99 Nasal Cannula 2.00 08/27/16 07:47 97 Nasal Cannula 3.00 08/27/16 07:35 95 Nasal Cannula 3.00 08/27/16 07:32 99.0 74 18 105/69 97 107/68 08/27/16 07:07 71 85/60 96/65 08/27/16 07:00 74 08/27/16 07:00 97 Nasal Cannula 4.00 08/27/16 03:00 97 Nasal Cannula 2.00 08/27/16 03:00 75 08/27/16 03:00 98.6 74 18 121/75 97 117/71 08/26/16 23:00 65 08/26/16 23:00 95 Nasal Cannula 2.00 08/26/16 23:00 98.6 64 20 108/72 95 102/56 08/26/16 20:44 97 2.00 08/26/16 19:00 99.7 65 18 92/61 97 92/48 08/26/16 19:00 63 08/26/16 19:00 97 Nasal Cannula 2.00 08/26/16 19:00 65 92/48 92/62 08/26/16 18:40 16 08/26/16 17:12 16 08/26/16 16:15 97 Nasal Cannula 4 08/26/16 16:15 97 Nasal Cannula 4.00 08/26/16 16:10 97 Nasal Cannula 4.00 Labs: Laboratory Tests Test 08/27/16 04:10 White Blood Count 14.7 TH/MM3 (4.0-11.0) Red Blood Count 4.43 MIL/MM3 (4.50-5.90) Hemoglobin 12.5 GM/DL (13.0-17.0) Hematocrit 37.6 % (39.0-51.0) Mean Corpuscular Volume 84.9 FL (80.0-100.0) Mean Corpuscular Hemoglobin 28.3 PG (27.0-34.0) Mean Corpuscular Hemoglobin 33.3 % Concent (32.0-36.0) Red Cell Distribution Width 15.6 % (11.6-17.2) Platelet Count 194 TH/MM3 (150-450) Mean Platelet Volume 8.5 FL (7.0-11.0) Sodium Level 140 MEQ/L (136-145) Potassium Level 4.7 MEQ/L (3.5-5.1) Chloride Level 107 MEQ/L (98-107) Carbon Dioxide Level 24.4 MEQ/L (21.0-32.0) Anion Gap 9 MEQ/L (5-15) Blood Urea Nitrogen 21 MG/DL (7-18) Creatinine 1.11 MG/DL (0.60-1.30) Estimat Glomerular Filtration 71 ML/MIN (>89) Rate Random Glucose 100 MG/DL (74-106) Calcium Level 8.3 MG/DL (8.5-10.1) Magnesium Level 2.2 MG/DL (1.5-2.5) Result Diagram: 08/27/1640908/27/16409 Telemetry: NSR (1) NSTEMI (non-ST elevated myocardial infarction) (2) CAD (coronary artery disease) Plan: ASA, statin , BB OOB, ambulate keep chest tubes in pulm toileting gentle diuresis (3) Delusional disorder Plan: psych following, on abilify and Klonopin (4) Unspecified psychosis (5) Ischemic dilated cardiomyopathy Plan: EF 15 % , will need to be eval for possible life vest, start sheeba when possible will discuss with Haley Sage Aug 27, 2016 15:29
[2016-08-27] MEDS: ATORVASTATIN 40 MG TAB PO SCH (21:16)
[2016-08-27] MEDS: SENNOSIDES 8.6 MG TAB PO SCH (21:16)
[2016-08-27] MEDS: CARVEDILOL 6.25 MG TAB PO SCH (21:17)
[2016-08-28] VITALS (28 sets, daily range): BP systolic 105–130; BP diastolic 63–83; PULSE 69–106; RESP 16–20; TEMP 98–98.4; O2SAT 92–96
[2016-08-28] MEDS: ceFAZolin 2 GM PREMIX 50 ML IV SCH (01:33)
[2016-08-28] MEDS: INSULIN ASPART SUPPLEMENTAL SCALE SQ SCH ×6 (01:40→21:00)
[2016-08-28] MEDS: PANTOPRAZOLE SOD 40 MG DELAYED RELEASE TAB PO SCH (05:25)
[2016-08-28] MEDS: KETOROLAC TROMETHAMINE 30 MG/ML (IVP) VIAL IV PUSH PRN (05:26)
[2016-08-28 06:38] LABS: AUTOMATED NEUTROPHIL # 10.3 TH/MM3 (1.8-7.7); BASOPHIL % 0.3 % (0.0-2.0); EOSINOPHIL # 0.2 TH/MM3 (0-0.4); EOSINOPHIL % 1.1 % (0.0-4.0); HEMATOCRIT 33.6 % (39.0-51.0); HEMO FLAGS DIFF FINAL; LYMPH % 9.5 % (9.0-44.0); LYMPHOCYTE # 1.3 TH/MM3 (1.0-4.8); MEAN CELL VOLUME 84.9 FL (80.0-100.0); MEAN CORPUSCULAR HEMOGLOBIN 27.8 PG (27.0-34.0); MEAN CORPUSCULAR HGB CONC 32.8 % (32.0-36.0); MONO % 12.4 % (0.0-8.0); NEUT % 76.7 % (16.0-70.0); PLATELET COUNT 144 TH/MM3 (150-450); RED BLOOD COUNT 3.95 MIL/MM3 (4.50-5.90); RED CELL DISTRIBUTION WIDTH 15.3 % (11.6-17.2); WHITE BLOOD COUNT 13.4 TH/MM3 (4.0-11.0)
[2016-08-28 07:21] LABS: BICARBONATE 26.8 MEQ/L (21.0-32.0); MAGNESIUM 1.9 MG/DL (1.5-2.5); POTASSIUM 3.9 MEQ/L (3.5-5.1)
[2016-08-28] MEDS: RESP: ALBUTEROL 2.5 MG/IPRATROPIUM 0.5 MG NEB (SCH) NEB ×3 (08:00→21:33)
[2016-08-28] MEDS: DOCUSATE SODIUM 100 MG CAP PO SCH ×2 (09:18→21:16)
[2016-08-28] MEDS: POLYETHYLENE GLYCOL 17 GM PKG PO SCH (09:18)
[2016-08-28] MEDS: MAGNESIUM HYDROXIDE SUSP 30 ML CUP PO SCH (09:18)
[2016-08-28] MEDS: SODIUM CHLORIDE 0.9% FLUSH 10 ML FLUSH IV FLUSH SCH ×2 (09:18→21:16)
[2016-08-28] MEDS: MULTIVITAMINS/MINERALS THERAPEUTIC TAB PO SCH (09:18)
[2016-08-28] MEDS: FUROSEMIDE 40 MG TAB PO SCH (09:19)
[2016-08-28] MEDS: AMIODARONE 200 MG TAB PO SCH ×2 (09:19→21:18)
[2016-08-28] MEDS: clonazePAM 1 MG TAB PO SCH ×2 (09:19→21:18)
[2016-08-28] MEDS: ASPIRIN 81 MG CHEW TAB PO SCH (09:19)
[2016-08-28] MEDS: ARIPiprazole 30 MG TAB PO SCH (09:19)
[2016-08-28] MEDS: CARVEDILOL 6.25 MG TAB PO SCH ×2 (09:19→21:17)
[2016-08-28] MEDS: CLOPIDOGREL 75 MG TAB PO SCH (09:19)
--- NOTE | 2016-08-28 10:45 | RADRPT ---
EXAM DATE/TIME: 08/28/2016 10:28 [facility] COMPARISON: No previous studies available for comparison. INDICATIONS : New left sided facial droop 2 days post CABG RADIATION DOSE: 46.74 CTDIvol (mGy) MEDICAL HISTORY : Cardiovascular disease. Hypertension. SURGICAL HISTORY : CABG ENCOUNTER: Initial ACUITY: 1 day PAIN SCALE: 0/10 LOCATION: cranial TECHNIQUE: Multiple contiguous axial images were obtained of the head. Using automated exposure control and adj ustment of the mA and/or kV according to patient size, radiation dose was kept as low as reasonably a chievable to obtain optimal diagnostic quality images. FINDINGS: There is no evidence for intracranial hemorrhage, mass effect, mass lesions, edema, or extra-axial fl uid collections. The visualized bony structures appear intact. The ventricles are normal size for t he patient's age. There are no signs of acute infarction for technique. CONCLUSION: Unremarkable study. Faviola Daigle MD on August 28, 2016 at 10:42 Board Certified Radiologist. This report was verified electronically.
[2016-08-28] MEDS: MAGNESIUM SULFATE 1 GM PREMIX 100 ML IV SCH ×2 (11:30→12:00)
[2016-08-28] MEDS ORDERED: POTASSIUM CHLORIDE 25 MEQ EFFERVESCENT TAB PO ONE (11:45)
[2016-08-28] MEDS ORDERED: PILL SPLITTER OTHER PRN (12:00)
--- NOTE | 2016-08-28 12:00 | PD.CAR.PN ---
CVT Progress Note CVT: POD #: 2 Subjective/Hospital Course: 46 male , no prior medical HX or medical treatment , has not seen MD in over 20years. " didn't have any problems". Homeless, Admitted to ED with SOB, lower ext and scrotal edema , + NSTEMI , acute onset of CHF / BNP 900/ ECHO showed EF 15-20% severe systolic dysfunction . Underwent cardiac cath by Dr Franz showing multi vessel disease / PA pressure 59/34/ wedge pressure of 32 / LVEDP 42. STS data Morbidity or Mortality of 20.45 % Pt also has some psych issues / was seen and eval by Psych Dr Nelson , felt pt had delusional and psychotic symptoms , 08/24 pt now on abilify, stable for surgery scheduled for wed will have Dr Haines follow pt as post op 08/25 no chest pain scheduled for surgery in am 08/26 surgery 1. Urgent Off-pump Coronary Artery Bypass Grafting x 3 with left internal mammary artery (FLOREZ) to left anterior descending (LAD), reverse saphenous vein graft to the RCA, reverse saphenous vein graft to the terminal Left Circumflex Artery 2. Left Leg Endoscopic Vein [place] [address] 3600cc/ crystalloid, 500cc cell saver, 300cc EBL extubated after surgery 08/27 pt up in chair, sleepy , will need to decrease sedatives ( trazadone, and change to norco ) EF 15 % intraop will need eval for Life vest and start SHEEBA when tolerates concern is that pt is homeless CXR shows some consolidation left lower lobe on ASa, statin, start coreg this evening transfer to stepdown 08/28 pt seen by PCP this am , felt that pt had mild left facial drooping stat CT neg pt speech clear / 5/5 upper and lower ext / no ptosis will monitor on ASA and plavix start low dose SHEEBA , await eval from Dr Franz regarding need for Life Vest OT eval , chest tube removed without difficulty Objective: GENERAL: SKIN: Warm and dry.prevena to chest, incision intact left upper leg HEAD: Normocephalic. EYES: No scleral icterus. No injection or drainage. NECK: Supple, trachea midline. No JVD or lymphadenopathy. CARDIOVASCULAR: Regular rate and rhythm without murmurs, gallops, or rubs. RESPIRATORY: few basilar crackles Breath sounds equal bilaterally. No accessory muscle use. GASTROINTESTINAL: Abdomen soft, non-tender, nondistended. MUSCULOSKELETAL: No cyanosis, or edema. BACK: Nontender without obvious deformity. No CVA tenderness. Vital Signs Date Time Temp Pulse Resp B/P Pulse Ox O2 Delivery O2 Flow Rate FiO2 08/28/16 10:29 93 Nasal Cannula 2.00 08/28/16 10:03 16 08/28/16 08:00 Nasal Cannula 2.00 21 08/28/16 08:00 85 08/28/16 08:00 98.1 87 18 123/76 93 08/28/16 06:20 18 08/28/16 06:00 91 08/28/16 05:00 100 08/28/16 04:00 101 08/28/16 03:00 93 Nasal Cannula 2.00 08/28/16 03:00 99 08/28/16 03:00 98.4 100 20 130/83 92 08/28/16 02:00 96 08/28/16 01:00 95 08/28/16 00:00 94 08/27/16 23:00 97.9 94 20 122/81 91 08/27/16 23:00 93 Nasal Cannula 2.00 08/27/16 23:00 101 08/27/16 22:00 98 08/27/16 21:00 98 08/27/16 20:00 98.9 97 20 137/79 95 08/27/16 20:00 84 08/27/16 20:00 95 Room Air 08/27/16 19:55 93 21 08/27/16 19:00 91 08/27/16 18:00 90 08/27/16 17:00 88 08/27/16 16:00 82 08/27/16 15:00 98.4 82 16 125/71 97 08/27/16 15:00 81 08/27/16 15:00 97 Room Air 08/27/16 13:21 94 21 Labs: Laboratory Tests Test 08/28/16 04:38 White Blood Count 13.4 TH/MM3 (4.0-11.0) Red Blood Count 3.95 MIL/MM3 (4.50-5.90) Hemoglobin 11.0 GM/DL (13.0-17.0) Hematocrit 33.6 % (39.0-51.0) Mean Corpuscular Volume 84.9 FL (80.0-100.0) Mean Corpuscular Hemoglobin 27.8 PG (27.0-34.0) Mean Corpuscular Hemoglobin 32.8 % Concent (32.0-36.0) Red Cell Distribution Width 15.3 % (11.6-17.2) Platelet Count 144 TH/MM3 (150-450) Mean Platelet Volume 8.8 FL (7.0-11.0) Neutrophils (%) (Auto) 76.7 % (16.0-70.0) Lymphocytes (%) (Auto) 9.5 % (9.0-44.0) Monocytes (%) (Auto) 12.4 % (0.0-8.0) Eosinophils (%) (Auto) 1.1 % (0.0-4.0) Basophils (%) (Auto) 0.3 % (0.0-2.0) Neutrophils # (Auto) 10.3 TH/MM3 (1.8-7.7) Lymphocytes # (Auto) 1.3 TH/MM3 (1.0-4.8) Monocytes # (Auto) 1.7 TH/MM3 (0-0.9) Eosinophils # (Auto) 0.2 TH/MM3 (0-0.4) Basophils # (Auto) 0.0 TH/MM3 (0-0.2) CBC Comment DIFF FINAL Differential Comment Sodium Level 138 MEQ/L (136-145) Potassium Level 3.9 MEQ/L (3.5-5.1) Chloride Level 104 MEQ/L (98-107) Carbon Dioxide Level 26.8 MEQ/L (21.0-32.0) Anion Gap 7 MEQ/L (5-15) Blood Urea Nitrogen 25 MG/DL (7-18) Creatinine 1.13 MG/DL (0.60-1.30) Estimat Glomerular Filtration 69 ML/MIN (>89) Rate Random Glucose 78 MG/DL (74-106) Calcium Level 8.6 MG/DL (8.5-10.1) Magnesium Level 1.9 MG/DL (1.5-2.5) Result Diagram: 08/28/168 08/28/16437 (1) NSTEMI (non-ST elevated myocardial infarction) (2) CAD (coronary artery disease) Plan: ASA, statin , BB OOB, ambulate keep chest tubes in pulm toileting gentle diuresis (3) Delusional disorder Plan: psych following, on abilify and Klonopin (4) Unspecified psychosis (5) Ischemic dilated cardiomyopathy Plan: EF 15 % , will need to be eval for possible life vest, start sheeba when possible will discuss with Haley Sage Aug 28, 2016 11:59
--- NOTE | 2016-08-28 12:01 | HHI.FPPN ---
Subjective Remarks Patient seen and examined this morning by medical team. No acute events overnight and VS WNL. Patient more arousable today with more interaction during exam. His only complaint today is his chest pain from his surgery. Of note on exam, patient found to have L sided facial drooping with no other neurological finding. Patient has no other complaints and denies any fevers, visual changes, SOB, NVD, ABD pain, or calf tenderness. (Maxi Leach MD R1) Objective Vitals Vital Signs Date Time Temp Pulse Resp B/P Pulse Ox O2 Delivery O2 Flow Rate FiO2 08/28/16 10:29 93 Nasal Cannula 2.00 08/28/16 10:03 16 08/28/16 08:00 Nasal Cannula 2.00 21 08/28/16 08:00 85 08/28/16 08:00 98.1 87 18 123/76 93 08/28/16 06:20 18 08/28/16 06:00 91 08/28/16 05:00 100 08/28/16 04:00 101 08/28/16 03:00 93 Nasal Cannula 2.00 08/28/16 03:00 99 08/28/16 03:00 98.4 100 20 130/83 92 08/28/16 02:00 96 08/28/16 01:00 95 08/28/16 00:00 94 08/27/16 23:00 97.9 94 20 122/81 91 08/27/16 23:00 93 Nasal Cannula 2.00 08/27/16 23:00 101 08/27/16 22:00 98 08/27/16 21:00 98 08/27/16 20:00 98.9 97 20 137/79 95 08/27/16 20:00 84 08/27/16 20:00 95 Room Air 08/27/16 19:55 93 21 08/27/16 19:00 91 08/27/16 18:00 90 08/27/16 17:00 88 08/27/16 16:00 82 08/27/16 15:00 98.4 82 16 125/71 97 08/27/16 15:00 81 08/27/16 15:00 97 Room Air 08/27/16 13:21 94 21 I/O 08/27/16 08/27/16 08/27/16 08/28/16 08/28/1617 07:00 15:00 23:00 07:00 15:00 23:00 Intake Total 1741 ml 1160 ml 420 ml 530 ml Output Total 700 ml 500 ml 595 ml 680 ml Balance 1041 ml 660 ml -175 ml -150 ml Intake Oral 720 ml 1160 ml 420 ml 480 ml IV Total 771 ml Albumin 250 ml 50 ml Output Urine Total 450 ml 350 ml 425 ml 600 ml Chest Tube Drainage Total 250 ml 170 ml Drainage Total 150 ml 80 ml # Bowel Movements 0 0 0 (Maxi Leach MD R1) Result Diagram: 08/28/1643708/28/16437 Objective Remarks Gen: WNWD CM sitting up in his recliner, more arousable than yesterday's exam, but not at his baseline. Currently in NAD. Cardio: RRR with no MGR. Midline chest Prevena applied with appearing CDI with minimal output into reservoir. Chest tube in place connected to wall suction without leak; CDI bandage. Approximately 1100mL of serosanguineous fluid collected in reservoir. Pulm: Improved breathing BL overall with decreased breath sounds over the L base. No CRW. No increased WOB. ABD: Soft, nontender with +BS. No masses appreciated. MSK: No cyanosis or edema. No BL calf tenderness. LLE harvest site bandaged CDI with tenderness. Neuro: AAOx2. No psychotic delusions during interview. Normal speech with appropriate judgement. L sided facial drooping at baseline and with smile, otherwise CN 2-12 intact. Full upper and lower extremity exam unable to be completed as patient is post-operative, however patient does have appropriate hand strength BL with normal ROM. Negative pronator drift. (Maxi Leach MD R1) A/P Assessment and Plan Mr. Mohr is a 46 y/o CM who initially presented with NSTEMI and later to found to have significant multivessel disease on cardiac catheterization. Cardiothoracic surgery was consulted for consideration for bypass, appreciate recommendations. Patient is tentatively scheduled for CABG on 08/26, possibly earlier if there is availability. He was also hospitalized in the psychiatric unit from 08/19-08/22 for psychiatric delusions, but was recently transferred out of the unit due to aggressive behavior and refusal of care. Staff decided that he will be transferred back to the medical floor for monitoring prior to his CABG procedure. CABG was performed without complication on 08/26/16. Discharge Planning Discharge will depend on post-operative course and Psychiatric clearance. w/d/w Dr. Schumacher, Dr. Orozco (Maxi Leach MD R1) Attending Attestation Patient examined and case discussed with resident physician I have read the above note and agree with the assessment/plan as discussed with me I was involved in all medical decision making for this patient Wilfred Schumacher M.D. (Wilfred Schumacher MD) Problem List: (1) Facial droop Status: Acute Plan: Patient who is POD #2 from CABG presents with new onset L sided facial drooping. Otherwise limited neurological exam WNL. Patient was previously on an aspirin, statin, and started on Plavix post-procedure. -CT head: Unremarkable study -Continue to monitor with daily neurological exams Medications: -Plavix 75mg daily -Atorvastatin 80mg QHS -ASA 81mg daily (2) Congestive heart failure Status: Acute Plan: Patient has no significant cardiac history, but endorses heavy salt intake, significant tobacco history. On admission, EKG showed normal sinus rhythm. Q waves in V1, V2, V3, V4. Initial troponin elevated at 2.91, showed further elevations. May be secondary to acute congestive heart failure vs GA. BNP initially elevated at 993 on admission. He had acute decompensated heart failure. CXR showed cardiomegaly and no acute disease. -Cardiothoracic surgery consulted; appreciate recommendations. * CABG on 08/26/16 without complication. * Cefazolin given Q8H for 5 doses post-operatively; Completed * Roxicodone 5mg Q3H PRN for pain 1-5, 10mg Q3H PRN for pain 6-10; Fentanyl 25mcg Q1H for breakthrough pain * Plavix 75mg daily * Lisinopril 2.5mg daily * Amiodarone 400mg BID * Repeat EKG: Pending -Lasix 40 mg po daily. -Low-salt diet less than 2 g per day. -Fluid restrict to 1.5 L per day. -Strict Is and Os. Daily weights. -Supplemental oxygen and monitor on pulse ox. -Telemetry Imaging Echo 08/13/16: EF 15-20% Echo 08/17/16: Normal cavity size, wall thickness within normal limits. Systolic function was mildly reduced. Estimated EF 45-50%. Carotid artery ultrasound 08/11: Normal hemodynamic profile of both carotids Lower extremity ultrasound 08/11: Negative for DVT bilaterally, venous mapping per report (3) Atelectasis Status: Acute Plan: Patient s/p CABG on 08/27 with decreased breath sounds over L lung base. Patient's exam improved today, however oxygen saturations remain 91-93% on 2L. -CXR 08/27: Worsening density of L lung base now with loss of L hemidiaphragm suspicious for ongoing atelectasis. All tubes and catheters in good position post-extubation. -Incentive spirometry encouraged with DuoNeb PRN (4) NSTEMI (non-ST elevated myocardial infarction) Status: Acute Plan: EKG showed normal sinus rhythm. Q waves in V1, V2, V3, V4. No chest pain on admission, patient denied angina in the past. Unsure if CHF leading to NSTEMI or heart damage in the past causing acute CHF -Cardiology consulted, appreciate recommendations and intervention * Cardiac catheterization significant for severe multivessel disease, significantly elevated wedge and pulmonary artery pressures, see plan for diuresis above. * Patient would be a poor candidate for high risk stent placement, recommend CABG procedure -ASA 81 mg daily -Lipitor 80mg HS -Coreg 12.5mg PO BID -See plan above (5) Unspecified psychosis Status: Chronic Plan: Patient recently admitted to Med/Psych due to unspecified psychosis, concern for possible schizophrenia. -Per Dr. Nelson, patient is to be transferred back to the Medical floor as he would no longer benefit from further stay on Med/Psych. * Consider inpatient psych treatment pending post-operative course -Abilify 30mg daily -Clonazepam 1 mg BID (6) FEN Status: Acute Plan: Fluids: Fluid restriction Electrolytes: Potassium decreased from 4.7 to 3.9 and magnesium from 2.2 to 1.9 , both repleted. Continue to monitor. Nutrition: Heart healthy, NA restriction DVT ppx: DA/SCDs Diet: Heart Healthy Prophylaxis: Zofran PRN for NV, DuoNeb PRN for wheezing/SOB, Hydralazine PRN for HTN, Metoprolol PRN for tachycardia/HTN (Maxi Leach MD R1) Maxi Leach MD R1 Aug 28, 2016 12:01 Wilfred Schumacher MD Aug 28, 2016 14:47
--- NOTE | 2016-08-28 13:41 | PD.CARD.PN ---
Subjective Subjective Remarks Asked to see Mr. Mohr for consideration of Lifevest No chest pain, no shortness of breath Objective Medications Current Medications Medications (Trade) Dose Ordered Sig/Ximena Route Start Time Stop Time Status Last Admin (Narcan Inj) 0.4 mg UNSCH PRN IV 08/22/16 00:30 (Lipitor) 80 mg HS PO 08/22/16 21:00 08/27/16 21:16 (Lasix) 40 mg DAILY PO 08/23/16 09:00 08/28/16 09:19 (NS Flush) 2 ml BID IV FLUSH 08/24/16 21:00 08/28/16 09:18 (NS Flush) 2 ml UNSCH PRN IV FLUSH 08/24/16 13:30 (Abilify) 30 mg DAILY PO 08/26/16 09:00 08/28/16 09:19 (KlonoPIN) 1 mg Q12HR PO 08/25/16 21:00 08/28/16 09:19 (Aspirin Chew) 81 mg DAILY PO 08/27/16 09:00 08/28/16 09:19 (Plavix) 75 mg DAILY PO 08/27/16 09:00 08/28/16 09:19 (Protonix) 40 mg DAILY@06 PO 08/27/16 06:00 08/28/16 05:25 (Tylenol) 650 mg Q4H PRN PO 08/26/16 13:45 (Toradol Inj) 15 mg Q6H PRN IV PUSH 08/26/16 13:45 08/28/16 13:44 08/28/16 05:26 (Zofran Inj) 4 mg Q6H PRN IV PUSH 08/26/16 13:45 (D50w (Vial) Inj) 25 ml UNSCH PRN IV PUSH 08/26/16 13:45 (Roxicodone) 5 mg Q3H PRN PO 08/27/16 08:15 08/28/16 09:19 (Colace) 100 mg BID PO 08/27/16 10:00 08/28/16 09:18 (Theragran M Tab) 1 tab DAILY PO 08/28/16 09:00 08/28/16 09:18 (Milk Of Magnesia Liq) 30 ml DAILY PO 08/28/16 09:00 08/28/16 09:18 (Miralax) 17 gm DAILY PO 08/28/16 09:00 08/28/16 09:18 (Senokot) 8.6 mg HS PO 08/27/16 21:00 08/27/16 21:16 (Fleets Enema (Adult)) 133 ml UNSCH PRN RECTAL 08/27/16 10:00 (D50w (Vial) Inj) 25 ml UNSCH PRN IV 08/27/16 10:00 (Glucagon Inj) 1 mg UNSCH PRN OTHER 08/27/16 10:00 (Coreg) 3.125 mg BID PO 08/27/16 21:00 08/28/16 09:19 (KCl) 20 meq DAILY PO 08/29/16 09:00 (NovoLOG SUPPLEMENTAL SCALE) 1 ACHS SQ 08/28/16 11:00 (Prinivil) 2.5 mg DAILY PO 08/29/16 09:00 (Pill Splitter) 1 ea UNSCH PRN OTHER 08/28/16 12:00 (Cordarone) 200 mg Q12HR PO 08/28/16 21:00 09/11/16 09:00 Vital Signs / I&O Vital Signs Date Time Temp Pulse Resp B/P Pulse Ox O2 Delivery O2 Flow Rate FiO2 08/28/16 12:00 69 08/28/16 12:00 98.2 78 18 105/65 96 08/28/16 12:00 Nasal Cannula 2.00 21 08/28/16 11:00 74 08/28/16 10:29 93 Nasal Cannula 2.00 08/28/16 10:03 16 08/28/16 10:00 80 08/28/16 09:00 94 08/28/16 08:00 Nasal Cannula 2.00 21 08/28/16 08:00 85 08/28/16 08:00 98.1 87 18 123/76 93 08/28/16 07:00 88 08/28/16 06:20 18 08/28/16 06:00 91 08/28/16 05:00 100 08/28/16 04:00 101 08/28/16 03:00 93 Nasal Cannula 2.00 08/28/16 03:00 99 08/28/16 03:00 98.4 100 20 130/83 92 08/28/16 02:00 96 08/28/16 01:00 95 08/28/16 00:00 94 08/27/16 23:00 97.9 94 20 122/81 91 08/27/16 23:00 93 Nasal Cannula 2.00 08/27/16 23:00 101 08/27/16 22:00 98 08/27/16 21:00 98 08/27/16 20:00 98.9 97 20 137/79 95 08/27/16 20:00 84 08/27/16 20:00 95 Room Air 08/27/16 19:55 93 21 08/27/16 19:00 91 08/27/16 18:00 90 08/27/16 17:00 88 08/27/16 16:00 82 08/27/16 15:00 98.4 82 16 125/71 97 08/27/16 15:00 81 08/27/16 15:00 97 Room Air I/O 08/27/16 08/27/16 08/27/16 08/28/16 08/28/16 08/28/16 07:00 15:00 23:00 07:00 15:00 23:00 Intake Total 1741 ml 1160 ml 420 ml 530 ml Output Total 700 ml 500 ml 595 ml 680 ml Balance 1041 ml 660 ml -175 ml -150 ml Intake Oral 720 ml 1160 ml 420 ml 480 ml IV Total 771 ml Albumin 250 ml 50 ml Output Urine Total 450 ml 350 ml 425 ml 600 ml Chest Tube Drainage Total 250 ml 170 ml Drainage Total 150 ml 80 ml # Bowel Movements 0 0 0 Physical Exam GENERAL: NAD, AAOx3 SKIN: Warm and dry. HEAD: Atraumatic. Normocephalic. EYES: Pupils equal and round. No scleral icterus. No injection or drainage. ENT: No nasal bleeding or discharge. Mucous membranes pink and moist. NECK: Trachea midline. No JVD. CARDIOVASCULAR: Regular rate and rhythm. RESPIRATORY: No accessory muscle use. Clear to auscultation. Breath sounds equal bilaterally. GASTROINTESTINAL: Abdomen soft, non-tender, nondistended. Hepatic and splenic margins not palpable. MUSCULOSKELETAL: Extremities without clubbing, cyanosis, or edema. No obvious deformities. NEUROLOGICAL: Awake and alert. No obvious cranial nerve deficits. Motor grossly within normal limits. Five out of 5 muscle strength in the arms and legs. Normal speech. PSYCHIATRIC: Appropriate mood and affect; insight and judgment normal. Laboratory Laboratory Tests Test 4/21/17 04:38 White Blood Count 13.4 TH/MM3 Red Blood Count 3.95 MIL/MM3 Hemoglobin 11.0 GM/DL Hematocrit 33.6 % Mean Corpuscular Volume 84.9 FL Mean Corpuscular Hemoglobin 27.8 PG Mean Corpuscular Hemoglobin 32.8 % Concent Red Cell Distribution Width 15.3 % Platelet Count 144 TH/MM3 Mean Platelet Volume 8.8 FL Neutrophils (%) (Auto) 76.7 % Lymphocytes (%) (Auto) 9.5 % Monocytes (%) (Auto) 12.4 % Eosinophils (%) (Auto) 1.1 % Basophils (%) (Auto) 0.3 % Neutrophils # (Auto) 10.3 TH/MM3 Lymphocytes # (Auto) 1.3 TH/MM3 Monocytes # (Auto) 1.7 TH/MM3 Eosinophils # (Auto) 0.2 TH/MM3 Basophils # (Auto) 0.0 TH/MM3 CBC Comment DIFF FINAL Differential Comment Sodium Level 138 MEQ/L Potassium Level 3.9 MEQ/L Chloride Level 104 MEQ/L Carbon Dioxide Level 26.8 MEQ/L Anion Gap 7 MEQ/L Blood Urea Nitrogen 25 MG/DL Creatinine 1.13 MG/DL Estimat Glomerular Filtration 69 ML/MIN Rate Random Glucose 78 MG/DL Calcium Level 8.6 MG/DL Magnesium Level 1.9 MG/DL Assessment and Plan Problem List: (1) NSTEMI (non-ST elevated myocardial infarction) (2) CAD (coronary artery disease) (3) Delusional disorder (4) Unspecified psychosis (5) Ischemic dilated cardiomyopathy (6) S/P CABG (coronary artery bypass graft) Assessment and Plan 1) Doing well post-operatively 2) Asked to see about Lifevest Last echo showing mildly reduced myocardial ejection fraction Does not fit criteria at this time for Lifevest 3) Would continue with medical management If he qualified for a Lifevest unsure if he would wear it (he says he won't) and if it's allowed to have it wherever he goes (SNF, Med/Psych floor, Psych unit), lastly being homeless not sure how that goes with being checked up on during his time with the Lifevest Byron Franz DO Aug 28, 2016 13:41
[2016-08-28] MEDS: ATORVASTATIN 40 MG TAB PO SCH (21:18)
[2016-08-28] MEDS: SENNOSIDES 8.6 MG TAB PO SCH (21:18)
[2016-08-29] VITALS (26 sets, daily range): BP systolic 106–123; BP diastolic 65–76; PULSE 63–84; RESP 16–20; TEMP 98–98.3; O2SAT 94–96
[2016-08-29] MEDS: INSULIN ASPART SUPPLEMENTAL SCALE SQ SCH ×4 (05:47→21:00)
[2016-08-29 05:56] LABS: BICARBONATE 27.6 MEQ/L (21.0-32.0); MAGNESIUM 2.2 MG/DL (1.5-2.5); POTASSIUM 4.3 MEQ/L (3.5-5.1)
[2016-08-29] MEDS: PANTOPRAZOLE SOD 40 MG DELAYED RELEASE TAB PO SCH (06:06)
--- NOTE | 2016-08-29 07:15 | RADRPT ---
EXAM DATE/TIME: 08/29/2016 06:22 [facility] COMPARISON: CHEST SINGLE AP, August 27, 2016, 3:48. INDICATIONS : Shortness of breath, possible pulmonary disease. MEDICAL HISTORY : Dyspnea SURGICAL HISTORY : CABG. ENCOUNTER: Subsequent ACUITY: 4 - 6 days PAIN SCORE: 5/10 LOCATION: Bilateral chest FINDINGS: The heart size is enlarged. The patient is status post sternotomy. There is increased density at the left base. There some minimal linear density at the mid lungs. The linear density at the right lung m ay be secondary to some thickening of the minor fissure. The previously seen left chest tube has been removed. A pneumothorax is not seen. There may be a mild left effusion. CONCLUSION: 1. Left base atelectasis or consolidation with possible left effusion. There is also some possible mi nimal atelectasis in the lungs. 2. Cardiomegaly Pedro Blake MD on August 29, 2016 at 7:10 Board Certified Radiologist. This report was verified electronically.
[2016-08-29] MEDS: RESP: ALBUTEROL 2.5 MG/IPRATROPIUM 0.5 MG NEB (SCH) NEB ×2 (07:53→13:02)
[2016-08-29] MEDS: POLYETHYLENE GLYCOL 17 GM PKG PO SCH (08:29)
[2016-08-29] MEDS: AMIODARONE 200 MG TAB PO SCH ×2 (08:29→21:52)
[2016-08-29] MEDS: MAGNESIUM HYDROXIDE SUSP 30 ML CUP PO SCH (08:29)
[2016-08-29] MEDS: MULTIVITAMINS/MINERALS THERAPEUTIC TAB PO SCH (08:30)
[2016-08-29] MEDS: ARIPiprazole 30 MG TAB PO SCH (08:30)
[2016-08-29] MEDS: DOCUSATE SODIUM 100 MG CAP PO SCH ×2 (08:30→21:00)
[2016-08-29] MEDS: clonazePAM 1 MG TAB PO SCH ×2 (08:30→21:52)
[2016-08-29] MEDS: CARVEDILOL 6.25 MG TAB PO SCH ×2 (08:30→21:53)
[2016-08-29] MEDS: CLOPIDOGREL 75 MG TAB PO SCH (08:30)
[2016-08-29] MEDS: ASPIRIN 81 MG CHEW TAB PO SCH (08:30)
[2016-08-29] MEDS: FUROSEMIDE 40 MG TAB PO SCH (08:30)
[2016-08-29] MEDS: POTASSIUM CHLORIDE 20 MEQ CONTROLLED RELEASE TAB PO SCH (08:30)
[2016-08-29] MEDS: LISINOPRIL 5 MG TAB PO SCH (08:31)
[2016-08-29] MEDS: SODIUM CHLORIDE 0.9% FLUSH 10 ML FLUSH IV FLUSH SCH ×2 (08:34→21:53)
--- NOTE | 2016-08-29 09:48 | PD.CAR.PN ---
CVT Progress Note Subjective/Hospital Course: 46 male , no prior medical HX or medical treatment , has not seen MD in over 20years. " didn't have any problems". Homeless, Admitted to ED with SOB, lower ext and scrotal edema , + NSTEMI , acute onset of CHF / BNP 900/ ECHO showed EF 15-20% severe systolic dysfunction . Underwent cardiac cath by Dr Franz showing multi vessel disease / PA pressure 59/34/ wedge pressure of 32 / LVEDP 42. STS data Morbidity or Mortality of 20.45 % Pt also has some psych issues / was seen and eval by Psych Dr Nelson , felt pt had delusional and psychotic symptoms , 08/24 pt now on abilify, stable for surgery scheduled for wed will have Dr Haines follow pt as post op 08/25 no chest pain scheduled for surgery in am 08/26 surgery 1. Urgent Off-pump Coronary Artery Bypass Grafting x 3 with left internal mammary artery (FLOREZ) to left anterior descending (LAD), reverse saphenous vein graft to the RCA, reverse saphenous vein graft to the terminal Left Circumflex Artery 2. Left Leg Endoscopic Vein Boyle 3600cc/ crystalloid, 500cc cell saver, 300cc EBL extubated after surgery 08/27 pt up in chair, sleepy , will need to decrease sedatives ( trazadone, and change to norco ) EF 15 % intraop will need eval for Life vest and start SHEEBA when tolerates concern is that pt is homeless CXR shows some consolidation left lower lobe on ASa, statin, start coreg this evening transfer to stepdown 08/28 pt seen by PCP this am , felt that pt had mild left facial drooping stat CT neg pt speech clear / 5/5 upper and lower ext / no ptosis will monitor on ASA and plavix start low dose SHEEBA , await eval from Dr Franz regarding need for Life Vest OT eval , chest tube removed without difficulty 08/29 Doing well Case management to assist with discharge planning. OK from my standpoint Objective: Vital Signs Date Time Temp Pulse Resp B/P Pulse Ox O2 Delivery O2 Flow Rate FiO2 08/29/16 09:33 18 08/29/16 08:07 64 08/29/16 08:07 96 Room Air 08/29/16 08:07 98.0 67 20 112/76 96 08/29/16 06:00 66 08/29/16 05:00 66 08/29/16 04:00 68 08/29/16 03:28 95 Nasal Cannula 2.00 08/29/16 03:28 76 18 123/75 95 08/29/16 03:00 75 08/29/16 02:00 72 08/29/16 01:00 72 08/29/16 00:00 74 08/28/16 23:30 79 18 116/72 94 08/28/16 23:30 94 Nasal Cannula 2.00 08/28/16 23:00 78 08/28/16 22:00 76 08/28/16 21:33 93 21 08/28/16 21:00 82 08/28/16 20:00 84 08/28/16 19:30 96 Nasal Cannula 2.00 08/28/16 19:30 98.0 82 18 120/78 96 08/28/16 19:00 84 08/28/16 18:00 78 08/28/16 17:00 80 08/28/16 16:00 98.4 95 16 108/67 94 08/28/16 16:00 Nasal Cannula 2.00 21 08/28/16 16:00 76 08/28/16 15:00 74 08/28/16 14:00 70 08/28/16 13:00 72 08/28/16 12:00 69 08/28/16 12:00 98.2 78 18 105/65 96 08/28/16 12:00 Nasal Cannula 2.00 21 08/28/16 11:00 74 08/28/16 10:29 93 Nasal Cannula 2.00 08/28/16 10:00 80 Labs: Laboratory Tests Test 08/29/16 03:35 Sodium Level 138 MEQ/L (136-145) Potassium Level 4.3 MEQ/L (3.5-5.1) Chloride Level 103 MEQ/L (98-107) Carbon Dioxide Level 27.6 MEQ/L (21.0-32.0) Anion Gap 7 MEQ/L (5-15) Blood Urea Nitrogen 22 MG/DL (7-18) Creatinine 1.06 MG/DL (0.60-1.30) Estimat Glomerular Filtration 75 ML/MIN (>89) Rate Random Glucose 88 MG/DL (74-106) Calcium Level 8.6 MG/DL (8.5-10.1) Magnesium Level 2.2 MG/DL (1.5-2.5) Result Diagram: 08/28/16 0438 08/29/16 0335 (1) NSTEMI (non-ST elevated myocardial infarction) (2) CAD (coronary artery disease) (3) Delusional disorder (4) Unspecified psychosis (5) Ischemic dilated cardiomyopathy (6) S/P CABG (coronary artery bypass graft) Ermias Arteaga MD Aug 29, 2016 09:48
--- NOTE | 2016-08-29 10:20 | PD.CARD.PN ---
Subjective Subjective Remarks No chest pain, no shortness of breath Objective Medications Current Medications Medications (Trade) Dose Ordered Sig/Ximena Route Start Time Stop Time Status Last Admin (Narcan Inj) 0.4 mg UNSCH PRN IV 08/22/16 00:30 (Lipitor) 80 mg HS PO 08/22/16 21:00 08/28/16 21:18 (Lasix) 40 mg DAILY PO 08/23/16 09:00 08/29/16 08:30 (NS Flush) 2 ml BID IV FLUSH 08/24/16 21:00 08/29/16 08:34 (NS Flush) 2 ml UNSCH PRN IV FLUSH 08/24/16 13:30 (Abilify) 30 mg DAILY PO 08/26/16 09:00 08/29/16 08:30 (KlonoPIN) 1 mg Q12HR PO 08/25/16 21:00 08/29/16 08:30 (Aspirin Chew) 81 mg DAILY PO 08/27/16 09:00 08/29/16 08:30 (Plavix) 75 mg DAILY PO 08/27/16 09:00 08/29/16 08:30 (Protonix) 40 mg DAILY@06 PO 08/27/16 06:00 08/29/16 06:06 (Tylenol) 650 mg Q4H PRN PO 08/26/16 13:45 (Zofran Inj) 4 mg Q6H PRN IV PUSH 08/26/16 13:45 (D50w (Vial) Inj) 25 ml UNSCH PRN IV PUSH 08/26/16 13:45 (Roxicodone) 5 mg Q3H PRN PO 08/27/16 08:15 08/29/16 08:30 (Colace) 100 mg BID PO 08/27/16 10:00 08/29/16 08:30 (Theragran M Tab) 1 tab DAILY PO 08/28/16 09:00 08/29/16 08:30 (Milk Of Magnesia Liq) 30 ml DAILY PO 08/28/16 09:00 08/29/16 08:29 (Miralax) 17 gm DAILY PO 08/28/16 09:00 08/29/16 08:29 (Senokot) 8.6 mg HS PO 08/27/16 21:00 08/28/16 21:18 (Fleets Enema (Adult)) 133 ml UNSCH PRN RECTAL 08/27/16 10:00 (D50w (Vial) Inj) 25 ml UNSCH PRN IV 08/27/16 10:00 (Glucagon Inj) 1 mg UNSCH PRN OTHER 08/27/16 10:00 (Coreg) 3.125 mg BID PO 08/27/16 21:00 08/29/16 08:30 (KCl) 20 meq DAILY PO 08/29/16 09:00 08/29/16 08:30 (NovoLOG SUPPLEMENTAL SCALE) 1 ACHS SQ 08/28/16 11:00 (Prinivil) 2.5 mg DAILY PO 08/29/16 09:00 08/29/16 08:31 (Pill Splitter) 1 ea UNSCH PRN OTHER 08/28/16 12:00 (Cordarone) 200 mg Q12HR PO 08/28/16 21:00 09/11/16 09:00 08/29/16 08:29 Vital Signs / I&O Vital Signs Date Time Temp Pulse Resp B/P Pulse Ox O2 Delivery O2 Flow Rate FiO2 08/29/16 09:48 67 08/29/16 09:33 18 08/29/16 08:07 64 08/29/16 08:07 96 Room Air 08/29/16 08:07 98.0 67 20 112/76 96 08/29/16 06:00 66 08/29/16 05:00 66 08/29/16 04:00 68 08/29/16 03:28 95 Nasal Cannula 2.00 08/29/16 03:28 76 18 123/75 95 08/29/16 03:00 75 08/29/16 02:00 72 08/29/16 01:00 72 08/29/16 00:00 74 08/28/16 23:30 79 18 116/72 94 08/28/16 23:30 94 Nasal Cannula 2.00 08/28/16 23:00 78 08/28/16 22:00 76 08/28/16 21:33 93 21 08/28/16 21:00 82 08/28/16 20:00 84 08/28/16 19:30 96 Nasal Cannula 2.00 08/28/16 19:30 98.0 82 18 120/78 96 08/28/16 19:00 84 08/28/16 18:00 78 08/28/16 17:00 80 08/28/16 16:00 98.4 95 16 108/67 94 08/28/16 16:00 Nasal Cannula 2.00 21 08/28/16 16:00 76 08/28/16 15:00 74 08/28/16 14:00 70 08/28/16 13:00 72 08/28/16 12:00 69 08/28/16 12:00 98.2 78 18 105/65 96 08/28/16 12:00 Nasal Cannula 2.00 21 08/28/16 11:00 74 08/28/16 10:29 93 Nasal Cannula 2.00 I/O 08/28/16 08/28/16 08/28/16 08/29/16 08/29/16 08/29/16 07:00 15:00 23:00 07:00 15:00 23:00 Intake Total 530 ml 1440 ml 300 ml Output Total 680 ml 950 ml 800 ml Balance -150 ml 490 ml -500 ml Intake Oral 480 ml 1200 ml 300 ml IV Total 240 ml Albumin 50 ml Output Urine Total 600 ml 950 ml 800 ml Drainage Total 80 ml # Bowel Movements 0 0 0 Physical Exam GENERAL: NAD, AAOx3 SKIN: Warm and dry. HEAD: Atraumatic. Normocephalic. EYES: Pupils equal and round. No scleral icterus. No injection or drainage. ENT: No nasal bleeding or discharge. Mucous membranes pink and moist. NECK: Trachea midline. No JVD. CARDIOVASCULAR: Regular rate and rhythm. RESPIRATORY: No accessory muscle use. Clear to auscultation. Breath sounds equal bilaterally. GASTROINTESTINAL: Abdomen soft, non-tender, nondistended. Hepatic and splenic margins not palpable. MUSCULOSKELETAL: Extremities without clubbing, cyanosis, or edema. No obvious deformities. NEUROLOGICAL: Awake and alert. No obvious cranial nerve deficits. Motor grossly within normal limits. Five out of 5 muscle strength in the arms and legs. Normal speech. PSYCHIATRIC: Appropriate mood and affect; insight and judgment normal. Laboratory Laboratory Tests Test 08/29/16 03:35 Sodium Level 138 MEQ/L Potassium Level 4.3 MEQ/L Chloride Level 103 MEQ/L Carbon Dioxide Level 27.6 MEQ/L Anion Gap 7 MEQ/L Blood Urea Nitrogen 22 MG/DL Creatinine 1.06 MG/DL Estimat Glomerular Filtration 75 ML/MIN Rate Random Glucose 88 MG/DL Calcium Level 8.6 MG/DL Magnesium Level 2.2 MG/DL Assessment and Plan Problem List: (1) NSTEMI (non-ST elevated myocardial infarction) (2) CAD (coronary artery disease) (3) Delusional disorder (4) Unspecified psychosis (5) Ischemic dilated cardiomyopathy (6) S/P CABG (coronary artery bypass graft) Assessment and Plan 1) Doing well post-operatively 2) Asked to see about Lifevest Last echo showing mildly reduced myocardial ejection fraction 45-50% ( appears generous but results from [facility]), previous echocardiogram reviewed showing probably EF 35-40% Does not fit criteria at this time for Lifevest 3) Would continue with medical management If he qualified for a Lifevest unsure if he would wear it (he says he won't) and if it's allowed to have it wherever he goes (SNF, Med/Psych floor, Psych unit), lastly being homeless not sure how that goes with being checked up on during his time with the Lifevest. 4) Cardiovascularly stable for discharge Byron Franz DO Aug 29, 2016 10:20
--- NOTE | 2016-08-29 11:59 | HHI.FPPN ---
Subjective Remarks Patient seen and examined this morning. No acute events overnight and vital signs stable. Patient states she is doing well, but continues to have chest pain. Otherwise he has no complaints. The left side of his face Continues to droop, but is without any other neurological abnormalities. He denies any fevers , chills, shortness of breath, NVD, abdominal pain, or calf tenderness. (Maxi Leach MD R1) Objective Vitals Vital Signs Date Time Temp Pulse Resp B/P Pulse Ox O2 Delivery O2 Flow Rate FiO2 08/29/16 11:25 98.2 68 18 108/67 94 08/29/16 11:25 68 08/29/16 11:25 94 Room Air 08/29/16 10:17 63 08/29/16 09:48 67 08/29/16 09:33 18 08/29/16 08:07 64 08/29/16 08:07 96 Room Air 08/29/16 08:07 98.0 67 20 112/76 96 08/29/16 06:00 66 08/29/16 05:00 66 08/29/16 04:00 68 08/29/16 03:28 95 Nasal Cannula 2.00 08/29/16 03:28 76 18 123/75 95 08/29/16 03:00 75 08/29/16 02:00 72 08/29/16 01:00 72 08/29/16 00:00 74 08/28/16 23:30 79 18 116/72 94 08/28/16 23:30 94 Nasal Cannula 2.00 08/28/16 23:00 78 08/28/16 22:00 76 08/28/16 21:33 93 21 08/28/16 21:00 82 08/28/16 20:00 84 08/28/16 19:30 96 Nasal Cannula 2.00 08/28/16 19:30 98.0 82 18 120/78 96 08/28/16 19:00 84 08/28/16 18:00 78 08/28/16 17:00 80 08/28/16 16:00 98.4 95 16 108/67 94 08/28/16 16:00 Nasal Cannula 2.00 21 08/28/16 16:00 76 08/28/16 15:00 74 08/28/16 14:00 70 4/21/17 13:00 72 08/28/16 12:00 69 08/28/16 12:00 98.2 78 18 105/65 96 08/28/16 12:00 Nasal Cannula 2.00 21 I/O 08/28/16 08/28/16 08/28/16 08/29/16 08/29/16 08/29/16 07:00 15:00 23:00 07:00 15:00 23:00 Intake Total 530 ml 1440 ml 300 ml Output Total 680 ml 950 ml 800 ml Balance -150 ml 490 ml -500 ml Intake Oral 480 ml 1200 ml 300 ml IV Total 240 ml Albumin 50 ml Output Urine Total 600 ml 950 ml 800 ml Drainage Total 80 ml # Bowel Movements 0 0 0 (Maxi Leach MD R1) Result Diagram: 08/28/16 0438 08/29/16 0335 Objective Remarks Gen: WNWD CM sitting up on the side of his bed. His current mood and affect continues to be depressed compared to his pre-op condition. Currently in NAD. Cardio: RRR with no MGR. Midline chest Prevena applied with appearing CDI with minimal output into reservoir. Pulm: Improved breathing BL overall with continued decreased breath sounds over the L base. No CRW. No increased WOB. ABD: Soft, nontender with +BS. No masses appreciated. MSK: No cyanosis or edema. No BL calf tenderness. LLE harvest site bandaged CDI with tenderness. Neuro: AAOx2. No psychotic delusions during interview. Normal speech with appropriate judgement. L sided facial drooping at baseline and with smile, otherwise CN 2-12 intact. Full upper and lower extremity exam unable to be completed as patient is post-operative, however patient does have appropriate hand strength BL with normal ROM. Negative pronator drift. (Maxi Leach MD R1) A/P Assessment and Plan Mr. Mohr is a 46 y/o CM who initially presented with NSTEMI and later to found to have significant multivessel disease on cardiac catheterization. Cardiothoracic surgery was consulted for consideration for bypass, appreciate recommendations. Patient is tentatively scheduled for CABG on 08/26, possibly earlier if there is availability. He was also hospitalized in the psychiatric unit from 08/19-08/22 for psychiatric delusions, but was recently transferred out of the unit due to aggressive behavior and refusal of care. Staff decided that he will be transferred back to the medical floor for monitoring prior to his CABG procedure. CABG was performed without complication on 08/26/16. On 08/28/16 the patient was found to have L sided facial drooping without any other neurological abnormalities with a negative CT scan. Discharge Planning Discharge will depend on post-operative course and Psychiatric clearance. w/d/w Dr. Schumacher, Dr. Barrera (Maxi Leach MD R1) Attending Attestation Pt. examined and case discussed with resident physicians I have read the above note and agree with the assessment/plan as discussed with me I was involved in all medical decision making for this patient Wilfred Schumacher MD (Wilfred Schumacher MD) Problem List: (1) Facial droop Status: Acute Plan: Patient who is post-op from CABG on 08/26/16 presents with new onset L sided facial drooping on 08/28/16. Otherwise limited neurological exam WNL. Patient was previously on an aspirin, statin, and started on Plavix post- procedure. -CT head: Unremarkable study -Continue to monitor with daily neurological exams Medications: -Plavix 75mg daily -Atorvastatin 80mg QHS -ASA 81mg daily (2) Congestive heart failure Status: Acute Plan: Patient has no significant cardiac history, but endorses heavy salt intake, significant tobacco history. On admission, EKG showed normal sinus rhythm. Q waves in V1, V2, V3, V4. Initial troponin elevated at 2.91, showed further elevations. May be secondary to acute congestive heart failure vs [place]. BNP initially elevated at 993 on admission. He had acute decompensated heart failure. CXR showed cardiomegaly and no acute disease. -Cardiothoracic surgery consulted; appreciate recommendations. * CABG on 08/26/16 without complication. * Cefazolin given Q8H for 5 doses post-operatively; Completed * Roxicodone 5mg Q3H PRN for pain 1-5, 10mg Q3H PRN for pain 6-10; Fentanyl 25mcg Q1H for breakthrough pain * Plavix 75mg daily * Lisinopril 2.5mg daily * Amiodarone 400mg BID * Signed off 08/29/16 -Cardiology consulted, appreciate recommendations * Patient does not meet criteria for Livevest at this time * Unsure if patient could/would wear vest (states he will not) where the patient is discharged to (SNF, Med/Psych, Psych unit) due to safety reasons -Lasix 40 mg po daily. -Low-salt diet less than 2 g per day. -Fluid restrict to 1.5 L per day. -Strict Is and Os. Daily weights. -Supplemental oxygen and monitor on pulse ox. -Telemetry Imaging Echo 08/13/16: EF 15-20% Echo 08/17/16: Normal cavity size, wall thickness within normal limits. Systolic function was mildly reduced. Estimated EF 45-50%. Carotid artery ultrasound 08/11: Normal hemodynamic profile of both carotids Lower extremity ultrasound 08/11: Negative for DVT bilaterally, venous mapping per report (3) Atelectasis Status: Acute Plan: Patient s/p CABG on 08/27 with decreased breath sounds over L lung base. Patient's exam improved today, however oxygen saturations remain 91-93% on 2L. -CXR 08/27: Worsening density of L lung base now with loss of L hemidiaphragm suspicious for ongoing atelectasis. All tubes and catheters in good position post-extubation. -Incentive spirometry and acapella encouraged with DuoNeb PRN (4) NSTEMI (non-ST elevated myocardial infarction) Status: Acute Plan: EKG showed normal sinus rhythm. Q waves in V1, V2, V3, V4. No chest pain on admission, patient denied angina in the past. Unsure if CHF leading to NSTEMI or heart damage in the past causing acute CHF -Cardiology consulted, appreciate recommendations and intervention * Cardiac catheterization significant for severe multivessel disease, significantly elevated wedge and pulmonary artery pressures, see plan for diuresis above. * Patient would be a poor candidate for high risk stent placement, recommend CABG procedure -ASA 81 mg daily -Lipitor 80mg HS -Coreg 12.5mg PO BID -See plan above (5) Unspecified psychosis Status: Chronic Plan: Patient recently admitted to Med/Psych due to unspecified psychosis, concern for possible schizophrenia. Patient's depressed mood/affect could be attributed to recent increase on Abilify and Clonazepam. -Per Dr. Nelson, patient is to be transferred back to the Medical floor as he would no longer benefit from further stay on Med/Psych. * Consider inpatient psych treatment pending post-operative course -Abilify 30mg daily -Clonazepam 1 mg BID (6) FEN Status: Acute Plan: Fluids: Fluid restriction Electrolytes:WNL, continue to monitor. Nutrition: Heart healthy, NA restriction DVT ppx: DA/SCDs Diet: Heart Healthy Prophylaxis: Zofran PRN for [place], DuoNeb PRN for wheezing/SOB, Hydralazine PRN for HTN, Metoprolol PRN for tachycardia/HTN (Maxi Leach MD R1) Maxi Leach MD R1 Aug 29, 2016 11:58 Wilfred Schumacher MD Aug 29, 2016 18:29
[2016-08-29] MEDS ORDERED: BISACODYL 10 MG SUPP RECTAL PRN (17:30)
[2016-08-29] MEDS: SENNOSIDES 8.6 MG TAB PO SCH (21:00)
[2016-08-29] MEDS: ATORVASTATIN 40 MG TAB PO SCH (21:52)
[2016-08-30] VITALS (27 sets, daily range): BP systolic 107–136; BP diastolic 65–83; PULSE 63–76; RESP 16–20; TEMP 98.3–98.8; O2SAT 94–99
[2016-08-30 04:59] LABS: AUTOMATED NEUTROPHIL # 6.7 TH/MM3 (1.8-7.7); BASOPHIL # 0.1 TH/MM3 (0-0.2); BASOPHIL % 0.7 % (0.0-2.0); EOSINOPHIL # 0.4 TH/MM3 (0-0.4); EOSINOPHIL % 3.5 % (0.0-4.0); HEMATOCRIT 30.4 % (39.0-51.0); HEMO FLAGS DIFF FINAL; LYMPH % 15.8 % (9.0-44.0); LYMPHOCYTE # 1.6 TH/MM3 (1.0-4.8); MEAN CORPUSCULAR HEMOGLOBIN 28.4 PG (27.0-34.0); MEAN CORPUSCULAR HGB CONC 33.4 % (32.0-36.0); MONO % 12.6 % (0.0-8.0); NEUT % 67.4 % (16.0-70.0); PLATELET COUNT 187 TH/MM3 (150-450); RED BLOOD COUNT 3.57 MIL/MM3 (4.50-5.90); RED CELL DISTRIBUTION WIDTH 15.2 % (11.6-17.2)
[2016-08-30 05:17] LABS: BICARBONATE 27.5 MEQ/L (21.0-32.0); POTASSIUM 4.3 MEQ/L (3.5-5.1)
[2016-08-30] MEDS: INSULIN ASPART SUPPLEMENTAL SCALE SQ SCH ×4 (05:54→20:45)
[2016-08-30] MEDS: PANTOPRAZOLE SOD 40 MG DELAYED RELEASE TAB PO SCH (06:14)
--- NOTE | 2016-08-30 07:47 | PD.CAR.PN ---
CVT Progress Note Subjective/Hospital Course: 46 male , no prior medical HX or medical treatment , has not seen MD in over 20years. " didn't have any problems". Homeless, Admitted to ED with SOB, lower ext and scrotal edema , + NSTEMI , acute onset of CHF / BNP 900/ ECHO showed EF 15-20% severe systolic dysfunction . Underwent cardiac cath by Dr Franz showing multi vessel disease / PA pressure 59/34/ wedge pressure of 32 / LVEDP 42. STS data Morbidity or Mortality of 20.45 % Pt also has some psych issues / was seen and eval by Psych Dr Nelson , felt pt had delusional and psychotic symptoms , 08/24 pt now on abilify, stable for surgery scheduled for wed will have Dr Haines follow pt as post op 08/25 no chest pain scheduled for surgery in am 08/26 surgery 1. Urgent Off-pump Coronary Artery Bypass Grafting x 3 with left internal mammary artery (FLOREZ) to left anterior descending (LAD), reverse saphenous vein graft to the RCA, reverse saphenous vein graft to the terminal Left Circumflex Artery 2. Left Leg Endoscopic Vein Cummings 3600cc/ crystalloid, 500cc cell saver, 300cc EBL extubated after surgery 08/27 pt up in chair, sleepy , will need to decrease sedatives ( trazadone, and change to norco ) EF 15 % intraop will need eval for Life vest and start SHEEBA when tolerates concern is that pt is homeless CXR shows some consolidation left lower lobe on ASa, statin, start coreg this evening transfer to stepdown 08/28 pt seen by PCP this am , felt that pt had mild left facial drooping stat CT neg pt speech clear / 5/5 upper and lower ext / no ptosis will monitor on ASA and plavix start low dose SHEEBA , await eval from Dr Franz regarding need for Life Vest OT eval , chest tube removed without difficulty 08/29 Doing well Case management to assist with discharge planning. OK from my standpoint 08/30 Doing well Discharge disposition pending Objective: Vital Signs Date Time Temp Pulse Resp B/P Pulse Ox O2 Delivery O2 Flow Rate FiO2 08/30/16 06:00 66 08/30/16 05:00 64 08/30/16 04:00 66 08/30/16 03:10 73 18 127/83 95 08/30/16 03:10 94 Nasal Cannula 2.00 08/30/16 03:00 69 08/30/16 02:00 72 08/30/16 01:00 74 08/30/16 00:00 70 08/29/16 23:53 94 Nasal Cannula 2.00 08/29/16 23:53 72 16 116/67 94 08/29/16 23:00 72 08/29/16 22:18 96 08/29/16 22:00 84 08/29/16 21:00 72 08/29/16 20:00 72 08/29/16 19:30 98.3 73 18 115/74 95 08/29/16 19:30 95 Nasal Cannula 2.00 08/29/16 19:00 66 08/29/16 18:02 67 08/29/16 17:31 18 08/29/16 17:02 77 08/29/16 16:00 70 08/29/16 15:02 98.0 72 18 106/65 94 08/29/16 15:02 69 08/29/16 15:02 94 Room Air 08/29/16 14:00 73 08/29/16 13:05 65 08/29/16 11:25 98.2 68 18 108/67 94 08/29/16 11:25 68 08/29/16 11:25 94 Room Air 08/29/16 10:17 63 08/29/16 09:48 67 08/29/16 08:07 64 08/29/16 08:07 96 Room Air 08/29/16 08:07 98.0 67 20 112/76 96 Labs: Laboratory Tests Test 08/30/16 04:15 White Blood Count 10.0 TH/MM3 (4.0-11.0) Red Blood Count 3.57 MIL/MM3 (4.50-5.90) Hemoglobin 10.2 GM/DL (13.0-17.0) Hematocrit 30.4 % (39.0-51.0) Mean Corpuscular Volume 85.0 FL (80.0-100.0) Mean Corpuscular Hemoglobin 28.4 PG (27.0-34.0) Mean Corpuscular Hemoglobin 33.4 % Concent (32.0-36.0) Red Cell Distribution Width 15.2 % (11.6-17.2) Platelet Count 187 TH/MM3 (150-450) Mean Platelet Volume 8.5 FL (7.0-11.0) Neutrophils (%) (Auto) 67.4 % (16.0-70.0) Lymphocytes (%) (Auto) 15.8 % (9.0-44.0) Monocytes (%) (Auto) 12.6 % (0.0-8.0) Eosinophils (%) (Auto) 3.5 % (0.0-4.0) Basophils (%) (Auto) 0.7 % (0.0-2.0) Neutrophils # (Auto) 6.7 TH/MM3 (1.8-7.7) Lymphocytes # (Auto) 1.6 TH/MM3 (1.0-4.8) Monocytes # (Auto) 1.3 TH/MM3 (0-0.9) Eosinophils # (Auto) 0.4 TH/MM3 (0-0.4) Basophils # (Auto) 0.1 TH/MM3 (0-0.2) CBC Comment DIFF FINAL Differential Comment Sodium Level 140 MEQ/L (136-145) Potassium Level 4.3 MEQ/L (3.5-5.1) Chloride Level 105 MEQ/L (98-107) Carbon Dioxide Level 27.5 MEQ/L (21.0-32.0) Anion Gap 8 MEQ/L (5-15) Blood Urea Nitrogen 20 MG/DL (7-18) Creatinine 0.92 MG/DL (0.60-1.30) Estimat Glomerular Filtration 88 ML/MIN (>89) Rate Random Glucose 82 MG/DL (74-106) Calcium Level 8.8 MG/DL (8.5-10.1) Result Diagram: 08/30/16 0415 08/30/16 0415 (1) NSTEMI (non-ST elevated myocardial infarction) (2) CAD (coronary artery disease) (3) Delusional disorder (4) Unspecified psychosis (5) Ischemic dilated cardiomyopathy (6) S/P CABG (coronary artery bypass graft) Ermias Arteaga MD Aug 30, 2016 07:47
[2016-08-30] MEDS: POLYETHYLENE GLYCOL 17 GM PKG PO SCH (08:53)
[2016-08-30] MEDS: MAGNESIUM HYDROXIDE SUSP 30 ML CUP PO SCH (08:53)
[2016-08-30] MEDS: CARVEDILOL 6.25 MG TAB PO SCH ×2 (08:53→20:44)
[2016-08-30] MEDS: FUROSEMIDE 40 MG TAB PO SCH (08:54)
[2016-08-30] MEDS: CLOPIDOGREL 75 MG TAB PO SCH (08:54)
[2016-08-30] MEDS: clonazePAM 1 MG TAB PO SCH ×2 (08:54→20:44)
[2016-08-30] MEDS: ASPIRIN 81 MG CHEW TAB PO SCH (08:54)
[2016-08-30] MEDS: DOCUSATE SODIUM 100 MG CAP PO SCH ×2 (08:54→20:44)
[2016-08-30] MEDS: AMIODARONE 200 MG TAB PO SCH ×2 (08:54→20:44)
[2016-08-30] MEDS: MULTIVITAMINS/MINERALS THERAPEUTIC TAB PO SCH (08:55)
[2016-08-30] MEDS: LISINOPRIL 5 MG TAB PO SCH (08:55)
[2016-08-30] MEDS: POTASSIUM CHLORIDE 20 MEQ CONTROLLED RELEASE TAB PO SCH (08:55)
--- NOTE | 2016-08-30 09:29 | HHI.FPPN ---
Subjective Remarks Patient seen and examined this morning. No acute events overnight and VS WNL. His only complaint is chest pain with cough. He endorses multiple BMs since his procedure. When asked to complete incentive spirometry, he shows minimal effort and is unsure of how to complete the activity initially. His facial droop at baseline is stable, but has mildly improved with smile. Otherwise he has no complaints and denies any fevers, chills, SOB, NVD, ABD pain, and calf tenderness. Objective Vitals Vital Signs Date Time Temp Pulse Resp B/P Pulse Ox O2 Delivery O2 Flow Rate FiO2 08/30/16 08:12 75 08/30/16 07:53 95 Nasal Cannula 2.00 08/30/16 07:00 96 Room Air 08/30/16 07:00 71 08/30/16 06:00 66 08/30/16 05:00 64 08/30/16 04:00 66 08/30/16 03:10 73 18 127/83 95 08/30/16 03:10 94 Nasal Cannula 2.00 08/30/16 03:00 69 08/30/16 02:00 72 08/30/16 01:00 74 08/30/16 00:00 70 08/29/16 23:53 94 Nasal Cannula 2.00 08/29/16 23:53 72 16 116/67 94 08/29/16 23:00 72 08/29/16 22:18 96 08/29/16 22:00 84 08/29/16 21:00 72 08/29/16 20:00 72 08/29/16 19:30 98.3 73 18 115/74 95 08/29/16 19:30 95 Nasal Cannula 2.00 08/29/16 19:00 66 08/29/16 18:02 67 08/29/16 17:31 18 08/29/16 17:02 77 08/29/16 16:00 70 08/29/16 15:02 98.0 72 18 106/65 94 08/29/16 15:02 69 08/29/16 15:02 94 Room Air 08/29/16 14:00 73 08/29/16 13:05 65 08/29/16 11:25 98.2 68 18 108/67 94 08/29/16 11:25 68 08/29/16 11:25 94 Room Air 08/29/16 10:17 63 08/29/16 09:48 67 I/O 08/29/16 08/29/16 08/29/16 08/30/16 08/30/16 08/30/16 07:00 15:00 23:00 07:00 15:00 23:00 Intake Total 300 ml 960 ml 500 ml Output Total 800 ml 1050 ml 550 ml Balance -500 ml -90 ml -50 ml Intake Oral 300 ml 960 ml 500 ml Output Urine Total 800 ml 1050 ml 550 ml # Bowel Movements 0 1 1 Result Diagram: 08/30/16 0415 08/30/16 0415 Objective Remarks Gen: WNWD CM sitting up in his recliner watching TV. Slightly improved from prior exams. Currently in NAD. Cardio: RRR with no MGR. Midline chest Prevena applied with appearing CDI with minimal output into reservoir. Pulm: Improved aeration BL overall with continued decreased breath sounds over the L base. No CRW. No increased WOB. ABD: Soft, nontender with +BS. No masses appreciated. MSK: No cyanosis or edema. No BL calf tenderness. LLE harvest site bandaged CDI with tenderness. Neuro: AAOx2. During interview does states that the "clowns and donkeys are outside". When asked about these delusions he changes the topic of conversation. L sided facial drooping at baseline and mildly improved with smile , otherwise CN 2-12 intact. Full upper and lower extremity exam unable to be completed as patient is post-operative, however patient does have appropriate hand strength BL with normal ROM. Negative pronator drift. A/P Assessment and Plan Mr. Mohr is a 46 y/o CM who initially presented with NSTEMI and later to found to have significant multivessel disease on cardiac catheterization. Cardiothoracic surgery was consulted for consideration for bypass, appreciate recommendations. Patient is tentatively scheduled for CABG on 08/26, possibly earlier if there is availability. He was also hospitalized in the psychiatric unit from 08/19-08/22 for psychiatric delusions, but was recently transferred out of the unit due to aggressive behavior and refusal of care. Staff decided that he will be transferred back to the medical floor for monitoring prior to his CABG procedure. CABG was performed without complication on 08/26/16. On 08/28/16 the patient was found to have L sided facial drooping without any other neurological abnormalities with a negative CT scan. Discharge Planning Discharge will depend on post-operative course and Psychiatric clearance. w/d/w Dr. Schumacher, Dr. Barrera Problem List: (1) Facial droop Status: Acute Plan: Patient who is post-op from CABG on 08/26/16 presents with new onset L sided facial drooping on 08/28/16. Otherwise limited neurological exam WNL. Patient was previously on an aspirin, statin, and started on Plavix post- procedure. -CT head: Unremarkable study -Continue to monitor with daily neurological exams Medications: -Plavix 75mg daily -Atorvastatin 80mg QHS -ASA 81mg daily (2) Congestive heart failure Status: Acute Plan: Patient has no significant cardiac history, but endorses heavy salt intake, significant tobacco history. On admission, EKG showed normal sinus rhythm. Q waves in V1, V2, V3, V4. Initial troponin elevated at 2.91, showed further elevations. May be secondary to acute congestive heart failure vs [place]. BNP initially elevated at 993 on admission. He had acute decompensated heart failure. CXR showed cardiomegaly and no acute disease. -Cardiothoracic surgery consulted; appreciate recommendations. * CABG on 08/26/16 without complication. * Cefazolin given Q8H for 5 doses post-operatively; Completed * Roxicodone 5mg Q3H PRN for pain 1-5, 10mg Q3H PRN for pain 6-10; Fentanyl 25mcg Q1H for breakthrough pain * Plavix 75mg daily * Lisinopril 2.5mg daily * Amiodarone 400mg BID * Signed off 08/29/16 -Cardiology consulted, appreciate recommendations * Patient does not meet criteria for Livevest at this time * Unsure if patient could/would wear vest (states he will not) where the patient is discharged to (SNF, Med/Psych, Psych unit) due to safety reasons -Lasix 40 mg po daily. -Low-salt diet less than 2 g per day. -Fluid restrict to 1.5 L per day. -Strict Is and Os. Daily weights. -Supplemental oxygen and monitor on pulse ox. -Telemetry Imaging Echo 08/13/16: EF 15-20% Echo 08/17/16: Normal cavity size, wall thickness within normal limits. Systolic function was mildly reduced. Estimated EF 45-50%. Carotid artery ultrasound 08/11: Normal hemodynamic profile of both carotids Lower extremity ultrasound 08/11: Negative for DVT bilaterally, venous mapping per report (3) Atelectasis Status: Acute Plan: Patient s/p CABG on 08/27 with decreased breath sounds over L lung base. Patient's exam improved today, however oxygen saturations remain 91-93% on 2L. -CXR 08/27: Worsening density of L lung base now with loss of L hemidiaphragm suspicious for ongoing atelectasis. All tubes and catheters in good position post-extubation. -Incentive spirometry and acapella encouraged with DuoNeb PRN -Discussed with nursing staff to assist patient with incentive spirometry and acapella with and in between vital sign checks to increase aeration (4) NSTEMI (non-ST elevated myocardial infarction) Status: Acute Plan: EKG showed normal sinus rhythm. Q waves in V1, V2, V3, V4. No chest pain on admission, patient denied angina in the past. Unsure if CHF leading to NSTEMI or heart damage in the past causing acute CHF -Cardiology consulted, appreciate recommendations and intervention * Cardiac catheterization significant for severe multivessel disease, significantly elevated wedge and pulmonary artery pressures, see plan for diuresis above. * Patient would be a poor candidate for high risk stent placement, recommend CABG procedure -ASA 81 mg daily -Lipitor 80mg HS -Coreg 12.5mg PO BID -See plan above (5) Unspecified psychosis Status: Chronic Plan: Patient recently admitted to Med/Psych due to unspecified psychosis, concern for possible schizophrenia. Patient's depressed mood/affect could be attributed to recent increase on Abilify and Clonazepam. -Per Dr. Nelson, patient is to be transferred back to the Medical floor as he would no longer benefit from further stay on Med/Psych. * Consider inpatient psych treatment pending post-operative course * As CT surgery has signed off, team will consult Psychiatry to assist with the patient's medical plan going forward -Abilify 30mg daily -Clonazepam 1 mg BID (6) FEN Status: Acute Plan: Fluids: Fluid restriction Electrolytes:WNL, continue to monitor. Nutrition: Heart healthy, NA restriction DVT ppx: DA/SCDs Diet: Heart Healthy Prophylaxis: Zofran PRN for [place], DuoNeb PRN for wheezing/SOB, Hydralazine PRN for HTN, Metoprolol PRN for tachycardia/HTN Maxi Leach MD R1 Aug 30, 2016 09:29
[2016-08-30] MEDS: SODIUM CHLORIDE 0.9% FLUSH 10 ML FLUSH IV FLUSH SCH ×2 (09:31→20:45)
[2016-08-30] MEDS ORDERED: POTA20TA5 PO (09:37)
[2016-08-30] MEDS ORDERED: ABIL30TA2 PO (09:37)
[2016-08-30] MEDS ORDERED: CLON1 PO (09:37)
[2016-08-30] MEDS ORDERED: ASPI81CH CHEW (09:37)
[2016-08-30] MEDS ORDERED: CARV6.25 PO (09:37)
[2016-08-30] MEDS ORDERED: PANT40TA3 PO (09:37)
[2016-08-30] MEDS ORDERED: DOCU1CAP39 PO (09:37)
[2016-08-30] MEDS ORDERED: OXYC-392 PO (09:37)
[2016-08-30] MEDS ORDERED: AMIO200T PO (09:37)
[2016-08-30] MEDS ORDERED: PLAV75TA29 PO (09:37)
[2016-08-30] MEDS ORDERED: LISI-519 PO (09:37)
[2016-08-30] MEDS ORDERED: ATOR40TA16 PO (09:37)
[2016-08-30] MEDS ORDERED: FURO40TA PO (09:37)
--- NOTE | 2016-08-30 09:38 | HHI.DCPOC ---
Discharge Care Plan Diagnosis: (1) NSTEMI (non-ST elevated myocardial infarction) (2) Unspecified psychosis (3) Facial droop (4) Atelectasis Goals to Promote Your Health * To prevent worsening of your condition and complications * To maintain your health at the optimal level Directions to Meet Your Goals Take your medications as prescribed Follow your dietary instruction Follow activity as directed Keep your appointments as scheduled Take your immunizations and boosters as scheduled If your symptoms worsen call your PCP, if no PCP go to Urgent Care Center or Emergency Room Smoking is Dangerous to Your Health. Avoid second hand smoke Call the 24-hour hour crisis hotline for domestic abuse at Maxi Leach MD R1 Aug 30, 2016 09:38
[2016-08-30] MEDS: ARIPiprazole 30 MG TAB PO SCH (09:46)
[2016-08-30] MEDS ORDERED: ALBUAER3 INH (10:15)
--- NOTE | 2016-08-30 10:19 | PD.CONS ---
Provisional Diagnosis Admission Date Aug 21, 2016 at 22:30 [place]. Adjustment disorder with anxiety History of Present Illness Service Psychiatry Consult Requested By Dr. Schumacher Primary Care Physician No Primary Care Physician HPI 46-year-old male status post cardiac intervention. This physician was consulted to determine necessity of possible transfer to psychiatry. Patient is awake and alert and has a sense of humor with this physician. No suicidal or homicidal ideation, plan or intention. No psychotic thinking. Wanting to get better physically. Review of Systems ROS Limitations: Clinical Condition Past Family Social History Coded Allergies: Darvocet-N 100 (Verified Allergy, Severe, HEADACHE, 08/07/16) Active Scripts Albuterol 8.5 GM Inh (Proair Hfa 8.5 GM Inh)90 Mcg/Act Aer2 Puff INH Q4-6H PRN ( SHORTNESS OF BREATH) #1 INHALER Ref 1 108 mcg/actuation Prov:Maxi Leach MD R1 08/30/16 Oxycodone 5 Mg Tab5 Mg PO Q3H PRN (PAIN SCALE 5 TO 10) #30 TAB Ref 0 Prov:Maxi Leach MD R1 08/30/16 Docusate Sodium (Dok)100 Mg Oum387 Mg PO BID #30 CAP Ref 1 Prov:Maxi Leach MD R1 08/30/16 Aspirin 81 Mg Chew81 Mg CHEW ONCE #30 TAB Ref 1 Prov:Maxi Leach MD R1 08/30/16 Potassium Chloride Microencaps 20 Meq Tab20 Meq PO DAILY #30 TAB Ref 1 Prov:Maxi Leach MD R1 08/30/16 Pantoprazole 40 Mg Tab40 Mg PO DAILY@06 #30 TAB Ref 1 Prov:Maxi Leach MD R1 08/30/16 Lisinopril 5 Mg Tab2.5 Mg PO DAILY #30 TAB Ref 1 Prov:Maxi Leach MD 08/30/16 Furosemide 40 Mg Tab40 Mg PO DAILY #30 TAB Ref 1 Prov:Maxi Leach MD 08/30/16 Clopidogrel (Plavix)75 Mg Tab75 Mg PO DAILY #30 TAB Ref 1 Prov:Maxi Leach MD R1 08/30/16 Clonazepam (Klonopin)1 Mg Tab1 Mg PO Q12HR #60 TAB Ref 1 Prov:Maxi Leach MD 08/30/16 Carvedilol (Coreg)6.25 Mg Tab3.125 Mg PO BID #60 TAB Ref 1 Prov:Maxi Leach MD 08/30/16 Atorvastatin 40 Mg Tab80 Mg PO HS #30 TAB Ref 1 Prov:Maxi Leach MD 08/30/16 Aripiprazole (Abilify)30 Mg Tab30 Mg PO DAILY #30 TAB Ref 1 Prov:Maxi Leach MD 08/30/16 Amiodarone 200 Mg Xet959 Mg PO Q12HR #60 TAB Ref 1 Prov:Maxi Leach MD 08/30/16 Furosemide 40 Mg Tab40 Mg PO DAILY #30 TAB Prov:Maxi Leach MD 08/18/16 Potassium Chloride Microencaps 20 Meq Tab20 Meq PO BID #60 TAB Prov:Maxi Leach MD 08/18/16 Carvedilol (Coreg)12.5 Mg Tab12.5 Mg PO Q12HR #30 TAB Prov:Maxi Leach MD 08/18/16 Atorvastatin 80 Mg Tab80 Mg PO HS #30 TAB Prov:Maxi Leach MD 08/18/16 [Aspirin] (Aspirin Chew)81 MG CHEW No Conflict Check81 Mg CHEW DAILY #30 TAB.CHEW Prov:Maxi Leach MD 08/18/16 Aripiprazole 5 Mg Tab10 Mg PO DAILY #30 TAB Prov:Maxi Leach MD 08/18/16 Reported Medications Furosemide 40 Mg Tab40 Mg PO DAILY #30 TAB Ref 0 08/18/16 Current Medications Medications (Trade) Dose Ordered Sig/Ximena Route Start Time Stop Time Status Last Admin (Narcan Inj) 0.4 mg UNSCH PRN IV 08/22/16 00:30 (Lipitor) 80 mg HS PO 08/22/16 21:00 08/29/16 21:52 (Lasix) 40 mg DAILY PO 08/23/16 09:00 08/30/16 08:54 (NS Flush) 2 ml BID IV FLUSH 08/24/16 21:00 08/30/16 09:31 (NS Flush) 2 ml UNSCH PRN IV FLUSH 08/24/16 13:30 (Abilify) 30 mg DAILY PO 08/26/16 09:00 08/30/16 09:46 (KlonoPIN) 1 mg Q12HR PO 08/25/16 21:00 08/30/16 08:54 (Aspirin Chew) 81 mg DAILY PO 08/27/16 09:00 08/30/16 08:54 (Plavix) 75 mg DAILY PO 08/27/16 09:00 08/30/16 08:54 (Protonix) 40 mg DAILY@06 PO 08/27/16 06:00 08/30/16 06:14 (Tylenol) 650 mg Q4H PRN PO 08/26/16 13:45 (Zofran Inj) 4 mg Q6H PRN IV PUSH 08/26/16 13:45 (D50w (Vial) Inj) 25 ml UNSCH PRN IV PUSH 08/26/16 13:45 (Roxicodone) 5 mg Q3H PRN PO 08/27/16 08:15 08/30/16 09:31 (Colace) 100 mg BID PO 08/27/16 10:00 08/30/16 08:54 (Theragran M Tab) 1 tab DAILY PO 08/28/16 09:00 08/30/16 08:55 (Milk Of Magnesia Liq) 30 ml DAILY PO 08/28/16 09:00 08/30/16 08:53 (Miralax) 17 gm DAILY PO 08/28/16 09:00 08/30/16 08:53 (Senokot) 8.6 mg HS PO 08/27/16 21:00 08/28/16 21:18 (Fleets Enema (Adult)) 133 ml UNSCH PRN RECTAL 08/27/16 10:00 (D50w (Vial) Inj) 25 ml UNSCH PRN IV 08/27/16 10:00 (Glucagon Inj) 1 mg UNSCH PRN OTHER 08/27/16 10:00 (Coreg) 3.125 mg BID PO 08/27/16 21:00 08/30/16 08:53 (KCl) 20 meq DAILY PO 08/29/16 09:00 08/30/16 08:55 (NovoLOG SUPPLEMENTAL SCALE) 1 ACHS SQ 08/28/16 11:00 08/29/16 16:00 (Prinivil) 2.5 mg DAILY PO 08/29/16 09:00 08/30/16 08:55 (Pill Splitter) 1 ea UNSCH PRN OTHER 08/28/16 12:00 (Cordarone) 200 mg Q12HR PO 08/28/16 21:00 09/11/16 09:00 08/30/16 08:54 (Dulcolax Supp) 10 mg DAILY PRN RECTAL 08/29/16 17:30 08/29/16 17:44 Family History Reports a family history of anxiety. Social History Lives by himself. Does not smoke, drink alcohol or take illicit drugs. Patient's Strengths (min. 2) Verbal and resilient. Physical Exam Vital Signs Vital Signs Date Time Temp Pulse Resp B/P Pulse Ox O2 Delivery O2 Flow Rate FiO2 08/30/16 08:12 75 08/30/16 07:53 95 Nasal Cannula 2.00 08/30/16 07:00 98.3 20 136/79 08/28/16 21:33 21 I/O 08/29/16 08/29/16 08/30/16 08:00 16:00 00:00 Intake Total 300 ml 960 ml Output Total 800 ml 1050 ml Balance -500 ml -90 ml Mental Status Examination Speech: Unremarkable Orientation: x3 Memory: Unremarkable Thought Process: Organized, Goal Directed Thought Content: Unremarkable Hallucination Type: None Attention and Concentration: Good Suicidal Ideation: No Previous Suicide Attempts: No Homicidal Ideation: No Previous Homicide Attempts: No Insight: Fair Judgment: WNL Affect: Good Mood: Appropriate Motor Activity: Normal gait Assessment & Plan Problem List: (1) Adjustment disorder with anxiety ICD Code: F43.22 Assessment & Plan Estimated LOS: days no plan or need to transfer to inpatient psychiatry at this time. This physician did review the record and notes the previous diagnosis of delusional disorder but the patient does not have evidence of such today. Segun Hernandez MD Aug 30, 2016 10:19
--- NOTE | 2016-08-30 10:30 | PD.CARD.PN ---
Subjective Subjective Remarks Doing well, up and ambulating Objective Medications Current Medications Medications (Trade) Dose Ordered Sig/Ximena Route Start Time Stop Time Status Last Admin (Narcan Inj) 0.4 mg UNSCH PRN IV 08/22/16 00:30 (Lipitor) 80 mg HS PO 08/22/16 21:00 08/29/16 21:52 (Lasix) 40 mg DAILY PO 08/23/16 09:00 08/30/16 08:54 (NS Flush) 2 ml BID IV FLUSH 08/24/16 21:00 08/30/16 09:31 (NS Flush) 2 ml UNSCH PRN IV FLUSH 08/24/16 13:30 (Abilify) 30 mg DAILY PO 08/26/16 09:00 08/30/16 09:46 (KlonoPIN) 1 mg Q12HR PO 08/25/16 21:00 08/30/16 08:54 (Aspirin Chew) 81 mg DAILY PO 08/27/16 09:00 08/30/16 08:54 (Plavix) 75 mg DAILY PO 08/27/16 09:00 08/30/16 08:54 (Protonix) 40 mg DAILY@06 PO 08/27/16 06:00 08/30/16 06:14 (Tylenol) 650 mg Q4H PRN PO 08/26/16 13:45 (Zofran Inj) 4 mg Q6H PRN IV PUSH 08/26/16 13:45 (D50w (Vial) Inj) 25 ml UNSCH PRN IV PUSH 08/26/16 13:45 (Roxicodone) 5 mg Q3H PRN PO 08/27/16 08:15 08/30/16 09:31 (Colace) 100 mg BID PO 08/27/16 10:00 08/30/16 08:54 (Theragran M Tab) 1 tab DAILY PO 08/28/16 09:00 08/30/16 08:55 (Milk Of Magnesia Liq) 30 ml DAILY PO 08/28/16 09:00 08/30/16 08:53 (Miralax) 17 gm DAILY PO 08/28/16 09:00 08/30/16 08:53 (Senokot) 8.6 mg HS PO 08/27/16 21:00 08/28/16 21:18 (Fleets Enema (Adult)) 133 ml UNSCH PRN RECTAL 08/27/16 10:00 (D50w (Vial) Inj) 25 ml UNSCH PRN IV 08/27/16 10:00 (Glucagon Inj) 1 mg UNSCH PRN OTHER 08/27/16 10:00 (Coreg) 3.125 mg BID PO 08/27/16 21:00 08/30/16 08:53 (KCl) 20 meq DAILY PO 08/29/16 09:00 08/30/16 08:55 (NovoLOG SUPPLEMENTAL SCALE) 1 ACHS SQ 08/28/16 11:00 08/29/16 16:00 (Prinivil) 2.5 mg DAILY PO 08/29/16 09:00 08/30/16 08:55 (Pill Splitter) 1 ea UNSCH PRN OTHER 08/28/16 12:00 (Cordarone) 200 mg Q12HR PO 08/28/16 21:00 09/11/16 09:00 08/30/16 08:54 (Dulcolax Supp) 10 mg DAILY PRN RECTAL 08/29/16 17:30 08/29/16 17:44 Vital Signs / I&O Vital Signs Date Time Temp Pulse Resp B/P Pulse Ox O2 Delivery O2 Flow Rate FiO2 08/30/16 10:16 72 08/30/16 09:00 70 08/30/16 08:12 75 08/30/16 07:53 95 Nasal Cannula 2.00 08/30/16 07:00 96 Room Air 08/30/16 07:00 98.3 71 20 136/79 96 08/30/16 07:00 71 08/30/16 06:00 66 08/30/16 05:00 64 08/30/16 04:00 66 08/30/16 03:10 73 18 127/83 95 08/30/16 03:10 94 Nasal Cannula 2.00 08/30/16 03:00 69 08/30/16 02:00 72 08/30/16 01:00 74 08/30/16 00:00 70 08/29/16 23:53 94 Nasal Cannula 2.00 08/29/16 23:53 72 16 116/67 94 08/29/16 23:00 72 08/29/16 22:18 96 08/29/16 22:00 84 08/29/16 21:00 72 08/29/16 20:00 72 08/29/16 19:30 98.3 73 18 115/74 95 08/29/16 19:30 95 Nasal Cannula 2.00 08/29/16 19:00 66 08/29/16 18:02 67 08/29/16 17:31 18 08/29/16 17:02 77 08/29/16 16:00 70 08/29/16 15:02 98.0 72 18 106/65 94 08/29/16 15:02 69 08/29/16 15:02 94 Room Air 08/29/16 14:00 73 08/29/16 13:05 65 08/29/16 11:25 98.2 68 18 108/67 94 08/29/16 11:25 68 08/29/16 11:25 94 Room Air I/O 08/29/16 08/29/16 08/29/16 08/30/16 08/30/16 08/30/16 07:00 15:00 23:00 07:00 15:00 23:00 Intake Total 300 ml 960 ml 500 ml Output Total 800 ml 1050 ml 550 ml Balance -500 ml -90 ml -50 ml Intake Oral 300 ml 960 ml 500 ml Output Urine Total 800 ml 1050 ml 550 ml # Bowel Movements 0 1 1 Physical Exam GENERAL: NAD, AAOx3 SKIN: Warm and dry. HEAD: Atraumatic. Normocephalic. EYES: Pupils equal and round. No scleral icterus. No injection or drainage. ENT: No nasal bleeding or discharge. Mucous membranes pink and moist. NECK: Trachea midline. No JVD. CARDIOVASCULAR: Regular rate and rhythm. RESPIRATORY: No accessory muscle use. Clear to auscultation. Breath sounds equal bilaterally. GASTROINTESTINAL: Abdomen soft, non-tender, nondistended. Hepatic and splenic margins not palpable. MUSCULOSKELETAL: Extremities without clubbing, cyanosis, or edema. No obvious deformities. NEUROLOGICAL: Awake and alert. No obvious cranial nerve deficits. Motor grossly within normal limits. Five out of 5 muscle strength in the arms and legs. Normal speech. PSYCHIATRIC: Appropriate mood and affect; insight and judgment normal. Laboratory Laboratory Tests Test 08/30/16 04:15 White Blood Count 10.0 TH/MM3 Red Blood Count 3.57 MIL/MM3 Hemoglobin 10.2 GM/DL Hematocrit 30.4 % Mean Corpuscular Volume 85.0 FL Mean Corpuscular Hemoglobin 28.4 PG Mean Corpuscular Hemoglobin 33.4 % Concent Red Cell Distribution Width 15.2 % Platelet Count 187 TH/MM3 Mean Platelet Volume 8.5 FL Neutrophils (%) (Auto) 67.4 % Lymphocytes (%) (Auto) 15.8 % Monocytes (%) (Auto) 12.6 % Eosinophils (%) (Auto) 3.5 % Basophils (%) (Auto) 0.7 % Neutrophils # (Auto) 6.7 TH/MM3 Lymphocytes # (Auto) 1.6 TH/MM3 Monocytes # (Auto) 1.3 TH/MM3 Eosinophils # (Auto) 0.4 TH/MM3 Basophils # (Auto) 0.1 TH/MM3 CBC Comment DIFF FINAL Differential Comment Sodium Level 140 MEQ/L Potassium Level 4.3 MEQ/L Chloride Level 105 MEQ/L Carbon Dioxide Level 27.5 MEQ/L Anion Gap 8 MEQ/L Blood Urea Nitrogen 20 MG/DL Creatinine 0.92 MG/DL Estimat Glomerular Filtration 88 ML/MIN Rate Random Glucose 82 MG/DL Calcium Level 8.8 MG/DL Assessment and Plan Problem List: (1) NSTEMI (non-ST elevated myocardial infarction) (2) CAD (coronary artery disease) (3) Delusional disorder (4) Unspecified psychosis (5) Ischemic dilated cardiomyopathy (6) S/P CABG (coronary artery bypass graft) Assessment and Plan 1) Doing well post-operatively 2) Asked to see about Lifevest Last echo showing mildly reduced myocardial ejection fraction 45-50% ( appears generous but results from [facility]), previous echocardiogram before that reviewed showing probably EF 35-40% Does not fit criteria at this time for Lifevest 3) Would continue with medical management If he qualified for a Lifevest unsure if he would wear it (he says he won't) and if it's allowed to have it wherever he goes (SNF, Med/Psych floor, Psych unit), lastly being homeless not sure how that goes with being checked up on during his time with the Lifevest. 4) Cardiovascularly stable for discharge, will see PRN, call with questions Byron Franz DO Aug 30, 2016 10:30
--- NOTE | 2016-08-30 10:33 | HHI.PR ---
Addendum to Inpatient Note Addendum Reason: Additional Documentation Additional Information Off Service Note Mr. Mohr is a 46 y/o CM who initially presented with NSTEMI and later to found to have significant multivessel disease on cardiac catheterization. Cardiothoracic surgery was consulted for consideration for bypass as he was a poor candidate for high risk catheterization per Cardiology. However he was then found to have acute psychosis and Psychiatry was consulted. He was then hospitalized in the psychiatric unit from 08/19-08/22 for inpatient psychiatric treatment, but was transferred out of the unit due to aggressive behavior and refusal of care. Psychiatric and Cardiothoracic surgery staff decided that he would be transferred back to the medical floor for monitoring prior to his CABG procedure. CABG was performed without complication on 08/26/16. On 08/28/16 the patient was found to have L sided facial drooping without any other neurological abnormalities with a negative CT scan. CT surgery signed of on 08/29 and Psychiatry was reconsulted to assist with transfer back to Med/Psych for further treatment of his psychosis. Maxi Leach MD R1 Aug 30, 2016 10:33
[2016-08-30] MEDS: ATORVASTATIN 40 MG TAB PO SCH (20:44)
[2016-08-30] MEDS: SENNOSIDES 8.6 MG TAB PO SCH (20:44)
[2016-08-31] VITALS (29 sets, daily range): BP systolic 105–121; BP diastolic 60–85; PULSE 61–77; RESP 16–20; TEMP 97.5–98.4; O2SAT 95–100
[2016-08-31] MEDS: PANTOPRAZOLE SOD 40 MG DELAYED RELEASE TAB PO SCH (03:45)
[2016-08-31] MEDS ORDERED: RESP: ALBUTEROL 2.5 MG/IPRATROPIUM 0.5 MG NEB (PRN) NEB (05:00)
--- NOTE | 2016-08-31 06:28 | RADRPT ---
EXAM DATE/TIME: 08/31/2016 05:36 [place] COMPARISON: CHEST SINGLE AP, August 29, 2016, 6:22. INDICATIONS : Congestion. MEDICAL HISTORY : Dyspnea. SURGICAL HISTORY : CABG. ENCOUNTER: Subsequent ACUITY: 4 - 6 days PAIN SCORE: Non-responsive. LOCATION: Bilateral chest FINDINGS: The atelectasis in the right midlung has improved. The right lung is grossly clear. There continues t o be some platelike atelectasis in the left midlung. The heart size is enlarged but stable. There is no evidence of any significant pleural effusions. There is evidence of previous cardiothoracic surger y. There is mild pulmonary venous congestion. CONCLUSION: 1. Mild pulmonary venous congestion. 2. Stable cardiomegaly. 3. Platelike atelectasis in the left midlung. Wilfred Enamorado MD on August 31, 2016 at 6:25 Board Certified Radiologist. This report was verified electronically.
[2016-08-31] MEDS: INSULIN ASPART SUPPLEMENTAL SCALE SQ SCH ×4 (06:34→21:00)
[2016-08-31 06:55] LABS: AUTOMATED NEUTROPHIL # 6.7 TH/MM3 (1.8-7.7); BASOPHIL % 0.5 % (0.0-2.0); EOSINOPHIL # 0.5 TH/MM3 (0-0.4); EOSINOPHIL % 4.6 % (0.0-4.0); HEMATOCRIT 31.6 % (39.0-51.0); HEMO FLAGS DIFF FINAL; LYMPH % 14.5 % (9.0-44.0); LYMPHOCYTE # 1.4 TH/MM3 (1.0-4.8); MEAN CELL VOLUME 86.2 FL (80.0-100.0); MEAN CORPUSCULAR HEMOGLOBIN 28.5 PG (27.0-34.0); MONO % 13.4 % (0.0-8.0); PLATELET COUNT 221 TH/MM3 (150-450); RED BLOOD COUNT 3.66 MIL/MM3 (4.50-5.90); WHITE BLOOD COUNT 9.9 TH/MM3 (4.0-11.0)
[2016-08-31 07:14] LABS: BICARBONATE 29.3 MEQ/L (21.0-32.0); POTASSIUM 4.4 MEQ/L (3.5-5.1)
[2016-08-31] MEDS: POLYETHYLENE GLYCOL 17 GM PKG PO SCH (09:00)
[2016-08-31] MEDS: ARIPiprazole 30 MG TAB PO SCH (09:00)
[2016-08-31] MEDS: clonazePAM 1 MG TAB PO SCH ×2 (09:00→20:28)
[2016-08-31] MEDS: CARVEDILOL 6.25 MG TAB PO SCH ×2 (09:00→20:27)
[2016-08-31] MEDS: CLOPIDOGREL 75 MG TAB PO SCH (09:00)
[2016-08-31] MEDS: DOCUSATE SODIUM 100 MG CAP PO SCH ×2 (09:00→20:28)
[2016-08-31] MEDS: AMIODARONE 200 MG TAB PO SCH ×2 (09:00→20:28)
[2016-08-31] MEDS: LISINOPRIL 5 MG TAB PO SCH (09:12)
[2016-08-31] MEDS: MAGNESIUM HYDROXIDE SUSP 30 ML CUP PO SCH (09:12)
[2016-08-31] MEDS: FUROSEMIDE 40 MG/4 ML VIAL IV PUSH SCH ×2 (09:12→17:21)
[2016-08-31] MEDS: POTASSIUM CHLORIDE 20 MEQ CONTROLLED RELEASE TAB PO SCH ×2 (09:12→21:00)
[2016-08-31] MEDS: MULTIVITAMINS/MINERALS THERAPEUTIC TAB PO SCH (09:12)
[2016-08-31] MEDS: ASPIRIN 81 MG CHEW TAB PO SCH (09:13)
[2016-08-31] MEDS: SODIUM CHLORIDE 0.9% FLUSH 10 ML FLUSH IV FLUSH SCH ×2 (09:14→21:00)
--- NOTE | 2016-08-31 09:18 | HHI.FPPN ---
Subjective Remarks Patient states he is doing well this morning. He continues to have mild chest pain when he coughs, but otherwise denies chest pain. Denies nausea, vomiting, shortness of breath, fever, chills, diarrhea. Objective Vitals Vital Signs Date Time Temp Pulse Resp B/P Pulse Ox O2 Delivery O2 Flow Rate FiO2 08/31/16 06:00 66 08/31/16 05:00 61 08/31/16 04:45 24 08/31/16 04:00 71 08/31/16 03:00 97 Nasal Cannula 2.00 08/31/16 03:00 73 08/31/16 03:00 98.4 73 18 105/60 97 08/31/16 02:00 68 08/31/16 01:00 67 08/31/16 00:00 68 08/30/16 23:00 67 08/30/16 23:00 98.8 67 16 111/69 99 08/30/16 23:00 99 Nasal Cannula 2.00 08/30/16 22:00 70 08/30/16 21:00 71 08/30/16 20:34 94 21 08/30/16 20:00 69 08/30/16 19:00 98.7 76 18 117/81 98 08/30/16 19:00 98 Nasal Cannula 2.00 08/30/16 19:00 76 08/30/16 18:00 70 08/30/16 17:00 63 08/30/16 16:00 66 08/30/16 15:00 96 Room Air 08/30/16 15:00 63 08/30/16 15:00 69 08/30/16 15:00 98.7 65 16 131/79 96 08/30/16 14:46 70 08/30/16 13:00 67 08/30/16 12:00 71 08/30/16 11:00 95 Room Air 08/30/16 11:00 98.6 69 16 107/65 95 08/30/16 11:00 66 08/30/16 10:16 72 I/O 08/30/16 08/30/16 08/30/16 08/31/16 08/31/16 08/31/16 07:00 15:00 23:00 07:00 15:00 23:00 Intake Total 500 ml 1060 ml 720 ml Output Total 550 ml 1050 ml 1150 ml Balance -50 ml 10 ml -430 ml Intake Oral 500 ml 1060 ml 720 ml IV Total 0 ml Output Urine Total 550 ml 1050 ml 1150 ml # Bowel Movements 1 0 Result Diagram: 08/31/1661208/31/16612 Imaging Last Impressions Chest X-Ray 08/31/16 0000 Signed Impressions: Service Date/Time: Wednesday, August 31, 2016 05:36 - CONCLUSION: 1. Mild pulmonary venous congestion. 2. Stable cardiomegaly. 3. Platelike atelectasis in the left midlung. Wilfred Enamorado MD Head CT 08/28/16 0000 Signed Impressions: Service Date/Time: Sunday, August 28, 2016 10:28 - CONCLUSION: Unremarkable study. Faviola Daigle MD Objective Remarks Gen: WNWD CM sitting up. Currently in NAD. Cardio: RRR with no MGR. Pulm: Good aeration bilaterally overall with continued decreased breath sounds over the L base. No CRW. No increased WOB. ABD: Soft, nontender with +BS. No masses appreciated. MSK: No cyanosis or edema. No BL calf tenderness. LLE harvest site bandaged CDI with tenderness. Neuro: AAOx2. Tangential. Appears anxious and frequently shaky throughout exam. L sided facial drooping at baseline and mildly improved with smile, otherwise CN 2-12 intact. Full upper and lower extremity exam unable to be completed as patient is post-operative, however patient does have appropriate hand strength BL with normal ROM. Negative pronator drift. A/P Assessment and Plan Mr. Mohr is a 46 y/o CM who initially presented with NSTEMI and later to found to have significant multivessel disease on cardiac catheterization. Patient is status post CABG on 08/26. Doing well from a cardiovascular standpoint and stable for discharge. Patient also suffers from psychiatric illness. Psychiatry consulted on 08/30 and diagnosed with adjustment disorder with anxiety. Discharge Planning Discharge will depend on post-operative course and Psychiatric clearance. Problem List: (1) Facial droop Status: Acute Plan: Patient was previously on an aspirin, statin, and started on Plavix post -procedure. -CT head: Unremarkable study -Continue to monitor with daily neurological exams Medications (to continue on discharge): -Plavix 75mg daily -Atorvastatin 80mg QHS -ASA 81mg daily (2) Congestive heart failure Status: Acute Plan: BNP initially elevated at 993 on admission. 08/31 BNP 519 Last echo 08/17 showed mildly reduced ejection fraction of 45-50%. Cardiology consulted and patient does not meet criteria for LifeVest at this time. -Cardiothoracic surgery consulted; appreciate recommendations. * CABG on 08/26/16 without complication. * Plavix 75mg daily * Lisinopril 2.5mg daily * Amiodarone 400mg BID * Signed off 08/29/16 -Lasix 40 mg po daily. -Low-salt diet less than 2 g per day. -Fluid restrict to 1.5 L per day. -Strict Is and Os. Daily weights. -Supplemental oxygen and monitor on pulse ox. -Telemetry Imaging Echo 08/13/16: EF 15-20% Echo 08/17/16: Normal cavity size, wall thickness within normal limits. Systolic function was mildly reduced. Estimated EF 45-50%. Carotid artery ultrasound 08/11: Normal hemodynamic profile of both carotids Lower extremity ultrasound 08/11: Negative for DVT bilaterally, venous mapping per report (3) Atelectasis Status: Acute Plan: -Incentive spirometry and acapella encouraged with DuoNeb PRN -Discussed with nursing staff to assist patient with incentive spirometry and acapella with and in between vital sign checks to increase aeration (4) NSTEMI (non-ST elevated myocardial infarction) Status: Acute Plan: -Cardiology consulted, appreciate recommendations and intervention (see above) -ASA 81 mg daily -Lipitor 80mg HS -Coreg 12.5mg PO BID -See plan above (5) Adjustment disorder with anxiety Status: Acute Plan: Patient recently admitted to Med/Psych due to unspecified psychosis, concern for possible schizophrenia. Psychiatry consulted- diagnosed with adjustment disorder with anxiety. No plan/ need for inpatient psychiatry at this time. -Clonazepam 1 mg BID (6) FEN Status: Acute Plan: Fluids: Fluid restriction Electrolytes:WNL, continue to monitor. Nutrition: Heart healthy, NA restriction DVT ppx: DA/SCDs Diet: Heart Healthy Prophylaxis/when necessary medications: Zofran PRN for NV, DuoNeb PRN for wheezing/SOB, Hydralazine PRN for HTN, Metoprolol PRN for tachycardia/HTN Papi Lagn MD R2 Aug 31, 2016 09:18
--- NOTE | 2016-08-31 12:56 | PD.CAR.PN ---
CVT Progress Note CVT: POD #: 5 Subjective/Hospital Course: 46 male , no prior medical HX or medical treatment , has not seen MD in over 20years. " didn't have any problems". Homeless, Admitted to ED with SOB, lower ext and scrotal edema , + NSTEMI , acute onset of CHF / BNP 900/ ECHO showed EF 15-20% severe systolic dysfunction . Underwent cardiac cath by Dr Franz showing multi vessel disease / PA pressure 59/34/ wedge pressure of 32 / LVEDP 42. STS data Morbidity or Mortality of 20.45 % Pt also has some psych issues / was seen and eval by Psych Dr Nelson , felt pt had delusional and psychotic symptoms , 08/24 pt now on abilify, stable for surgery scheduled for wed will have Dr Haines follow pt as post op 08/25 no chest pain scheduled for surgery in am 08/26 surgery 1. Urgent Off-pump Coronary Artery Bypass Grafting x 3 with left internal mammary artery (FLOREZ) to left anterior descending (LAD), reverse saphenous vein graft to the RCA, reverse saphenous vein graft to the terminal Left Circumflex Artery 2. Left Leg Endoscopic Vein [place] 3600cc/ crystalloid, 500cc cell saver, 300cc EBL extubated after surgery 08/27 pt up in chair, sleepy , will need to decrease sedatives ( trazadone, and change to norco ) EF 15 % intraop will need eval for Life vest and start SHEEBA when tolerates concern is that pt is homeless CXR shows some consolidation left lower lobe on ASa, statin, start coreg this evening transfer to stepdown 08/28 pt seen by PCP this am , felt that pt had mild left facial drooping stat CT neg pt speech clear / 5/5 upper and lower ext / no ptosis will monitor on ASA and plavix start low dose SHEEBA , await eval from Dr Franz regarding need for Life Vest OT eval , chest tube removed without difficulty 08/29 Doing well Case management to assist with discharge planning. OK from my standpoint 08/30 Doing well Discharge disposition pending 08/31 BNP 569 additional diuresis today / ok for dc from [facility] standpoint, wound continue amiodarone x 14 days lasix 40mg / potassium po daily on room air/ remove prevena dressing today Objective: GENERAL: SKIN: Warm and dry./ prevena to chest HEAD: Normocephalic. EYES: No scleral icterus. No injection or drainage. NECK: Supple, trachea midline. No JVD or lymphadenopathy. CARDIOVASCULAR: Regular rate and rhythm without murmurs, gallops, or rubs. RESPIRATORY: Breath sounds equal bilaterally. No accessory muscle use few basilar crackles . GASTROINTESTINAL: Abdomen soft, non-tender, nondistended. MUSCULOSKELETAL: No cyanosis, or edema. BACK: Nontender without obvious deformity. No CVA tenderness. Vital Signs Date Time Temp Pulse Resp B/P Pulse Ox O2 Delivery O2 Flow Rate FiO2 08/31/16 12:01 61 08/31/16 11:40 65 08/31/16 11:27 100 Room Air 08/31/16 11:27 97.5 66 16 108/68 100 08/31/16 10:00 74 08/31/16 09:00 64 08/31/16 08:45 97.8 71 18 121/85 95 08/31/16 08:45 95 Room Air 08/31/16 08:00 66 08/31/16 07:00 67 08/31/16 06:00 66 08/31/16 05:00 61 08/31/16 04:45 24 08/31/16 04:00 71 08/31/16 03:00 97 Nasal Cannula 2.00 08/31/16 03:00 73 08/31/16 03:00 98.4 73 18 105/60 97 08/31/16 02:00 68 08/31/16 01:00 67 08/31/16 00:00 68 08/30/16 23:00 67 08/30/16 23:00 98.8 67 16 111/69 99 08/30/16 23:00 99 Nasal Cannula 2.00 08/30/16 22:00 70 08/30/16 21:00 71 08/30/16 20:34 94 21 08/30/16 20:00 69 08/30/16 19:00 98.7 76 18 117/81 98 08/30/16 19:00 98 Nasal Cannula 2.00 08/30/16 19:00 76 08/30/16 18:00 70 08/30/16 17:00 63 08/30/16 16:00 66 08/30/16 15:00 96 Room Air 08/30/16 15:00 63 08/30/16 15:00 69 08/30/16 15:00 98.7 65 16 131/79 96 08/30/16 14:46 70 08/30/16 13:00 67 Labs: Laboratory Tests Test 08/31/16 06:13 White Blood Count 9.9 TH/MM3 (4.0-11.0) Red Blood Count 3.66 MIL/MM3 (4.50-5.90) Hemoglobin 10.4 GM/DL (13.0-17.0) Hematocrit 31.6 % (39.0-51.0) Mean Corpuscular Volume 86.2 FL (80.0-100.0) Mean Corpuscular Hemoglobin 28.5 PG (27.0-34.0) Mean Corpuscular Hemoglobin 33.0 % Concent (32.0-36.0) Red Cell Distribution Width 15.0 % (11.6-17.2) Platelet Count 221 TH/MM3 (150-450) Mean Platelet Volume 7.7 FL (7.0-11.0) Neutrophils (%) (Auto) 67.0 % (16.0-70.0) Lymphocytes (%) (Auto) 14.5 % (9.0-44.0) Monocytes (%) (Auto) 13.4 % (0.0-8.0) Eosinophils (%) (Auto) 4.6 % (0.0-4.0) Basophils (%) (Auto) 0.5 % (0.0-2.0) Neutrophils # (Auto) 6.7 TH/MM3 (1.8-7.7) Lymphocytes # (Auto) 1.4 TH/MM3 (1.0-4.8) Monocytes # (Auto) 1.3 TH/MM3 (0-0.9) Eosinophils # (Auto) 0.5 TH/MM3 (0-0.4) Basophils # (Auto) 0.0 TH/MM3 (0-0.2) CBC Comment DIFF FINAL Differential Comment Sodium Level 139 MEQ/L (136-145) Potassium Level 4.4 MEQ/L (3.5-5.1) Chloride Level 103 MEQ/L (98-107) Carbon Dioxide Level 29.3 MEQ/L (21.0-32.0) Anion Gap 7 MEQ/L (5-15) Blood Urea Nitrogen 18 MG/DL (7-18) Creatinine 0.99 MG/DL (0.60-1.30) Estimat Glomerular Filtration 81 ML/MIN (>89) Rate Random Glucose 93 MG/DL (74-106) Calcium Level 8.8 MG/DL (8.5-10.1) B-Type Natriuretic Peptide 519 PG/ML (0-100) Result Diagram: 08/31/1661208/31/16612 Telemetry: NSR (1) NSTEMI (non-ST elevated myocardial infarction) Plan: ASA, plavix, statin , BB , amiodarone (2) CAD (coronary artery disease) (3) Delusional disorder Plan: followed by psych (4) Unspecified psychosis (5) Ischemic dilated cardiomyopathy Plan: on sheeba inhibitor diuresis (6) S/P CABG (coronary artery bypass graft) Haley Hollis Aug 31, 2016 12:56
[2016-08-31] MEDS ORDERED: AMIO200T PO (12:58)
[2016-08-31] MEDS: ATORVASTATIN 40 MG TAB PO SCH (20:28)
[2016-08-31] MEDS: SENNOSIDES 8.6 MG TAB PO SCH (20:28)
[2016-09-01] VITALS (12 sets, daily range): BP systolic 111–145; BP diastolic 73–86; PULSE 67–72; RESP 20; TEMP 98–98.1; O2SAT 96–99
[2016-09-01] MEDS: PANTOPRAZOLE SOD 40 MG DELAYED RELEASE TAB PO SCH (05:38)
[2016-09-01] MEDS: INSULIN ASPART SUPPLEMENTAL SCALE SQ SCH ×2 (05:47→11:00)
[2016-09-01] MEDS: MULTIVITAMINS/MINERALS THERAPEUTIC TAB PO SCH (09:00)
[2016-09-01] MEDS: MAGNESIUM HYDROXIDE SUSP 30 ML CUP PO SCH (09:00)
[2016-09-01] MEDS: POLYETHYLENE GLYCOL 17 GM PKG PO SCH (09:42)
[2016-09-01] MEDS: FUROSEMIDE 40 MG/4 ML VIAL IV PUSH SCH (09:42)
[2016-09-01] MEDS: ASPIRIN 81 MG CHEW TAB PO SCH (09:43)
[2016-09-01] MEDS: CARVEDILOL 6.25 MG TAB PO SCH (09:43)
[2016-09-01] MEDS: ARIPiprazole 30 MG TAB PO SCH (09:43)
[2016-09-01] MEDS: AMIODARONE 200 MG TAB PO SCH (09:43)
[2016-09-01] MEDS: CLOPIDOGREL 75 MG TAB PO SCH (09:43)
[2016-09-01] MEDS: clonazePAM 1 MG TAB PO SCH (09:43)
[2016-09-01] MEDS: LISINOPRIL 5 MG TAB PO SCH (09:43)
[2016-09-01] MEDS: POTASSIUM CHLORIDE 20 MEQ CONTROLLED RELEASE TAB PO SCH (09:44)
[2016-09-01] MEDS: DOCUSATE SODIUM 100 MG CAP PO SCH (09:44)
[2016-09-01] MEDS: SODIUM CHLORIDE 0.9% FLUSH 10 ML FLUSH IV FLUSH SCH (09:44)
--- NOTE | 2016-09-01 10:00 | HHI.FPPN ---
Subjective Remarks Patient seen and examined this am. His vitals are stable and he is afebrile. He is denying CP and SOB, endorsing a cough. Ready to go to rehab. Objective Vitals Vital Signs Date Time Temp Pulse Resp B/P Pulse Ox O2 Delivery O2 Flow Rate FiO2 09/01/16 06:04 69 09/01/16 05:12 67 09/01/16 04:27 67 09/01/16 04:00 98.0 67 20 117/78 99 09/01/16 03:29 99 Room Air 09/01/16 03:00 67 09/01/16 02:00 68 09/01/16 01:01 69 09/01/16 00:04 67 09/01/16 00:00 98.1 67 20 111/75 99 08/31/16 23:05 67 08/31/16 23:01 99 Room Air 08/31/16 22:00 68 08/31/16 21:00 68 08/31/16 20:00 68 08/31/16 20:00 99 Room Air 08/31/16 19:39 98.1 69 20 112/75 99 08/31/16 19:00 69 08/31/16 18:02 68 08/31/16 17:00 73 08/31/16 16:44 98 Room Air 08/31/16 16:00 71 08/31/16 15:45 97.8 77 18 117/73 98 08/31/16 15:00 65 08/31/16 14:00 65 08/31/16 13:28 66 08/31/16 12:55 100 21 08/31/16 12:01 61 08/31/16 11:40 65 08/31/16 11:27 100 Room Air 08/31/16 11:27 97.5 66 16 108/68 100 08/31/16 10:00 74 I/O 08/31/16 08/31/16 08/31/16 09/01/16 09/01/16 09/01/16 07:00 15:00 23:00 07:00 15:00 23:00 Intake Total 720 ml 1000 ml 720 ml Output Total 1150 ml 650 ml 1850 ml Balance -430 ml 350 ml -1130 ml Intake Oral 720 ml 1000 ml 720 ml IV Total 0 ml Output Urine Total 1150 ml 650 ml 1850 ml # Voids 2 # Bowel Movements 0 0 Result Diagram: 08/31/1661208/31/16612 Objective Remarks Gen: WNWD CM sitting up. Currently in NAD. Cardio: RRR with no MGR. Pulm: Bilat expiratory wheezes are present. ABD: Soft, nontender with +BS. No masses appreciated. MSK: No cyanosis or edema. No BL calf tenderness. LLE harvest site bandaged CDI with tenderness. Neuro: AAOx2. Responds appropriately to questions. A/P Assessment and Plan Mr. Mohr is a 46 y/o CM who initially presented with NSTEMI and later to found to have significant multivessel disease on cardiac catheterization. Patient is status post CABG on 08/26. Doing well from a cardiovascular standpoint and stable for discharge. Patient also suffers from psychiatric illness. Psychiatry consulted on 08/30 and diagnosed with adjustment disorder with anxiety. Discharge Planning Discharge to SNF today, has been cleared by psych. Discussed with Dr. Schumacher Problem List: (1) Facial droop Status: Acute Plan: Patient was previously on an aspirin, statin, and started on Plavix post- procedure. -CT head: Unremarkable study -Continue to monitor with daily neurological exams Medications (to continue on discharge): -Plavix 75mg daily -Atorvastatin 80mg QHS -ASA 81mg daily (2) Congestive heart failure Status: Chronic Plan: BNP initially elevated at 993 on admission. 08/31 BNP 519 Last echo 08/17 showed mildly reduced ejection fraction of 45-50%. Cardiology consulted and patient does not meet criteria for LifeVest at this time. -Cardiothoracic surgery consulted; appreciate recommendations. * CABG on 08/26/16 without complication. * Plavix 75mg daily * Lisinopril 2.5mg daily * Amiodarone 400mg BID * Signed off 08/29/16 -Lasix 40 mg po daily. -Low-salt diet less than 2 g per day. -Fluid restrict to 1.5 L per day. -Strict Is and Os. Daily weights. -Supplemental oxygen and monitor on pulse ox. -Telemetry Imaging Echo 08/13/16: EF 15-20% Echo 08/17/16: Normal cavity size, wall thickness within normal limits. Systolic function was mildly reduced. Estimated EF 45-50%. Carotid artery ultrasound 08/11: Normal hemodynamic profile of both carotids Lower extremity ultrasound 08/11: Negative for DVT bilaterally, venous mapping per report (3) Atelectasis Status: Acute Plan: -Incentive spirometry and acapella encouraged with DuoNeb PRN -Discussed with nursing staff to assist patient with incentive spirometry and acapella with and in between vital sign checks to increase aeration (4) NSTEMI (non-ST elevated myocardial infarction) Status: Acute Plan: Cardiology consulted, appreciate recommendations and intervention (see above) -ASA 81 mg daily -Lipitor 80mg HS -Coreg 12.5mg PO BID -See plan above (5) Adjustment disorder with anxiety Status: Chronic Plan: Patient recently admitted to Med/Psych due to unspecified psychosis, concern for possible schizophrenia. Psychiatry consulted- diagnosed with adjustment disorder with anxiety. No plan/ need for inpatient psychiatry at this time---> has been cleared for discharge to SNF -Clonazepam 1 mg BID (6) FEN Status: Acute Plan: Fluids:HLIV Electrolytes:WNL, continue to monitor. Nutrition: Heart healthy, NA restriction DVT ppx: DA/SCDs Diet: Heart Healthy Prophylaxis/when necessary medications: Zofran PRN for NV, DuoNeb PRN for wheezing/SOB, Hydralazine PRN for HTN, Metoprolol PRN for tachycardia/HTN Virginia Hyman MD R3 Sep 01, 2016 10:00
--- NOTE | 2016-09-01 10:38 | PD.CAR.PN ---
CVT Progress Note Subjective/Hospital Course: 46 male , no prior medical HX or medical treatment , has not seen MD in over 20years. " didn't have any problems". Homeless, Admitted to ED with SOB, lower ext and scrotal edema , + NSTEMI , acute onset of CHF / BNP 900/ ECHO showed EF 15-20% severe systolic dysfunction . Underwent cardiac cath by Dr Franz showing multi vessel disease / PA pressure 59/34/ wedge pressure of 32 / LVEDP 42. STS data Morbidity or Mortality of 20.45 % Pt also has some psych issues / was seen and eval by Psych Dr Nelson , felt pt had delusional and psychotic symptoms , 08/24 pt now on abilify, stable for surgery scheduled for wed will have Dr Haines follow pt as post op 08/25 no chest pain scheduled for surgery in am 08/26 surgery 1. Urgent Off-pump Coronary Artery Bypass Grafting x 3 with left internal mammary artery (FLOREZ) to left anterior descending (LAD), reverse saphenous vein graft to the RCA, reverse saphenous vein graft to the terminal Left Circumflex Artery 2. Left Leg Endoscopic Vein [place] 3600cc/ crystalloid, 500cc cell saver, 300cc EBL extubated after surgery 08/27 pt up in chair, sleepy , will need to decrease sedatives ( trazadone, and change to norco ) EF 15 % intraop will need eval for Life vest and start SHEEBA when tolerates concern is that pt is homeless CXR shows some consolidation left lower lobe on ASa, statin, start coreg this evening transfer to stepdown 08/28 pt seen by PCP this am , felt that pt had mild left facial drooping stat CT neg pt speech clear / 5/5 upper and lower ext / no ptosis will monitor on ASA and plavix start low dose SHEEBA , await eval from Dr Franz regarding need for Life Vest OT eval , chest tube removed without difficulty 08/29 Doing well Case management to assist with discharge planning. OK from my standpoint 08/30 Doing well Discharge disposition pending 08/31 BNP 569 additional diuresis today / ok for dc from [facility] standpoint, wound continue amiodarone x 14 days lasix 40mg / potassium po daily on room air/ remove prevena dressing today 09/01 diuresing well ok to dc Objective: GENERAL: SKIN: Warm and dry. HEAD: Normocephalic. EYES: No scleral icterus. No injection or drainage. NECK: Supple, trachea midline. No JVD or lymphadenopathy. CARDIOVASCULAR: Regular rate and rhythm without murmurs, gallops, or rubs. RESPIRATORY: Breath sounds equal bilaterally. No accessory muscle use. faint exp wheeze GASTROINTESTINAL: Abdomen soft, non-tender, nondistended. MUSCULOSKELETAL: No cyanosis, or edema. BACK: Nontender without obvious deformity. No CVA tenderness. Vital Signs Date Time Temp Pulse Resp B/P Pulse Ox O2 Delivery O2 Flow Rate FiO2 09/01/16 10:11 98 21 09/01/16 06:04 69 09/01/16 05:12 67 09/01/16 04:27 67 09/01/16 04:00 98.0 67 20 117/78 99 09/01/16 03:29 99 Room Air 09/01/16 03:00 67 09/01/16 02:00 68 09/01/16 01:01 69 09/01/16 00:04 67 09/01/16 00:00 98.1 67 20 111/75 99 08/31/16 23:05 67 08/31/16 23:01 99 Room Air 08/31/16 22:00 68 08/31/16 21:00 68 08/31/16 20:00 68 08/31/16 20:00 99 Room Air 08/31/16 19:39 98.1 69 20 112/75 99 08/31/16 19:00 69 08/31/16 18:02 68 08/31/16 17:00 73 08/31/16 16:44 98 Room Air 08/31/16 16:00 71 08/31/16 15:45 97.8 77 18 117/73 98 08/31/16 15:00 65 08/31/16 14:00 65 08/31/16 13:28 66 08/31/16 12:55 100 21 08/31/16 12:01 61 08/31/16 11:40 65 08/31/16 11:27 100 Room Air 08/31/16 11:27 97.5 66 16 108/68 100 Result Diagram: 08/31/1661208/31/16612 Telemetry: NSR (1) NSTEMI (non-ST elevated myocardial infarction) Plan: ASA, plavix, statin , BB , amiodarone ok to dc home (2) CAD (coronary artery disease) (3) Delusional disorder Plan: followed by psych (4) Unspecified psychosis (5) Ischemic dilated cardiomyopathy Plan: on sheeba inhibitor diuresis (6) S/P CABG (coronary artery bypass graft) Haley Hollis Sep 01, 2016 10:38
--- NOTE | 2016-09-01 11:28 | HHI.PYPN ---
Subjective Remarks He was seen today for psychiatric reevaluation, he was found down, cooperative, pleasant, with a good sense of humor. Patient states that he feels much better now, denies pain, denies distress, he reports good mood, denies depressive symptoms, he denies anxiety, he denies perceptual disturbances, he denies suicidal and homicidal ideation, he denies visual and auditory hallucinations. Patient says that he feels motivated and committed to continue medical treatment and recommendations, and "going whatever they want to send me". Patient has been compliant with his medication, he has been taking his Abilify 30 mg with visible positive response. During this encounter I could not elicit his delusions of being followed and controlled by a DJ. He was not attentive to his phone, as he usually is. Patient is fully oriented 3, no gross cognitive impairment observed, no attention deficit, no fluctuation of consciousness. No signs of akathisia present. Review of Systems Other No somatic complaints Objective Alert: Yes [place]: Person, Place, Date, Situation Mood: Calm Affect: Appropriate Memory Intact: Immediate, Recent, Remote Hallucinations: Other (he denies) Delusions: Yes Delusion Type: Other (none delusions elicited) Suicidal: Ideation (he denies) Homicidal: Ideation (he denies) Insight/Judgment Improved Vitals/IOs Vital Signs Date Time Temp Pulse Resp B/P Pulse Ox O2 Delivery O2 Flow Rate FiO2 09/01/16 10:11 98 21 09/01/16 06:04 69 09/01/16 04:00 98.0 20 117/78 09/01/16 03:29 Room Air 08/31/16 03:00 2.00 Intake and Output 08/31/16 08/31/16 09/01/16 08:00 16:00 00:00 Intake Total 720 ml 1480 ml Output Total 1150 ml 1550 ml Balance -430 ml -70 ml Assessment & Plan Problem List: (1) Adjustment disorder with anxiety ICD Code: F43.22 (2) Unspecified psychosis Assessment & Plan: Patient has showed a very positive response to current psychotropic regimen. Continue Abilify 30 mg daily, continue clonazepam 2.5 mg twice a day. There is not need for psychiatric admission at this moment. ICD Code: F29 Assessment & Plan Estimated LOS: days Justification for Cont. Inpt. Patient does not meet criteria for involuntary psychiatric admission at this moment. Samuel Nelson MD Sep 01, 2016 11:28
--- NOTE | 2016-09-24 06:47 | HHI.DS ---
Discharge Summary Admission Date Aug 21, 2016 at 22:30 Discharge Date: Sep 01, 2016 Admitting Diagnosis NSTEMI (1) Facial droop Diagnosis: Secondary Plan: Patient was previously on an aspirin, statin, and started on Plavix post- procedure. -CT head: Unremarkable study -Continue to monitor with daily neurological exams Medications (to continue on discharge): -Plavix 75mg daily -Atorvastatin 80mg QHS -ASA 81mg daily (2) Congestive heart failure Diagnosis: Secondary Plan: BNP initially elevated at 993 on admission. 08/31 BNP 519 Last echo 08/17 showed mildly reduced ejection fraction of 45-50%. Cardiology consulted and patient does not meet criteria for LifeVest at this time. -Cardiothoracic surgery consulted; appreciate recommendations. * CABG on 08/26/16 without complication. * Plavix 75mg daily * Lisinopril 2.5mg daily * Amiodarone 400mg BID * Signed off 08/29/16 -Lasix 40 mg po daily. -Low-salt diet less than 2 g per day. -Fluid restrict to 1.5 L per day. -Strict Is and Os. Daily weights. -Supplemental oxygen and monitor on pulse ox. -Telemetry Imaging Echo 08/13/16: EF 15-20% Echo 08/17/16: Normal cavity size, wall thickness within normal limits. Systolic function was mildly reduced. Estimated EF 45-50%. Carotid artery ultrasound 08/11: Normal hemodynamic profile of both carotids Lower extremity ultrasound 08/11: Negative for DVT bilaterally, venous mapping per report (3) Atelectasis Diagnosis: Secondary Plan: -Incentive spirometry and acapella encouraged with DuoNeb PRN -Discussed with nursing staff to assist patient with incentive spirometry and acapella with and in between vital sign checks to increase aeration (4) NSTEMI (non-ST elevated myocardial infarction) Diagnosis: Principal Plan: Cardiology consulted, appreciate recommendations and intervention (see above) -ASA 81 mg daily -Lipitor 80mg HS -Coreg 12.5mg PO BID -See plan above (5) Adjustment disorder with anxiety Diagnosis: Secondary Plan: Patient recently admitted to Med/Psych due to unspecified psychosis, concern for possible schizophrenia. Psychiatry consulted- diagnosed with adjustment disorder with anxiety. No plan/ need for inpatient psychiatry at this time---> has been cleared for discharge to SNF -Clonazepam 1 mg BID (6) FEN Diagnosis: Secondary Plan: Fluids:HLIV Electrolytes:WNL, continue to monitor. Nutrition: Heart healthy, NA restriction DVT ppx: DA/SCDs Diet: Heart Healthy Prophylaxis/when necessary medications: Zofran PRN for NV, DuoNeb PRN for wheezing/SOB, Hydralazine PRN for HTN, Metoprolol PRN for tachycardia/HTN Consultants CT surgery Psychiatry Cardiology Procedures CABG 08/26 Brief History Mr. Mohr is a 46 year old Male who had recent NSTEMI on 08/07/16 admitted for scheduled CABG. He was admitted to the [facility] and underwent cardiac catheterization, which was significant for multivessel disease. Patient was considered too high risk for cardiac stenting and would most benefit from CABG. He has been seen and evaluated by cardiothoracic surgery and is currently scheduled for CABG on 08/26. Patient has experienced an unspecified psychosis and expresses delusions. He was then transferred to Med/Psych for further psychiatric evaluation and clearance prior to having open heart surgery. However , he refused any medical or psychiatric care while in the psychiatric unit because he could not have his cell phone. He became very agitated and angry without the cell phone as it pertains to his delusions that he needs to speak to the President so he can stop the war with [place] among other things. Although the patient meets criteria for involuntary psychiatric hospitalization under the [place] Act, the staff has decided to proceed with his CABG at this time prior to further psychiatric management. He was then transferred to the medical floor for continued to monitoring until his procedure on 08/26. Imaging Last Impressions Chest X-Ray 08/31/16 0000 Signed Impressions: Service Date/Time: Wednesday, August 31, 2016 05:36 - CONCLUSION: 1. Mild pulmonary venous congestion. 2. Stable cardiomegaly. 3. Platelike atelectasis in the left midlung. Wilfred Enamorado MD Head CT 08/28/16 0000 Signed Impressions: Service Date/Time: Sunday, August 28, 2016 10:28 - CONCLUSION: Unremarkable study. Faviola Daigle MD PE at Discharge Gen: WNWD CM sitting up. Currently in NAD. Cardio: RRR with no MGR. Pulm: Bilat expiratory wheezes are present. ABD: Soft, nontender with +BS. No masses appreciated. MSK: No cyanosis or edema. No BL calf tenderness. LLE harvest site bandaged CDI with tenderness. Neuro: AAOx2. Responds appropriately to questions. Hospital Course Mr. Mohr is a 46 y/o CM who initially presented with NSTEMI and later to found to have significant multivessel disease on cardiac catheterization. Cardiothoracic surgery was consulted for consideration for bypass as he was a poor candidate for high risk catheterization per Cardiology. However he was then found to have acute psychosis and Psychiatry was consulted. He was then hospitalized in the psychiatric unit from 08/19-08/22 for inpatient psychiatric treatment, but was transferred out of the unit due to aggressive behavior and refusal of care. Psychiatric and Cardiothoracic surgery staff decided that he would be transferred back to the medical floor for monitoring prior to his CABG procedure. CABG was performed without complication on 08/26/16. On 08/28/16 the patient was found to have L sided facial drooping without any other neurological abnormalities with a negative CT scan. CT surgery signed of on 08/29 and Psychiatry was reconsulted to assist with transfer back to Med/Psych for further treatment of his psychosis. He was diagnosed with adjustment disorder with anxiety. And was cleared for discharge to a detention facility. Pt Condition on Discharge: Fair Discharge Disposition: Rehab Inpatient Discharge Instructions DIET: Follow Instructions for: Heart Healthy Diet Activities you can perform: See Additionl Instruction Other Activity Instructions: Per PT recommendations Follow up Referrals: Cardiology - 09/24/16 with Byron Franz DO PCP Follow-up with Mami Reagan MD Surgical with Ermias Arteaga MD New Medications: Albuterol 8.5 GM Inh (Proair Hfa 8.5 GM Inh) 90 Mcg/Act Aer 2 PUFF INH Q4-6H 108 mcg/actuation PRN SHORTNESS OF BREATH #1 Ref 1 INHALER Aspirin (Aspirin) 81 Mg Chew 81 MG CHEW ONCE #30 Ref 1 TAB Aripiprazole (Abilify) 30 Mg Tab 30 MG PO DAILY #30 Ref 1 TAB Clonazepam (Klonopin) 1 Mg Tab 1 MG PO Q12HR #60 Ref 1 TAB Clopidogrel (Plavix) 75 Mg Tab 75 MG PO DAILY #30 Ref 1 TAB Docusate Sodium (Dok) 100 Mg Cap 100 MG PO BID #30 Ref 1 CAP Oxycodone (Oxycodone) 5 Mg Tab 5 MG PO Q3H PRN PAIN SCALE 5 TO 10 #30 Ref 0 TAB Pantoprazole (Pantoprazole) 40 Mg Tab 40 MG PO DAILY@06 #30 Ref 1 TAB Papi Lang MD R2 September 24, 2016 06:47
== END 2016-09-01 14:32 | DRG 235 ==
LOC: N05B 22:30 → HCVR 08-26 14:14 → HCIN 08-27 14:33
PROVIDERS: ADMIT Family Medicine; ATTEND Family Medicine
PROC: 06BQ4ZZ Excision of Left Saphenous Vein, Percutaneous Endoscopic Approach (ICD-10-PCS; 2016-08-26)
PROC: 02100Z9 Bypass Coronary Artery, One Artery from Left Internal Mammary, Open Approach (ICD-10-PCS; principal; 2016-08-26 09:05)
PROC: 021109W Bypass Coronary Artery, Two Arteries from Aorta with Autologous Venous Tissue, Open Approach (ICD-10-PCS; 2016-08-26 09:05)
DX: I25.10 Atherosclerotic heart disease of native coronary artery without angina pectoris (principal); I21.4 Non-ST elevation (NSTEMI) myocardial infarction; I42.0 Dilated cardiomyopathy; J98.11 Atelectasis; I50.20 Unspecified systolic (congestive) heart failure; I51.9 Heart disease, unspecified; F43.22 Adjustment disorder with anxiety; F29 Unspecified psychosis not due to a substance or known physiological condition; Z59.0 Homelessness; I25.5 Ischemic cardiomyopathy; R29.810 Facial weakness; Z87.891 Personal history of nicotine dependence
CPT/HCPCS: 36430; 70450; 71010; 71020; 76937; 80048; 81001; 82948; 83735; 83880; 85014; 85025; 85027; 85610; 86850; 86900; 86901; 86920; 87641; 93005; 94002; 94150; 94640; 94664; 94667; 94668; C1768; J0131; J0171; J0690; J1644; J1815; J1885; J1940; J2250; J2370; J2440; J2720; J3010; J3370; J3475; J7040; J7050; J7120; P9016; P9045

== ENCOUNTER 2016-09-21 15:10 | Observation (INO) | payer MEDICARE ==
[~2016-09-21] VITALS: Ht 175.3 cm; Wt 97.8 kg
[2016-09-21] VITALS (9 sets, daily range): BP systolic 131–163; BP diastolic 76–96; PULSE 55–80; RESP 16–18; TEMP 97.9–98.4; O2SAT 94–100
[~2016-09-21 15:10] MED LIST changes: +ABIL30TA2 PO; +ALBUAER3 INH; +AMIO200T PO; +ASPI81CH CHEW; +ATOR40TA16 PO; +CARV6.25 PO; +CLON1 PO; +DOCU1CAP39 PO; +LISI-519 PO; +OXYC-392 PO; +PANT40TA3 PO; +PLAV75TA29 PO
--- NOTE | 2016-09-21 16:22 | RADRPT ---
EXAM DATE/TIME: 09/21/2016 16:12 [facility] COMPARISON: CHEST SINGLE AP, August 29, 2016, 6:22. INDICATIONS : Chest pain, short of breath. MEDICAL HISTORY : Cardiovascular disease. Hypertension SURGICAL HISTORY : CABG. ENCOUNTER: Initial ACUITY: 1 day PAIN SCORE: 10/10 LOCATION: Bilateral chest FINDINGS: A single view of the chest demonstrates the lungs to be symmetrically aerated without evidence of mas s, infiltrate or effusion. The heart size is enlarged but stable. There is evidence of previous card iothoracic surgery.. Osseous structures are intact. CONCLUSION: No acute disease. No significant change has occurred. Wilfred Enamorado MD on September 21, 2016 at 16:16 Board Certified Radiologist. This report was verified electronically.
[2016-09-21] MEDS ORDERED: ASPIRIN 325 MG TAB PO ONE (16:30)
[2016-09-21] MEDS ORDERED: ACETAMINOPHEN/HYDROcodone 325 MG/5 MG TAB PO ONE (16:30)
[2016-09-21 16:32] LABS: AUTOMATED NEUTROPHIL # 5.7 TH/MM3 (1.8-7.7); BASOPHIL # 0.1 TH/MM3 (0-0.2); BASOPHIL % 1.1 % (0.0-2.0); EOSINOPHIL # 0.9 TH/MM3 (0-0.4); EOSINOPHIL % 10.5 % (0.0-4.0); HEMATOCRIT 33.9 % (39.0-51.0); HEMO FLAGS DIFF FINAL; LYMPH % 17.3 % (9.0-44.0); LYMPHOCYTE # 1.5 TH/MM3 (1.0-4.8); MEAN CELL VOLUME 85.3 FL (80.0-100.0); MEAN CORPUSCULAR HEMOGLOBIN 27.7 PG (27.0-34.0); MEAN CORPUSCULAR HGB CONC 32.5 % (32.0-36.0); MONO % 6.9 % (0.0-8.0); NEUT % 64.2 % (16.0-70.0); PLATELET COUNT 218 TH/MM3 (150-450); RED BLOOD COUNT 3.98 MIL/MM3 (4.50-5.90); RED CELL DISTRIBUTION WIDTH 15.7 % (11.6-17.2)
[2016-09-21 16:35] LABS: APTT (PATIENT) 25.9 SEC (24.3-30.1); INTERNATIONAL NORMALIZED RATIO 1.1 RATIO; PROTHROMBIN TIME - PATIENT 11.7 SEC (9.8-11.6)
[2016-09-21 16:53] LABS: ANION GAP 6 MEQ/L (5-15); BLOOD UREA NITROGEN 17 MG/DL (7-18); CHLORIDE 109 MEQ/L (98-107); CREATINE KINASE 146 U/L (39-308); GLOMERULAR FILTRATION RATE 67 ML/MIN (>89); POTASSIUM 4.1 MEQ/L (3.5-5.1); SODIUM (NA) 144 MEQ/L (136-145)
[2016-09-21 17:08] LABS: CKMB 1.8 NG/ML (0.5-3.6)
[2016-09-21] MEDS ORDERED: NITROGLYCERIN 0.4 MG SL 25 TABS/BTL SL ONE (17:15)
--- NOTE | 2016-09-21 17:19 | PD ---
HPI Chief Complaint: Pain: Acute or Chronic Time Seen by Provider: 17:14 Travel History International Travel<30 days: No Contact w/Intl Traveler<30days: No Traveled to known affect area: No History of Present Illness HPI 46-year-old male with a history of psychosis, CABG and coronary artery disease that presents to the ED for evaluation of chest pain. Per patient's chest pain has been ongoing for about 2 weeks. Patient was just released less than a month ago for a CABG done by Dr. Arteaga. Patient was released a rehabilitation facility and apparently his been released from that facility as well. Per patient his been moving a lot so he thought this might be related to that. Per patient the pain is constant on the sternum area. 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 Questionable compliance with medications as patient tells me that he did not take them today and questionably yesterday. He does have a history of psychosis during admission and was seen by psychiatry multiple times during his admission. Patient denies any shortness of breath with the pain. Per patient the pain is 9 out of 10. Does not radiate. Nothing makes it better or worse. He denies any abdominal pain. No nausea or vomiting. No alcohol or drug abuse. Allergy to Darvocet. Patient's behavior somewhat bizarre as he continues to joke about different things and some of his responses do not appear to correlate with what has been asked. PFSH Past Medical History Arthritis: No Heart Rhythm Problems: No Cancer: No Cardiovascular Problems: Yes Chest Pain: Yes Congestive Heart Failure: Yes Cerebrovascular Accident: No Diminished Hearing: No Endocrine: No Genitourinary: Yes Hypertension: Yes Immune Disorder: No Musculoskeletal: No Neurologic: No Psychiatric: Yes (psychosis) Reproductive: No Respiratory: No Migraines: No Renal Failure: Yes Seizures: No Past Surgical History Abdominal Surgery: No Cardiac Surgery: No Endocrine Surgery: No Eye Surgery: No Genitourinary Surgery: No Gynecologic Surgery: No Oral Surgery: No Thoracic Surgery: No Other Surgery: Yes (SKIN GRAFTS) Social History Alcohol Use: No (OCC) Tobacco Use: No Substance Use: Yes (marijuana) Allergies-Medications (Allergen,Severity, Reaction): Coded Allergies: Darvocet-N 100 (Verified Allergy, Severe, HEADACHE, 08/07/16) Reported Meds & Prescriptions Reported Meds & Active Scripts Active Amiodarone (Amiodarone HCl) 200 Mg Tab 200 Mg PO BID Proair Hfa 8.5 GM Inh (Albuterol Sulfate) 90 Mcg/Act Aer 2 Puff INH Q4-6H PRN 108 mcg/actuation Oxycodone (Oxycodone HCl) 5 Mg Tab 5 Mg PO Q3H PRN Dok (Docusate Sodium) 100 Mg Cap 100 Mg PO BID Aspirin 81 Mg Chew 81 Mg CHEW ONCE Potassium Chloride Microencaps 20 Meq Tab 20 Meq PO DAILY Pantoprazole (Pantoprazole Sodium) 40 Mg Tab 40 Mg PO DAILY@06 Lisinopril 5 Mg Tab 2.5 Mg PO DAILY Furosemide 40 Mg Tab 40 Mg PO DAILY Plavix (Clopidogrel Bisulfate) 75 Mg Tab 75 Mg PO DAILY Klonopin (Clonazepam) 1 Mg Tab 1 Mg PO Q12HR Coreg (Carvedilol) 6.25 Mg Tab 3.125 Mg PO BID Atorvastatin (Atorvastatin Calcium) 40 Mg Tab 80 Mg PO HS Abilify (Aripiprazole) 30 Mg Tab 30 Mg PO DAILY Furosemide 40 Mg Tab 40 Mg PO DAILY Potassium Chloride Microencaps 20 Meq Tab 20 Meq PO BID Coreg (Carvedilol) 12.5 Mg Tab 12.5 Mg PO Q12HR Atorvastatin (Atorvastatin Calcium) 80 Mg Tab 80 Mg PO HS [Aspirin Chew] 81 MG Chew 81 Mg CHEW DAILY Aripiprazole 5 Mg Tab 10 Mg PO DAILY Reported Furosemide 40 Mg Tab 40 Mg PO DAILY Review of Systems ROS Limitations: Poor Historian Except as stated in HPI: all other systems reviewed are Neg Physical Exam Exam Limitations: Poor Historian Narrative GENERAL: SKIN: Warm and dry. HEAD: Atraumatic. Normocephalic. EYES: Pupils equal and round. No scleral icterus. No injection or drainage. ENT: No nasal bleeding or discharge. Mucous membranes pink and moist. Tongue is midline. No uvula deviation. NECK: Trachea midline. No JVD. CARDIOVASCULAR: Regular rate and rhythm. No murmurs, S3, S4. Patient does have a significant scar to his chest that appears to be well-healing. No obvious chest pain reproducible with touch. RESPIRATORY: No accessory muscle use. Clear to auscultation. Breath sounds equal bilaterally. GASTROINTESTINAL: Abdomen soft, non-tender, nondistended. Hepatic and splenic margins not palpable. MUSCULOSKELETAL: Extremities without clubbing, cyanosis, or edema. No obvious deformities. Full range of motion of the upper and lower extremities bilaterally. 2+ pulses bilaterally. NEUROLOGICAL: Awake and alert. No obvious cranial nerve deficits. Motor grossly within normal limits. Five out of 5 muscle strength in the arms and legs. Normal speech. PSYCHIATRIC: Appropriate mood and affect; insight and judgment normal. Data Data Last Documented VS Vital Signs Date Time Temp Pulse Resp B/P Pulse Ox O2 Delivery O2 Flow Rate FiO2 09/21/16 16:36 55 18 131/76 100 Room Air 09/21/16 16:03 2 Orders Electrocardiogram (09/21/16 15:59) Complete Blood Count With Diff (09/21/16 15:59) Basic Metabolic Panel (Bmp) (09/21/16 15:59) Ckmb (Isoenzyme) Profile (09/21/16 15:59) Troponin I (09/21/16:59) B-Type Natriuretic Peptide (09/21/16 15:59) Prothrombin Time / Inr (Pt) (09/21/16 15:59) Act Partial Throm Time (Ptt) (09/21/16 15:59) Chest, Single Ap (09/21/16 15:59) Aspirin (Aspirin) (09/21/16 16:30) Acetamin-Hydrocod 325-5 Mg ([place] 5-325 (09/21/16 16:30) CKMB (09/21/16 16:00) CKMB% (09/21/16 16:00) Nitroglycerin Sl (Nitrostat Sl) (09/21/16 17:15) Admit Order (Ed Use Only) (09/21/16 17:24) Labs Laboratory Tests Test 09/21/16 16:00 White Blood Count 9.0 TH/MM3 Red Blood Count 3.98 MIL/MM3 Hemoglobin 11.0 GM/DL Hematocrit 33.9 % Mean Corpuscular Volume 85.3 FL Mean Corpuscular Hemoglobin 27.7 PG Mean Corpuscular Hemoglobin 32.5 % Concent Red Cell Distribution Width 15.7 % Platelet Count 218 TH/MM3 Mean Platelet Volume 8.0 FL Neutrophils (%) (Auto) 64.2 % Lymphocytes (%) (Auto) 17.3 % Monocytes (%) (Auto) 6.9 % Eosinophils (%) (Auto) 10.5 % Basophils (%) (Auto) 1.1 % Neutrophils # (Auto) 5.7 TH/MM3 Lymphocytes # (Auto) 1.5 TH/MM3 Monocytes # (Auto) 0.6 TH/MM3 Eosinophils # (Auto) 0.9 TH/MM3 Basophils # (Auto) 0.1 TH/MM3 CBC Comment DIFF FINAL Differential Comment Prothrombin Time 11.7 SEC Prothromb Time International 1.1 RATIO Ratio Activated Partial 25.9 SEC Thromboplast Time Sodium Level 144 MEQ/L Potassium Level 4.1 MEQ/L Chloride Level 109 MEQ/L Carbon Dioxide Level 29.0 MEQ/L Anion Gap 6 MEQ/L Blood Urea Nitrogen 17 MG/DL Creatinine 1.16 MG/DL Estimat Glomerular Filtration 67 ML/MIN Rate Random Glucose 90 MG/DL Calcium Level 8.8 MG/DL Total Creatine Kinase 146 U/L Creatine Kinase MB 1.8 NG/ML Troponin I 1.00 NG/ML B-Type Natriuretic Peptide 180 PG/ML MDM Medical Decision Making Medical Screen Exam Complete: Yes Emergency Medical Condition: Yes Medical Record Reviewed: Yes Interpretation(s) EKG shows sinus rhythm with no sign of acute ischemia or arrhythmia. No changes from prior per my attending and me. CBC & BMP Diagram 09/21/16 16:00 Troponin of 1 Last Impressions Chest X-Ray 09/21/16 1559 Signed Impressions: Service Date/Time: Wednesday, September 21, 2016 16:12 - CONCLUSION: No acute disease. No significant change has occurred. Wilfred Enamorado MD Differential Diagnosis Chest pain versus a typical chest pain versus an STEMI versus STEMI versus questionable compliance Narrative Course 46-year-old male that presents to the ED for evaluation of chest pain. Patient was properly examined and was found to have signs and symptoms concerning for cardiac chest pain. Patient does have a history of sick cholecystitis as well as coronary artery disease. Also CHF. Patient does have a CABG less than a month ago. Case was discussed in my attending who agrees with plan. Labs and imaging. Show positive troponin but no EKG changes. My attending Dr. Feliciano recommends that he speak with cardiology. I spoke with Dr. Waddell from cardiology who recommends admission for serial cardiac enzymes and evaluation. This was discussed with the patient who agrees with plan. ADILENE was paged and Dr Jarvis agreed to admission. Diagnosis Primary Impression: Chest pain in adult Additional Impressions: Elevated troponin NSTEMI (non-ST elevated myocardial infarction) Admitting Information Admitting Physician Requests: Admit Bud Rosario September 21, 2016 17:19
[2016-09-21] MEDS ORDERED: ONDANSETRON HCL 4 MG/2 ML VIAL IVP PRN (17:30)
[2016-09-21] MEDS ORDERED: MAGNESIUM HYDROXIDE SUSP 30 ML CUP PO PRN (17:30)
[2016-09-21] MEDS ORDERED: NALOXONE HCL 0.4 MG/ML AMP IV PRN (17:30)
[2016-09-21] MEDS ORDERED: SODIUM CHLORIDE 0.9% FLUSH 10 ML FLUSH IV FLUSH PRN (17:30)
[2016-09-21] MEDS ORDERED: ACETAMINOPHEN 325 MG TAB PO PRN (17:30)
[2016-09-21] MEDS: SODIUM CHLORIDE 0.9% FLUSH 10 ML FLUSH IV FLUSH SCH (20:28)
[2016-09-21] MEDS: NITROGLYCERIN 0.4 MG SL 25 TABS/BTL SL PRN (20:29)
[2016-09-22] VITALS (13 sets, daily range): BP systolic 151–161; BP diastolic 89–106; PULSE 52–90; RESP 18; TEMP 97.5–98.5; O2SAT 96–98
--- NOTE | 2016-09-22 01:40 | HHI.HP ---
HPI Service [facility] Primary Care Physician No Primary Care Physician Admission Diagnosis chest pain, NSTEMI with postive troponin Diagnoses: (1) Chest pain in adult (2) Elevated troponin Chief Complaint: chest pain Travel History International Travel<30 Days: No Contact w/Intl Traveler <30 Da: No Traveled to Known Affected Are: No History of Present Illness Written by Leida Navas, acting as scribe for Dr. Brooke on 09/22/16 at 01:40. Mr. Mohr is a 46-year-old male with a history of coronary artery disease status post coronary artery bypass surgery 3 on 08/26/[address] Arteaga who presented to the emergency room on 09/21/2016 complaining of chest pain. Troponin I is elevated at 1.00 the patient is admitted to rule out ACS - suspect troponin elevation may be secondary to recent open heart surgery. Patient is seen in his hospital room. He complains of sternal chest pain worse with deep breath and not associated with nausea, vomiting, or diaphoresis. He states that he fell down once; "weeds grabbed me down; pulled me down" but denies any episodes of syncope. He also denies ascites, abdominal pain, and black or red stools. The patient states that he had CABG one month ago and was d/c'd to rehabilitation facility. He was discharged from rehab two weeks ago and is homeless. . Review of Systems Except as stated in HPI: all other systems reviewed are Neg Past Family Social History Past Medical History CAD s/p CABG x 3 08/26/[address] Arteaga . Past Surgical History CABG Lombardi with skin grafts about 35 years ago . Reported Medications Reported Meds & Active Scripts Active Amiodarone (Amiodarone HCl) 200 Mg Tab 200 Mg PO BID Proair Hfa 8.5 GM Inh (Albuterol Sulfate) 90 Mcg/Act Aer 2 Puff INH Q4-6H PRN 108 mcg/actuation Oxycodone (Oxycodone HCl) 5 Mg Tab 5 Mg PO Q3H PRN Dok (Docusate Sodium) 100 Mg Cap 100 Mg PO BID Aspirin 81 Mg Chew 81 Mg CHEW ONCE Potassium Chloride Microencaps 20 Meq Tab 20 Meq PO DAILY Pantoprazole (Pantoprazole Sodium) 40 Mg Tab 40 Mg PO DAILY@06 Lisinopril 5 Mg Tab 2.5 Mg PO DAILY Furosemide 40 Mg Tab 40 Mg PO DAILY Plavix (Clopidogrel Bisulfate) 75 Mg Tab 75 Mg PO DAILY Klonopin (Clonazepam) 1 Mg Tab 1 Mg PO Q12HR Coreg (Carvedilol) 6.25 Mg Tab 3.125 Mg PO BID Atorvastatin (Atorvastatin Calcium) 40 Mg Tab 80 Mg PO HS Abilify (Aripiprazole) 30 Mg Tab 30 Mg PO DAILY Furosemide 40 Mg Tab 40 Mg PO DAILY Potassium Chloride Microencaps 20 Meq Tab 20 Meq PO BID Coreg (Carvedilol) 12.5 Mg Tab 12.5 Mg PO Q12HR Atorvastatin (Atorvastatin Calcium) 80 Mg Tab 80 Mg PO HS [Aspirin Chew] 81 MG Chew 81 Mg CHEW DAILY Aripiprazole 5 Mg Tab 10 Mg PO DAILY Reported Furosemide 40 Mg Tab 40 Mg PO DAILY . Allergies: Coded Allergies: Darvocet-N 100 (Verified Allergy, Severe, HEADACHE, 08/07/16) Active Ordered Medications Current Medications Aspirin (Aspirin) 325 mg ONCE ONCE PO Last administered on 09/21/16 16:35; Start 09/21/16 at 16:30; Stop 09/21/16 at 16:31; Status DC Acetaminophen/ Hydrocodone Bitart ([place] 5-325 Mg) 1 tab ONCE ONCE PO Last administered on 09/21/16 16:35; Start 09/21/16 at 16:30; Stop 09/21/16 at 16:31 ; Status DC Nitroglycerin (Nitrostat Sl) 0.4 mg ONCE ONCE SL ; Start 09/21/16 at 17:15; Stop 09/21/16 at 17:16; Status DC Sodium Chloride (NS Flush) 2 ml UNSCH PRN IV FLUSH FLUSH AFTER USING IV ACCESS ; Start 09/21/16 at 17:30 Sodium Chloride (NS Flush) 2 ml BID IV FLUSH Last administered on 09/21/16 20: 28; Start 09/21/16 at 21:00 Acetaminophen (Tylenol) 650 mg Q4H PRN PO Fever, headache, pain 1-4; Start at 17:30 Ondansetron HCl (Zofran Inj) 4 mg Q6H PRN IVP NAUSEA OR VOMITING; Start at 17:30 Magnesium Hydroxide (Milk Of Magnya Liq) 30 ml Q12H PRN PO CONSTIPATION; Start 09/21/16 at 17:30 Naloxone HCl (Narcan Inj) 0.4 mg UNSCH PRN IV SEE LABEL COMMENTS; Start at 17:30 Nitroglycerin (Nitrostat Sl) 0.4 mg Q5M PRN SL CHEST PAIN Last administered on 09/21/16t 20:29; Start 09/21/16 at 20:00 . Family History Adopted; states he doesn't know his family history . Social History Quit smoking 17 years ago Denies alcohol use currently; quit drinking Marijuana Smokes cocaine - last used a couple of months ago . Physical Exam Vital Signs Vital Signs Date Time Temp Pulse Resp B/P Pulse Ox O2 Delivery O2 Flow Rate FiO2 09/22/16 01:00 52 09/22/16 00:00 66 09/21/16 23:40 98.0 80 16 142/92 98 09/21/16 23:00 63 09/21/16 22:00 59 09/21/16 21:00 64 09/21/16 20:00 74 09/21/16 19:30 97.9 71 18 163/96 98 09/21/16 19:00 78 09/21/16 18:25 98.4 70 18 154/94 94 09/21/16 16:36 55 18 131/76 100 Room Air 09/21/16 16:03 99 Nasal Cannula 2 Physical Exam GENERAL: This is a male patient with a flat affect, in no apparent distress. SKIN: No rashes or lesions. Cool and dry. HEAD: Atraumatic. Normocephalic. EYES: No scleral icterus. No injection or drainage. ENT: Nose without bleeding, purulent drainage. NECK: Trachea midline. No JVD. CARDIOVASCULAR: Regular rate and rhythm without murmurs, gallops, or rubs. left leg s/p vein harvesting; slightly more non-pitting edema than on right. RESPIRATORY: Clear to auscultation. Breath sounds equal bilaterally. No wheezes , rales, or rhonchi. GASTROINTESTINAL: Abdomen soft, non-tender, nondistended. No guarding. MUSCULOSKELETAL: Extremities without clubbing, cyanosis, or edema. No calf tenderness. NEUROLOGICAL: Awake and alert. Motor and sensory grossly within normal limits. Normal speech. Left facial droop reported by patient as chronic following an accident many years ago. . Laboratory Laboratory Tests Test 09/21/16 09/21/16 16:00 19:48 White Blood Count 9.0 Red Blood Count 3.98 Hemoglobin 11.0 Hematocrit 33.9 Mean Corpuscular Volume 85.3 Mean Corpuscular Hemoglobin 27.7 Mean Corpuscular Hemoglobin 32.5 Concent Red Cell Distribution Width 15.7 Platelet Count 218 Mean Platelet Volume 8.0 Neutrophils (%) (Auto) 64.2 Lymphocytes (%) (Auto) 17.3 Monocytes (%) (Auto) 6.9 Eosinophils (%) (Auto) 10.5 Basophils (%) (Auto) 1.1 Neutrophils # (Auto) 5.7 Lymphocytes # (Auto) 1.5 Monocytes # (Auto) 0.6 Eosinophils # (Auto) 0.9 Basophils # (Auto) 0.1 CBC Comment DIFF FINAL Differential Comment Prothrombin Time 11.7 Prothromb Time International 1.1 Ratio Activated Partial 25.9 Thromboplast Time Sodium Level 144 Potassium Level 4.1 Chloride Level 109 Carbon Dioxide Level 29.0 Anion Gap 6 Blood Urea Nitrogen 17 Creatinine 1.16 Estimat Glomerular Filtration 67 Rate Random Glucose 90 Calcium Level 8.8 Total Creatine Kinase 146 Creatine Kinase MB 1.8 Troponin I 1.00 1.06 B-Type Natriuretic Peptide 180 Result Diagram: 09/21/16 1600 09/21/16 1600 Imaging Last Impressions Chest X-Ray 09/21/16 1559 Signed Impressions: Service Date/Time: Wednesday, September 21, 2016 16:12 - CONCLUSION: No acute disease. No significant change has occurred. Wilfred Enamorado MD . Assessment and Plan Problem List: (1) Chest pain in adult ICD Code: R07.9 Status: Acute (2) Elevated troponin ICD Code: R74.8 Status: Acute Assessment and Plan Atypical Chest Pain - serial EKGs and Troponin I to r/o ACS - elevated D-Dimer check CT pulmonary angiogram Elevated Troponin I - suspect secondary to recent CABG - continue to trend DVT prophylaxis - SCDs . This note was transcribed by simone [Leida Navas]. I, Dr. Amador Brooke personally performed the history, physical exam, and medical decision making; and confirmed the accuracy of the information in the transcribed note. Authenticated by Dr. Amador Brooke on 09/22/16 at 01:40. please note: pt is admitted as an observation admission- H+P is written as inpatient by mistake, but will be billed as an observation admission Discussed Condition With ER physician and patient . Physician Certification 2 Midnight Certification Type: Admission for Inpatient Services Order for Inpatient Services The services are ordered in accordance with Medicare regulations or non- Medicare payer requirements, as applicable. In the case of services not specified as inpatient-only, they are appropriately provided as inpatient services in accordance with the 2-midnight benchmark. Estimated LOS (days): 1 days is the estimated time the patient will need to remain in the hospital, assuming treatment plan goals are met and no additional complications. Post-Hospital Plan: Home Notes: please note: pt is admitted as an observation admission- H+P is written as inpatient by mistake, but will be billed as an observation admission Leida Navas September 22, 2016 01:40 Amador Brooke MD September 22, 2016 03:01
[2016-09-22] MEDS ORDERED: PILL SPLITTER OTHER PRN (02:00)
[2016-09-22] MEDS: DOCUSATE SODIUM 100 MG CAP PO SCH ×2 (02:00→08:56)
[2016-09-22] MEDS ORDERED: ASPIRIN 81 MG CHEW TAB CHEW SCH (02:00)
[2016-09-22 03:24] LABS: AUTOMATED NEUTROPHIL # 4.3 TH/MM3 (1.8-7.7); BASOPHIL # 0.1 TH/MM3 (0-0.2); BASOPHIL % 0.9 % (0.0-2.0); EOSINOPHIL % 12.8 % (0.0-4.0); HEMATOCRIT 31.1 % (39.0-51.0); HEMO FLAGS DIFF FINAL; LYMPH % 21.1 % (9.0-44.0); LYMPHOCYTE # 1.6 TH/MM3 (1.0-4.8); MEAN CELL VOLUME 84.3 FL (80.0-100.0); MEAN CORPUSCULAR HEMOGLOBIN 28.8 PG (27.0-34.0); MEAN CORPUSCULAR HGB CONC 34.2 % (32.0-36.0); MONO % 9.6 % (0.0-8.0); NEUT % 55.6 % (16.0-70.0); PLATELET COUNT 202 TH/MM3 (150-450); RED BLOOD COUNT 3.69 MIL/MM3 (4.50-5.90); WHITE BLOOD COUNT 7.8 TH/MM3 (4.0-11.0)
[2016-09-22 03:47] LABS: BICARBONATE 27.4 MEQ/L (21.0-32.0); POTASSIUM 3.5 MEQ/L (3.5-5.1)
[2016-09-22] MEDS: NITROGLYCERIN 0.4 MG SL 25 TABS/BTL SL PRN (03:54)
[2016-09-22] MEDS ORDERED: EPINEPHrine HCL (1:10,000) 1 MG/10 ML SYRINGE ONE (04:24)
[2016-09-22] MEDS ORDERED: ATROPINE SULFATE 1 MG/10 ML SYRINGE ONE (04:24)
[2016-09-22] MEDS ORDERED: IOHEXOL 350 MG/ML 10 ML VIAL (for RAD DIAG) IV ONE (04:36)
--- NOTE | 2016-09-22 05:49 | RADRPT ---
EXAM DATE/TIME: 09/22/2016 04:35 [facility] COMPARISON: CHEST SINGLE AP, September 21, 2016, 16:12. INDICATIONS : Chest pain and elevated D-Dimer. IV CONTRAST: 80 cc Omnipaque 350 (iohexol) IV RADIATION DOSE: 23.38 CTDIvol (mGy) MEDICAL HISTORY : Myocardial infarction. Hypertension. Congestive heart failure.Renal failure. SURGICAL HISTORY : CABG ENCOUNTER: Initial ACUITY: 1 day PAIN SCALE: 5/10 LOCATION: Bilateral chest TECHNIQUE: Volumetric scanning of the chest was performed using a pulmonary embolism protocol MIP images were re constructed. Using automated exposure control and adjustment of the mA and/or kV according to patien t size, radiation dose was kept as low as reasonably achievable to obtain optimal diagnostic quality images. FINDINGS: PULMONARY ARTERIES: No filling defects are seen in the pulmonary arteries through the segmental level. LUNGS: There is no consolidation or pneumothorax . No concerning pulmonary nodule is visualized. PLEURAE: There is a minimal left effusion. MEDIASTINUM: There is good visualization of the great vessels of the middle mediastinum. No evidence of mediastin al or hilar adenopathy/mass. Patient is status post median sternotomy. The heart size is mildly enlar ged. Coronary artery calcifications are present. MUSCULOSKELETAL: Within normal limits for patient age. MISCELLANEOUS: The visualized upper abdominal organs demonstrate no acute abnormality. CONCLUSION: 1. No evidence of pulmonary embolism. 2. Status post median sternotomy with post surgical change and mild cardiomegaly. 3. Minimal left effusion. Shay Kelley MD on September 22, 2016 at 5:45 Board Certified Radiologist. This report was verified electronically.
--- NOTE | 2016-09-22 08:15 | MB ---
cc: MERRY PAYNE MD DATE OF CONSULTATION 09/22/2016 REASON FOR CONSULTATION Chest pain and possible non-ST elevation NC. HISTORY OF PRESENT ILLNESS Mr. Mohr is a 46-year-old man who has a history of acute NC with an ischemic cardiomyopathy and an EF of 15% who is status post CABG on August 26, 2016 with an urgent FLOREZ to LAD, SVG to the RCA and SVG to the terminal circumflex. He subsequently was rehabilitated at rehab. Subsequently, the patient has been homeless and after discharge notes that he was moving his stuff when he developed a lower sternal chest discomfort that he reports is different from his previous chest discomfort. The patient is currently pain-free. ALLERGIES DARVOCET OUTPATIENT MEDICATIONS Essentially none as the patient reports that they were all crushed. FAMILY HISTORY Unknown as he was adopted. SOCIAL HISTORY The patient is a former smoker. PAST MEDICAL HISTORY Significant for: 1. Ischemic cardiomyopathy status post CABG. His last EF was 45-50% by echocardiogram. 2. Psychoses PHYSICAL EXAM VITAL SIGNS: 56, 151/89, respiratory rate of 18 and a saturation of 96. GENERAL: He is a well-appearing man who is in no apparent distress. NECK: Free from JVD. LUNGS: The lungs are bilaterally clear to auscultation. CARDIOVASCULAR: On examination, he has a normal S1 and S2. I did not appreciate any murmurs, rubs or gallops. ABDOMEN: Soft. EXTREMITIES: Free from edema. LABORATORY FINDINGS Significant for serial troponins of 1.0/1.0/1.0. His BNP is 180 and his hemoglobin is 10.6. EKG from 09/21/2016, shows a normal sinus rhythm with an old anteroseptal NC and nonspecific ST-T wave changes. IMPRESSION Chest pain - The patient did have some chest wall pain that was precipitated by his moving some heavy items. I tried to reinforce sternal precautions and the both short-term and long-term implications. This is not consistent with cardiac pain as he reports it is different. He is pain-free at this time. It is reasonable for him to be discharged home. Non-ST elevation NC - The patient does have flatly elevated troponins which may be in part related to failure versus other. He is not a revascularization candidate at this time anyway as he would be very high risk given his recent CABG. I would treat him with the standard cardiac meds that include aspirin and a Statin. Beta-blockers were felt relatively contraindicated given his bradycardia. I will be available on a p.r.n. basis. Jovon Candelaria/DJL /7:55 AM /8:08 AM
[2016-09-22] MEDS: SODIUM CHLORIDE 0.9% FLUSH 10 ML FLUSH IV FLUSH SCH (08:55)
[2016-09-22] MEDS ORDERED: CARV3.125 PO (08:59)
[2016-09-22] MEDS ORDERED: LISI10TA3 PO (08:59)
[2016-09-22] MEDS ORDERED: clonazePAM 1 MG TAB PO SCH (09:00)
[2016-09-22] MEDS ORDERED: LISINOPRIL 5 MG TAB PO SCH (09:00)
[2016-09-22] MEDS ORDERED: CARVEDILOL 12.5 MG TAB PO SCH (09:00)
[2016-09-22] MEDS ORDERED: ARIPiprazole 30 MG TAB PO SCH (09:00)
[2016-09-22] MEDS ORDERED: CLOPIDOGREL 75 MG TAB PO SCH (09:00)
[2016-09-22] MEDS ORDERED: FUROSEMIDE 40 MG TAB PO SCH (09:00)
--- NOTE | 2016-09-22 09:05 | HHI.PR ---
Subjective Remarks Follow up for chest pain, elevated troponins. Patient is doing well. No further chest pain. No N/V, fever, chills. Tolerating diet well. Objective Vitals Vital Signs Date Time Temp Pulse Resp B/P Pulse Ox O2 Delivery O2 Flow Rate FiO2 09/22/16 07:00 97.5 67 18 161/106 98 09/22/16 06:00 90 09/22/16 05:00 56 09/22/16 04:13 74 09/22/16 04:00 151/89 09/22/16 03:45 98.5 76 18 155/105 96 09/22/16 03:00 60 09/22/16 02:00 70 09/22/16 01:00 52 09/22/16 00:00 66 09/21/16 23:40 98.0 80 16 142/92 98 09/21/16 23:00 63 09/21/16 22:00 59 09/21/16 21:00 64 09/21/16 20:00 74 09/21/16 19:30 97.9 71 18 163/96 98 09/21/16 19:00 78 09/21/16 18:25 98.4 70 18 154/94 94 09/21/16 16:36 55 18 131/76 100 Room Air 09/21/16 16:03 99 Nasal Cannula 2 I/O 09/21/16 09/21/16 09/21/16 09/22/16 09/22/16 09/22/16 07:00 15:00 23:00 07:00 15:00 23:00 Intake Total 300 ml Output Total 800 ml Balance -500 ml Intake Oral 300 ml IV Total 0 ml Output Urine Total 800 ml # Bowel Movements 0 Result Diagram: 09/22/16 0251 09/22/[address] Angiography 09/22/16 0000 Signed Impressions: Service Date/Time: Thursday, September 22, 2016 04:35 - CONCLUSION: 1. No evidence of pulmonary embolism. 2. Status post median sternotomy with post surgical change and mild cardiomegaly. 3. Minimal left effusion. Shay Kelley MD Chest X-Ray 09/21/16 1559 Signed Impressions: Service Date/Time: Wednesday, September 21, 2016 16:12 - CONCLUSION: No acute disease. No significant change has occurred. Wilfred J. Siragusa, MD Objective Remarks GENERAL: AOX3, NAD. SKIN: Warm and dry. HEAD: Normocephalic. EYES: No scleral icterus. No injection or drainage. NECK: Supple, trachea midline. No JVD or lymphadenopathy. CARDIOVASCULAR: Regular rate and rhythm without murmurs, gallops, or rubs. RESPIRATORY: Breath sounds equal bilaterally. No accessory muscle use. GASTROINTESTINAL: Abdomen soft, non-tender, nondistended. MUSCULOSKELETAL: No cyanosis, or edema. BACK: Nontender without obvious deformity. No CVA tenderness. Procedures None. A/P Problem List: (1) Chest pain in adult ICD Code: R07.9 Status: Acute (2) Elevated troponin ICD Code: R74.8 Status: Acute Assessment and Plan Atypical Chest Pain - serial EKGs and Troponin I to r/o ACS - Cardiology evaluated patient and cleared for discharge. - Patient was on carvedilol 12.5 mg twice a day. His heart rate has been 50s to 70s. - We'll reduce carvedilol to 3.125 mg twice a day with holding parameters. Hold carvedilol if heart rate below 55. - elevated D-Dimer check CT pulmonary angiogram which was unremarkable for pulmonary embolism Hypertension - Increase lisinopril from 2.5 mg to 10 mg daily. Elevated Troponin I - suspect secondary to recent CABG - Troponin remained around 1.0. DVT prophylaxis - SCDs Discharge patient to home Condition on discharge: Improved Heart healthy Diet as tolerated Ad Carly activity Rx written: - Carvedilol 3.125 mg by mouth twice a day - Lisinopril 10 mg by mouth daily. Follow-up with primary care physician within one week. Jayleen Jarvis DO September 22, 2016 9:05 am
--- NOTE | 2016-09-22 15:12 | EKG ---
Date Performed: 09/21/2016 Time Performed: 16:00:43 PTAGE: 46 years EKG: SINUS BRADYCARDIA ANTEROSEPTAL MYOCARDIAL INFARCTION, age indeterminate Compared to prior t racing no significant change PREVIOUS TRACING : 08/27/2016 04.59 DOCTOR: Donell Centeno Interpretating Date/Time 09/22/2016 15:12:01
--- NOTE | 2016-09-22 15:12 | EKG ---
Date Performed: 09/21/2016 Time Performed: 21:54:42 PTAGE: 46 years EKG: Sinus arrhythmia Anteroseptal infarct - age undetermined Lateral T wave changes are nonspec ific Compared to prior tracing no significant change Abnormal ECG PREVIOUS TRACING : 09/21/2016 16.00 DOCTOR: Donell Centeno Interpretating Date/Time 09/22/2016 15:12:14
--- NOTE | 2016-09-22 15:13 | EKG ---
Date Performed: 09/22/2016 Time Performed: 04:12:22 PTAGE: 46 years EKG: Sinus rhythm Prolonged QT interval Anteroseptal infarct - age undetermined Lateral T wave changes are nonspecific Compared to the previous tracing QT interval is slightly longer Abnormal ECG PREVIOUS TRACING : 09/21/2016 21.54 DOCTOR: Donell Centeno Interpretating Date/Time 09/22/2016 15:12:36
[2016-09-22] MEDS ORDERED: ATORVASTATIN 80 MG TAB PO SCH (21:00)
== END 2016-09-22 11:10 | disposition home or self-care (01) ==
LOC: NEPE 15:10 → NEDA 17:26 → INTOOBSV 17:26 → HCIN 18:20
PROVIDERS: ADMIT Hospitalist; ATTEND Hospitalist
DX: R07.89 Other chest pain (principal); I25.2 Old myocardial infarction; I11.0 Hypertensive heart disease with heart failure; I50.9 Heart failure, unspecified; I25.10 Atherosclerotic heart disease of native coronary artery without angina pectoris; I25.5 Ischemic cardiomyopathy; R74.8 Abnormal levels of other serum enzymes; R00.1 Bradycardia, unspecified; K81.9 Cholecystitis, unspecified; N19 Unspecified kidney failure; Z59.0 Homelessness; Z79.899 Other long term (current) drug therapy; F14.90 Cocaine use, unspecified, uncomplicated; Z95.1 Presence of aortocoronary bypass graft; Z87.891 Personal history of nicotine dependence
CPT/HCPCS: 71010; 71275; 80048; 82550; 82552; 83880; 84484; 85025; 85379; 85610; 85730; 93005; 99285; G0378; Q9967; J0171; J0461